=== PATIENT | female | born 1955 | race Caucasian/White ===

== ENCOUNTER → 2016-10-20 | Outpatient (REF) | payer MEDICARE, MEDICAID ==
[~2016-10-20] MED LIST: ALEV220C2 PO; ATOR1TAB19 PO; BISO5TAB5 PO; COUM1TAB17 PO; CYAN1000VL IM; IPRASOL4 IN; IRON325T PO; JANU100T PO; LEVO10VL PO; LIDO1OIN2 TOP; LIDO1PAD TOP; LIPI10TA PO; LISI2.5T3 GT; LISI2.5T3 PO; NICO14DI20 TD; NORT10SO PO; PAXI40TA2 PO; PROA1AER IN; TOPA100T8 PO; TOPI200T4 PO; VITA-5 PO; VOLT1GEL24 TD; ZEBE5TAB PO
[2016-10-20 11:51] LABS: INR 1.84
== END ==
LOC: M SFHCCLAY 08:31
PROVIDERS: ATTEND Nurse Practitioner
DX: Z86.73 Personal history of transient ischemic attack (TIA), and cerebral infarction without residual deficits (principal)

== ENCOUNTER → 2016-11-03 | Outpatient (REF) | payer MEDICARE, MEDICAID ==
[2016-11-03 11:30] LABS: INR 2.32
== END ==
LOC: M SFHCCLAY 08:16
PROVIDERS: ATTEND Nurse Practitioner
DX: Z86.73 Personal history of transient ischemic attack (TIA), and cerebral infarction without residual deficits (principal)

== ENCOUNTER → 2016-11-17 | Outpatient (REF) | payer MEDICARE, MEDICAID ==
[2016-11-17 18:22] LABS: INR 3.08
== END ==
LOC: M SFHCCLAY 10:39
PROVIDERS: ATTEND Nurse Practitioner
DX: Z86.73 Personal history of transient ischemic attack (TIA), and cerebral infarction without residual deficits (principal)

== ENCOUNTER → 2016-11-30 | Outpatient (REF) | payer MEDICARE, MEDICAID ==
[~2016-11-30] MED LIST changes: +IRON65TA PO; +LEVO88TA24 PO; +NICODIS2 TD; +NORT10CA2 PO; +PRED10TA PO; -PROA1AER IN; +PROA1AER INH; +VITA10002 PO; +WARF-21 PO
== END ==
LOC: M SFHCCLAY 16:19
PROVIDERS: ATTEND Family Medicine
DX: R53.81 Other malaise (principal); Z79.01 Long term (current) use of anticoagulants; Z53.8 Procedure and treatment not carried out for other reasons

== ENCOUNTER 2016-12-01 15:13 | Inpatient (IN) | payer MEDICARE, MEDICAID ==
[~2016-12-01] VITALS: Ht 147.3 cm; Wt 70.0 kg
[~2016-12-01 15:13] MED LIST changes: -DOXY10CA PO; -IRON65TA PO; -LEVO88TA24 PO; -NICODIS2 TD; -NORT10CA2 PO; -PRED10TA PO; -VITA10002 PO; -WARF-21 PO
[2016-12-01] MEDS ORDERED: PRED10TA PO (16:07)
[2016-12-01] MEDS ORDERED: WARF-21 PO (16:09)
[2016-12-01] MEDS ORDERED: LEVO88TA24 PO (16:09)
[2016-12-01] MEDS ORDERED: NORT10CA2 PO (16:13)
[2016-12-01] MEDS ORDERED: VITA10002 PO (16:13)
[2016-12-01] MEDS ORDERED: IRON65TA PO (16:13)
[2016-12-01] MEDS ORDERED: NICODIS2 TD (16:18)
[2016-12-01 16:47] LABS: DIFF SLIDE NUMBER 282; MEAN CORPUSCULAR HEMOGLOBIN 33.6 pg (27.0-33.0); MEAN CORPUSCULAR HGB CONC 29.3 g/dl (32.0-36.5); MEAN CORPUSCULAR VOLUME 114.8 fl (80.0-96.0); PLATELET COUNT, AUTOMATED 327 k/mm3 (150-450); RED CELL DISTRIBUTION WIDTH 18.2 % (11.5-14.5); WHITE BLOOD COUNT 9.3 K/mm3 (4.0-10.0)
[2016-12-01 16:49] LABS: ALBUMIN 3.1 GM/DL (3.2-5.2); ALBUMIN/GLOBULIN RATIO 1.03 (1.00-1.93); ALKALINE PHOSPHATASE 67 U/L (45-117); ALT/SGPT 23 U/L (12-78); AMYLASE 48 U/L (25-115); ANION GAP 9 MEQ/L (8-16); AST/SGOT 9 U/L (15-37); BILIRUBIN,DIRECT < 0.1 MG/DL (0.0-0.2); BILIRUBIN,TOTAL 0.2 MG/DL (0.2-1.0); BLOOD UREA NITROGEN 19 MG/DL (7-18); CALCIUM LEVEL 8.2 MG/DL (8.8-10.2); CARBON DIOXIDE LEVEL 26 MEQ/L (21-32); CHLORIDE LEVEL 107 MEQ/L (98-107); CREATININE FOR GFR 1.43 MG/DL (0.55-1.02); GLOMERULAR FILTRATION RATE 39.8 (>45); GLUCOSE, FASTING 222 MG/DL (80-110); POTASSIUM SERUM 4.1 MEQ/L (3.5-5.1); SODIUM LEVEL 142 MEQ/L (136-145); TOTAL PROTEIN 6.1 GM/DL (6.4-8.2)
[2016-12-01 17:22] LABS: ANISOCYTOSIS 2+; HYPOCHROMASIA 3+; TEAR DROP CELLS 1+
[2016-12-01 17:23] LABS: POLYCHROMASIA 1+
[2016-12-01 17:35] LABS: INR 5.05
[2016-12-01] MEDS ORDERED: PHYTONADIONE 5 MG TAB PO ONE (18:45)
[2016-12-01] MEDS ORDERED: ACETAMINOPHEN TAB 650MG DOSE (2X325MG) As Ordered ONE (20:09)
[2016-12-01] MEDS ORDERED: GLUCOSE 4 GM CHEW TABLET PO PRN (22:15)
[2016-12-01] MEDS ORDERED: GLUCAGON FOR INJ 1 MG VIAL (J1610) SC PRN (22:15)
[2016-12-01] MEDS ORDERED: DEXTROSE 50% 50 ML SYRINGE IV PRN (22:15)
--- NOTE | 2016-12-02 02:41 | HPE ---
DATE OF ADMISSION: 12/01/2016 PRIMARY CARE PROVIDER: Dr. Pantera Nevarez REASON FOR ADMISSION: Anemia. HISTORY OF PRESENT ILLNESS: Patient is a 61-year-old female past medical history significant for hypothyroidism, hypertension, COPD, non-insulin dependent diabetes, hyperlipidemia, anemia and depression, an old stroke presented to the emergency room after she was instructed to do so by Dr. Nevarez. The patient stated she had the flu last week, was not feeling well, had an appointment with Dr. Nevarez yesterday who ordered labs for this morning. The patient had an INR drawn as well as CBC which showed the patient severely anemic with an elevated INR level. She was instructed to present to the emergency room. In the ER, the patient was found to have hemoglobin of 5.5 and an INR of 5. Blood was ordered and the hospitalist was called for the admission for [facility]. The patient was only complaining of some fatigue and some weakness and dizziness which she felt initially was due to her flu. Denied any chest pain at this time. Denied any shortness of breath. Denied any syncopal episode or loss of consciousness. Denied any nausea, vomiting or diarrhea. REVIEW OF SYSTEMS: 12-point review of systems was obtained all of which was negative except for those mentioned above. PAST MEDICAL HISTORY: Significant for hypertension, hyperlipidemia, hypothyroidism, non-insulin dependent diabetes, COPD, depression, anemia, and old stroke. ALLERGIES: PENICILLIN, reaction hives, SULFA, reaction hives. HOME MEDICATIONS: Include: - ProAir 2 puffs inhaled every four hours as needed shortness of breath - atorvastatin 10 mg by mouth daily - bisoprolol 5 mg by mouth daily - vitamin B12 1000 mcg by mouth daily - iron 325 mg by mouth at bedtime - levothyroxine 88 mcg by mouth daily - nicotine patch transdermally daily - nortriptyline 20 mg by mouth daily - Paxil 40 mg by mouth daily - prednisone 10 mg by mouth daily - Januvia 100 mg by mouth daily - Topamax 150 mg by mouth twice a day - Coumadin 5 mg by mouth four times a week and 7.5 mg three times a week. The patient stated she has been taking it regularly. SOCIAL HISTORY: The patient states she has been trying to quit. She used to smoke a pack to pack and half per day for 40 years. Denies alcohol use. Lives at home alone. FAMILY HISTORY: Noncontributory. PHYSICAL FINDINGS: Blood pressure 121/50, pulse 87, respiratory rate 18, temperature 98.3, pulse 99% on room air. HEENT: Pupils equal, round and reactive to light and accommodation. NECK: Supple. No jugular venous distention (JVD). LUNGS: Clear to auscultation bilaterally. CARDIAC: Regular rate and rhythm. ABDOMEN: Soft, nontender, nondistended. EXTREMITIES: No clubbing, cyanosis, or edema. LABORATORY FINDINGS: WBC 9.3, hemoglobin 5.5, hematocrit 18.8, platelet count 327. Sodium 143, potassium 4.1, chloride 107, BUN 19, creatinine 1.43, fasting glucose 222, INR 5.05. ASSESSMENT AND PLAN: 1. Anemia may be secondary to acute GI bleed, unknown etiology at this time. The patient has a supratherapeutic INR of 5. We will transfuse the patient three units of packed RBCs, fresh frozen plasma and will give the patient 10 mg by mouth vitamin K. We will recheck INR in the morning. Continue to monitor hemoglobin and hematocrits every six hours. The patient may need a GI workup to rule out any GI bleeding. She states she always has dark stool due to iron. Denies any bright red blood per stool. Denies any vomiting of coffee-ground emesis or any blood in the vomit. 2. Elevated INR. We will administer fresh frozen plasma and vitamin K. We will repeat levels in the morning. We will hold Coumadin at this time. 3. History of hypertension. Continue the patient's home medications. 4. History of non-insulin dependent diabetes. We will start the patient on insulin sliding scale with Accu-Cheks before meals and at bedtime and consistent carbohydrate diet. 5. History of stroke in the past. 6. History of hyperlipidemia. Continue patient's atorvastatin. 7. COPD. Continue the patient's Ventolin. The patient does not require any oxygen at this time; satting 99% on room air. 8. History of depression. Continue the patient's home medication. 9. DVT prophylaxis. SCDs while in bed.
[2016-12-02 05:43] LABS: BASO % 0.1 % (0.0-1.0); EOS % 0.4 % (0.0-3.0); LARGE UNSTAINED CELL # 0.1 K/mm3 (0.0-0.4); LARGE UNSTAINED CELL % 1.9 % (0.0-4.0); LYMPH % 29.9 % (24.0-44.0); MEAN CORPUSCULAR HEMOGLOBIN 33.9 pg (27.0-33.0); MONO # 0.4 K/mm3 (0.0-0.8); MONO % 6.7 % (0.0-5.0); NEUTROPHILS # 3.8 K/mm3 (1.8-7.7); NEUTROPHILS % 60.9 % (36.0-66.0); PLATELET COUNT, AUTOMATED 266 k/mm3 (150-450); RED CELL DISTRIBUTION WIDTH 20.3 % (11.5-14.5); WHITE BLOOD COUNT 6.2 K/mm3 (4.0-10.0)
[2016-12-02 05:45] LABS: INR 2.94
[2016-12-02 05:50] LABS: ALBUMIN 2.7 GM/DL (3.2-5.2); ALBUMIN/GLOBULIN RATIO 0.84 (1.00-1.93); BILIRUBIN,TOTAL 0.4 MG/DL (0.2-1.0); CALCIUM LEVEL 7.6 MG/DL (8.8-10.2); CREATININE FOR GFR 1.19 MG/DL (0.55-1.02); GLOMERULAR FILTRATION RATE 49.3 (>45); MAGNESIUM LEVEL 2.2 MG/DL (1.8-2.4); MEAN CORPUSCULAR VOLUME 102.8 fl (80.0-96.0); POTASSIUM SERUM 3.8 MEQ/L (3.5-5.1); TOTAL PROTEIN 5.9 GM/DL (6.4-8.2)
[2016-12-02] MEDS: LEVOTHYROXINE 0.088 MG TAB (88 MCG) PO SCH (06:00)
[2016-12-02] MEDS: HumaLOG INSULIN (NovoLOG) PER UNIT SC SCH ×4 (07:30→21:00)
[2016-12-02] MEDS: CYANOCOBALAMIN 500 MCG TAB PO SCH (09:00)
[2016-12-02] MEDS: PANTOPRAZOLE 40MG INJ (PROTONIX) (C9113) IV SCH ×2 (09:00→20:31)
[2016-12-02] MEDS: TOPIRAMATE (TopAMAX) 100 MG TAB PO SCH ×2 (09:00→20:31)
[2016-12-02] MEDS: BISOPROLOL FUMARATE 5 MG TAB PO SCH (09:00)
[2016-12-02] MEDS: ATORVASTATIN 10 MG TAB PO SCH (09:00)
[2016-12-02] MEDS: PARoxetine 20 MG TAB PO SCH (09:00)
[2016-12-02] MEDS: predniSONE 10 MG TAB PO SCH (09:00)
--- NOTE | 2016-12-02 09:56 | ECGEPIP ---
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
[2016-12-02] MEDS ORDERED: HumaLOG INSULIN (NovoLOG) PER UNIT As Ordered ONE ×2 (13:08→18:07)
--- NOTE | 2016-12-02 16:32 | IPNPDOC ---
Subjective Date Seen The patient was seen on 12/02/16. Subjective Chief Complaint/HPI The patient is a 61-year-old female admitted with a reason for visit of Anemia. Events since last encounter Pt feels fine. States she was having dizziness with standing, but his has resolved with receiving blood products. Does states she has had sticky, black stools, which are tarry in nature. Notes a few nose bleeds, but indicates that these were not severe and has not had any nausea or vomiting of coffee-ground substance. Has not had a prior colonoscopy. Currently on coumadin for hx of stroke. Also has hx of BED CONTROL SPECIALIST shunt for NPH. General: Denies: Chills, Fatigue, Malaise Eyes: Denies: Vision change ENT: Denies: Head Aches Skin: Denies: Rash Pulmonary: Denies: Cough, Dyspnea Cardiovascular: Denies: Chest Pain, Orthopnea, Palpitations Gastrointestinal: Reports: Melena, Denies: Abdominal Pain, Constipation, Diarrhea, Hematochezia, Nausea, Other Symptoms (denies bleeding hemorrhoids or BRBPR), Vomiting Other systems 10 pt ROS is otherwise negative Objective Physical Examination General Exam: Positive: Alert, Cooperative, No Acute Distress Eye Exam: Positive: PERRLA, Negative: Conjunctiva & lids normal (pale conjunctiva) ENT Exam: Positive: Mucous membr. moist/pink Neck Exam: Positive: Supple, Negative: JVD, thyromegaly Chest Exam: Positive: Clear to auscultation, Rhonchi, Wheezing, Negative: Normal air movement, Rales Heart Exam: Positive: Normal S1, Normal S2, Rate Normal, Regular Rhythm, Negative: Murmurs, Rubs Abdomen Exam: Positive: Normal bowel sounds, Soft, Negative: Hepatospenomegaly, Tenderness Extremity Exam: Negative: Clubbing, Cyanosis Neuro Exam: Positive: Normal Speech Psych Exam: Positive: Mental status NL, Mood NL Assessment /Plan Problems (1) Anemia Status: Acute Response to Treatment: Stable Problem Text: Hgb 8.3 after 2 units PRBC in ER and 1 unit FFP. Hgb 5.5 on admission. No current sx. Hx of chronic anemia, on iron supplement. - GI consulted, Vanessa, planning colonoscopy Fri - cont coumadin reversal (2) GIB (gastrointestinal bleeding) Status: Acute Problem Text: As above. No other sx of severe bleeding to cause such a dramatic drop in Hgb (3) COPD (chronic obstructive pulmonary disease) Status: Chronic Response to Treatment: Stable Problem Text: Cont home meds (4) Hx of completed stroke Status: Acute Problem Text: On coumadin. INR 5.0 on admission, now 2.9. - 5 mg vit K again - will need INR < 1.5 prior to Fri AM (5) Chronic anticoagulation Status: Acute Problem Text: As above (6) HLD (hyperlipidemia) Status: Acute Problem Text: Cont lipitor 10 mg HS (7) Normal pressure hydrocephalus Status: Acute Problem Text: Pt has BED CONTROL SPECIALIST shunt. - cont topomax 150 BID (8) T2DM (type 2 diabetes mellitus) Status: Acute Problem Text: On januvia. Pt was started on SSI while inpt (9) Depression Status: Acute Problem Text: Paxil 40 mg daily. (10) Acquired hypothyroidism Status: Acute Problem Text: levothyroxine 88 mcg Plan/VTE VTE Prophylaxis Ordered?: Yes VTE Exclusion Pharmacological: Hemorrhage Disposition Pending stable H&H and workup of GIB VS, I&O, 24H, Fishbone Laboratory Data 24H LABS Laboratory Tests 2 12/02/16 05:18: Blood Urea Nitrogen 15, Creatinine 1.19H, Sodium Level 146H, Potassium Level 3.8 , Chloride Level 113H, Carbon Dioxide Level 25, Calcium Level 7.6L, Aspartate Amino Transf (AST/SGOT) 11L, Alanine Aminotransferase (ALT/SGPT) 18, Alkaline Phosphatase 57, Total Bilirubin 0.4#, Total Protein 5.9L, Albumin 2.7L, Albumin/ Globulin Ratio 0.84L, Anion Gap 8, White Blood Count 6.2, Red Blood Count 2.44L , Hemoglobin 8.3L, Hematocrit 25.1L, Mean Corpuscular Volume 102.8#H, Mean Corpuscular Hemoglobin 33.9H, Mean Corpuscular Hemoglobin Concent 33.0, Red Cell Distribution Width 20.3H, Platelet Count 266, Neutrophils (%) (Auto) 60.9, Lymphocytes (%) (Auto) 29.9, Monocytes (%) (Auto) 6.7H, Eosinophils (%) (Auto) 0.4, Basophils (%) (Auto) 0.1, Neutrophils # (Auto) 3.8, Lymphocytes # (Auto) 2.0, Monocytes # (Auto) 0.4, Eosinophils # (Auto) 0.0, Basophils # (Auto) 0.0, Glomerular Filtration Rate 49.3, Large Unclassified Cells # 0.1, Large Unclassified Cells % 1.9, Magnesium Level 2.2, Prothromb Time International Ratio 2.94, Prothrombin Time 30.7H 12/02/16 07:51: Bedside Glucose (Misc Panel) 89 12/02/16 12:21: Bedside Glucose (Misc Panel) 143H CBC/BMP Laboratory Tests 12/01/16 23:17 12/02/16 05:18 Calcium Level 7.6 L, Aspartate Amino Transf (AST/SGOT) 11 L, Alanine Aminotransferase (ALT/SGPT) 18, Alkaline Phosphatase 57, Total Bilirubin 0.4 #, Total Protein 5.9 L, Albumin 2.7 L, Red Blood Count 2.44 L, Mean Corpuscular Volume 102.8 #H, Mean Corpuscular Hemoglobin 33.9 H, Mean Corpuscular Hemoglobin Concent 33.0, Red Cell Distribution Width 20.3 H, Neutrophils (%) ( Auto) 60.9, Lymphocytes (%) (Auto) 29.9, Monocytes (%) (Auto) 6.7 H, Eosinophils (%) (Auto) 0.4, Basophils (%) (Auto) 0.1, Neutrophils # (Auto) 3.8, Lymphocytes # (Auto) 2.0, Monocytes # (Auto) 0.4, Eosinophils # (Auto) 0.0, Basophils # (Auto) 0.0 12/02/16 10:24 12/02/16 15:58 PARVEZ CARLOS MD Dec 02, 2016 16:32
[2016-12-02] MEDS ORDERED: ACETAMINOPHEN TAB 650MG DOSE (2X325MG) As Ordered ONE (16:45)
--- NOTE | 2016-12-02 18:19 | EDDOCDS ---
Physician Documentation [facility] Name: Bernarda Murdock Age: 61 yrs Sex: Female : 1955 Arrival Date: 12/01/2016 Time: 15:13 Bed Admit Hold Private MD: Pantera Nevarez Disposition: 12/01/16 16:57 Hospitalization ordered by Astrid Jaimes for Inpatient Admission. Preliminary diagnosis is Gastritis, unspecified, with bleeding. - Bed requested for [address] [place] (Formerly 3 [facility]). - Status is Inpatient Admission. [facility] - Condition is Stable. - Problem is an ongoing problem. - Symptoms are unchanged. Historical: - Allergies: PENICILLINS (Hives); SULFA (SULFONAMIDES) (Hives); - Home Meds: 1. albuterol sulfate 90 mcg/actuation Inhl HFAA 2 puffs every 4 hours as needed (Last dose: 12/01/2016 12:00) 2. atorvastatin 10 mg oral tab 1 tab once daily (Last dose: 12/01/2016 08:00) 3. bisoprolol fumarate 5 mg oral tab 1 tab once daily (Last dose: 12/01/2016 08:00) 4. Vitamin B-12 1,000 mcg Oral tab 1,000 mcg daily (Last dose: 12/01/2016 08:00) 5. Iron CR Oral 325 mg daily (Last dose: 11/30/2016 21:00) 6. Levoxyl 75 mcg Oral tab 1 tab once daily (Last dose: 12/01/2016 08:00) 7. nortriptyline 10 mg Oral cap 2 caps nightly (Last dose: 11/30/2016 21:00) 8. paroxetine HCl 40 mg Oral tab 1 tab once daily (Last dose: 12/01/2016 08:00) 9. prednisone 10 mg Oral tab 1 tab once daily tapering dose, has one remaining dose (Last dose: 12/01/2016 08:00) 10. Januvia 100 mg oral tab 1 tab once daily (Last dose: 12/01/2016 08:00) 11. Topamax 150 mg Oral twice a day (Last dose: 12/01/2016 08:00) 12. Nicoderm CQ 14 mg/24 hr transdermal pt24 1 patch once daily (Last dose: 12/01/2016 16:39) 13. Coumadin 5 mg Oral tab 1 tab 4 times weekly on Sun/Tues/Thurs/Sat (Last dose: 11/29/2016) 14. Coumadin 7.5 mg Oral tab 1 tab 3 times weekly on // (Last dose: 11/30/2016 17:00) - PMHx: Hypercholesterolemia; Hypothyroidism; Diabetes - NIDDM: controlled; COPD; Hypertension; Anemia; Depression; CVA; - PSHx: brain surgery; ; Carpal Tunnel Repair- Right; Bunion Surgery; Thyroidectomy; Remote Contolled Brain Shunt; - Social history: Smoking status: Patient states former smoker of tobacco. No barriers to communication noted, The patient speaks fluent Polish. - Family history: Not pertinent. - : The pt / caregiver states he / she is not on anticoagulants. Home medication list is obtained from family members. - Exposure Risk Screening:: None identified. Vital Signs: 12/01 15:16 BP 121 / 50; Pulse 87; Resp 18 S; Temp 98.3(O); Pulse Ox 99% on R/A; Weight 69.85 kg / gr2 153.99 lbs (R); Height 4 ft. 10 in. (147.32 cm) (R); Pain 5/10; 15:45 BP 109 / 57 (auto/); jc4 15:49 Pulse 76 MON; Pulse Ox 97% ; jc4 16:14 Pulse 76 MON; Pulse Ox 98% ; jc4 16:15 BP 122 / 58 (auto/); jc4 16:45 BP 107 / 53 (auto/); jc4 16:46 Pulse 74 MON; Pulse Ox 97% ; jc4 17:15 BP 115 / 58 (auto/); jc4 17:15 Pulse 74 MON; Pulse Ox 96% ; jc4 17:45 BP 118 / 56 (auto/); jc4 17:48 Pulse 80 MON; Pulse Ox 95% ; jc4 18:12 Temp 99.8(TE); jc4 20:20 BP 113 / 56; Pulse 72; Resp 20; Temp 96.7(TE); Pulse Ox 97% on R/A; Pain 0/10; nn1 21:20 BP 113 / 59; Pulse 67; Resp 20; Temp 98.3(TE); Pulse Ox 98% on R/A; Pain 0/10; nn1 21:42 BP 117 / 55; Pulse 74; Resp 18; Temp 97.4(TE); Pulse Ox 97% on R/A; Pain 0/10; nn1 12/02 01:46 BP 111 / 54 (auto/); kas2 01:46 Pulse 62 MON; Pulse Ox 96% ; kas2 02:01 BP 106 / 52 (auto/); kas2 02:01 Pulse 62 MON; Pulse Ox 96% ; kas2 02:16 BP 102 / 50 (auto/); kas2 02:16 Pulse 62 MON; Pulse Ox 95% ; kas2 02:19 Resp 18; Temp 97.6(O); Pulse Ox 100% on R/A; kas2 02:31 BP 123 / 58 (auto/); kas2 02:31 Pulse 64 MON; Pulse Ox 92% ; kas2 02:46 BP 109 / 55 (auto/); kas2 02:46 Pulse 60 MON; Pulse Ox 94% ; kas2 03:01 BP 114 / 53 (auto/); kas2 03:01 Pulse 60 MON; Pulse Ox 95% ; kas2 03:16 BP 103 / 52 (auto/); kas2 03:16 Pulse 58 MON; Pulse Ox 94% ; kas2 03:31 BP 114 / 54 (auto/); kas2 03:31 Pulse 58 MON; Pulse Ox 95% ; kas2 03:46 BP 100 / 48 (auto/); kas2 03:46 Pulse 56 MON; Pulse Ox 95% ; kas2 03:46 Resp 18; Temp 98.2(O); Pain 0/10; kas2 04:01 BP 106 / 53 (auto/); kas2 04:01 Pulse 58 MON; Pulse Ox 96% ; kas2 04:16 BP 105 / 51 (auto/); kas2 04:16 Pulse 56 MON; Pulse Ox 95% ; kas2 04:31 BP 96 / 47 (auto/); kas2 04:31 Pulse 56 MON; Pulse Ox 95% ; kas2 04:46 BP 101 / 48 (auto/); kas2 04:46 Pulse 56 MON; Pulse Ox 96% ; kas2 05:01 BP 91 / 45 (auto/); kas2 05:01 Pulse 56 MON; Pulse Ox 96% ; kas2 05:16 BP 115 / 55 (auto/); kas2 05:16 Pulse 58 MON; Pulse Ox 94% ; kas2 05:33 Resp 18; Temp 97.9(O); Pain 0/10; kas2 06:40 BP 118 / 73 (auto/); kas2 06:40 Pulse 58 MON; Pulse Ox 95% ; kas2 06:42 Resp 18; Temp 98.6(O); Pulse Ox 96% ; Pain 0/10; kas2 07:09 Pulse 58 MON; Pulse Ox 96% ; hs1 07:10 BP 143 / 65 (auto/); hs1 07:24 Pulse 72 MON; Pulse Ox 95% ; hs1 07:25 BP 107 / 53 (auto/); hs1 07:39 Pulse 56 MON; Pulse Ox 95% ; hs1 07:40 BP 104 / 51 (auto/); hs1 07:54 Pulse 60 MON; Pulse Ox 97% ; hs1 07:55 BP 111 / 56 (auto/); hs1 08:09 Pulse 64 MON; Pulse Ox 98% ; hs1 08:10 BP 126 / 75 (auto/); hs1 08:24 Pulse 64 MON; Pulse Ox 97% ; hs1 08:25 BP 118 / 56 (auto/); hs1 08:39 Pulse 66 MON; Pulse Ox 93% ; hs1 08:40 BP 110 / 56 (auto/); hs1 09:09 Pulse 68 MON; Pulse Ox 98% ; hs1 09:10 BP 122 / 58 (auto/); hs1 09:24 Pulse 64 MON; Pulse Ox 97% ; hs1 09:25 BP 103 / 56 (auto/); hs1 09:39 Pulse 66 MON; Pulse Ox 97% ; hs1 09:40 BP 101 / 55 (auto/); hs1 09:54 Pulse 64 MON; Pulse Ox 96% ; hs1 09:55 BP 107 / 54 (auto/); hs1 10:09 Pulse 66 MON; Pulse Ox 97% ; hs1 10:10 BP 114 / 55 (auto/); hs1 10:25 BP 116 / 59 (auto/); hs1 10:25 Pulse 66 MON; Pulse Ox 98% ; hs1 10:39 Pulse 62 MON; Pulse Ox 97% ; hs1 10:40 BP 119 / 59 (auto/); hs1 10:54 Pulse 64 MON; Pulse Ox 95% ; hs1 10:55 BP 112 / 58 (auto/); hs1 11:09 Pulse 64 MON; Pulse Ox 96% ; hs1 11:10 BP 127 / 60 (auto/); hs1 11:24 Pulse 62 MON; Pulse Ox 96% ; hs1 11:25 BP 115 / 56 (auto/); hs1 11:39 Pulse 66 MON; Pulse Ox 97% ; hs1 11:40 BP 115 / 58 (auto/); hs1 11:54 Pulse 64 MON; Pulse Ox 96% ; hs1 11:55 BP 120 / 82 (auto/); hs1 12:24 Pulse 66 MON; Pulse Ox 98% ; hs1 12:25 BP 124 / 61 (auto/); hs1 12:39 Pulse 64 MON; Pulse Ox 98% ; hs1 12:40 BP 118 / 55 (auto/); hs1 12:54 Pulse 62 MON; Pulse Ox 93% ; hs1 12:55 BP 102 / 50 (auto/); hs1 13:09 Pulse 66 MON; Pulse Ox 93% ; hs1 13:10 BP 110 / 55 (auto/); hs1 13:25 BP 122 / 58 (auto/); hs1 13:25 Pulse 64 MON; Pulse Ox 97% ; hs1 13:39 Pulse 64 MON; Pulse Ox 96% ; hs1 13:40 BP 122 / 61 (auto/); hs1 13:54 Pulse 62 MON; Pulse Ox 94% ; hs1 13:55 BP 119 / 60 (auto/); hs1 14:24 Pulse 62 MON; Pulse Ox 95% ; hs1 14:25 BP 129 / 58 (auto/); hs1 14:39 Pulse 64 MON; Pulse Ox 98% ; hs1 14:40 BP 120 / 67 (auto/); hs1 14:54 Pulse 64 MON; Pulse Ox 97% ; hs1 14:55 BP 118 / 65 (auto/); hs1 16:55 BP 110 / 65; Pulse 85; Resp 20; Temp 98.8(O); Pulse Ox 98% on R/A; 4 12/01 15:16 Body Mass Index 32.19 (69.85 kg, 147.32 cm) gr2 MDM: 12/01 15:47 Undress patient appropriately for examination ordered. sd1 15:47 IV Saline Lock ordered. sd1 15:48 Amylase Ordered. EDMS 15:48 Basic Metabolic Profile Ordered. EDMS 15:48 CBC with Diff Ordered. EDMS 15:48 Lipase Ordered. EDMS 15:48 Liver Profile Ordered. EDMS 15:48 Prothrombin Time Profile\E\INR Ordered. EDMS 15:49 BED REQUEST+ADM ordered. EDMS 15:49 ECG WITH READING ER PHYS+CARDIAG ordered. EDMS 15:59 Type and Cross, Packed Cells Ordered. EDMS 16:22 TYPE & SCREEN Ordered. EDMS 16:52 DIFFERENTIAL NO CHARGE Ordered. EDMS 16:53 Basic Metabolic Profile Reviewed. ke 16:53 CBC with Diff Reviewed. ke 16:53 Liver Profile Reviewed. ke 16:53 Amylase Reviewed. ke 16:53 Lipase Reviewed. ke 16:58 Transfuse PRBC's 2 units, ensure PRBCs ordered in lab ordered. ke 18:40 Admission / Observation Status ordered. EDMS 18:40 CONSISTENT CARBOHYDRATES ordered. EDMS 18:43 PACKED CELLS Ordered. EDMS 18:43 FRESH FROZEN PLASMA PHERESIS Ordered. EDMS 19:46 Acetaminophen Tablet 650 mg PO once ordered. nn1 19:47 FROZEN PLASMA 24 Ordered. EDMS 19:51 Written Provider Order was scanned into [employer] and attached to record. kb5 20:46 Transfuse FFP 1 unit, ensure FFP ordered in lab ordered. nn1 22:13 HEMOGLOBIN & HEMATOCRIT Ordered. EDMS 22:13 PROTHROMBIN TIME PROFILE\E\INR Ordered. EDMS 22:13 CBC WITH DIFFERENTIAL Ordered. EDMS 22:14 COMPLETE COMPHRENSIVE METABOLI Ordered. EDMS 22:14 MAGNESIUM LEVEL Ordered. EDMS 22:14 HEMOGLOBIN & HEMATOCRIT Ordered. EDMS 22:14 HEMOGLOBIN & HEMATOCRIT Ordered. EDMS 22:14 HEMOGLOBIN & HEMATOCRIT Ordered. EDMS 22:14 OCCULT BLOOD STOOL SPECIMEN Ordered. EDMS 23:54 Financial registration complete. hs2 0222 01:03 [facility] [place] Payment Agreement was scanned into [employer] and attached to record. hs2 08:01 Fingerstick Blood Sugar Ordered. EDMS 12:30 Fingerstick Blood Sugar Ordered. EDMS 14:26 Admission / Observation Status ordered. EDMS 16:04 Inpatient Paper MAR was scanned into [employer] and attached to record. lbd 17:04 Acetaminophen Tablet 650 mg PO once ordered. jc4 17:16 PACKED CELLS Ordered. EDMS 18:10 Fingerstick Blood Sugar Ordered. EDMS 18:12 HumaLog - Insulin Lispro (0.1 units/kg) 4 units Sub-Q once; administer within 15 jc4 minutes before a meal or no later than immediately following the meal ordered. Point of Care Testing: Blood Glucose: 18:01 Blood Glucose: 179 mg/dL; jc4 Ranges: Administered Medications: 12/01 20:26 Drug: Acetaminophen 650 mg [acetaminophen 325 mg tablet (2 tabs)] Route: PO; nn1 12/02 17:04 Drug: Acetaminophen 650 mg [acetaminophen 325 mg tablet (2 tabs)] Route: PO; jc4 18:12 Drug: HumaLog - Insulin Lispro (0.1 units/kg) 4 units [insulin lispro 100 unit/mL jc4 subcutaneous solution (0.04 mL)] {Co-Signature: hs1 (Patsy Fernández RN).} Route: Sub-Q; Site: left upper arm; Signatures: Dispatcher [employer] Rina Blake MD MD sd1 Pilar Alves, RN RN Mariah Soliman, Combination Building Inspector Unit lbd Lillie Pearce RN RN kpAman Patricia, ANIMAL TREATMENT INVESTIGATOR ANIMAL TREATMENT INVESTIGATOR [place] Calix, GARCIA SOFT SUGAR SUPERVISOR kb5 Francisca Best RN RN jc4 Sisi Hernández RN RN sls2 Golden Wolfe RN RN nn1 Cassidy Otero, Reg Reg hs2 Patsy Fernández RN hs1 The chart was reviewed and I authenticate all verbal orders and agree with the evaluation and treatment provided.Corrections: (The following items were deleted from the chart) 12/01 16:35 15:49 TYPE & SCREEN+BBK ordered. EDMS EDMS 18:51 18:43 TYPE & SCREEN ordered. EDMS EDMS 22:10 15:49 NOTHING BY MOUTH+DIET ordered. EDMS EDMS 22:45 22:14 HEMOGLOBIN & HEMATOCRIT ordered. EDMS EDMS 12/02 17:16 17:11 PACKED CELLS ordered. EDMS EDMS 17:16 17:11 TYPE & SCREEN ordered. EDMS EDMS Attachments: 12/01 19:51 Written Provider Order kb5 12/02 01:03 [facility] Payment Agreement hs2 MTDD
--- NOTE | 2016-12-02 18:20 | EDDOCDS ---
Nurse's Notes [facility] Name: David Andrews Age: 61 yrs Sex: Female : 1955 Arrival Date: 12/01/2016 Time: 15:13 Bed Admit Hold Private MD: Pantera Nevarez Diagnosis: Gastritis, unspecified, with bleeding Presentation: 12/01 15:22 Presenting complaint: Patient states: she was called by Dr. Nevarez and told to come kcs here for blood transfusions. Adult Sepsis Screening: The patient does not have new or worsening altered mentation. Patient's respiratory rate is less than 22. Systolic blood pressure is greater than 100. Patient has a qSOFA score of 0- Negative Sepsis Screen. Suicide/Homicide risk assessment- the patient denies having any suicidal and/or homicidal ideations and does not present with any other emotional, behavioral or mental health complaints. Status: Patient is not a service coordinator or dependent. Transition of care: patient was not received from another setting of care. 15:22 Acuity: MARCELA Level 3 kcs 15:22 Method Of Arrival: Walkin/Carried/Asstd kcs Triage Assessment: 15:24 General: Appears comfortable, well developed, well nourished, well groomed, Behavior is kcs cooperative, pleasant. Pain: Location: headache Pain currently is 8 out of 10 on a pain scale. Pt Declines HIV testing. Neurological: Level of Consciousness is awake, alert. Respiratory: Airway is patent Respiratory effort is even, unlabored, Respiratory pattern is regular, symmetrical. Derm: Skin Skin is dry, Skin is pale. Historical: - Allergies: PENICILLINS (Hives); SULFA (SULFONAMIDES) (Hives); - Home Meds: 1. albuterol sulfate 90 mcg/actuation Inhl HFAA 2 puffs every 4 hours as needed (Last dose: 12/01/2016 12:00) 2. atorvastatin 10 mg oral tab 1 tab once daily (Last dose: 12/01/2016 08:00) 3. bisoprolol fumarate 5 mg oral tab 1 tab once daily (Last dose: 12/01/2016 08:00) 4. Vitamin B-12 1,000 mcg Oral tab 1,000 mcg daily (Last dose: 12/01/2016 08:00) 5. Iron CR Oral 325 mg daily (Last dose: 11/30/2016 21:00) 6. Levoxyl 75 mcg Oral tab 1 tab once daily (Last dose: 12/01/2016 08:00) 7. nortriptyline 10 mg Oral cap 2 caps nightly (Last dose: 11/30/2016 21:00) 8. paroxetine HCl 40 mg Oral tab 1 tab once daily (Last dose: 12/01/2016 08:00) 9. prednisone 10 mg Oral tab 1 tab once daily tapering dose, has one remaining dose (Last dose: 12/01/2016 08:00) 10. Januvia 100 mg oral tab 1 tab once daily (Last dose: 12/01/2016 08:00) 11. Topamax 150 mg Oral twice a day (Last dose: 12/01/2016 08:00) 12. Nicoderm CQ 14 mg/24 hr transdermal pt24 1 patch once daily (Last dose: 12/01/2016 16:39) 13. Coumadin 5 mg Oral tab 1 tab 4 times weekly on Sun/Tues/Thurs/Sat (Last dose: 11/29/2016) 14. Coumadin 7.5 mg Oral tab 1 tab 3 times weekly on M/W/F (Last dose: 11/30/2016 17:00) - PMHx: Hypercholesterolemia; Hypothyroidism; Diabetes - NIDDM: controlled; COPD; Hypertension; Anemia; Depression; CVA; - PSHx: brain surgery; ; Carpal Tunnel Repair- Right; Bunion Surgery; Thyroidectomy; Remote Contolled Brain Shunt; - Social history: Smoking status: Patient states former smoker of tobacco. No barriers to communication noted, The patient speaks fluent Irish. - Family history: Not pertinent. - : The pt / caregiver states he / she is not on anticoagulants. Home medication list is obtained from family members. - Exposure Risk Screening:: None identified. Screenin:49 Screening information is obtained from the patient. Fall risk: No risks identified. jc4 Assistance ADL's: requires no assistance with activities of daily living. Abuse/DV Screen: The patient / caregiver reports he/she is: not in a situation that causes fear, pain or injury. Nutritional screening: On no prescribed diet. Advance Directives: Currently, there is no health care proxy. There is no active DNR order. There is no living will. There is no Power of Refrigeration Mechanic. home support is adequate. Assessment: 16:54 General: Appears in no apparent distress, Behavior is cooperative, pleasant. Pain: jc4 Denies pain. Neurological: Level of Consciousness is awake, alert, Oriented to person, place, time, Reports dizziness, weakness. Cardiovascular: Heart tones S1 S2 present Rhythm is sinus rhythm No ectopy. Respiratory: Airway is patent Respiratory effort is even, unlabored, Respiratory pattern is regular, symmetrical, Breath sounds are diminished bilaterally. scattered rhonchi noted. GI: Abdomen is distended, Bowel sounds present X 4 quads. Abd is non tender X 4 quads Reports black tarry stools. Derm: Skin is dry, Skin is pale, Skin temperature is warm. 17:38 General: Pt resting on stretcher with eyes closed. Respirations easy and full. No jc4 distress at this time. Family member at bedside. Call miles in reach. 18:12 General: Resting on stretcher. No distress noted at this time. jc4 19:20 General: patient reporting headache at this time. consulting hospitalist for further nn1 orders. first unit of blood infusing. . Pain: Denies pain. Neurological: No deficits noted. 20:27 General: first unit of blood completed at 1942. Patient showed no signs or symptoms of nn1 adverse reaction. Patient medicated for headache. Unit of FFP infusing at this time. patient reports weakness has improved. . Respiratory: Airway is patent Respiratory effort is even, unlabored, Respiratory pattern is regular, symmetrical. Derm: Skin is pale. 20:46 General: Patient tolerating FFP well, will continue to monitor. . nn1 21:28 General: contact #: [phone]. General: Patient finished infusing of FFP, no signs nn1 or symptoms of reaction noted. Patient ambulated to restroom with family, gait is steady. . 21:45 General: patient receiving second unit of RBCs. will continue to monitor. No adverse nn1 reactions at this time. Pain: Denies pain. Neurological: Level of Consciousness is awake, alert, Oriented to person, place, time. Respiratory: Airway is patent Respiratory effort is even, unlabored, Respiratory pattern is regular, symmetrical. Derm: Skin is pink, warm & dry. 23:14 General: Second unit of RBC finished, patient has been asleep throughout infusion. nn1 Patient exhibits no signs/symptoms of adverse reaction. . Respiratory: Airway is patent Respiratory effort is even, unlabored, Respiratory pattern is regular, symmetrical. Derm: Skin is pink, warm & dry. 12/02 00:26 General: Appears in no apparent distress, to be sleeping. Behavior is quiet. nn1 Respiratory: Airway is patent Respiratory effort is even, unlabored, Respiratory pattern is regular, symmetrical. Derm: Skin is pink, warm & dry. 01:02 General: Verbal report given by Shefali Martinez RN. Assumed care of patient at this time.. kas2 01:44 General: Appears in no apparent distress, comfortable, to be sleeping. Behavior is kas2 appropriate for age, cooperative. Pain: Denies pain. Neurological: Level of Consciousness is awake, alert, Oriented to person, place, time. Cardiovascular: Capillary refill < 3 seconds Heart tones S1 S2 present Rhythm is sinus rhythm No ectopy. Respiratory: Airway is patent Respiratory effort is even, unlabored, Respiratory pattern is regular, symmetrical, Breath sounds are diminished bilaterally. Derm: Skin is intact, Skin is dry, Skin is pink, warm & dry. Skin temperature is warm. 02:44 General: Appears in no apparent distress, to be sleeping. Behavior is appropriate for kas2 age, cooperative. Pain: Denies pain. Neurological: Level of Consciousness is awake, alert, Oriented to person, place, time. Cardiovascular: Rhythm is sinus rhythm No ectopy. Respiratory: Airway is patent Respiratory effort is even, unlabored, Respiratory pattern is regular, symmetrical. Derm: Skin is intact, Skin is dry, Skin is pink, warm & dry. Skin temperature is warm. 03:44 General: Patient sleeping at this time. Appears comfortable. No apparent distress kas2 noted. Respiratory effort even and unlabored. Call miles within reach. Will continue to monitor.. 05:07 General: Appears in no apparent distress, comfortable, Behavior is appropriate for age, kas2 cooperative. Pain: Denies pain. Neurological: Level of Consciousness is awake, alert, Oriented to person, place, time. Cardiovascular: Rhythm is sinus rhythm No ectopy. Respiratory: Airway is patent Respiratory effort is even, unlabored, Respiratory pattern is regular, symmetrical. Derm: Skin is intact, Skin is dry, Skin is pink, warm & dry. Skin temperature is warm. 05:32 General: Patient up to bathroom to void with assist of RN. Resettled in bed. Meds given kas2 as per floor MAR.. 06:36 General: Appears in no apparent distress, comfortable, Behavior is appropriate for age, kas2 cooperative. Pain: Denies pain. Neurological: Level of Consciousness is awake, alert, Oriented to person, place, time. Cardiovascular: Rhythm is sinus rhythm No ectopy. Respiratory: Airway is patent Respiratory effort is even, unlabored, Respiratory pattern is regular, symmetrical. Derm: Skin is intact, Skin is dry, Skin is pink, warm & dry. Skin temperature is warm. 07:38 General: Appears in no apparent distress, comfortable, Behavior is appropriate for age, hs1 cooperative, Patient reports being tired. Pt sat up for breakfast and glucose taken prior to eating. Patient denies headache or pain. . Cardiovascular: Rhythm is sinus rhythm No ectopy. Derm: Skin is pink, warm & dry. normal. 08:19 General: medications administered per orders. Patient tolerated breakfast well. Patient hs1 denies pain and is resting comfortably in stretcher. No other needs voiced at this time. . 09:12 General: Appears in no apparent distress, comfortable, Behavior is appropriate for age, hs1 cooperative. Respiratory: Airway is patent Respiratory effort is even, unlabored, Respiratory pattern is regular, symmetrical. Respiratory: No deficits noted. Derm: Skin is pink, warm & dry. normal. 10:35 General: Appears in no apparent distress, comfortable, Behavior is appropriate for age, hs1 cooperative. Pain: Denies pain. Respiratory: No deficits noted. Airway is patent Respiratory effort is even, unlabored, Respiratory pattern is regular, symmetrical. Derm: Skin is pink, warm & dry. normal. 11:48 Reassessment: Patient appears in no apparent distress at this time. Patient states hs1 feeling better. Patient states symptoms have improved. patient resting with family around. . Derm: Skin is pink, warm & dry. normal. 12:48 General: Appears in no apparent distress, comfortable, Behavior is appropriate for age, hs1 cooperative. Pain: Denies pain. Cardiovascular: Rhythm is sinus rhythm No ectopy. Respiratory: No deficits noted. Derm: Skin is pink, warm & dry. normal. 13:13 General: Appears in no apparent distress, comfortable, Behavior is appropriate for age, hs1 cooperative. Pain: Denies pain. Cardiovascular: Rhythm is sinus rhythm No ectopy. Respiratory: No deficits noted. Airway is patent Respiratory effort is even, unlabored, Respiratory pattern is regular, symmetrical. 14:32 General: Appears in no apparent distress, comfortable, Behavior is appropriate for age, hs1 cooperative, New family members at bedside. Aware of second call out to Dr Sarkar for assessment. Patient continuing to wait for further plan of care. . 15:52 General: Pt resting on stretcher with eyes closed. Respirations easy and full. Cardiac jc4 monitor - sinus rhythm without ectopy. Family members at bedside. 16:55 General: Appears in no apparent distress. Neurological: Level of Consciousness is jc4 awake, alert, Oriented to person, place, time, Reports headache. Cardiovascular: Rhythm is sinus rhythm No ectopy. Respiratory: Airway is patent Respiratory effort is even, unlabored, Respiratory pattern is regular, symmetrical. Derm: Skin is pink, warm & dry. 18:13 General: Appears in no apparent distress, comfortable, Behavior is cooperative. jc4 Neurological: Level of Consciousness is awake, alert, Oriented to person, place, time. Respiratory: Airway is patent Respiratory effort is even, unlabored, Respiratory pattern is regular, symmetrical. Derm: Skin is pink, warm & dry. Vital Signs: 12/01 15:16 BP 121 / 50; Pulse 87; Resp 18 S; Temp 98.3(O); Pulse Ox 99% on R/A; Weight 69.85 kg gr2 (R); Height 4 ft. 10 in. (147.32 cm) (R); Pain 5/10; 15:45 BP 109 / 57 (auto/); jc4 15:49 Pulse 76 MON; Pulse Ox 97% ; jc4 16:14 Pulse 76 MON; Pulse Ox 98% ; jc4 16:15 BP 122 / 58 (auto/); jc4 16:45 BP 107 / 53 (auto/); jc4 16:46 Pulse 74 MON; Pulse Ox 97% ; jc4 17:15 BP 115 / 58 (auto/); jc4 17:15 Pulse 74 MON; Pulse Ox 96% ; jc4 17:45 BP 118 / 56 (auto/); jc4 17:48 Pulse 80 MON; Pulse Ox 95% ; jc4 18:12 Temp 99.8(TE); jc4 20:20 BP 113 / 56; Pulse 72; Resp 20; Temp 96.7(TE); Pulse Ox 97% on R/A; Pain 0/10; nn1 21:20 BP 113 / 59; Pulse 67; Resp 20; Temp 98.3(TE); Pulse Ox 98% on R/A; Pain 0/10; nn1 21:42 BP 117 / 55; Pulse 74; Resp 18; Temp 97.4(TE); Pulse Ox 97% on R/A; Pain 0/10; nn1 12/02 01:46 BP 111 / 54 (auto/); kas2 01:46 Pulse 62 MON; Pulse Ox 96% ; kas2 02:01 BP 106 / 52 (auto/); kas2 02:01 Pulse 62 MON; Pulse Ox 96% ; kas2 02:16 BP 102 / 50 (auto/); kas2 02:16 Pulse 62 MON; Pulse Ox 95% ; kas2 02:19 Resp 18; Temp 97.6(O); Pulse Ox 100% on R/A; kas2 02:31 BP 123 / 58 (auto/); kas2 02:31 Pulse 64 MON; Pulse Ox 92% ; kas2 02:46 BP 109 / 55 (auto/); kas2 02:46 Pulse 60 MON; Pulse Ox 94% ; kas2 03:01 BP 114 / 53 (auto/); kas2 03:01 Pulse 60 MON; Pulse Ox 95% ; kas2 03:16 BP 103 / 52 (auto/); kas2 03:16 Pulse 58 MON; Pulse Ox 94% ; kas2 03:31 BP 114 / 54 (auto/); kas2 03:31 Pulse 58 MON; Pulse Ox 95% ; kas2 03:46 BP 100 / 48 (auto/); kas2 03:46 Pulse 56 MON; Pulse Ox 95% ; kas2 03:46 Resp 18; Temp 98.2(O); Pain 0/10; kas2 04:01 BP 106 / 53 (auto/); kas2 04:01 Pulse 58 MON; Pulse Ox 96% ; kas2 04:16 BP 105 / 51 (auto/); kas2 04:16 Pulse 56 MON; Pulse Ox 95% ; kas2 04:31 BP 96 / 47 (auto/); kas2 04:31 Pulse 56 MON; Pulse Ox 95% ; kas2 04:46 BP 101 / 48 (auto/); kas2 04:46 Pulse 56 MON; Pulse Ox 96% ; kas2 05:01 BP 91 / 45 (auto/); kas2 05:01 Pulse 56 MON; Pulse Ox 96% ; kas2 05:16 BP 115 / 55 (auto/); kas2 05:16 Pulse 58 MON; Pulse Ox 94% ; kas2 05:33 Resp 18; Temp 97.9(O); Pain 0/10; kas2 06:40 BP 118 / 73 (auto/); kas2 06:40 Pulse 58 MON; Pulse Ox 95% ; kas2 06:42 Resp 18; Temp 98.6(O); Pulse Ox 96% ; Pain 0/10; kas2 07:09 Pulse 58 MON; Pulse Ox 96% ; hs1 07:10 BP 143 / 65 (auto/); hs1 07:24 Pulse 72 MON; Pulse Ox 95% ; hs1 07:25 BP 107 / 53 (auto/); hs1 07:39 Pulse 56 MON; Pulse Ox 95% ; hs1 07:40 BP 104 / 51 (auto/); hs1 07:54 Pulse 60 MON; Pulse Ox 97% ; hs1 07:55 BP 111 / 56 (auto/); hs1 08:09 Pulse 64 MON; Pulse Ox 98% ; hs1 08:10 BP 126 / 75 (auto/); hs1 08:24 Pulse 64 MON; Pulse Ox 97% ; hs1 08:25 BP 118 / 56 (auto/); hs1 08:39 Pulse 66 MON; Pulse Ox 93% ; hs1 08:40 BP 110 / 56 (auto/); hs1 09:09 Pulse 68 MON; Pulse Ox 98% ; hs1 09:10 BP 122 / 58 (auto/); hs1 09:24 Pulse 64 MON; Pulse Ox 97% ; hs1 09:25 BP 103 / 56 (auto/); hs1 09:39 Pulse 66 MON; Pulse Ox 97% ; hs1 09:40 BP 101 / 55 (auto/); hs1 09:54 Pulse 64 MON; Pulse Ox 96% ; hs1 09:55 BP 107 / 54 (auto/); hs1 10:09 Pulse 66 MON; Pulse Ox 97% ; hs1 10:10 BP 114 / 55 (auto/); hs1 10:25 BP 116 / 59 (auto/); hs1 10:25 Pulse 66 MON; Pulse Ox 98% ; hs1 10:39 Pulse 62 MON; Pulse Ox 97% ; hs1 10:40 BP 119 / 59 (auto/); hs1 10:54 Pulse 64 MON; Pulse Ox 95% ; hs1 10:55 BP 112 / 58 (auto/); hs1 11:09 Pulse 64 MON; Pulse Ox 96% ; hs1 11:10 BP 127 / 60 (auto/); hs1 11:24 Pulse 62 MON; Pulse Ox 96% ; hs1 11:25 BP 115 / 56 (auto/); hs1 11:39 Pulse 66 MON; Pulse Ox 97% ; hs1 11:40 BP 115 / 58 (auto/); hs1 11:54 Pulse 64 MON; Pulse Ox 96% ; hs1 11:55 BP 120 / 82 (auto/); hs1 12:24 Pulse 66 MON; Pulse Ox 98% ; hs1 12:25 BP 124 / 61 (auto/); hs1 12:39 Pulse 64 MON; Pulse Ox 98% ; hs1 12:40 BP 118 / 55 (auto/); hs1 12:54 Pulse 62 MON; Pulse Ox 93% ; hs1 12:55 BP 102 / 50 (auto/); hs1 13:09 Pulse 66 MON; Pulse Ox 93% ; hs1 13:10 BP 110 / 55 (auto/); hs1 13:25 BP 122 / 58 (auto/); hs1 13:25 Pulse 64 MON; Pulse Ox 97% ; hs1 13:39 Pulse 64 MON; Pulse Ox 96% ; hs1 13:40 BP 122 / 61 (auto/); hs1 13:54 Pulse 62 MON; Pulse Ox 94% ; hs1 13:55 BP 119 / 60 (auto/); hs1 14:24 Pulse 62 MON; Pulse Ox 95% ; hs1 14:25 BP 129 / 58 (auto/); hs1 14:39 Pulse 64 MON; Pulse Ox 98% ; hs1 14:40 BP 120 / 67 (auto/); hs1 14:54 Pulse 64 MON; Pulse Ox 97% ; hs1 14:55 BP 118 / 65 (auto/); hs1 16:55 BP 110 / 65; Pulse 85; Resp 20; Temp 98.8(O); Pulse Ox 98% on R/A; 4 12/01 15:16 Body Mass Index 32.19 (69.85 kg, 147.32 cm) gr2 Vitals: 12/01 15:16 Log In Time: December 01, 2016 at 15:16. gr2 ED Course: 15:15 Patient visited by Aron Oliver. gr2 15:15 Pantera Nevarez MD is Private Physician. gr2 15:15 Patient moved to Waiting gr2 15:17 Patient visited by Aron Oliver. gr2 15:17 Patient moved to Pre RCE gr2 15:23 Triage Initiated kcs 15:35 Dee Blum,MARC is Primary Nurse. nb2 15:35 Patient moved to 10 nb2 15:47 Rina Austin MD is Attending Physician. sd1 15:51 Aman Young FNP is PHCP. ke 15:51 Patient visited by Aman Young FNP. ke 15:51 Patient visited by Aman Young FNP. ke 16:08 Francisca Best RN is Primary Nurse. jc4 16:09 Patient visited by Shefali Guillory. nb2 16:09 EKG done. (by ED staff). Reviewed by Aman CALVILLO. nb2 16:17 Type and Cross, Packed Cells Sent. jc4 16:17 Amylase Sent. jc4 16:17 Basic Metabolic Profile Sent. jc4 16:17 CBC with Diff Sent. jc4 16:17 Lipase Sent. jc4 16:17 Liver Profile Sent. jc4 16:17 Prothrombin Time Profile\E\INR Sent. jc4 16:18 Patient visited by Francisca Best RN. jc4 16:18 Inserted saline lock: 20 gauge in left antecubital area The patient tolerated the jc4 procedure well. 16:41 Patient visited by Aman Young FNP. ke 16:50 The patient / caregiver is instructed regarding the plan of care and ED course. jc4 16:54 DIFFERENTIAL NO CHARGE Sent. jc4 16:55 Patient visited by Francisca Best RN. jc4 16:57 Astrid Jaimes is Hospitalizing Provider. ke 18:25 Blood products: PRBCs X 1 unit given. See transfusion record Unit [id number]. jc4 19:05 Primary Nurse role handed off by Francisca Best RN jc4 19:33 Patient moved to Admit Hold sls1 19:51 Written Provider Order was scanned into [employer] and attached to record. kb5 20:26 FROZEN PLASMA 24 Sent. nn1 12/02 00:58 Dior Gaona RN is Primary Nurse. kas2 01:02 Patient visited by Dior Gaona RN. kas2 01:03 [facility] Payment Agreement was scanned into [employer] and attached to record. hs2 01:50 Primary Nurse role handed off by Dee Blum RN rs6 01:57 Patient visited by Dior Gaona RN. kas2 02:20 Patient visited by Dior Gaona RN. kas2 02:45 Patient visited by Dior Gaona RN. kas2 03:45 Patient visited by Dior Gaona RN. kas2 05:12 Patient visited by Dior Gaona RN. kas2 05:33 Patient visited by Dior Gaona RN. kas2 06:41 Patient visited by Dior Gaona RN. kas2 06:43 Patient visited by Dior Gaona RN. kas2 06:58 Patient visited by Dior Gaona RN. kas2 08:05 Primary Nurse role handed off by Dior Gaona RN mlb1 09:24 Patient visited by Patsy Fernández RN. hs1 09:37 Patient visited by Kelsey Jj. cmb 10:05 EKG-ADULT Returned. EDMS 11:06 Patient visited by Kelsey Jj. cmb 11:06 Assisted to bathroom. cmb 16:04 Inpatient Paper MAR was scanned into [employer] and attached to record. lbd 17:48 No procedures done that require assistance. jc4 Administered Medications: 12/01 20:26 Drug: Acetaminophen 650 mg [acetaminophen 325 mg tablet (2 tabs)] Route: PO; nn1 12/02 17:04 Drug: Acetaminophen 650 mg [acetaminophen 325 mg tablet (2 tabs)] Route: PO; jc4 18:12 Drug: HumaLog - Insulin Lispro (0.1 units/kg) 4 units [insulin lispro 100 unit/mL jc4 subcutaneous solution (0.04 mL)] {Co-Signature: hs1 (Patsy Fernández RN).} Route: Sub-Q; Site: left upper arm; Attachments: 16:04 Inpatient Paper MAR lbd Point of Care Testing: Blood Glucose: 18:01 Blood Glucose: 179 mg/dL; jc4 Ranges: Output: 11:06 Urine: 150.00ml (Voided); Total: 150.00ml. cmb Order Results: Lab Order: Amylase; SPEC'M 12/01/16 16:14 Test: AMYLASE; Value: 48; Range: 25-115; Units: U/L; Status: F Lab Order: Basic Metabolic Profile; SPEC'M 12/01/16 16:14 Test: GLUCOSE, FASTING; Value: 222; Range: 80-110; Abnormal: Above high normal; Units: MG/DL; Status: F Test: BLOOD UREA NITROGEN; Value: 19; Range: 7-18; Abnormal: Above high normal; Units: MG/DL; Status: F Test: CREATININE FOR GFR; Value: 1.43; Range: 0.55-1.02; Abnormal: Above high normal; Units: MG/DL; Status: F Test: GLOMERULAR FILTRATION RATE; Value: 39.8; Range: >45; Abnormal: Below low normal; Status: F Test: SODIUM LEVEL; Value: 142; Range: 136-145; Units: MEQ/L; Status: F Test: POTASSIUM SERUM; Value: 4.1; Range: 3.5-5.1; Units: MEQ/L; Status: F Test: CHLORIDE LEVEL; Value: 107; Range: 98-107; Units: MEQ/L; Status: F Test: CARBON DIOXIDE LEVEL; Value: 26; Range: 21-32; Units: MEQ/L; Status: F Test: ANION GAP; Value: 9; Range: 8-16; Units: MEQ/L; Status: F Test: CALCIUM LEVEL; Value: 8.2; Range: 8.8-10.2; Abnormal: Below low normal; Units: MG/DL; Status: F Test Note: ; Units are mL/min/1.73 m2 Chronic Kidney Disease Staging per NKF: Stage I & II GFR >=60 Normal to Mildly Decreased Stage III GFR 30-59 Moderately Decreased Stage IV GFR 15-29 Severely Decreased Stage V GFR <15 Very Little GFR Left ESRD GFR <15 on PIPE BUFFER Lab Order: CBC with Diff; SPEC'M 12/01/16 16:14 Test: WHITE BLOOD COUNT; Value: 9.3; Range: 4.0-10.0; Units: K/mm3; Status: F Test: RED BLOOD COUNT; Value: 1.64; Range: 4.00-5.40; Abnormal: Below low normal; Units: M/mm3; Status: F Test: HEMOGLOBIN; Value: 5.5; Range: 12.0-16.0; Abnormal: Critical Low; Units: g/dl; Status: F Test: HEMATOCRIT; Value: 18.8; Range: 36.0-47.0; Abnormal: Below low normal; Units: %; Status: F Test: MEAN CORPUSCULAR VOLUME; Value: 114.8; Range: 80.0-96.0; Abnormal: Above high normal; Units: fl; Status: F Test: MEAN CORPUSCULAR HEMOGLOBIN; Value: 33.6; Range: 27.0-33.0; Abnormal: Above high normal; Units: pg; Status: F Test: MEAN CORPUSCULAR HGB CONC; Value: 29.3; Range: 32.0-36.5; Abnormal: Below low normal; Units: g/dl; Status: F Test: RED CELL DISTRIBUTION WIDTH; Value: 18.2; Range: 11.5-14.5; Abnormal: Above high normal; Units: %; Status: F Test: PLATELET COUNT, AUTOMATED; Value: 327; Range: 150-450; Units: k/mm3; Status: F Test: NEUTROPHILS; Value: 87; Range: 35-75; Abnormal: Above high normal; Units: %; Status: F Test: LYMPHOCYTES; Value: 10; Range: 16-52; Abnormal: Below low normal; Units: %; Status: F Test: MONOCYTES; Value: 3; Range: 0-8; Units: %; Status: F Test: POLYCHROMASIA; Value: 1+; Status: F Test: HYPOCHROMASIA; Value: 3+; Status: F Test: ANISOCYTOSIS; Value: 2+; Status: F Test: MACROCYTOSIS; Value: 3+; Status: F Test: TEAR DROP CELLS; Value: 1+; Status: F Lab Order: Lipase; SPEC'M 12/01/16 16:14 Test: LIPASE; Value: 134; Range: 73-393; Units: U/L; Status: F Lab Order: Liver Profile; SPEC'M 12/01/16 16:14 Test: AST/SGOT; Value: 9; Range: 15-37; Abnormal: Below low normal; Units: U/L; Status: F Test: ALT/SGPT; Value: 23; Range: 12-78; Units: U/L; Status: F Test: ALKALINE PHOSPHATASE; Value: 67; Range: 45-117; Units: U/L; Status: F Test: BILIRUBIN,TOTAL; Value: 0.2; Range: 0.2-1.0; Units: MG/DL; Status: F Test: BILIRUBIN,DIRECT; Value: < 0.1; Range: 0.0-0.2; Units: MG/DL; Status: F Test: TOTAL PROTEIN; Value: 6.1; Range: 6.4-8.2; Abnormal: Below low normal; Units: GM/DL; Status: F Test: ALBUMIN; Value: 3.1; Range: 3.2-5.2; Abnormal: Below low normal; Units: GM/DL; Status: F Test: ALBUMIN/GLOBULIN RATIO; Value: 1.03; Range: 1.00-1.93; Status: F Lab Order: Prothrombin Time Profile\E\INR; [facility]' 12/01/16 16:14 Test: PROTHROMBIN TIME; Value: 46.7; Range: 12.3-14.5; Abnormal: Above high normal; Units: SECONDS; Status: F Test: INR; Value: 5.05; Abnormal: Above upper panic limits; Status: F Test Note: ; THERAPUTIC HUMAN INR VALUES INDICATIONS NORMAL RANGES PROPHYLAXIS/TREATMENT OF: VENOUS THROMBOSIS 2.0-3.0 PULMONARY EMBOLISM 2.0-3.0 PREVENTION OF SYSTEMIC EMBOLISM FROM: TISSUE HEART VALVES 2.0-3.0 ACUTE MYOCARDIAL INFARCTION 2.0-3.0 VALVULAR HEART DISEASE 2.0-3.0 ATRIAL FIBRILLATION 2.0-3.0 MECHANICAL VALVES(HIGH RISK) 2.5-3.5 RECURRENT MYOCARDIAL INFARCTION 2.5-3.5 Lab Order: TYPE & SCREEN; [facility]' 12/01/16 16:14 Test: BLOOD TYPE; Value: O POS; Status: F Test: AB SCREEN (INDIRECT ANKITA)VIS; Value: NEGATIVE; Status: F Test: IMMEDIATE SPIN CROSSMATCH; Value: [id number] O POSITIVE Compatible? Y; Status: F Test: IMMEDIATE SPIN CROSSMATCH; Value: [id number] O POSITIVE Compatible? Y; Status: F Test: IMMEDIATE SPIN CROSSMATCH; Value: [id number] O POSITIVE Compatible? Y; Status: F Test: IMMEDIATE SPIN CROSSMATCH; Value: [id number] O POSITIVE Compatible? Y; Status: F Lab Order: PLATELET ESTIMATE; [facility] 12/01/16 16:14 Test: PLATELET ESTIMATE; Value: NORMAL; Range: NORMAL; Status: F Lab Order: HEMOGLOBIN & HEMATOCRIT; [facility] 12/01/16 23:17 Test: HEMOGLOBIN; Value: 8.3; Range: 12.0-16.0; Units: g/dl; Status: F Test: HEMATOCRIT; Value: 25.7; Range: 36.0-47.0; Abnormal: Below low normal; Units: %; Status: F Lab Order: PROTHROMBIN TIME PROFILE\E\INR; [facility] 12/02/16 05:18 Test: PROTHROMBIN TIME; Value: 30.7; Range: 12.3-14.5; Abnormal: Above high normal; Units: SECONDS; Status: F Test: INR; Value: 2.94; Status: F Test Note: ; THERAPUTIC HUMAN INR VALUES INDICATIONS NORMAL RANGES PROPHYLAXIS/TREATMENT OF: VENOUS THROMBOSIS 2.0-3.0 PULMONARY EMBOLISM 2.0-3.0 PREVENTION OF SYSTEMIC EMBOLISM FROM: TISSUE HEART VALVES 2.0-3.0 ACUTE MYOCARDIAL INFARCTION 2.0-3.0 VALVULAR HEART DISEASE 2.0-3.0 ATRIAL FIBRILLATION 2.0-3.0 MECHANICAL VALVES(HIGH RISK) 2.5-3.5 RECURRENT MYOCARDIAL INFARCTION 2.5-3.5 Lab Order: CBC WITH DIFFERENTIAL; [facility] 12/02/16 05:18 Test: WHITE BLOOD COUNT; Value: 6.2; Range: 4.0-10.0; Units: K/mm3; Status: F Test: RED BLOOD COUNT; Value: 2.44; Range: 4.00-5.40; Abnormal: Below low normal; Units: M/mm3; Status: F Test: HEMOGLOBIN; Value: 8.3; Range: 12.0-16.0; Abnormal: Below low normal; Units: g/dl; Status: F Test: HEMATOCRIT; Value: 25.1; Range: 36.0-47.0; Abnormal: Below low normal; Units: %; Status: F Test: MEAN CORPUSCULAR VOLUME; Value: 102.8; Range: 80.0-96.0; Abnormal: High; Units: fl; Status: F Test: MEAN CORPUSCULAR HEMOGLOBIN; Value: 33.9; Range: 27.0-33.0; Abnormal: Above high normal; Units: pg; Status: F Test: MEAN CORPUSCULAR HGB CONC; Value: 33.0; Range: 32.0-36.5; Units: g/dl; Status: F Test: RED CELL DISTRIBUTION WIDTH; Value: 20.3; Range: 11.5-14.5; Abnormal: Above high normal; Units: %; Status: F Test: PLATELET COUNT, AUTOMATED; Value: 266; Range: 150-450; Units: k/mm3; Status: F Test: NEUTROPHILS %; Value: 60.9; Range: 36.0-66.0; Units: %; Status: F Test: LYMPH %; Value: 29.9; Range: 24.0-44.0; Units: %; Status: F Test: MONO %; Value: 6.7; Range: 0.0-5.0; Abnormal: Above high normal; Units: %; Status: F Test: EOS %; Value: 0.4; Range: 0.0-3.0; Units: %; Status: F Test: BASO %; Value: 0.1; Range: 0.0-1.0; Units: %; Status: F Test: LARGE UNSTAINED CELL %; Value: 1.9; Range: 0.0-4.0; Units: %; Status: F Test: NEUTROPHILS #; Value: 3.8; Range: 1.8-7.7; Units: K/mm3; Status: F Test: LYMPH #; Value: 2.0; Range: 1.5-4.5; Units: K/mm3; Status: F Test: MONO #; Value: 0.4; Range: 0.0-0.8; Units: K/mm3; Status: F Test: EOS #; Value: 0.0; Range: 0.0-0.50; Units: K/mm3; Status: F Test: BASO #; Value: 0.0; Range: 0.0-0.2; Units: K/mm3; Status: F Test: LARGE UNSTAINED CELL #; Value: 0.1; Range: 0.0-0.4; Units: K/mm3; Status: F Lab Order: COMPLETE COMPHRENSIVE METABOLI; SPEC'M 12/02/16 05:18 Test: GLUCOSE, FASTING; Value: 90; Range: 80-110; Units: MG/DL; Status: F Test: BLOOD UREA NITROGEN; Value: 15; Range: 7-18; Units: MG/DL; Status: F Test: CREATININE FOR GFR; Value: 1.19; Range: 0.55-1.02; Abnormal: Above high normal; Units: MG/DL; Status: F Test: GLOMERULAR FILTRATION RATE; Value: 49.3; Range: >45; Status: F Test: SODIUM LEVEL; Value: 146; Range: 136-145; Abnormal: Above high normal; Units: MEQ/L; Status: F Test: POTASSIUM SERUM; Value: 3.8; Range: 3.5-5.1; Units: MEQ/L; Status: F Test: CHLORIDE LEVEL; Value: 113; Range: 98-107; Abnormal: Above high normal; Units: MEQ/L; Status: F Test: CARBON DIOXIDE LEVEL; Value: 25; Range: 21-32; Units: MEQ/L; Status: F Test: ANION GAP; Value: 8; Range: 8-16; Units: MEQ/L; Status: F Test: CALCIUM LEVEL; Value: 7.6; Range: 8.8-10.2; Abnormal: Below low normal; Units: MG/DL; Status: F Test: AST/SGOT; Value: 11; Range: 15-37; Abnormal: Below low normal; Units: U/L; Status: F Test: ALT/SGPT; Value: 18; Range: 12-78; Units: U/L; Status: F Test: ALKALINE PHOSPHATASE; Value: 57; Range: 45-117; Units: U/L; Status: F Test: BILIRUBIN,TOTAL; Value: 0.4; Range: 0.2-1.0; Abnormal: Delta; Units: MG/DL; Status: F Test: TOTAL PROTEIN; Value: 5.9; Range: 6.4-8.2; Abnormal: Below low normal; Units: GM/DL; Status: F Test: ALBUMIN; Value: 2.7; Range: 3.2-5.2; Abnormal: Below low normal; Units: GM/DL; Status: F Test: ALBUMIN/GLOBULIN RATIO; Value: 0.84; Range: 1.00-1.93; Abnormal: Below low normal; Status: F Test Note: ; Units are mL/min/1.73 m2 Chronic Kidney Disease Staging per NKF: Stage I & II GFR >=60 Normal to Mildly Decreased Stage III GFR 30-59 Moderately Decreased Stage IV GFR 15-29 Severely Decreased Stage V GFR <15 Very Little GFR Left ESRD GFR <15 on PIPE BUFFER Lab Order: MAGNESIUM LEVEL; [facility]12/02/16 05:18 Test: MAGNESIUM LEVEL; Value: 2.2; Range: 1.8-2.4; Units: MG/DL; Status: F Lab Order: HEMOGLOBIN & HEMATOCRIT; [facility]12/02/16 10:24 Test: HEMOGLOBIN; Value: 8.4; Range: 12.0-16.0; Abnormal: Below low normal; Units: g/dl; Status: F Test: HEMATOCRIT; Value: 26.4; Range: 36.0-47.0; Abnormal: Below low normal; Units: %; Status: F Lab Order: HEMOGLOBIN & HEMATOCRIT; [facility]12/02/16 15:58 Test: HEMOGLOBIN; Value: 8.7; Range: 12.0-16.0; Abnormal: Below low normal; Units: g/dl; Status: F Test: HEMATOCRIT; Value: 27.1; Range: 36.0-47.0; Abnormal: Below low normal; Units: %; Status: F Lab Order: Fingerstick Blood Sugar; [facility]12/02/16 07:51 Test: BEDSIDE GLUCOSE; Value: 89; Range: 80-115; Units: MG/DL; Status: F Lab Order: Fingerstick Blood Sugar; [facility] 12/02/16 12:21 Test: BEDSIDE GLUCOSE; Value: 143; Range: 80-115; Abnormal: Above high normal; Units: MG/DL; Status: F Test Note: ; Insulin Coverage Ord Lab Order: Fingerstick Blood Sugar; [facility]12/02/16 18:00 Test: BEDSIDE GLUCOSE; Value: 179; Range: 80-115; Abnormal: Above high normal; Units: MG/DL; Status: F Radiology Order: EKG-ADULT Test: EKG-ADULT REASON FOR EXAMINATION: weaknesss; Stationary ECG Study; [facility] - ED; ; Test Date: 2016-12-01; Pat Name: DAVID ANDREWS Department:; Room: -; Gender: 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 12/02 17:49 Discharge Assessment: Patient awake and alert. patient administered narcotics - no. The 4 following High Risk Discharge criteria are identified: None. Admitted to Med/Surg accompanied by nurse, family with patient, via stretcher, with oxygen, on monitor, with chart. Condition: stable. No special radiology studies were completed. Admission hand-off: Report Faxed Fax receipt verified by MARC Perez. Property :Personal belongings accompany Pt. 18:18 Patient left the ED. [facility] Signatures: Dispatcher [employer] EDWY Rina Austin MD MD sd1 Sleeman, Kacey, RN RN Mariah Soliman, Quality Assurance Qa Lab Analyst Unit lbd Lillie Pearce RN MARC [facility] Aman Young, POWER PLANT INSPECTOR POWER PLANT INSPECTOR Lucien Horn RN RN mlb1 [place]oacano Harper, MANAGER RISK MANAGEMENT MANAGER RISK MANAGEMENT kb5 Patsy Fernández RN RN hs1 Francisca Best RN RN [id number] Lucrecia Oneal, MARC RN sls1 Kelsey Jj cmAron Colvin gr2 Geri Horne, MANAGER RISK MANAGEMENT MANAGER RISK MANAGEMENT rs6 Golden Wolfe RN RN nn1 Cassidy Otero, Reg Reg hs2 Dior Gaona RN RN malathi2 Shefali Guillory2 Patsy Fernández RN hs1 PAVELD
[2016-12-02 18:30] VITALS: BP 138/65
[2016-12-02 20:00] VITALS: BP 125/59
[2016-12-02] MEDS ORDERED: PHYTONADIONE 5 MG TAB PO ONE (20:00)
[2016-12-02 20:15] VITALS: BP 115/52
[2016-12-02] MEDS: NORTRIPTYLINE 10 MG CAP PO SCH (20:30)
[2016-12-02] MEDS: FERROUS SULFATE 325MG TAB PO SCH (20:31)
[2016-12-02 21:30] VITALS: BP 146/63
[2016-12-02 23:30] VITALS: BP 114/56
[2016-12-02 23:45] VITALS: BP 113/56
[2016-12-03 00:30] VITALS: BP 109/68
[2016-12-03 01:20] VITALS: BP 158/72
[2016-12-03] MEDS ORDERED: ACETAMINOPHEN TAB 650MG DOSE (2X325MG) PO PRN (02:30)
[2016-12-03 03:15] VITALS: BP 126/60
[2016-12-03 04:00] VITALS: BP 130/60
[2016-12-03 04:25] LABS: BASO % 0.2 % (0.0-1.0); EOS % 0.4 % (0.0-3.0); LARGE UNSTAINED CELL # 0.1 K/mm3 (0.0-0.4); LARGE UNSTAINED CELL % 1.8 % (0.0-4.0); LYMPH # 1.5 K/mm3 (1.5-4.5); LYMPH % 23.3 % (24.0-44.0); MEAN CORPUSCULAR HEMOGLOBIN 31.4 pg (27.0-33.0); MEAN CORPUSCULAR HGB CONC 31.9 g/dl (32.0-36.5); MEAN CORPUSCULAR VOLUME 98.3 fl (80.0-96.0); MONO # 0.4 K/mm3 (0.0-0.8); MONO % 7.5 % (0.0-5.0); NEUTROPHILS % 66.9 % (36.0-66.0); PLATELET COUNT, AUTOMATED 247 k/mm3 (150-450); RED CELL DISTRIBUTION WIDTH 20.8 % (11.5-14.5); WHITE BLOOD COUNT 5.9 K/mm3 (4.0-10.0)
[2016-12-03 04:29] LABS: ADD MORPHOLOGY? YES
[2016-12-03 04:30] LABS: INR 1.68
[2016-12-03 04:45] LABS: ALBUMIN 2.7 GM/DL (3.2-5.2); ALBUMIN/GLOBULIN RATIO 0.82 (1.00-1.93); BILIRUBIN,TOTAL 0.3 MG/DL (0.2-1.0); CALCIUM LEVEL 7.8 MG/DL (8.8-10.2); CREATININE FOR GFR 1.25 MG/DL (0.55-1.02); GLOMERULAR FILTRATION RATE 46.5 (>45); MAGNESIUM LEVEL 2.3 MG/DL (1.8-2.4); POTASSIUM SERUM 3.6 MEQ/L (3.5-5.1)
[2016-12-03 05:03] LABS: ANISOCYTOSIS 2+
[2016-12-03 05:04] LABS: POLYCHROMASIA 1+
[2016-12-03] MEDS: LEVOTHYROXINE 0.088 MG TAB (88 MCG) PO SCH (05:39)
[2016-12-03] MEDS: HumaLOG INSULIN (NovoLOG) PER UNIT SC SCH ×4 (07:30→20:22)
[2016-12-03 08:00] VITALS: BP 140/59
[2016-12-03] MEDS: PARoxetine 20 MG TAB PO SCH (09:31)
[2016-12-03] MEDS: CYANOCOBALAMIN 500 MCG TAB PO SCH (09:31)
[2016-12-03] MEDS: BISOPROLOL FUMARATE 5 MG TAB PO SCH (09:32)
[2016-12-03] MEDS: predniSONE 10 MG TAB PO SCH (09:32)
[2016-12-03] MEDS: ATORVASTATIN 10 MG TAB PO SCH (09:32)
[2016-12-03] MEDS: TOPIRAMATE (TopAMAX) 100 MG TAB PO SCH ×2 (09:33→20:23)
[2016-12-03] MEDS: PANTOPRAZOLE 40MG INJ (PROTONIX) (C9113) IV SCH ×2 (09:33→20:22)
--- NOTE | 2016-12-03 10:33 | IPNPDOC ---
Subjective Date Seen The patient was seen on 12/03/16. Subjective Chief Complaint/HPI Pt c/o some cough with brown sputum production, she has been on steroid, last week was on ceftin by PCP. She denies SOB, fever. General: Denies: Fatigue Constitutional: Denies: Chills, Fever Pulmonary: Reports: Cough, Denies: Dyspnea Cardiovascular: Denies: Chest Pain, Palpitations Gastrointestinal: Denies: Diarrhea, Nausea, Vomiting Neurological: Denies: Weakness Objective Physical Examination General Exam: Positive: Alert, Cooperative, No Acute Distress Eye Exam: Positive: PERRLA, Negative: Conjunctiva & lids normal (pale conjunctiva) ENT Exam: Positive: Mucous membr. moist/pink Neck Exam: Positive: Supple, Negative: JVD, thyromegaly Chest Exam: Positive: Clear to auscultation, Negative: Normal air movement, Rales, Rhonchi, Wheezing Heart Exam: Positive: Normal S1, Normal S2, Rate Normal, Regular Rhythm, Negative: Murmurs, Rubs Abdomen Exam: Positive: Normal bowel sounds, Soft, Negative: Hepatospenomegaly, Tenderness Extremity Exam: Negative: Clubbing, Cyanosis Neuro Exam: Positive: Normal Speech Psych Exam: Positive: Mental status NL, Mood NL Assessment /Plan Problems (1) Anemia Status: Acute Response to Treatment: Stable Problem Text: 12/03 - Hgb improved, monitor. plan for colonoscopy tomorrow. 12/02 Hgb 8.3 after 2 units PRBC in ER and 1 unit FFP. Hgb 5.5 on admission. No current sx. Hx of chronic anemia, on iron supplement. - GI consulted, Vanessa, planning colonoscopy Wed - cont coumadin reversal (2) GIB (gastrointestinal bleeding) Status: Acute Problem Text: As above. No other sx of severe bleeding to cause such a dramatic drop in Hgb (3) COPD (chronic obstructive pulmonary disease) Status: Chronic Response to Treatment: Stable Problem Text: Cont home meds (4) Hx of completed stroke Status: Acute Problem Text: On coumadin. INR 5.0 on admission, now 2.9. 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 - cont topomax 150 BID (8) T2DM (type 2 diabetes mellitus) Status: Acute Problem Text: On octuvia. Pt was started on SSI while inpt (9) Depression Status: Acute Problem Text: Paxil 40 mg daily. (10) Acquired hypothyroidism Status: Acute Problem Text: levothyroxine 88 mcg Plan/VTE VTE Prophylaxis Ordered?: Yes VTE Exclusion Pharmacological: Hemorrhage VS, I&O, 24H, Fishbone Vital Signs/I&O Vital Signs Date Time Temp Pulse Resp B/P Pulse Ox O2 Delivery O2 Flow Rate FiO2 12/03/16 08:00 Room Air 12/03/16 08:00 96.5 59 18 140/59 97 I&O- Last 24 Hours up to 6 AM 12/03/16 06:00 Intake Total 780 ml Output Total 0 ml Balance 780 ml Laboratory Data 24H LABS Laboratory Tests 2 12/02/16 12:21: Bedside Glucose (Misc Panel) 143H 12/02/16 18:00: Bedside Glucose (Misc Panel) 179H 12/02/16 19:50: Bedside Glucose (Misc Panel) 161H 12/03/16 01:25: Bedside Glucose (Misc Panel) 151H 12/03/16 04:10: Blood Urea Nitrogen 18, Creatinine 1.25H, Sodium Level 145, Potassium Level 3.6 , Chloride Level 113H, Carbon Dioxide Level 24, Calcium Level 7.8L, Aspartate Amino Transf (AST/SGOT) 9L, Alanine Aminotransferase (ALT/SGPT) 17, Alkaline Phosphatase 59, Total Bilirubin 0.3, Total Protein 6.0L, Albumin 2.7L, Albumin/ Globulin Ratio 0.82L, Anion Gap 8, Anisocytosis 2+, White Blood Count 5.9, Red Blood Count 3.53L, Hemoglobin 11.1#L, Hematocrit 34.7L, Mean Corpuscular Volume 98.3H, Mean Corpuscular Hemoglobin 31.4, Mean Corpuscular Hemoglobin Concent 31.9L, Red Cell Distribution Width 20.8H, Platelet Count 247, Neutrophils (%) ( Auto) 66.9H, Lymphocytes (%) (Auto) 23.3L, Monocytes (%) (Auto) 7.5H, Eosinophils (%) (Auto) 0.4, Basophils (%) (Auto) 0.2, Neutrophils # (Auto) 4.0, Lymphocytes # (Auto) 1.5, Monocytes # (Auto) 0.4, Eosinophils # (Auto) 0.0, Basophils # (Auto) 0.0, Glomerular Filtration Rate 46.5, Large Unclassified Cells # 0.1, Large Unclassified Cells % 1.8, Macrocytosis 1+, Magnesium Level 2.3, Platelet Estimate NORMAL, Polychromasia 1+, Prothromb Time International Ratio 1.68, Prothrombin Time 19.9H CBC/BMP Laboratory Tests 12/02/16 15:58 12/03/16 04:10 Calcium Level 7.8 L, Aspartate Amino Transf (AST/SGOT) 9 L, Alanine Aminotransferase (ALT/SGPT) 17, Alkaline Phosphatase 59, Total Bilirubin 0.3, Total Protein 6.0 L, Albumin 2.7 L, Red Blood Count 3.53 L, Mean Corpuscular Volume 98.3 H, Mean Corpuscular Hemoglobin 31.4, Mean Corpuscular Hemoglobin Concent 31.9 L, Red Cell Distribution Width 20.8 H, Neutrophils (%) (Auto) 66.9 H, Lymphocytes (%) (Auto) 23.3 L, Monocytes (%) (Auto) 7.5 H, Eosinophils (%) ( Auto) 0.4, Basophils (%) (Auto) 0.2, Neutrophils # (Auto) 4.0, Lymphocytes # ( Auto) 1.5, Monocytes # (Auto) 0.4, Eosinophils # (Auto) 0.0, Basophils # (Auto) 0.0 SP RUIZ PA-C Dec 03, 2016 10:33
--- NOTE | 2016-12-03 11:07 | REP ---
Clinical: Cough. Technique: PA and lateral. Comparison: 11/16/06 Findings: Two presumed ventriculoperitoneal shunts run along the right hemithorax into the abdomen and unchanged from prior examination. Mediastinum and cardiac silhouette are normal. Lung pro are clear. No acute consolidation, effusion, or pneumothorax. Skeletal structures intact. Impression: No acute cardiopulmonary process appreciated. Signed by Jose Long MD 12/03/2016 10:59 A
[2016-12-03] MEDS ORDERED: GOLYTELY SOLN 4000 ML BTL PO ONE (15:00)
[2016-12-03] MEDS: NICOTINE 14 MG/24 HR TRANSDERMAL TD SCH (17:31)
[2016-12-03] MEDS: NORTRIPTYLINE 10 MG CAP PO SCH (20:22)
[2016-12-03] MEDS: DOXYCYCLINE HYCLATE 100 MG TAB PO SCH (20:22)
[2016-12-03] MEDS: FERROUS SULFATE 325MG TAB PO SCH (20:23)
[2016-12-03] MEDS: ALBUTEROL 90 MCG/ACT 8GM HFA INHALER INH PRN (21:23)
[2016-12-03 22:00] VITALS: BP 133/60
[2016-12-04 02:10] VITALS: BP 148/62
[2016-12-04 06:00] VITALS: BP 131/62
[2016-12-04] MEDS ORDERED: GOLYTELY SOLN 4000 ML BTL PO ONE ×3 (06:00→12:30)
[2016-12-04] MEDS: LEVOTHYROXINE 0.088 MG TAB (88 MCG) PO SCH (06:22)
[2016-12-04 06:52] LABS: MEAN CORPUSCULAR VOLUME 96.8 fl (80.0-96.0); PLATELET COUNT, AUTOMATED 254 k/mm3 (150-450); RED CELL DISTRIBUTION WIDTH 20.1 % (11.5-14.5); WHITE BLOOD COUNT 6.2 K/mm3 (4.0-10.0)
[2016-12-04 06:55] LABS: ALBUMIN 2.8 GM/DL (3.2-5.2); ALBUMIN/GLOBULIN RATIO 0.88 (1.00-1.93); BILIRUBIN,TOTAL 0.4 MG/DL (0.2-1.0); CALCIUM LEVEL 8.1 MG/DL (8.8-10.2); CREATININE FOR GFR 1.15 MG/DL (0.55-1.02); GLOMERULAR FILTRATION RATE 51.2 (>45); MAGNESIUM LEVEL 2.1 MG/DL (1.8-2.4); POTASSIUM SERUM 3.6 MEQ/L (3.5-5.1)
[2016-12-04] MEDS: HumaLOG INSULIN (NovoLOG) PER UNIT SC SCH ×4 (07:10→20:36)
[2016-12-04 07:19] LABS: INR 1.2
[2016-12-04 07:47] LABS: EOSINOPHILS 1 % (0-5)
[2016-12-04 07:48] LABS: ANISOCYTOSIS 1+; POIKILOCYTOSIS 1+; POLYCHROMASIA 1+
[2016-12-04] MEDS: CYANOCOBALAMIN 500 MCG TAB PO SCH (08:01)
[2016-12-04] MEDS: predniSONE 10 MG TAB PO SCH (08:02)
[2016-12-04] MEDS: TOPIRAMATE (TopAMAX) 100 MG TAB PO SCH ×2 (08:02→20:34)
[2016-12-04] MEDS: DOXYCYCLINE HYCLATE 100 MG TAB PO SCH ×2 (08:03→20:34)
[2016-12-04] MEDS: NICOTINE 14 MG/24 HR TRANSDERMAL TD SCH (08:03)
[2016-12-04] MEDS: PANTOPRAZOLE 40MG INJ (PROTONIX) (C9113) IV SCH ×2 (08:03→20:36)
[2016-12-04] MEDS: ATORVASTATIN 10 MG TAB PO SCH (08:03)
[2016-12-04] MEDS: BISOPROLOL FUMARATE 5 MG TAB PO SCH (08:06)
[2016-12-04] MEDS: PARoxetine 20 MG TAB PO SCH (08:08)
--- NOTE | 2016-12-04 08:46 | IPNPDOC ---
Subjective Date Seen The patient was seen on 12/04/16. Subjective Chief Complaint/HPI Pt without new concerns. She is scheduled for colonoscopy today. Family at bedside and very agitated about her mother's outpt treatment of her DM2. General: Denies: Fatigue Constitutional: Denies: Chills, Fever ENT: Denies: Head Aches Skin: Denies: Rash Pulmonary: Denies: Cough, Dyspnea Cardiovascular: Denies: Chest Pain, Palpitations Gastrointestinal: Denies: Diarrhea, Nausea, Vomiting Musculoskeletal: Denies: Neck Pain Neurological: Denies: Weakness Psych: Reports: Mood Normal Objective Physical Examination General Exam: Positive: Alert, Cooperative, No Acute Distress Eye Exam: Negative: Conjunctiva & lids normal (pale conjunctiva) ENT Exam: Positive: Mucous membr. moist/pink Neck Exam: Positive: Supple, Negative: JVD, thyromegaly Chest Exam: Positive: Clear to auscultation, Negative: Normal air movement, Rales, Rhonchi, Wheezing Heart Exam: Positive: Normal S1, Normal S2, Rate Normal, Regular Rhythm, Negative: Murmurs, Rubs Abdomen Exam: Positive: Normal bowel sounds, Soft, Negative: Hepatospenomegaly, Tenderness Extremity Exam: Negative: Clubbing, Cyanosis Neuro Exam: Positive: Normal Speech Psych Exam: Positive: Mental status NL, Mood NL Assessment /Plan Problems (1) Anemia Status: Acute Response to Treatment: Stable Problem Text: 12/04 - Hgb stable, colonoscopy today. 12/03 - Hgb improved, monitor. plan for colonoscopy tomorrow. 12/02 Hgb 8.3 after 2 units PRBC in ER and 1 unit FFP. Hgb 5.5 on admission. No current sx. Hx of chronic anemia, on iron supplement. - GI consulted, Vanessa, planning colonoscopy Fri - cont coumadin reversal (2) GIB (gastrointestinal bleeding) Status: Acute Problem Text: secondary to hemorrhagic d/o d/t extrinsic anticoag with reports of hematochezia and epistaxis. (3) COPD (chronic obstructive pulmonary disease) Status: Chronic Response to Treatment: Stable Problem Text: Cont home meds (4) Hx of completed stroke Status: Chronic Problem Text: 12/04 - INR reversed, can resume anticoagulation tonight. On coumadin. INR 5.0 on admission, now 2.9. 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 - cont topomax 150 BID (8) T2DM (type 2 diabetes mellitus) Status: Chronic Problem Text: On januvia. Pt was started on SSI while inpt (9) Depression Status: Chronic Problem Text: Paxil 40 mg daily. (10) Acquired hypothyroidism Status: Chronic Problem Text: levothyroxine 88 mcg Plan/VTE VTE Prophylaxis Ordered?: Yes VTE Exclusion Pharmacological: Hemorrhage Plan Attending note: I saw and evaluated the patient, and agree with the plan of care as discussed and documented by Sp Ruiz. Parvez Sarkar MD VS, I&O, [facility]/I&O Vital Signs Date Time Temp Pulse Resp B/P Pulse Ox O2 Delivery O2 Flow Rate FiO2 12/04/16 08:06 61 137/63 12/04/16 06:00 97.0 18 95 Room Air I&O- Last 24 Hours up to 6 AM 12/04/16 06:00 Intake Total 1140 ml Output Total 600 ml Balance 540 ml Laboratory Data 24H LABS Laboratory Tests 2 12/03/16 12:11: Bedside Glucose (Misc Panel) 132H 12/03/16 17:27: Bedside Glucose (Misc Panel) 210H 12/03/16 20:13: Bedside Glucose (Misc Panel) 125H 12/04/16 06:18: Blood Urea Nitrogen 13, Creatinine 1.15H, Sodium Level 146H, Potassium Level 3.6 , Chloride Level 113H, Carbon Dioxide Level 24, Calcium Level 8.1L, Aspartate Amino Transf (AST/SGOT) 12L, Alanine Aminotransferase (ALT/SGPT) 19, Alkaline Phosphatase 59, Total Bilirubin 0.4, Total Protein 6.0L, Albumin 2.8L, Albumin/ Globulin Ratio 0.88L, Anion Gap 9, Anisocytosis 1+, Atypical Lymphocytes 1, White Blood Count 6.2, Red Blood Count 3.52L, Hemoglobin 10.9L, Hematocrit 34.1L , Mean Corpuscular Volume 96.8H, Mean Corpuscular Hemoglobin 31.0, Mean Corpuscular Hemoglobin Concent 32.0, Red Cell Distribution Width 20.1H, Platelet Count 254, Neutrophils (%) (Auto) , Lymphocytes (%) (Auto) , Monocytes (%) (Auto) , Eosinophils (%) (Auto) , Basophils (%) (Auto) , Neutrophils # (Auto ) , Lymphocytes # (Auto) , Monocytes # (Auto) , Eosinophils # (Auto) , Basophils # (Auto) , Eosinophils (Manual) 1, Glomerular Filtration Rate 51.2, Large Unclassified Cells # , Large Unclassified Cells % , Lymphocytes (Manual) 23, Macrocytosis 1+, Magnesium Level 2.1, Metamyelocytes 2H, Neutrophils 73, Platelet Estimate NORMAL, Poikilocytosis 1+, Polychromasia 1+, Prothromb Time International Ratio 1.20, Prothrombin Time 15.3H CBC/BMP Laboratory Tests 12/04/16 06:18 Calcium Level 8.1 L, Aspartate Amino Transf (AST/SGOT) 12 L, Alanine Aminotransferase (ALT/SGPT) 19, Alkaline Phosphatase 59, Total Bilirubin 0.4, Total Protein 6.0 L, Albumin 2.8 L, Red Blood Count 3.52 L, Mean Corpuscular Volume 96.8 H, Mean Corpuscular Hemoglobin 31.0, Mean Corpuscular Hemoglobin Concent 32.0, Red Cell Distribution Width 20.1 H, Neutrophils (%) (Auto) , Lymphocytes (%) (Auto) , Monocytes (%) (Auto) , Eosinophils (%) (Auto) , Basophils (%) (Auto) , Neutrophils # (Auto) , Lymphocytes # (Auto) , Monocytes # (Auto) , Eosinophils # (Auto) , Basophils # (Auto) Microbiology Microbiology 12/03/16 Stool Occult Blood (TAL) - Final, Complete SP RUIZ PA-C Dec 04, 2016 08:46 PARVEZ SARKAR MD Dec 04, 2016 16:33
[2016-12-04] MEDS ORDERED: LIDOCAINE 2% INJ 100 MG/5 ML SDV (FOR ANES.) As Ordered ONE (12:41)
[2016-12-04] MEDS ORDERED: PROPOFOL 200 MG/20 ML VIAL As Ordered ONE (12:41)
--- NOTE | 2016-12-04 16:07 | ROOR ---
Patient Name: Bernarda Murdock Procedure Date: 12/04/2016 3:52 PM Date of : 1955 Age: 61 Room: [facility] Gender: Female Note Status: Finalized Procedure: Upper GI endoscopy + Biopsies Indications: Iron deficiency anemia secondary to chronic blood loss Providers: William Mendez MD Referring MD: Pantera Nevarez MD Requesting Provider: Medicines: Monitored Anesthesia Care Complications: No immediate complications. Procedure: Pre-Anesthesia Assessment: - The heart rate, respiratory rate, oxygen saturations, blood pressure, adequacy of pulmonary ventilation, and response to care were monitored throughout the procedure. The Endoscope was introduced through the mouth, and advanced to the second part of duodenum. The upper GI endoscopy was accomplished without difficulty. The patient tolerated the procedure well. Findings: The Z-line was irregular and was found 35 cm from the incisors. Multiple biopsies were obtained with cold forceps for evaluation to rule out Deluna's Esophagus randomly at the gastroesophageal junction. A small hiatal hernia was present. No other significant abnormalities were identified in a careful examination of the stomach. The exam of the duodenum was otherwise normal. Impression: - Z-line irregular, 35 cm from the incisors. - Small hiatal hernia. - Multiple biopsies were obtained at the gastroesophageal junction. - The examination was otherwise normal. Recommendation: - Patient has a contact number available for emergencies. The signs and symptoms of potential delayed complications were discussed with the patient. Return to normal activities tomorrow. Written discharge instructions were provided to the patient. - High fiber diet. - Discharge patient to home. - Follow an antireflux regimen. - Continue present medications. - Await pathology results. - Telephone GI clinic for pathology results in 1 week. - The findings and recommendations were discussed with the patient's family. William Mendez MD William Mendez MD 12/04/2016 4:06:55 PM This report has been signed electronically. Number of Addenda: 0 Note Initiated On: 12/04/2016 3:52 PM Estimated Blood Loss: Estimated blood loss: none.
--- NOTE | 2016-12-04 16:27 | ROOR ---
Patient Name: Bernarda Epperson Procedure Date: 12/04/2016 3:53 PM Date of : 1955 Age: 61 Room: [facility] Gender: Female Note Status: Finalized Procedure: Colonoscopy to Cecum Indications: Iron deficiency anemia secondary to chronic blood loss Providers: William Mendez MD Referring MD: Pantera Nevarez MD Requesting Provider: Medicines: Monitored Anesthesia Care Complications: No immediate complications. Procedure: Pre-Anesthesia Assessment: - The heart rate, respiratory rate, oxygen saturations, blood pressure, adequacy of pulmonary ventilation, and response to care were monitored throughout the procedure. The Colonoscope was introduced through the anus and advanced to the cecum, identified by appendiceal orifice and ileocecal valve. The colonoscopy was performed without difficulty. The patient tolerated the procedure well. The quality of the bowel preparation was excellent. Findings: The perianal and digital rectal examinations were normal. Non-bleeding external internal hemorrhoids were found during retroflexion. The hemorrhoids were medium-sized and Grade I (internal hemorrhoids that do not prolapse). Multiple small and large-mouthed diverticula were found in the recto-sigmoid colon, sigmoid colon and descending colon. The exam was otherwise without abnormality on direct and retroflexion views. Impression: - Non-bleeding external internal hemorrhoids. - Diverticulosis in the recto-sigmoid colon, in the sigmoid colon and in the descending colon. - The examination was otherwise normal on direct and retroflexion views. - No specimens collected. - The exam was otherwise normal to the cecum. Recommendation: - Patient has a contact number available for emergencies. The signs and symptoms of potential delayed complications were discussed with the patient. Return to normal activities tomorrow. Written discharge instructions were provided to the patient. - High fiber diet. - Return patient to hospital [facility] for ongoing care. - Continue present medications. - Return to referring physician. - The findings and recommendations were discussed with the patient's family. William Mendez MD William Mendez MD 12/04/2016 4:26:30 PM This report has been signed electronically. Number of Addenda: 0 Note Initiated On: 12/04/2016 3:53 PM Estimated Blood Loss: Estimated blood loss: none.
[2016-12-04 17:00] VITALS: BP 117/88
[2016-12-04 17:30] VITALS: BP 133/64
[2016-12-04 18:30] VITALS: BP 123/59
--- NOTE | 2016-12-04 19:19 | EDDOCDS ---
Physician Documentation [facility] Name: Bernarda Murdock Age: 61 yrs Sex: Female : 1955 Arrival Date: 12/01/2016 Time: 15:13 Bed Admit Hold Private MD: Pantera Nevarez Disposition: 12/01/16 16:57 Hospitalization ordered by Astrid Jaimes for Inpatient Admission. Preliminary diagnosis is Gastritis, unspecified, with bleeding. - Bed requested for 4 [place] (Formerly 3 [facility]). - Status is Inpatient Admission. [facility] - Condition is Stable. - Problem is an ongoing problem. - Symptoms are unchanged. Historical: - Allergies: PENICILLINS (Hives); SULFA (SULFONAMIDES) (Hives); - Home Meds: 1. albuterol sulfate 90 mcg/actuation Inhl HFAA 2 puffs every 4 hours as needed (Last dose: 12/01/2016 12:00) 2. atorvastatin 10 mg oral tab 1 tab once daily (Last dose: 12/01/2016 08:00) 3. bisoprolol fumarate 5 mg oral tab 1 tab once daily (Last dose: 12/01/2016 08:00) 4. Vitamin B-12 1,000 mcg Oral tab 1,000 mcg daily (Last dose: 12/01/2016 08:00) 5. Iron CR Oral 325 mg daily (Last dose: 11/30/2016 21:00) 6. Levoxyl 75 mcg Oral tab 1 tab once daily (Last dose: 12/01/2016 08:00) 7. nortriptyline 10 mg Oral cap 2 caps nightly (Last dose: 11/30/2016 21:00) 8. paroxetine HCl 40 mg Oral tab 1 tab once daily (Last dose: 12/01/2016 08:00) 9. prednisone 10 mg Oral tab 1 tab once daily tapering dose, has one remaining dose (Last dose: 12/01/2016 08:00) 10. Januvia 100 mg oral tab 1 tab once daily (Last dose: 12/01/2016 08:00) 11. Topamax 150 mg Oral twice a day (Last dose: 12/01/2016 08:00) 12. Nicoderm CQ 14 mg/24 hr transdermal pt24 1 patch once daily (Last dose: 12/01/2016 16:39) 13. Coumadin 5 mg Oral tab 1 tab 4 times weekly on Sun/Tues/Thurs/Sat (Last dose: 11/29/2016) 14. Coumadin 7.5 mg Oral tab 1 tab 3 times weekly on // (Last dose: 11/30/2016 17:00) - PMHx: Hypercholesterolemia; Hypothyroidism; Diabetes - NIDDM: controlled; COPD; Hypertension; Anemia; Depression; CVA; - PSHx: brain surgery; ; Carpal Tunnel Repair- Right; Bunion Surgery; Thyroidectomy; Remote Contolled Brain Shunt; - Social history: Smoking status: Patient states former smoker of tobacco. No barriers to communication noted, The patient speaks fluent [place]. - Family history: Not pertinent. - : The pt / caregiver states he / she is not on anticoagulants. Home medication list is obtained from family members. - Exposure Risk Screening:: None identified. Vital Signs: 12/01 15:16 BP 121 / 50; Pulse 87; Resp 18 S; Temp 98.3(O); Pulse Ox 99% on R/A; Weight 69.85 kg / gr2 153.99 lbs (R); Height 4 ft. 10 in. (147.32 cm) (R); Pain 5/10; 15:45 BP 109 / 57 (auto/); jc4 15:49 Pulse 76 MON; Pulse Ox 97% ; jc4 16:14 Pulse 76 MON; Pulse Ox 98% ; jc4 16:15 BP 122 / 58 (auto/); jc4 16:45 BP 107 / 53 (auto/); jc4 16:46 Pulse 74 MON; Pulse Ox 97% ; jc4 17:15 BP 115 / 58 (auto/); jc4 17:15 Pulse 74 MON; Pulse Ox 96% ; jc4 17:45 BP 118 / 56 (auto/); jc4 17:48 Pulse 80 MON; Pulse Ox 95% ; jc4 18:12 Temp 99.8(TE); jc4 20:20 BP 113 / 56; Pulse 72; Resp 20; Temp 96.7(TE); Pulse Ox 97% on R/A; Pain 0/10; nn1 21:20 BP 113 / 59; Pulse 67; Resp 20; Temp 98.3(TE); Pulse Ox 98% on R/A; Pain 0/10; nn1 21:42 BP 117 / 55; Pulse 74; Resp 18; Temp 97.4(TE); Pulse Ox 97% on R/A; Pain 0/10; nn1 12/02 01:46 BP 111 / 54 (auto/); kas2 01:46 Pulse 62 MON; Pulse Ox 96% ; kas2 02:01 BP 106 / 52 (auto/); kas2 02:01 Pulse 62 MON; Pulse Ox 96% ; kas2 02:16 BP 102 / 50 (auto/); kas2 02:16 Pulse 62 MON; Pulse Ox 95% ; kas2 02:19 Resp 18; Temp 97.6(O); Pulse Ox 100% on R/A; kas2 02:31 BP 123 / 58 (auto/); kas2 02:31 Pulse 64 MON; Pulse Ox 92% ; kas2 02:46 BP 109 / 55 (auto/); kas2 02:46 Pulse 60 MON; Pulse Ox 94% ; kas2 03:01 BP 114 / 53 (auto/); kas2 03:01 Pulse 60 MON; Pulse Ox 95% ; kas2 03:16 BP 103 / 52 (auto/); kas2 03:16 Pulse 58 MON; Pulse Ox 94% ; kas2 03:31 BP 114 / 54 (auto/); kas2 03:31 Pulse 58 MON; Pulse Ox 95% ; kas2 03:46 BP 100 / 48 (auto/); kas2 03:46 Pulse 56 MON; Pulse Ox 95% ; kas2 03:46 Resp 18; Temp 98.2(O); Pain 0/10; kas2 04:01 BP 106 / 53 (auto/); kas2 04:01 Pulse 58 MON; Pulse Ox 96% ; kas2 04:16 BP 105 / 51 (auto/); kas2 04:16 Pulse 56 MON; Pulse Ox 95% ; kas2 04:31 BP 96 / 47 (auto/); kas2 04:31 Pulse 56 MON; Pulse Ox 95% ; kas2 04:46 BP 101 / 48 (auto/); kas2 04:46 Pulse 56 MON; Pulse Ox 96% ; kas2 05:01 BP 91 / 45 (auto/); kas2 05:01 Pulse 56 MON; Pulse Ox 96% ; kas2 05:16 BP 115 / 55 (auto/); kas2 05:16 Pulse 58 MON; Pulse Ox 94% ; kas2 05:33 Resp 18; Temp 97.9(O); Pain 0/10; kas2 06:40 BP 118 / 73 (auto/); kas2 06:40 Pulse 58 MON; Pulse Ox 95% ; kas2 06:42 Resp 18; Temp 98.6(O); Pulse Ox 96% ; Pain 0/10; kas2 07:09 Pulse 58 MON; Pulse Ox 96% ; hs1 07:10 BP 143 / 65 (auto/); hs1 07:24 Pulse 72 MON; Pulse Ox 95% ; hs1 07:25 BP 107 / 53 (auto/); hs1 07:39 Pulse 56 MON; Pulse Ox 95% ; hs1 07:40 BP 104 / 51 (auto/); hs1 07:54 Pulse 60 MON; Pulse Ox 97% ; hs1 07:55 BP 111 / 56 (auto/); hs1 08:09 Pulse 64 MON; Pulse Ox 98% ; hs1 08:10 BP 126 / 75 (auto/); hs1 08:24 Pulse 64 MON; Pulse Ox 97% ; hs1 08:25 BP 118 / 56 (auto/); hs1 08:39 Pulse 66 MON; Pulse Ox 93% ; hs1 08:40 BP 110 / 56 (auto/); hs1 09:09 Pulse 68 MON; Pulse Ox 98% ; hs1 09:10 BP 122 / 58 (auto/); hs1 09:24 Pulse 64 MON; Pulse Ox 97% ; hs1 09:25 BP 103 / 56 (auto/); hs1 09:39 Pulse 66 MON; Pulse Ox 97% ; hs1 09:40 BP 101 / 55 (auto/); hs1 09:54 Pulse 64 MON; Pulse Ox 96% ; hs1 09:55 BP 107 / 54 (auto/); hs1 10:09 Pulse 66 MON; Pulse Ox 97% ; hs1 10:10 BP 114 / 55 (auto/); hs1 10:25 BP 116 / 59 (auto/); hs1 10:25 Pulse 66 MON; Pulse Ox 98% ; hs1 10:39 Pulse 62 MON; Pulse Ox 97% ; hs1 10:40 BP 119 / 59 (auto/); hs1 10:54 Pulse 64 MON; Pulse Ox 95% ; hs1 10:55 BP 112 / 58 (auto/); hs1 11:09 Pulse 64 MON; Pulse Ox 96% ; hs1 11:10 BP 127 / 60 (auto/); hs1 11:24 Pulse 62 MON; Pulse Ox 96% ; hs1 11:25 BP 115 / 56 (auto/); hs1 11:39 Pulse 66 MON; Pulse Ox 97% ; hs1 11:40 BP 115 / 58 (auto/); hs1 11:54 Pulse 64 MON; Pulse Ox 96% ; hs1 11:55 BP 120 / 82 (auto/); hs1 12:24 Pulse 66 MON; Pulse Ox 98% ; hs1 12:25 BP 124 / 61 (auto/); hs1 12:39 Pulse 64 MON; Pulse Ox 98% ; hs1 12:40 BP 118 / 55 (auto/); hs1 12:54 Pulse 62 MON; Pulse Ox 93% ; hs1 12:55 BP 102 / 50 (auto/); hs1 13:09 Pulse 66 MON; Pulse Ox 93% ; hs1 13:10 BP 110 / 55 (auto/); hs1 13:25 BP 122 / 58 (auto/); hs1 13:25 Pulse 64 MON; Pulse Ox 97% ; hs1 13:39 Pulse 64 MON; Pulse Ox 96% ; hs1 13:40 BP 122 / 61 (auto/); hs1 13:54 Pulse 62 MON; Pulse Ox 94% ; hs1 13:55 BP 119 / 60 (auto/); hs1 14:24 Pulse 62 MON; Pulse Ox 95% ; hs1 14:25 BP 129 / 58 (auto/); hs1 14:39 Pulse 64 MON; Pulse Ox 98% ; hs1 14:40 BP 120 / 67 (auto/); hs1 14:54 Pulse 64 MON; Pulse Ox 97% ; hs1 14:55 BP 118 / 65 (auto/); hs1 16:55 BP 110 / 65; Pulse 85; Resp 20; Temp 98.8(O); Pulse Ox 98% on R/A; 4 12/01 15:16 Body Mass Index 32.19 (69.85 kg, 147.32 cm) gr2 MDM: 12/01 15:47 Undress patient appropriately for examination ordered. sd1 15:47 IV Saline Lock ordered. sd1 15:48 Amylase Ordered. EDMS 15:48 Basic Metabolic Profile Ordered. EDMS 15:48 CBC with Diff Ordered. EDMS 15:48 Lipase Ordered. EDMS 15:48 Liver Profile Ordered. EDMS 15:48 Prothrombin Time Profile\E\INR Ordered. EDMS 15:49 BED REQUEST+ADM ordered. EDMS 15:49 ECG WITH READING ER PHYS+CARDIAG ordered. EDMS 15:59 Type and Cross, Packed Cells Ordered. EDMS 16:22 TYPE & SCREEN Ordered. EDMS 16:52 DIFFERENTIAL NO CHARGE Ordered. EDMS 16:53 Basic Metabolic Profile Reviewed. ke 16:53 CBC with Diff Reviewed. ke 16:53 Liver Profile Reviewed. ke 16:53 Amylase Reviewed. ke 16:53 Lipase Reviewed. ke 16:58 Transfuse PRBC's 2 units, ensure PRBCs ordered in lab ordered. ke 18:40 Admission / Observation Status ordered. EDMS 18:40 CONSISTENT CARBOHYDRATES ordered. EDMS 18:43 PACKED CELLS Ordered. EDMS 18:43 FRESH FROZEN PLASMA PHERESIS Ordered. EDMS 19:46 Acetaminophen Tablet 650 mg PO once ordered. nn1 19:47 FROZEN PLASMA 24 Ordered. EDMS 19:51 Written Provider Order was scanned into [employer] and attached to record. kb5 20:46 Transfuse FFP 1 unit, ensure FFP ordered in lab ordered. nn1 22:13 HEMOGLOBIN & HEMATOCRIT Ordered. EDMS 22:13 PROTHROMBIN TIME PROFILE\E\INR Ordered. EDMS 22:13 CBC WITH DIFFERENTIAL Ordered. EDMS 22:14 COMPLETE COMPHRENSIVE METABOLI Ordered. EDMS 22:14 MAGNESIUM LEVEL Ordered. EDMS 22:14 HEMOGLOBIN & HEMATOCRIT Ordered. EDMS 22:14 HEMOGLOBIN & HEMATOCRIT Ordered. EDMS 22:14 HEMOGLOBIN & HEMATOCRIT Ordered. EDMS 22:14 OCCULT BLOOD STOOL SPECIMEN Ordered. EDMS 23:54 Financial registration complete. hs2 0222 01:03 [facility] [place] was scanned into [employer] and attached to record. hs2 08:01 Fingerstick Blood Sugar Ordered. EDMS 12:30 Fingerstick Blood Sugar Ordered. EDMS 14:26 Admission / Observation Status ordered. EDMS 16:04 Inpatient Paper MAR was scanned into [employer] and attached to record. lbd 17:04 Acetaminophen Tablet 650 mg PO once ordered. jc4 17:16 PACKED CELLS Ordered. EDMS 18:10 Fingerstick Blood Sugar Ordered. EDMS 18:12 HumaLog - Insulin Lispro (0.1 units/kg) 4 units Sub-Q once; administer within 15 jc4 minutes before a meal or no later than immediately following the meal ordered. 12/03 20:20 T-Sheet-- Draft Copy was scanned into [employer] and attached to record. rylie Point of Care Testing: Blood Glucose: 12/02 18:01 Blood Glucose: 179 mg/dL; jc4 Ranges: Administered Medications: 12/01 20:26 Drug: Acetaminophen 650 mg [acetaminophen 325 mg tablet (2 tabs)] Route: PO; nn1 12/02 17:04 Drug: Acetaminophen 650 mg [acetaminophen 325 mg tablet (2 tabs)] Route: PO; jc4 18:12 Drug: HumaLog - Insulin Lispro (0.1 units/kg) 4 units [insulin lispro 100 unit/mL jc4 subcutaneous solution (0.04 mL)] {Co-Signature: hs1 (Patsy Fernández RN).} Route: Sub-Q; Site: left upper arm; Signatures: Dispatcher [employer] EDRina John MD MD sd1 Pilar Alves, RN RN kcs Mariah Hough, Prosthodontist Unit lbd Lillie Pearce RN RN kpj Aman Young, BOLTING MACHINE OPERATOR BOLTING MACHINE OPERATOR ke [place] Harper, TRANSPORT OPERATIONS INSPECTOR TRANSPORT OPERATIONS INSPECTOR kb5 Francisca Best RN RN jc4 Sisi Hernández RN RN sls2 Golden Wolfe RN RN nn1 Cassidy Otero, Reg Reg hs2 Kaur Doll klr Patsy Fernández RN hs1 The chart was reviewed and I authenticate all verbal orders and agree with the evaluation and treatment provided.Corrections: (The following items were deleted from the chart) 12/01 16:35 15:49 TYPE & SCREEN+BBK ordered. EDMS EDMS 18:51 18:43 TYPE & SCREEN ordered. EDMS EDMS 22:10 15:49 NOTHING BY MOUTH+DIET ordered. EDMS EDMS 22:45 22:14 HEMOGLOBIN & HEMATOCRIT ordered. EDMS EDMS 12/02 17:16 17:11 PACKED CELLS ordered. EDMS EDMS 17:16 17:11 TYPE & SCREEN ordered. EDSD EDMS Attachments: 12/01 19:51 Written Provider Order kb5 02/22 01:03 [facility] Payment Agreement hs2 12/03 20:20 T-Sheet-- Draft Copy klr Chart Complete MTDD
--- NOTE | 2016-12-04 19:20 | EDDOCDS ---
Physician Documentation [facility] Name: Bernarda Murdock Age: 61 yrs Sex: Female : 1955 Arrival Date: 12/01/2016 Time: 15:13 Bed Admit Hold Private MD: Pantera Nevarez Disposition: 12/01/16 16:57 Hospitalization ordered by Astrid Jaimes for Inpatient Admission. Preliminary diagnosis is Gastritis, unspecified, with bleeding. - Bed requested for 4 [place] (Formerly 3 [facility]). - Status is Inpatient Admission. [facility] - Condition is Stable. - Problem is an ongoing problem. - Symptoms are unchanged. Historical: - Allergies: PENICILLINS (Hives); SULFA (SULFONAMIDES) (Hives); - Home Meds: 1. albuterol sulfate 90 mcg/actuation Inhl HFAA 2 puffs every 4 hours as needed (Last dose: 12/01/2016 12:00) 2. atorvastatin 10 mg oral tab 1 tab once daily (Last dose: 12/01/2016 08:00) 3. bisoprolol fumarate 5 mg oral tab 1 tab once daily (Last dose: 12/01/2016 08:00) 4. Vitamin B-12 1,000 mcg Oral tab 1,000 mcg daily (Last dose: 12/01/2016 08:00) 5. Iron CR Oral 325 mg daily (Last dose: 11/30/2016 21:00) 6. Levoxyl 75 mcg Oral tab 1 tab once daily (Last dose: 12/01/2016 08:00) 7. nortriptyline 10 mg Oral cap 2 caps nightly (Last dose: 11/30/2016 21:00) 8. paroxetine HCl 40 mg Oral tab 1 tab once daily (Last dose: 12/01/2016 08:00) 9. prednisone 10 mg Oral tab 1 tab once daily tapering dose, has one remaining dose (Last dose: 12/01/2016 08:00) 10. Januvia 100 mg oral tab 1 tab once daily (Last dose: 12/01/2016 08:00) 11. Topamax 150 mg Oral twice a day (Last dose: 12/01/2016 08:00) 12. Nicoderm CQ 14 mg/24 hr transdermal pt24 1 patch once daily (Last dose: 12/01/2016 16:39) 13. Coumadin 5 mg Oral tab 1 tab 4 times weekly on Sun/Tues/Thurs/Sat (Last dose: 11/29/2016) 14. Coumadin 7.5 mg Oral tab 1 tab 3 times weekly on // (Last dose: 11/30/2016 17:00) - PMHx: Hypercholesterolemia; Hypothyroidism; Diabetes - NIDDM: controlled; COPD; Hypertension; Anemia; Depression; CVA; - PSHx: brain surgery; ; Carpal Tunnel Repair- Right; Bunion Surgery; Thyroidectomy; Remote Contolled Brain Shunt; - Social history: Smoking status: Patient states former smoker of tobacco. No barriers to communication noted, The patient speaks fluent Slovenian. - Family history: Not pertinent. - : The pt / caregiver states he / she is not on anticoagulants. Home medication list is obtained from family members. - Exposure Risk Screening:: None identified. Vital Signs: 12/01 15:16 BP 121 / 50; Pulse 87; Resp 18 S; Temp 98.3(O); Pulse Ox 99% on R/A; Weight 69.85 kg / gr2 153.99 lbs (R); Height 4 ft. 10 in. (147.32 cm) (R); Pain 5/10; 15:45 BP 109 / 57 (auto/); jc4 15:49 Pulse 76 MON; Pulse Ox 97% ; jc4 16:14 Pulse 76 MON; Pulse Ox 98% ; jc4 16:15 BP 122 / 58 (auto/); jc4 16:45 BP 107 / 53 (auto/); jc4 16:46 Pulse 74 MON; Pulse Ox 97% ; jc4 17:15 BP 115 / 58 (auto/); jc4 17:15 Pulse 74 MON; Pulse Ox 96% ; jc4 17:45 BP 118 / 56 (auto/); jc4 17:48 Pulse 80 MON; Pulse Ox 95% ; jc4 18:12 Temp 99.8(TE); jc4 20:20 BP 113 / 56; Pulse 72; Resp 20; Temp 96.7(TE); Pulse Ox 97% on R/A; Pain 0/10; nn1 21:20 BP 113 / 59; Pulse 67; Resp 20; Temp 98.3(TE); Pulse Ox 98% on R/A; Pain 0/10; nn1 21:42 BP 117 / 55; Pulse 74; Resp 18; Temp 97.4(TE); Pulse Ox 97% on R/A; Pain 0/10; nn1 12/02 01:46 BP 111 / 54 (auto/); kas2 01:46 Pulse 62 MON; Pulse Ox 96% ; kas2 02:01 BP 106 / 52 (auto/); kas2 02:01 Pulse 62 MON; Pulse Ox 96% ; kas2 02:16 BP 102 / 50 (auto/); kas2 02:16 Pulse 62 MON; Pulse Ox 95% ; kas2 02:19 Resp 18; Temp 97.6(O); Pulse Ox 100% on R/A; kas2 02:31 BP 123 / 58 (auto/); kas2 02:31 Pulse 64 MON; Pulse Ox 92% ; kas2 02:46 BP 109 / 55 (auto/); kas2 02:46 Pulse 60 MON; Pulse Ox 94% ; kas2 03:01 BP 114 / 53 (auto/); kas2 03:01 Pulse 60 MON; Pulse Ox 95% ; kas2 03:16 BP 103 / 52 (auto/); kas2 03:16 Pulse 58 MON; Pulse Ox 94% ; kas2 03:31 BP 114 / 54 (auto/); kas2 03:31 Pulse 58 MON; Pulse Ox 95% ; kas2 03:46 BP 100 / 48 (auto/); kas2 03:46 Pulse 56 MON; Pulse Ox 95% ; kas2 03:46 Resp 18; Temp 98.2(O); Pain 0/10; kas2 04:01 BP 106 / 53 (auto/); kas2 04:01 Pulse 58 MON; Pulse Ox 96% ; kas2 04:16 BP 105 / 51 (auto/); kas2 04:16 Pulse 56 MON; Pulse Ox 95% ; kas2 04:31 BP 96 / 47 (auto/); kas2 04:31 Pulse 56 MON; Pulse Ox 95% ; kas2 04:46 BP 101 / 48 (auto/); kas2 04:46 Pulse 56 MON; Pulse Ox 96% ; kas2 05:01 BP 91 / 45 (auto/); kas2 05:01 Pulse 56 MON; Pulse Ox 96% ; kas2 05:16 BP 115 / 55 (auto/); kas2 05:16 Pulse 58 MON; Pulse Ox 94% ; kas2 05:33 Resp 18; Temp 97.9(O); Pain 0/10; kas2 06:40 BP 118 / 73 (auto/); kas2 06:40 Pulse 58 MON; Pulse Ox 95% ; kas2 06:42 Resp 18; Temp 98.6(O); Pulse Ox 96% ; Pain 0/10; kas2 07:09 Pulse 58 MON; Pulse Ox 96% ; hs1 07:10 BP 143 / 65 (auto/); hs1 07:24 Pulse 72 MON; Pulse Ox 95% ; hs1 07:25 BP 107 / 53 (auto/); hs1 07:39 Pulse 56 MON; Pulse Ox 95% ; hs1 07:40 BP 104 / 51 (auto/); hs1 07:54 Pulse 60 MON; Pulse Ox 97% ; hs1 07:55 BP 111 / 56 (auto/); hs1 08:09 Pulse 64 MON; Pulse Ox 98% ; hs1 08:10 BP 126 / 75 (auto/); hs1 08:24 Pulse 64 MON; Pulse Ox 97% ; hs1 08:25 BP 118 / 56 (auto/); hs1 08:39 Pulse 66 MON; Pulse Ox 93% ; hs1 08:40 BP 110 / 56 (auto/); hs1 09:09 Pulse 68 MON; Pulse Ox 98% ; hs1 09:10 BP 122 / 58 (auto/); hs1 09:24 Pulse 64 MON; Pulse Ox 97% ; hs1 09:25 BP 103 / 56 (auto/); hs1 09:39 Pulse 66 MON; Pulse Ox 97% ; hs1 09:40 BP 101 / 55 (auto/); hs1 09:54 Pulse 64 MON; Pulse Ox 96% ; hs1 09:55 BP 107 / 54 (auto/); hs1 10:09 Pulse 66 MON; Pulse Ox 97% ; hs1 10:10 BP 114 / 55 (auto/); hs1 10:25 BP 116 / 59 (auto/); hs1 10:25 Pulse 66 MON; Pulse Ox 98% ; hs1 10:39 Pulse 62 MON; Pulse Ox 97% ; hs1 10:40 BP 119 / 59 (auto/); hs1 10:54 Pulse 64 MON; Pulse Ox 95% ; hs1 10:55 BP 112 / 58 (auto/); hs1 11:09 Pulse 64 MON; Pulse Ox 96% ; hs1 11:10 BP 127 / 60 (auto/); hs1 11:24 Pulse 62 MON; Pulse Ox 96% ; hs1 11:25 BP 115 / 56 (auto/); hs1 11:39 Pulse 66 MON; Pulse Ox 97% ; hs1 11:40 BP 115 / 58 (auto/); hs1 11:54 Pulse 64 MON; Pulse Ox 96% ; hs1 11:55 BP 120 / 82 (auto/); hs1 12:24 Pulse 66 MON; Pulse Ox 98% ; hs1 12:25 BP 124 / 61 (auto/); hs1 12:39 Pulse 64 MON; Pulse Ox 98% ; hs1 12:40 BP 118 / 55 (auto/); hs1 12:54 Pulse 62 MON; Pulse Ox 93% ; hs1 12:55 BP 102 / 50 (auto/); hs1 13:09 Pulse 66 MON; Pulse Ox 93% ; hs1 13:10 BP 110 / 55 (auto/); hs1 13:25 BP 122 / 58 (auto/); hs1 13:25 Pulse 64 MON; Pulse Ox 97% ; hs1 13:39 Pulse 64 MON; Pulse Ox 96% ; hs1 13:40 BP 122 / 61 (auto/); hs1 13:54 Pulse 62 MON; Pulse Ox 94% ; hs1 13:55 BP 119 / 60 (auto/); hs1 14:24 Pulse 62 MON; Pulse Ox 95% ; hs1 14:25 BP 129 / 58 (auto/); hs1 14:39 Pulse 64 MON; Pulse Ox 98% ; hs1 14:40 BP 120 / 67 (auto/); hs1 14:54 Pulse 64 MON; Pulse Ox 97% ; hs1 14:55 BP 118 / 65 (auto/); hs1 16:55 BP 110 / 65; Pulse 85; Resp 20; Temp 98.8(O); Pulse Ox 98% on R/A; 4 12/01 15:16 Body Mass Index 32.19 (69.85 kg, 147.32 cm) gr2 MDM: 12/01 15:47 Undress patient appropriately for examination ordered. sd1 15:47 IV Saline Lock ordered. sd1 15:48 Amylase Ordered. EDMS 15:48 Basic Metabolic Profile Ordered. EDMS 15:48 CBC with Diff Ordered. EDMS 15:48 Lipase Ordered. EDMS 15:48 Liver Profile Ordered. EDMS 15:48 Prothrombin Time Profile\E\INR Ordered. EDMS 15:49 BED REQUEST+ADM ordered. EDMS 15:49 ECG WITH READING ER PHYS+CARDIAG ordered. EDMS 15:59 Type and Cross, Packed Cells Ordered. EDMS 16:22 TYPE & SCREEN Ordered. EDMS 16:52 DIFFERENTIAL NO CHARGE Ordered. EDMS 16:53 Basic Metabolic Profile Reviewed. ke 16:53 CBC with Diff Reviewed. ke 16:53 Liver Profile Reviewed. ke 16:53 Amylase Reviewed. ke 16:53 Lipase Reviewed. ke 16:58 Transfuse PRBC's 2 units, ensure PRBCs ordered in lab ordered. ke 18:40 Admission / Observation Status ordered. EDMS 18:40 CONSISTENT CARBOHYDRATES ordered. EDMS 18:43 PACKED CELLS Ordered. EDMS 18:43 FRESH FROZEN PLASMA PHERESIS Ordered. EDMS 19:46 Acetaminophen Tablet 650 mg PO once ordered. nn1 19:47 FROZEN PLASMA 24 Ordered. EDMS 19:51 Written Provider Order was scanned into [employer] and attached to record. kb5 20:46 Transfuse FFP 1 unit, ensure FFP ordered in lab ordered. nn1 22:13 HEMOGLOBIN & HEMATOCRIT Ordered. EDMS 22:13 PROTHROMBIN TIME PROFILE\E\INR Ordered. EDMS 22:13 CBC WITH DIFFERENTIAL Ordered. EDMS 22:14 COMPLETE COMPHRENSIVE METABOLI Ordered. EDMS 22:14 MAGNESIUM LEVEL Ordered. EDMS 22:14 HEMOGLOBIN & HEMATOCRIT Ordered. EDMS 22:14 HEMOGLOBIN & HEMATOCRIT Ordered. EDMS 22:14 HEMOGLOBIN & HEMATOCRIT Ordered. EDMS 22:14 OCCULT BLOOD STOOL SPECIMEN Ordered. EDMS 23:54 Financial registration complete. hs2 0222 01:03 [facility] [place] was scanned into [employer] and attached to record. hs2 08:01 Fingerstick Blood Sugar Ordered. EDMS 12:30 Fingerstick Blood Sugar Ordered. EDMS 14:26 Admission / Observation Status ordered. EDMS 16:04 Inpatient Paper MAR was scanned into [employer] and attached to record. lbd 17:04 Acetaminophen Tablet 650 mg PO once ordered. jc4 17:16 PACKED CELLS Ordered. EDMS 18:10 Fingerstick Blood Sugar Ordered. EDMS 18:12 HumaLog - Insulin Lispro (0.1 units/kg) 4 units Sub-Q once; administer within 15 jc4 minutes before a meal or no later than immediately following the meal ordered. 12/03 20:20 T-Sheet-- Draft Copy was scanned into [employer] and attached to record. rylie Point of Care Testing: Blood Glucose: 12/02 18:01 Blood Glucose: 179 mg/dL; jc4 Ranges: Administered Medications: 12/01 20:26 Drug: Acetaminophen 650 mg [acetaminophen 325 mg tablet (2 tabs)] Route: PO; nn1 12/02 17:04 Drug: Acetaminophen 650 mg [acetaminophen 325 mg tablet (2 tabs)] Route: PO; jc4 18:12 Drug: HumaLog - Insulin Lispro (0.1 units/kg) 4 units [insulin lispro 100 unit/mL jc4 subcutaneous solution (0.04 mL)] {Co-Signature: hs1 (Patsy Fernández RN).} Route: Sub-Q; Site: left upper arm; Signatures: Dispatcher [employer] EDRina John MD MD sd1 Pilar Alves, RN RN kcs Mariah Hough, Craft Manager Unit lbd Lillie Pearce RN RN kpj Aman Young, FORM TAMPER FORM TAMPER ke [place] Harper, FELL CUTTER FELL CUTTER kb5 Francisca Best RN RN jc4 Sisi Hernández RN RN sls2 Golden Wolfe RN RN nn1 Cassidy Otero, Reg Reg hs2 Kaur Doll klr Patsy Fernández RN hs1 The chart was reviewed and I authenticate all verbal orders and agree with the evaluation and treatment provided.Corrections: (The following items were deleted from the chart) 12/01 16:35 15:49 TYPE & SCREEN+BBK ordered. EDMS EDMS 18:51 18:43 TYPE & SCREEN ordered. EDMS EDMS 22:10 15:49 NOTHING BY MOUTH+DIET ordered. EDMS EDMS 22:45 22:14 HEMOGLOBIN & HEMATOCRIT ordered. EDMS EDMS 12/02 17:16 17:11 PACKED CELLS ordered. EDMS EDMS 17:16 17:11 TYPE & SCREEN ordered. EDKY EDMS Attachments: 12/01 19:51 Written Provider Order kb5 02/22 01:03 [facility] Payment Agreement hs2 12/03 20:20 T-Sheet-- Draft Copy klr Chart Complete MTDD
--- NOTE | 2016-12-04 19:20 | EDDOCDS ---
Nurse's Notes [facility] Name: David Andrews Age: 61 yrs Sex: Female : 1955 Arrival Date: 12/01/2016 Time: 15:13 Bed Admit Hold Private MD: Pantera Nevarez Diagnosis: Gastritis, unspecified, with bleeding Presentation: 12/01 15:22 Presenting complaint: Patient states: she was called by Dr. Nevarez and told to come kcs here for blood transfusions. Adult Sepsis Screening: The patient does not have new or worsening altered mentation. Patient's respiratory rate is less than 22. Systolic blood pressure is greater than 100. Patient has a qSOFA score of 0- Negative Sepsis Screen. Suicide/Homicide risk assessment- the patient denies having any suicidal and/or homicidal ideations and does not present with any other emotional, behavioral or mental health complaints. Status: Patient is not a electrical service technician or dependent. Transition of care: patient was not received from another setting of care. 15:22 Acuity: MARCELA Level 3 kcs 15:22 Method Of Arrival: Walkin/Carried/Asstd kcs Triage Assessment: 15:24 General: Appears comfortable, well developed, well nourished, well groomed, Behavior is kcs cooperative, pleasant. Pain: Location: headache Pain currently is 8 out of 10 on a pain scale. Pt Declines HIV testing. Neurological: Level of Consciousness is awake, alert. Respiratory: Airway is patent Respiratory effort is even, unlabored, Respiratory pattern is regular, symmetrical. Derm: Skin Skin is dry, Skin is pale. Historical: - Allergies: PENICILLINS (Hives); SULFA (SULFONAMIDES) (Hives); - Home Meds: 1. albuterol sulfate 90 mcg/actuation Inhl HFAA 2 puffs every 4 hours as needed (Last dose: 12/01/2016 12:00) 2. atorvastatin 10 mg oral tab 1 tab once daily (Last dose: 12/01/2016 08:00) 3. bisoprolol fumarate 5 mg oral tab 1 tab once daily (Last dose: 12/01/2016 08:00) 4. Vitamin B-12 1,000 mcg Oral tab 1,000 mcg daily (Last dose: 12/01/2016 08:00) 5. Iron CR Oral 325 mg daily (Last dose: 11/30/2016 21:00) 6. Levoxyl 75 mcg Oral tab 1 tab once daily (Last dose: 12/01/2016 08:00) 7. nortriptyline 10 mg Oral cap 2 caps nightly (Last dose: 11/30/2016 21:00) 8. paroxetine HCl 40 mg Oral tab 1 tab once daily (Last dose: 12/01/2016 08:00) 9. prednisone 10 mg Oral tab 1 tab once daily tapering dose, has one remaining dose (Last dose: 12/01/2016 08:00) 10. Januvia 100 mg oral tab 1 tab once daily (Last dose: 12/01/2016 08:00) 11. Topamax 150 mg Oral twice a day (Last dose: 12/01/2016 08:00) 12. Nicoderm CQ 14 mg/24 hr transdermal pt24 1 patch once daily (Last dose: 12/01/2016 16:39) 13. Coumadin 5 mg Oral tab 1 tab 4 times weekly on Sun/Tues/Thurs/Sat (Last dose: 11/29/2016) 14. Coumadin 7.5 mg Oral tab 1 tab 3 times weekly on M/W/F (Last dose: 11/30/2016 17:00) - PMHx: Hypercholesterolemia; Hypothyroidism; Diabetes - NIDDM: controlled; COPD; Hypertension; Anemia; Depression; CVA; - PSHx: brain surgery; ; Carpal Tunnel Repair- Right; Bunion Surgery; Thyroidectomy; Remote Contolled Brain Shunt; - Social history: Smoking status: Patient states former smoker of tobacco. No barriers to communication noted, The patient speaks fluent Yoruba. - Family history: Not pertinent. - : The pt / caregiver states he / she is not on anticoagulants. Home medication list is obtained from family members. - Exposure Risk Screening:: None identified. Screenin:49 Screening information is obtained from the patient. Fall risk: No risks identified. jc4 Assistance ADL's: requires no assistance with activities of daily living. Abuse/DV Screen: The patient / caregiver reports he/she is: not in a situation that causes fear, pain or injury. Nutritional screening: On no prescribed diet. Advance Directives: Currently, there is no health care proxy. There is no active DNR order. There is no living will. There is no Power of Bacteriology Professor. home support is adequate. Assessment: 16:54 General: Appears in no apparent distress, Behavior is cooperative, pleasant. Pain: jc4 Denies pain. Neurological: Level of Consciousness is awake, alert, Oriented to person, place, time, Reports dizziness, weakness. Cardiovascular: Heart tones S1 S2 present Rhythm is sinus rhythm No ectopy. Respiratory: Airway is patent Respiratory effort is even, unlabored, Respiratory pattern is regular, symmetrical, Breath sounds are diminished bilaterally. scattered rhonchi noted. GI: Abdomen is distended, Bowel sounds present X 4 quads. Abd is non tender X 4 quads Reports black tarry stools. Derm: Skin is dry, Skin is pale, Skin temperature is warm. 17:38 General: Pt resting on stretcher with eyes closed. Respirations easy and full. No jc4 distress at this time. Family member at bedside. Call miles in reach. 18:12 General: Resting on stretcher. No distress noted at this time. jc4 19:20 General: patient reporting headache at this time. consulting hospitalist for further nn1 orders. first unit of blood infusing. . Pain: Denies pain. Neurological: No deficits noted. 20:27 General: first unit of blood completed at 1942. Patient showed no signs or symptoms of nn1 adverse reaction. Patient medicated for headache. Unit of FFP infusing at this time. patient reports weakness has improved. . Respiratory: Airway is patent Respiratory effort is even, unlabored, Respiratory pattern is regular, symmetrical. Derm: Skin is pale. 20:46 General: Patient tolerating FFP well, will continue to monitor. . nn1 21:28 General: contact #: [phone]. General: Patient finished infusing of FFP, no signs nn1 or symptoms of reaction noted. Patient ambulated to restroom with family, gait is steady. . 21:45 General: patient receiving second unit of RBCs. will continue to monitor. No adverse nn1 reactions at this time. Pain: Denies pain. Neurological: Level of Consciousness is awake, alert, Oriented to person, place, time. Respiratory: Airway is patent Respiratory effort is even, unlabored, Respiratory pattern is regular, symmetrical. Derm: Skin is pink, warm & dry. 23:14 General: Second unit of RBC finished, patient has been asleep throughout infusion. nn1 Patient exhibits no signs/symptoms of adverse reaction. . Respiratory: Airway is patent Respiratory effort is even, unlabored, Respiratory pattern is regular, symmetrical. Derm: Skin is pink, warm & dry. 12/02 00:26 General: Appears in no apparent distress, to be sleeping. Behavior is quiet. nn1 Respiratory: Airway is patent Respiratory effort is even, unlabored, Respiratory pattern is regular, symmetrical. Derm: Skin is pink, warm & dry. 01:02 General: Verbal report given by Shefali Martinez RN. Assumed care of patient at this time.. kas2 01:44 General: Appears in no apparent distress, comfortable, to be sleeping. Behavior is kas2 appropriate for age, cooperative. Pain: Denies pain. Neurological: Level of Consciousness is awake, alert, Oriented to person, place, time. Cardiovascular: Capillary refill < 3 seconds Heart tones S1 S2 present Rhythm is sinus rhythm No ectopy. Respiratory: Airway is patent Respiratory effort is even, unlabored, Respiratory pattern is regular, symmetrical, Breath sounds are diminished bilaterally. Derm: Skin is intact, Skin is dry, Skin is pink, warm & dry. Skin temperature is warm. 02:44 General: Appears in no apparent distress, to be sleeping. Behavior is appropriate for kas2 age, cooperative. Pain: Denies pain. Neurological: Level of Consciousness is awake, alert, Oriented to person, place, time. Cardiovascular: Rhythm is sinus rhythm No ectopy. Respiratory: Airway is patent Respiratory effort is even, unlabored, Respiratory pattern is regular, symmetrical. Derm: Skin is intact, Skin is dry, Skin is pink, warm & dry. Skin temperature is warm. 03:44 General: Patient sleeping at this time. Appears comfortable. No apparent distress kas2 noted. Respiratory effort even and unlabored. Call miles within reach. Will continue to monitor.. 05:07 General: Appears in no apparent distress, comfortable, Behavior is appropriate for age, kas2 cooperative. Pain: Denies pain. Neurological: Level of Consciousness is awake, alert, Oriented to person, place, time. Cardiovascular: Rhythm is sinus rhythm No ectopy. Respiratory: Airway is patent Respiratory effort is even, unlabored, Respiratory pattern is regular, symmetrical. Derm: Skin is intact, Skin is dry, Skin is pink, warm & dry. Skin temperature is warm. 05:32 General: Patient up to bathroom to void with assist of RN. Resettled in bed. Meds given kas2 as per floor MAR.. 06:36 General: Appears in no apparent distress, comfortable, Behavior is appropriate for age, kas2 cooperative. Pain: Denies pain. Neurological: Level of Consciousness is awake, alert, Oriented to person, place, time. Cardiovascular: Rhythm is sinus rhythm No ectopy. Respiratory: Airway is patent Respiratory effort is even, unlabored, Respiratory pattern is regular, symmetrical. Derm: Skin is intact, Skin is dry, Skin is pink, warm & dry. Skin temperature is warm. 07:38 General: Appears in no apparent distress, comfortable, Behavior is appropriate for age, hs1 cooperative, Patient reports being tired. Pt sat up for breakfast and glucose taken prior to eating. Patient denies headache or pain. . Cardiovascular: Rhythm is sinus rhythm No ectopy. Derm: Skin is pink, warm & dry. normal. 08:19 General: medications administered per orders. Patient tolerated breakfast well. Patient hs1 denies pain and is resting comfortably in stretcher. No other needs voiced at this time. . 09:12 General: Appears in no apparent distress, comfortable, Behavior is appropriate for age, hs1 cooperative. Respiratory: Airway is patent Respiratory effort is even, unlabored, Respiratory pattern is regular, symmetrical. Respiratory: No deficits noted. Derm: Skin is pink, warm & dry. normal. 10:35 General: Appears in no apparent distress, comfortable, Behavior is appropriate for age, hs1 cooperative. Pain: Denies pain. Respiratory: No deficits noted. Airway is patent Respiratory effort is even, unlabored, Respiratory pattern is regular, symmetrical. Derm: Skin is pink, warm & dry. normal. 11:48 Reassessment: Patient appears in no apparent distress at this time. Patient states hs1 feeling better. Patient states symptoms have improved. patient resting with family around. . Derm: Skin is pink, warm & dry. normal. 12:48 General: Appears in no apparent distress, comfortable, Behavior is appropriate for age, hs1 cooperative. Pain: Denies pain. Cardiovascular: Rhythm is sinus rhythm No ectopy. Respiratory: No deficits noted. Derm: Skin is pink, warm & dry. normal. 13:13 General: Appears in no apparent distress, comfortable, Behavior is appropriate for age, hs1 cooperative. Pain: Denies pain. Cardiovascular: Rhythm is sinus rhythm No ectopy. Respiratory: No deficits noted. Airway is patent Respiratory effort is even, unlabored, Respiratory pattern is regular, symmetrical. 14:32 General: Appears in no apparent distress, comfortable, Behavior is appropriate for age, hs1 cooperative, New family members at bedside. Aware of second call out to Dr Sarkar for assessment. Patient continuing to wait for further plan of care. . 15:52 General: Pt resting on stretcher with eyes closed. Respirations easy and full. Cardiac jc4 monitor - sinus rhythm without ectopy. Family members at bedside. 16:55 General: Appears in no apparent distress. Neurological: Level of Consciousness is jc4 awake, alert, Oriented to person, place, time, Reports headache. Cardiovascular: Rhythm is sinus rhythm No ectopy. Respiratory: Airway is patent Respiratory effort is even, unlabored, Respiratory pattern is regular, symmetrical. Derm: Skin is pink, warm & dry. 18:00 General: Dinner tray delivered. Pt consumed 100% of meal. jc4 18:13 General: Appears in no apparent distress, comfortable, Behavior is cooperative. jc4 Neurological: Level of Consciousness is awake, alert, Oriented to person, place, time. Respiratory: Airway is patent Respiratory effort is even, unlabored, Respiratory pattern is regular, symmetrical. Derm: Skin is pink, warm & dry. Vital Signs: 12/01 15:16 BP 121 / 50; Pulse 87; Resp 18 S; Temp 98.3(O); Pulse Ox 99% on R/A; Weight 69.85 kg gr2 (R); Height 4 ft. 10 in. (147.32 cm) (R); Pain 5/10; 15:45 BP 109 / 57 (auto/); jc4 15:49 Pulse 76 MON; Pulse Ox 97% ; jc4 16:14 Pulse 76 MON; Pulse Ox 98% ; jc4 16:15 BP 122 / 58 (auto/); jc4 16:45 BP 107 / 53 (auto/); jc4 16:46 Pulse 74 MON; Pulse Ox 97% ; jc4 17:15 BP 115 / 58 (auto/); jc4 17:15 Pulse 74 MON; Pulse Ox 96% ; jc4 17:45 BP 118 / 56 (auto/); jc4 17:48 Pulse 80 MON; Pulse Ox 95% ; jc4 18:12 Temp 99.8(TE); jc4 20:20 BP 113 / 56; Pulse 72; Resp 20; Temp 96.7(TE); Pulse Ox 97% on R/A; Pain 0/10; nn1 21:20 BP 113 / 59; Pulse 67; Resp 20; Temp 98.3(TE); Pulse Ox 98% on R/A; Pain 0/10; nn1 21:42 BP 117 / 55; Pulse 74; Resp 18; Temp 97.4(TE); Pulse Ox 97% on R/A; Pain 0/10; nn1 12/02 01:46 BP 111 / 54 (auto/); kas2 01:46 Pulse 62 MON; Pulse Ox 96% ; kas2 02:01 BP 106 / 52 (auto/); kas2 02:01 Pulse 62 MON; Pulse Ox 96% ; kas2 02:16 BP 102 / 50 (auto/); kas2 02:16 Pulse 62 MON; Pulse Ox 95% ; kas2 02:19 Resp 18; Temp 97.6(O); Pulse Ox 100% on R/A; kas2 02:31 BP 123 / 58 (auto/); kas2 02:31 Pulse 64 MON; Pulse Ox 92% ; kas2 02:46 BP 109 / 55 (auto/); kas2 02:46 Pulse 60 MON; Pulse Ox 94% ; kas2 03:01 BP 114 / 53 (auto/); kas2 03:01 Pulse 60 MON; Pulse Ox 95% ; kas2 03:16 BP 103 / 52 (auto/); kas2 03:16 Pulse 58 MON; Pulse Ox 94% ; kas2 03:31 BP 114 / 54 (auto/); kas2 03:31 Pulse 58 MON; Pulse Ox 95% ; kas2 03:46 BP 100 / 48 (auto/); kas2 03:46 Pulse 56 MON; Pulse Ox 95% ; kas2 03:46 Resp 18; Temp 98.2(O); Pain 0/10; kas2 04:01 BP 106 / 53 (auto/); kas2 04:01 Pulse 58 MON; Pulse Ox 96% ; kas2 04:16 BP 105 / 51 (auto/); kas2 04:16 Pulse 56 MON; Pulse Ox 95% ; kas2 04:31 BP 96 / 47 (auto/); kas2 04:31 Pulse 56 MON; Pulse Ox 95% ; kas2 04:46 BP 101 / 48 (auto/); kas2 04:46 Pulse 56 MON; Pulse Ox 96% ; kas2 05:01 BP 91 / 45 (auto/); kas2 05:01 Pulse 56 MON; Pulse Ox 96% ; kas2 05:16 BP 115 / 55 (auto/); kas2 05:16 Pulse 58 MON; Pulse Ox 94% ; kas2 05:33 Resp 18; Temp 97.9(O); Pain 0/10; kas2 06:40 BP 118 / 73 (auto/); kas2 06:40 Pulse 58 MON; Pulse Ox 95% ; kas2 06:42 Resp 18; Temp 98.6(O); Pulse Ox 96% ; Pain 0/10; kas2 07:09 Pulse 58 MON; Pulse Ox 96% ; hs1 07:10 BP 143 / 65 (auto/); hs1 07:24 Pulse 72 MON; Pulse Ox 95% ; hs1 07:25 BP 107 / 53 (auto/); hs1 07:39 Pulse 56 MON; Pulse Ox 95% ; hs1 07:40 BP 104 / 51 (auto/); hs1 07:54 Pulse 60 MON; Pulse Ox 97% ; hs1 07:55 BP 111 / 56 (auto/); hs1 08:09 Pulse 64 MON; Pulse Ox 98% ; hs1 08:10 BP 126 / 75 (auto/); hs1 08:24 Pulse 64 MON; Pulse Ox 97% ; hs1 08:25 BP 118 / 56 (auto/); hs1 08:39 Pulse 66 MON; Pulse Ox 93% ; hs1 08:40 BP 110 / 56 (auto/); hs1 09:09 Pulse 68 MON; Pulse Ox 98% ; hs1 09:10 BP 122 / 58 (auto/); hs1 09:24 Pulse 64 MON; Pulse Ox 97% ; hs1 09:25 BP 103 / 56 (auto/); hs1 09:39 Pulse 66 MON; Pulse Ox 97% ; hs1 09:40 BP 101 / 55 (auto/); hs1 09:54 Pulse 64 MON; Pulse Ox 96% ; hs1 09:55 BP 107 / 54 (auto/); hs1 10:09 Pulse 66 MON; Pulse Ox 97% ; hs1 10:10 BP 114 / 55 (auto/); hs1 10:25 BP 116 / 59 (auto/); hs1 10:25 Pulse 66 MON; Pulse Ox 98% ; hs1 10:39 Pulse 62 MON; Pulse Ox 97% ; hs1 10:40 BP 119 / 59 (auto/); hs1 10:54 Pulse 64 MON; Pulse Ox 95% ; hs1 10:55 BP 112 / 58 (auto/); hs1 11:09 Pulse 64 MON; Pulse Ox 96% ; hs1 11:10 BP 127 / 60 (auto/); hs1 11:24 Pulse 62 MON; Pulse Ox 96% ; hs1 11:25 BP 115 / 56 (auto/); hs1 11:39 Pulse 66 MON; Pulse Ox 97% ; hs1 11:40 BP 115 / 58 (auto/); hs1 11:54 Pulse 64 MON; Pulse Ox 96% ; hs1 11:55 BP 120 / 82 (auto/); hs1 12:24 Pulse 66 MON; Pulse Ox 98% ; hs1 12:25 BP 124 / 61 (auto/); hs1 12:39 Pulse 64 MON; Pulse Ox 98% ; hs1 12:40 BP 118 / 55 (auto/); hs1 12:54 Pulse 62 MON; Pulse Ox 93% ; hs1 12:55 BP 102 / 50 (auto/); hs1 13:09 Pulse 66 MON; Pulse Ox 93% ; hs1 13:10 BP 110 / 55 (auto/); hs1 13:25 BP 122 / 58 (auto/); hs1 13:25 Pulse 64 MON; Pulse Ox 97% ; hs1 13:39 Pulse 64 MON; Pulse Ox 96% ; hs1 13:40 BP 122 / 61 (auto/); hs1 13:54 Pulse 62 MON; Pulse Ox 94% ; hs1 13:55 BP 119 / 60 (auto/); hs1 14:24 Pulse 62 MON; Pulse Ox 95% ; hs1 14:25 BP 129 / 58 (auto/); hs1 14:39 Pulse 64 MON; Pulse Ox 98% ; hs1 14:40 BP 120 / 67 (auto/); hs1 14:54 Pulse 64 MON; Pulse Ox 97% ; hs1 14:55 BP 118 / 65 (auto/); hs1 16:55 BP 110 / 65; Pulse 85; Resp 20; Temp 98.8(O); Pulse Ox 98% on R/A; [facility] 12/01 15:16 Body Mass Index 32.19 (69.85 kg, 147.32 cm) gr2 Vitals: 12/01 15:16 Log In Time: December 01, 2016 at 15:16. gr2 ED Course: 15:15 Patient visited by Aron Oliver. gr2 15:15 Pantera Nevarez MD is Private Physician. gr2 15:15 Patient moved to Waiting gr2 15:17 Patient visited by Aron Oliver. gr2 15:17 Patient moved to Pre RCE gr2 15:23 Triage Initiated kcs 15:35 Dee Blum,MARC is Primary Nurse. nb2 15:35 Patient moved to 10 nb2 15:47 Rina Austin MD is Attending Physician. sd1 15:51 Aman Young FNP is PHCP. ke 15:51 Patient visited by Aman Young FNP. ke 15:51 Patient visited by Aman Young FNP. ke 16:08 Francisca Best RN is Primary Nurse. jc4 16:09 Patient visited by Shefali Guillory. nb2 16:09 EKG done. (by ED staff). Reviewed by Aman CALVILLO. nb2 16:17 Type and Cross, Packed Cells Sent. jc4 16:17 Amylase Sent. jc4 16:17 Basic Metabolic Profile Sent. jc4 16:17 CBC with Diff Sent. jc4 16:17 Lipase Sent. jc4 16:17 Liver Profile Sent. jc4 16:17 Prothrombin Time Profile\E\INR Sent. jc4 16:18 Patient visited by Francisca Best RN. jc4 16:18 Inserted saline lock: 20 gauge in left antecubital area The patient tolerated the jc4 procedure well. 16:41 Patient visited by Aman Young FNP. ke 16:50 The patient / caregiver is instructed regarding the plan of care and ED course. jc4 16:54 DIFFERENTIAL NO CHARGE Sent. jc4 16:55 Patient visited by Francisca Best RN. jc4 16:57 Astrid Jaimes is Hospitalizing Provider. ke 18:25 Blood products: PRBCs X 1 unit given. See transfusion record Unit [id number]. jc4 19:05 Primary Nurse role handed off by Francisca Best RN jc4 19:33 Patient moved to Admit Hold sls1 19:51 Written Provider Order was scanned into Rollbar and attached to record. kb5 20:26 FROZEN PLASMA 24 Sent. nn1 12/02 00:58 Dior Gaona RN is Primary Nurse. kas2 01:02 Patient visited by Dior Gaona RN. kas2 01:03 [facility] Payment Agreement was scanned into Rollbar and attached to record. hs2 01:50 Primary Nurse role handed off by Dee Blum RN rs6 01:57 Patient visited by Dior Gaona RN. kas2 02:20 Patient visited by Dior Gaona RN. kas2 02:45 Patient visited by Dior Gaona RN. kas2 03:45 Patient visited by Dior Gaona RN. kas2 05:12 Patient visited by Dior Gaona RN. kas2 05:33 Patient visited by Dior Gaona RN. kas2 06:41 Patient visited by Dior Gaona RN. kas2 06:43 Patient visited by Dior Gaona RN. kas2 06:58 Patient visited by Dior Gaona RN. kas2 08:05 Primary Nurse role handed off by Dior Gaona RN mlb1 09:24 Patient visited by Patsy Fernández RN. hs1 09:37 Patient visited by Kelsey Jj. cmb 10:05 EKG-ADULT Returned. EDMS 11:06 Patient visited by Kelsey Jj. cmb 11:06 Assisted to bathroom. cmb 16:04 Inpatient Paper MAR was scanned into Rollbar and attached to record. lbd 17:48 No procedures done that require assistance. jc4 12/03 20:20 T-Sheet-- Draft Copy was scanned into Rollbar and attached to record. klr Administered Medications: 12/01 20:26 Drug: Acetaminophen 650 mg [acetaminophen 325 mg tablet (2 tabs)] Route: PO; nn1 12/02 17:04 Drug: Acetaminophen 650 mg [acetaminophen 325 mg tablet (2 tabs)] Route: PO; jc4 18:12 Drug: HumaLog - Insulin Lispro (0.1 units/kg) 4 units [insulin lispro 100 unit/mL jc4 subcutaneous solution (0.04 mL)] {Co-Signature: hs1 (Patsy Fernández RN).} Route: Sub-Q; Site: left upper arm; Attachments: 16:04 Inpatient Paper MAR [facility] Point of Care Testing: Blood Glucose: 12/02 18:01 Blood Glucose: 179 mg/dL; jc4 Ranges: Output: 11:06 Urine: 150.00ml (Voided); Total: 150.00ml. cmb Order Results: Lab Order: Amylase; SPEC'M 12/01/16 16:14 Test: AMYLASE; Value: 48; Range: 25-115; Units: U/L; Status: F Lab Order: Basic Metabolic Profile; SPEC'M 12/01/16 16:14 Test: GLUCOSE, FASTING; Value: 222; Range: 80-110; Abnormal: Above high normal; Units: MG/DL; Status: F Test: BLOOD UREA NITROGEN; Value: 19; Range: 7-18; Abnormal: Above high normal; Units: MG/DL; Status: F Test: CREATININE FOR GFR; Value: 1.43; Range: 0.55-1.02; Abnormal: Above high normal; Units: MG/DL; Status: F Test: GLOMERULAR FILTRATION RATE; Value: 39.8; Range: >45; Abnormal: Below low normal; Status: F Test: SODIUM LEVEL; Value: 142; Range: 136-145; Units: MEQ/L; Status: F Test: POTASSIUM SERUM; Value: 4.1; Range: 3.5-5.1; Units: MEQ/L; Status: F Test: CHLORIDE LEVEL; Value: 107; Range: 98-107; Units: MEQ/L; Status: F Test: CARBON DIOXIDE LEVEL; Value: 26; Range: 21-32; Units: MEQ/L; Status: F Test: ANION GAP; Value: 9; Range: 8-16; Units: MEQ/L; Status: F Test: CALCIUM LEVEL; Value: 8.2; Range: 8.8-10.2; Abnormal: Below low normal; Units: MG/DL; Status: F Test Note: ; Units are mL/min/1.73 m2 Chronic Kidney Disease Staging per NKF: Stage I & II GFR >=60 Normal to Mildly Decreased Stage III GFR 30-59 Moderately Decreased Stage IV GFR 15-29 Severely Decreased Stage V GFR <15 Very Little GFR Left ESRD GFR <15 on TILE LAYER HELPER Lab Order: CBC with Diff; SPEC'M 12/01/16 16:14 Test: WHITE BLOOD COUNT; Value: 9.3; Range: 4.0-10.0; Units: K/mm3; Status: F Test: RED BLOOD COUNT; Value: 1.64; Range: 4.00-5.40; Abnormal: Below low normal; Units: M/mm3; Status: F Test: HEMOGLOBIN; Value: 5.5; Range: 12.0-16.0; Abnormal: Critical Low; Units: g/dl; Status: F Test: HEMATOCRIT; Value: 18.8; Range: 36.0-47.0; Abnormal: Below low normal; Units: %; Status: F Test: MEAN CORPUSCULAR VOLUME; Value: 114.8; Range: 80.0-96.0; Abnormal: Above high normal; Units: fl; Status: F Test: MEAN CORPUSCULAR HEMOGLOBIN; Value: 33.6; Range: 27.0-33.0; Abnormal: Above high normal; Units: pg; Status: F Test: MEAN CORPUSCULAR HGB CONC; Value: 29.3; Range: 32.0-36.5; Abnormal: Below low normal; Units: g/dl; Status: F Test: RED CELL DISTRIBUTION WIDTH; Value: 18.2; Range: 11.5-14.5; Abnormal: Above high normal; Units: %; Status: F Test: PLATELET COUNT, AUTOMATED; Value: 327; Range: 150-450; Units: k/mm3; Status: F Test: NEUTROPHILS; Value: 87; Range: 35-75; Abnormal: Above high normal; Units: %; Status: F Test: LYMPHOCYTES; Value: 10; Range: 16-52; Abnormal: Below low normal; Units: %; Status: F Test: MONOCYTES; Value: 3; Range: 0-8; Units: %; Status: F Test: POLYCHROMASIA; Value: 1+; Status: F Test: HYPOCHROMASIA; Value: 3+; Status: F Test: ANISOCYTOSIS; Value: 2+; Status: F Test: MACROCYTOSIS; Value: 3+; Status: F Test: TEAR DROP CELLS; Value: 1+; Status: F Lab Order: Lipase; SPEC'M 12/01/16 16:14 Test: LIPASE; Value: 134; Range: 73-393; Units: U/L; Status: F Lab Order: Liver Profile; [facility] 12/01/16 16:14 Test: AST/SGOT; Value: 9; Range: 15-37; Abnormal: Below low normal; Units: U/L; Status: F Test: ALT/SGPT; Value: 23; Range: 12-78; Units: U/L; Status: F Test: ALKALINE PHOSPHATASE; Value: 67; Range: 45-117; Units: U/L; Status: F Test: BILIRUBIN,TOTAL; Value: 0.2; Range: 0.2-1.0; Units: MG/DL; Status: F Test: BILIRUBIN,DIRECT; Value: < 0.1; Range: 0.0-0.2; Units: MG/DL; Status: F Test: TOTAL PROTEIN; Value: 6.1; Range: 6.4-8.2; Abnormal: Below low normal; Units: GM/DL; Status: F Test: ALBUMIN; Value: 3.1; Range: 3.2-5.2; Abnormal: Below low normal; Units: GM/DL; Status: F Test: ALBUMIN/GLOBULIN RATIO; Value: 1.03; Range: 1.00-1.93; Status: F Lab Order: Prothrombin Time Profile\E\INR; [facility] 12/01/16 16:14 Test: PROTHROMBIN TIME; Value: 46.7; Range: 12.3-14.5; Abnormal: Above high normal; Units: SECONDS; Status: F Test: INR; Value: 5.05; Abnormal: Above upper panic limits; Status: F Test Note: ; THERAPUTIC HUMAN INR VALUES INDICATIONS NORMAL RANGES PROPHYLAXIS/TREATMENT OF: VENOUS THROMBOSIS 2.0-3.0 PULMONARY EMBOLISM 2.0-3.0 PREVENTION OF SYSTEMIC EMBOLISM FROM: TISSUE HEART VALVES 2.0-3.0 ACUTE MYOCARDIAL INFARCTION 2.0-3.0 VALVULAR HEART DISEASE 2.0-3.0 ATRIAL FIBRILLATION 2.0-3.0 MECHANICAL VALVES(HIGH RISK) 2.5-3.5 RECURRENT MYOCARDIAL INFARCTION 2.5-3.5 Lab Order: TYPE & SCREEN; [facility] 12/01/16 16:14 Test: BLOOD TYPE; Value: O POS; Status: F Test: AB SCREEN (INDIRECT ANKITA)VIS; Value: NEGATIVE; Status: F Test: IMMEDIATE SPIN CROSSMATCH; Value: [id number] O POSITIVE Compatible? Y; Status: F Test: IMMEDIATE SPIN CROSSMATCH; Value: [id number] O POSITIVE Compatible? Y; Status: F Test: IMMEDIATE SPIN CROSSMATCH; Value: [phone] O POSITIVE Compatible? Y; Status: F Test: IMMEDIATE SPIN CROSSMATCH; Value: [phone] O POSITIVE Compatible? Y; Status: F Lab Order: PLATELET ESTIMATE; [facility] 12/01/16 16:14 Test: PLATELET ESTIMATE; Value: NORMAL; Range: NORMAL; Status: F Lab Order: HEMOGLOBIN & HEMATOCRIT; [facility] 12/01/16 23:17 Test: HEMOGLOBIN; Value: 8.3; Range: 12.0-16.0; Units: g/dl; Status: F Test: HEMATOCRIT; Value: 25.7; Range: 36.0-47.0; Abnormal: Below low normal; Units: %; Status: F Lab Order: PROTHROMBIN TIME PROFILE\E\INR; [facility] 12/02/16 05:18 Test: PROTHROMBIN TIME; Value: 30.7; Range: 12.3-14.5; Abnormal: Above high normal; Units: SECONDS; Status: F Test: INR; Value: 2.94; Status: F Test Note: ; THERAPUTIC HUMAN INR VALUES INDICATIONS NORMAL RANGES PROPHYLAXIS/TREATMENT OF: VENOUS THROMBOSIS 2.0-3.0 PULMONARY EMBOLISM 2.0-3.0 PREVENTION OF SYSTEMIC EMBOLISM FROM: TISSUE HEART VALVES 2.0-3.0 ACUTE MYOCARDIAL INFARCTION 2.0-3.0 VALVULAR HEART DISEASE 2.0-3.0 ATRIAL FIBRILLATION 2.0-3.0 MECHANICAL VALVES(HIGH RISK) 2.5-3.5 RECURRENT MYOCARDIAL INFARCTION 2.5-3.5 Lab Order: CBC WITH DIFFERENTIAL; [facility]12/02/16 05:18 Test: WHITE BLOOD COUNT; Value: 6.2; Range: 4.0-10.0; Units: K/mm3; Status: F Test: RED BLOOD COUNT; Value: 2.44; Range: 4.00-5.40; Abnormal: Below low normal; Units: M/mm3; Status: F Test: HEMOGLOBIN; Value: 8.3; Range: 12.0-16.0; Abnormal: Below low normal; Units: g/dl; Status: F Test: HEMATOCRIT; Value: 25.1; Range: 36.0-47.0; Abnormal: Below low normal; Units: %; Status: F Test: MEAN CORPUSCULAR VOLUME; Value: 102.8; Range: 80.0-96.0; Abnormal: High; Units: fl; Status: F Test: MEAN CORPUSCULAR HEMOGLOBIN; Value: 33.9; Range: 27.0-33.0; Abnormal: Above high normal; Units: pg; Status: F Test: MEAN CORPUSCULAR HGB CONC; Value: 33.0; Range: 32.0-36.5; Units: g/dl; Status: F Test: RED CELL DISTRIBUTION WIDTH; Value: 20.3; Range: 11.5-14.5; Abnormal: Above high normal; Units: %; Status: F Test: PLATELET COUNT, AUTOMATED; Value: 266; Range: 150-450; Units: k/mm3; Status: F Test: NEUTROPHILS %; Value: 60.9; Range: 36.0-66.0; Units: %; Status: F Test: LYMPH %; Value: 29.9; Range: 24.0-44.0; Units: %; Status: F Test: MONO %; Value: 6.7; Range: 0.0-5.0; Abnormal: Above high normal; Units: %; Status: F Test: EOS %; Value: 0.4; Range: 0.0-3.0; Units: %; Status: F Test: BASO %; Value: 0.1; Range: 0.0-1.0; Units: %; Status: F Test: LARGE UNSTAINED CELL %; Value: 1.9; Range: 0.0-4.0; Units: %; Status: F Test: NEUTROPHILS #; Value: 3.8; Range: 1.8-7.7; Units: K/mm3; Status: F Test: LYMPH #; Value: 2.0; Range: 1.5-4.5; Units: K/mm3; Status: F Test: MONO #; Value: 0.4; Range: 0.0-0.8; Units: K/mm3; Status: F Test: EOS #; Value: 0.0; Range: 0.0-0.50; Units: K/mm3; Status: F Test: BASO #; Value: 0.0; Range: 0.0-0.2; Units: K/mm3; Status: F Test: LARGE UNSTAINED CELL #; Value: 0.1; Range: 0.0-0.4; Units: K/mm3; Status: F Lab Order: COMPLETE COMPHRENSIVE METABOLI; SPEC'M 12/02/16 05:18 Test: GLUCOSE, FASTING; Value: 90; Range: 80-110; Units: MG/DL; Status: F Test: BLOOD UREA NITROGEN; Value: 15; Range: 7-18; Units: MG/DL; Status: F Test: CREATININE FOR GFR; Value: 1.19; Range: 0.55-1.02; Abnormal: Above high normal; Units: MG/DL; Status: F Test: GLOMERULAR FILTRATION RATE; Value: 49.3; Range: >45; Status: F Test: SODIUM LEVEL; Value: 146; Range: 136-145; Abnormal: Above high normal; Units: MEQ/L; Status: F Test: POTASSIUM SERUM; Value: 3.8; Range: 3.5-5.1; Units: MEQ/L; Status: F Test: CHLORIDE LEVEL; Value: 113; Range: 98-107; Abnormal: Above high normal; Units: MEQ/L; Status: F Test: CARBON DIOXIDE LEVEL; Value: 25; Range: 21-32; Units: MEQ/L; Status: F Test: ANION GAP; Value: 8; Range: 8-16; Units: MEQ/L; Status: F Test: CALCIUM LEVEL; Value: 7.6; Range: 8.8-10.2; Abnormal: Below low normal; Units: MG/DL; Status: F Test: AST/SGOT; Value: 11; Range: 15-37; Abnormal: Below low normal; Units: U/L; Status: F Test: ALT/SGPT; Value: 18; Range: 12-78; Units: U/L; Status: F Test: ALKALINE PHOSPHATASE; Value: 57; Range: 45-117; Units: U/L; Status: F Test: BILIRUBIN,TOTAL; Value: 0.4; Range: 0.2-1.0; Abnormal: Delta; Units: MG/DL; Status: F Test: TOTAL PROTEIN; Value: 5.9; Range: 6.4-8.2; Abnormal: Below low normal; Units: GM/DL; Status: F Test: ALBUMIN; Value: 2.7; Range: 3.2-5.2; Abnormal: Below low normal; Units: GM/DL; Status: F Test: ALBUMIN/GLOBULIN RATIO; Value: 0.84; Range: 1.00-1.93; Abnormal: Below low normal; Status: F Test Note: ; Units are mL/min/1.73 m2 Chronic Kidney Disease Staging per NKF: Stage I & II GFR >=60 Normal to Mildly Decreased Stage III GFR 30-59 Moderately Decreased Stage IV GFR 15-29 Severely Decreased Stage V GFR <15 Very Little GFR Left ESRD GFR <15 on TILE LAYER HELPER Lab Order: MAGNESIUM LEVEL; [facility]12/02/16 05:18 Test: MAGNESIUM LEVEL; Value: 2.2; Range: 1.8-2.4; Units: MG/DL; Status: F Lab Order: HEMOGLOBIN & HEMATOCRIT; [facility] 12/02/16 10:24 Test: HEMOGLOBIN; Value: 8.4; Range: 12.0-16.0; Abnormal: Below low normal; Units: g/dl; Status: F Test: HEMATOCRIT; Value: 26.4; Range: 36.0-47.0; Abnormal: Below low normal; Units: %; Status: F Lab Order: HEMOGLOBIN & HEMATOCRIT; [facility] 12/02/16 15:58 Test: HEMOGLOBIN; Value: 8.7; Range: 12.0-16.0; Abnormal: Below low normal; Units: g/dl; Status: F Test: HEMATOCRIT; Value: 27.1; Range: 36.0-47.0; Abnormal: Below low normal; Units: %; Status: F Lab Order: Fingerstick Blood Sugar; [facility]12/02/16 07:51 Test: BEDSIDE GLUCOSE; Value: 89; Range: 80-115; Units: MG/DL; Status: F Lab Order: Fingerstick Blood Sugar; [facility] 12/02/16 12:21 Test: BEDSIDE GLUCOSE; Value: 143; Range: 80-115; Abnormal: Above high normal; Units: MG/DL; Status: F Test Note: ; Insulin Coverage Ord Lab Order: Fingerstick Blood Sugar; [facility] 12/02/16 18:00 Test: BEDSIDE GLUCOSE; Value: 179; Range: 80-115; Abnormal: Above high normal; Units: MG/DL; Status: F Radiology Order: EKG-ADULT Test: EKG-ADULT REASON FOR EXAMINATION: weaknesss; Stationary ECG Study; [facility] - ED; ; Test Date: 2016-12-01; Pat Name: DAVID ANDREWS Department:; Room: -; Gender: F Hat Blocker: robert; : 1955 Requested By: Rina Austin; Order Number: [id number] Reading MD: Rina Austin; Measurements; Intervals [place]; Rate: 74 P: 47; SC: 173 QRS: 51; QRSD: 106 T: 15; QT: 381; QTc: 425; Interpretive Statements; SINUS RHYTHM; MODERATE T-WAVE ABNORMALITY, CONSIDER ISCHEMIA, CLINICAL CORRELATION; NO PRIOR FOR COMPARISON; ; Electronically Signed On 12-02-2016 9:56:01 EST by Rina Austin; Outcome: 12/01 16:57 Decision to Hospitalize by Provider. 12/02 17:49 Discharge Assessment: Patient awake and alert. patient administered narcotics - no. The [facility] following High Risk Discharge criteria are identified: None. Admitted to Med/Surg accompanied by nurse, family with patient, via stretcher, with oxygen, on monitor, with chart. Condition: stable. No special radiology studies were completed. Admission hand-off: Report Faxed Fax receipt verified by MARC Perez. Property :Personal belongings accompany Pt. 18:18 Patient left the ED. [facility] Signatures: Dispatcher [employer] EDRI Rina Austin MD MD sd1 Sleeman, Kacey, RN RN Mariah Soliman, Legislative Advocate Unit lbd Lillie Pearce RN RN [facility] Aman Young FNP FNP ke Barney, Michael B RN RN mlb1 [place] Harper, GARCIA MAINTENANCE EQUIPMENT OPERATOR kb5 Patsy Fernández RN RN hs1 Francisca Best RN RN jc4 Lucrecia Oneal RN RN [facility] Kelsey Jj Gainslee gr2 Geri Horne, MAINTENANCE EQUIPMENT OPERATOR MAINTENANCE EQUIPMENT OPERATOR rs6 Golden Wolfe,RN RN nn1 Cassidy Otero, Familia Barbosa hs2 Dior GaonaRN RN kas2 Kaur Doll Nicole nb2 Patsy Fernández RN hs1 Chart Complete MTDD
[2016-12-04] MEDS: FERROUS SULFATE 325MG TAB PO SCH (20:34)
[2016-12-04] MEDS: NORTRIPTYLINE 10 MG CAP PO SCH (20:36)
[2016-12-04] MEDS: ALBUTEROL 90 MCG/ACT 8GM HFA INHALER INH PRN (20:43)
[2016-12-04 20:55] VITALS: BP 119/57
[2016-12-05 02:00] VITALS: BP 121/59
[2016-12-05] MEDS: LEVOTHYROXINE 0.088 MG TAB (88 MCG) PO SCH (05:35)
[2016-12-05 05:50] VITALS: BP 118/57
[2016-12-05 06:15] LABS: BASO % 0.2 % (0.0-1.0); EOS % 0.4 % (0.0-3.0); LARGE UNSTAINED CELL # 0.2 K/mm3 (0.0-0.4); LARGE UNSTAINED CELL % 2.7 % (0.0-4.0); LYMPH # 1.4 K/mm3 (1.5-4.5); LYMPH % 20.6 % (24.0-44.0); MEAN CORPUSCULAR HEMOGLOBIN 31.7 pg (27.0-33.0); MEAN CORPUSCULAR HGB CONC 31.8 g/dl (32.0-36.5); MEAN CORPUSCULAR VOLUME 99.8 fl (80.0-96.0); MONO # 0.5 K/mm3 (0.0-0.8); MONO % 6.5 % (0.0-5.0); NEUTROPHILS # 4.8 K/mm3 (1.8-7.7); NEUTROPHILS % 69.6 % (36.0-66.0); PLATELET COUNT, AUTOMATED 217 k/mm3 (150-450); RED CELL DISTRIBUTION WIDTH 19.5 % (11.5-14.5)
[2016-12-05 06:20] LABS: INR 0.97
[2016-12-05 06:28] LABS: ALBUMIN 2.6 GM/DL (3.2-5.2); ALBUMIN/GLOBULIN RATIO 0.76 (1.00-1.93); BILIRUBIN,TOTAL 0.2 MG/DL (0.2-1.0); CALCIUM LEVEL 7.6 MG/DL (8.8-10.2); CREATININE FOR GFR 1.15 MG/DL (0.55-1.02); GLOMERULAR FILTRATION RATE 51.2 (>45); MAGNESIUM LEVEL 2.1 MG/DL (1.8-2.4); POTASSIUM SERUM 3.3 MEQ/L (3.5-5.1)
[2016-12-05] MEDS: HumaLOG INSULIN (NovoLOG) PER UNIT SC SCH (07:30)
[2016-12-05] MEDS: DOXYCYCLINE HYCLATE 100 MG TAB PO SCH (08:09)
[2016-12-05] MEDS: ATORVASTATIN 10 MG TAB PO SCH (08:09)
[2016-12-05] MEDS: predniSONE 10 MG TAB PO SCH (08:09)
[2016-12-05] MEDS: CYANOCOBALAMIN 500 MCG TAB PO SCH (08:09)
[2016-12-05] MEDS: PARoxetine 20 MG TAB PO SCH (08:09)
[2016-12-05] MEDS: TOPIRAMATE (TopAMAX) 100 MG TAB PO SCH (08:10)
[2016-12-05 08:12] VITALS: BP 118/60
[2016-12-05] MEDS: BISOPROLOL FUMARATE 5 MG TAB PO SCH (08:12)
[2016-12-05] MEDS: NICOTINE 14 MG/24 HR TRANSDERMAL TD SCH (08:12)
[2016-12-05] MEDS: PANTOPRAZOLE 40MG INJ (PROTONIX) (C9113) IV SCH (08:12)
[2016-12-05 10:00] VITALS: BP 134/63
[2016-12-05] MEDS ORDERED: DOXY10CA PO (10:00)
[2016-12-05] MEDS: ALBUTEROL 90 MCG/ACT 8GM HFA INHALER INH PRN (10:24)
--- NOTE | 2016-12-05 21:47 | EDDOCDS ---
Physician Documentation [facility] Name: Bernarda Murdock Age: 61 yrs Sex: Female : 1955 Arrival Date: 12/01/2016 Time: 15:13 Bed Admit Hold Private MD: Pantera Nevarez Disposition: 12/01/16 16:57 Hospitalization ordered by Astrid Jaimes for Inpatient Admission. Preliminary diagnosis is Gastritis, unspecified, with bleeding. - Bed requested for 4 [facility] (Formerly 3 [facility]). - Status is Inpatient Admission. [facility] - Condition is Stable. - Problem is an ongoing problem. - Symptoms are unchanged. Historical: - Allergies: PENICILLINS (Hives); SULFA (SULFONAMIDES) (Hives); - Home Meds: 1. albuterol sulfate 90 mcg/actuation Inhl HFAA 2 puffs every 4 hours as needed (Last dose: 12/01/2016 12:00) 2. atorvastatin 10 mg oral tab 1 tab once daily (Last dose: 12/01/2016 08:00) 3. bisoprolol fumarate 5 mg oral tab 1 tab once daily (Last dose: 12/01/2016 08:00) 4. Vitamin B-12 1,000 mcg Oral tab 1,000 mcg daily (Last dose: 12/01/2016 08:00) 5. Iron CR Oral 325 mg daily (Last dose: 11/30/2016 21:00) 6. Levoxyl 75 mcg Oral tab 1 tab once daily (Last dose: 12/01/2016 08:00) 7. nortriptyline 10 mg Oral cap 2 caps nightly (Last dose: 11/30/2016 21:00) 8. paroxetine HCl 40 mg Oral tab 1 tab once daily (Last dose: 12/01/2016 08:00) 9. prednisone 10 mg Oral tab 1 tab once daily tapering dose, has one remaining dose (Last dose: 12/01/2016 08:00) 10. Januvia 100 mg oral tab 1 tab once daily (Last dose: 12/01/2016 08:00) 11. Topamax 150 mg Oral twice a day (Last dose: 12/01/2016 08:00) 12. Nicoderm CQ 14 mg/24 hr transdermal pt24 1 patch once daily (Last dose: 12/01/2016 16:39) 13. Coumadin 5 mg Oral tab 1 tab 4 times weekly on Sun/Tues/Thurs/Sat (Last dose: 11/29/2016) 14. Coumadin 7.5 mg Oral tab 1 tab 3 times weekly on // (Last dose: 11/30/2016 17:00) - PMHx: Hypercholesterolemia; Hypothyroidism; Diabetes - NIDDM: controlled; COPD; Hypertension; Anemia; Depression; CVA; - PSHx: brain surgery; ; Carpal Tunnel Repair- Right; Bunion Surgery; Thyroidectomy; Remote Contolled Brain Shunt; - Social history: Smoking status: Patient states former smoker of tobacco. No barriers to communication noted, The patient speaks fluent Swedish. - Family history: Not pertinent. - : The pt / caregiver states he / she is not on anticoagulants. Home medication list is obtained from family members. - Exposure Risk Screening:: None identified. Vital Signs: 12/01 15:16 BP 121 / 50; Pulse 87; Resp 18 S; Temp 98.3(O); Pulse Ox 99% on R/A; Weight 69.85 kg / gr2 153.99 lbs (R); Height 4 ft. 10 in. (147.32 cm) (R); Pain 5/10; 15:45 BP 109 / 57 (auto/); jc4 15:49 Pulse 76 MON; Pulse Ox 97% ; jc4 16:14 Pulse 76 MON; Pulse Ox 98% ; jc4 16:15 BP 122 / 58 (auto/); jc4 16:45 BP 107 / 53 (auto/); jc4 16:46 Pulse 74 MON; Pulse Ox 97% ; jc4 17:15 BP 115 / 58 (auto/); jc4 17:15 Pulse 74 MON; Pulse Ox 96% ; jc4 17:45 BP 118 / 56 (auto/); jc4 17:48 Pulse 80 MON; Pulse Ox 95% ; jc4 18:12 Temp 99.8(TE); jc4 20:20 BP 113 / 56; Pulse 72; Resp 20; Temp 96.7(TE); Pulse Ox 97% on R/A; Pain 0/10; nn1 21:20 BP 113 / 59; Pulse 67; Resp 20; Temp 98.3(TE); Pulse Ox 98% on R/A; Pain 0/10; nn1 21:42 BP 117 / 55; Pulse 74; Resp 18; Temp 97.4(TE); Pulse Ox 97% on R/A; Pain 0/10; nn1 12/02 01:46 BP 111 / 54 (auto/); kas2 01:46 Pulse 62 MON; Pulse Ox 96% ; kas2 02:01 BP 106 / 52 (auto/); kas2 02:01 Pulse 62 MON; Pulse Ox 96% ; kas2 02:16 BP 102 / 50 (auto/); kas2 02:16 Pulse 62 MON; Pulse Ox 95% ; kas2 02:19 Resp 18; Temp 97.6(O); Pulse Ox 100% on R/A; kas2 02:31 BP 123 / 58 (auto/); kas2 02:31 Pulse 64 MON; Pulse Ox 92% ; kas2 02:46 BP 109 / 55 (auto/); kas2 02:46 Pulse 60 MON; Pulse Ox 94% ; kas2 03:01 BP 114 / 53 (auto/); kas2 03:01 Pulse 60 MON; Pulse Ox 95% ; kas2 03:16 BP 103 / 52 (auto/); kas2 03:16 Pulse 58 MON; Pulse Ox 94% ; kas2 03:31 BP 114 / 54 (auto/); kas2 03:31 Pulse 58 MON; Pulse Ox 95% ; kas2 03:46 BP 100 / 48 (auto/); kas2 03:46 Pulse 56 MON; Pulse Ox 95% ; kas2 03:46 Resp 18; Temp 98.2(O); Pain 0/10; kas2 04:01 BP 106 / 53 (auto/); kas2 04:01 Pulse 58 MON; Pulse Ox 96% ; kas2 04:16 BP 105 / 51 (auto/); kas2 04:16 Pulse 56 MON; Pulse Ox 95% ; kas2 04:31 BP 96 / 47 (auto/); kas2 04:31 Pulse 56 MON; Pulse Ox 95% ; kas2 04:46 BP 101 / 48 (auto/); kas2 04:46 Pulse 56 MON; Pulse Ox 96% ; kas2 05:01 BP 91 / 45 (auto/); kas2 05:01 Pulse 56 MON; Pulse Ox 96% ; kas2 05:16 BP 115 / 55 (auto/); kas2 05:16 Pulse 58 MON; Pulse Ox 94% ; kas2 05:33 Resp 18; Temp 97.9(O); Pain 0/10; kas2 06:40 BP 118 / 73 (auto/); kas2 06:40 Pulse 58 MON; Pulse Ox 95% ; kas2 06:42 Resp 18; Temp 98.6(O); Pulse Ox 96% ; Pain 0/10; kas2 07:09 Pulse 58 MON; Pulse Ox 96% ; hs1 07:10 BP 143 / 65 (auto/); hs1 07:24 Pulse 72 MON; Pulse Ox 95% ; hs1 07:25 BP 107 / 53 (auto/); hs1 07:39 Pulse 56 MON; Pulse Ox 95% ; hs1 07:40 BP 104 / 51 (auto/); hs1 07:54 Pulse 60 MON; Pulse Ox 97% ; hs1 07:55 BP 111 / 56 (auto/); hs1 08:09 Pulse 64 MON; Pulse Ox 98% ; hs1 08:10 BP 126 / 75 (auto/); hs1 08:24 Pulse 64 MON; Pulse Ox 97% ; hs1 08:25 BP 118 / 56 (auto/); hs1 08:39 Pulse 66 MON; Pulse Ox 93% ; hs1 08:40 BP 110 / 56 (auto/); hs1 09:09 Pulse 68 MON; Pulse Ox 98% ; hs1 09:10 BP 122 / 58 (auto/); hs1 09:24 Pulse 64 MON; Pulse Ox 97% ; hs1 09:25 BP 103 / 56 (auto/); hs1 09:39 Pulse 66 MON; Pulse Ox 97% ; hs1 09:40 BP 101 / 55 (auto/); hs1 09:54 Pulse 64 MON; Pulse Ox 96% ; hs1 09:55 BP 107 / 54 (auto/); hs1 10:09 Pulse 66 MON; Pulse Ox 97% ; hs1 10:10 BP 114 / 55 (auto/); hs1 10:25 BP 116 / 59 (auto/); hs1 10:25 Pulse 66 MON; Pulse Ox 98% ; hs1 10:39 Pulse 62 MON; Pulse Ox 97% ; hs1 10:40 BP 119 / 59 (auto/); hs1 10:54 Pulse 64 MON; Pulse Ox 95% ; hs1 10:55 BP 112 / 58 (auto/); hs1 11:09 Pulse 64 MON; Pulse Ox 96% ; hs1 11:10 BP 127 / 60 (auto/); hs1 11:24 Pulse 62 MON; Pulse Ox 96% ; hs1 11:25 BP 115 / 56 (auto/); hs1 11:39 Pulse 66 MON; Pulse Ox 97% ; hs1 11:40 BP 115 / 58 (auto/); hs1 11:54 Pulse 64 MON; Pulse Ox 96% ; hs1 11:55 BP 120 / 82 (auto/); hs1 12:24 Pulse 66 MON; Pulse Ox 98% ; hs1 12:25 BP 124 / 61 (auto/); hs1 12:39 Pulse 64 MON; Pulse Ox 98% ; hs1 12:40 BP 118 / 55 (auto/); hs1 12:54 Pulse 62 MON; Pulse Ox 93% ; hs1 12:55 BP 102 / 50 (auto/); hs1 13:09 Pulse 66 MON; Pulse Ox 93% ; hs1 13:10 BP 110 / 55 (auto/); hs1 13:25 BP 122 / 58 (auto/); hs1 13:25 Pulse 64 MON; Pulse Ox 97% ; hs1 13:39 Pulse 64 MON; Pulse Ox 96% ; hs1 13:40 BP 122 / 61 (auto/); hs1 13:54 Pulse 62 MON; Pulse Ox 94% ; hs1 13:55 BP 119 / 60 (auto/); hs1 14:24 Pulse 62 MON; Pulse Ox 95% ; hs1 14:25 BP 129 / 58 (auto/); hs1 14:39 Pulse 64 MON; Pulse Ox 98% ; hs1 14:40 BP 120 / 67 (auto/); hs1 14:54 Pulse 64 MON; Pulse Ox 97% ; hs1 14:55 BP 118 / 65 (auto/); hs1 16:55 BP 110 / 65; Pulse 85; Resp 20; Temp 98.8(O); Pulse Ox 98% on R/A; 4 12/01 15:16 Body Mass Index 32.19 (69.85 kg, 147.32 cm) gr2 MDM: 12/01 15:47 Undress patient appropriately for examination ordered. sd1 15:47 IV Saline Lock ordered. sd1 15:48 Amylase Ordered. EDMS 15:48 Basic Metabolic Profile Ordered. EDMS 15:48 CBC with Diff Ordered. EDMS 15:48 Lipase Ordered. EDMS 15:48 Liver Profile Ordered. EDMS 15:48 Prothrombin Time Profile\E\INR Ordered. EDMS 15:49 BED REQUEST+ADM ordered. EDMS 15:49 ECG WITH READING ER PHYS+CARDIAG ordered. EDMS 15:59 Type and Cross, Packed Cells Ordered. EDMS 16:22 TYPE & SCREEN Ordered. EDMS 16:52 DIFFERENTIAL NO CHARGE Ordered. EDMS 16:53 Basic Metabolic Profile Reviewed. ke 16:53 CBC with Diff Reviewed. ke 16:53 Liver Profile Reviewed. ke 16:53 Amylase Reviewed. ke 16:53 Lipase Reviewed. ke 16:58 Transfuse PRBC's 2 units, ensure PRBCs ordered in lab ordered. ke 18:40 Admission / Observation Status ordered. EDMS 18:40 CONSISTENT CARBOHYDRATES ordered. EDMS 18:43 PACKED CELLS Ordered. EDMS 18:43 FRESH FROZEN PLASMA PHERESIS Ordered. EDMS 19:46 Acetaminophen Tablet 650 mg PO once ordered. nn1 19:47 FROZEN PLASMA 24 Ordered. EDMS 19:51 Written Provider Order was scanned into PEPperPRINT and attached to record. kb5 20:46 Transfuse FFP 1 unit, ensure FFP ordered in lab ordered. nn1 22:13 HEMOGLOBIN & HEMATOCRIT Ordered. EDMS 22:13 PROTHROMBIN TIME PROFILE\E\INR Ordered. EDMS 22:13 CBC WITH DIFFERENTIAL Ordered. EDMS 22:14 COMPLETE COMPHRENSIVE METABOLI Ordered. EDMS 22:14 MAGNESIUM LEVEL Ordered. EDMS 22:14 HEMOGLOBIN & HEMATOCRIT Ordered. EDMS 22:14 HEMOGLOBIN & HEMATOCRIT Ordered. EDMS 22:14 HEMOGLOBIN & HEMATOCRIT Ordered. EDMS 22:14 OCCULT BLOOD STOOL SPECIMEN Ordered. EDMS 23:54 Financial registration complete. hs2 0222 01:03 [facility] [place] was scanned into PEPperPRINT and attached to record. hs2 08:01 Fingerstick Blood Sugar Ordered. EDMS 12:30 Fingerstick Blood Sugar Ordered. EDMS 14:26 Admission / Observation Status ordered. EDMS 16:04 Inpatient Paper MAR was scanned into PEPperPRINT and attached to record. lbd 17:04 Acetaminophen Tablet 650 mg PO once ordered. jc4 17:16 PACKED CELLS Ordered. EDMS 18:10 Fingerstick Blood Sugar Ordered. EDMS 18:12 HumaLog - Insulin Lispro (0.1 units/kg) 4 units Sub-Q once; administer within 15 jc4 minutes before a meal or no later than immediately following the meal ordered. 12/03 20:20 T-Sheet-- Draft Copy was scanned into PEPperPRINT and attached to record. rylie Point of Care Testing: Blood Glucose: 12/02 18:01 Blood Glucose: 179 mg/dL; jc4 Ranges: Administered Medications: 12/01 20:26 Drug: Acetaminophen 650 mg [acetaminophen 325 mg tablet (2 tabs)] Route: PO; nn1 12/02 17:04 Drug: Acetaminophen 650 mg [acetaminophen 325 mg tablet (2 tabs)] Route: PO; jc4 18:12 Drug: HumaLog - Insulin Lispro (0.1 units/kg) 4 units [insulin lispro 100 unit/mL jc4 subcutaneous solution (0.04 mL)] {Co-Signature: hs1 (Patsy Fernández RN).} Route: Sub-Q; Site: left upper arm; Signatures: Dispatcher MedHost EDRina John MD MD sd1 Pilar Alves, RN RN kcs Mariah Hough, Agriculture Technician Unit lbd Lillie Pearce RN RN kpj Aman Young, CITY PLANNING TEACHER CITY PLANNING TEACHER ke [place] Harper, BRANCH SERVICES MANAGER BRANCH SERVICES MANAGER kb5 Francisca Best RN RN jc4 Sisi Hernández RN RN sls2 Golden Wolfe RN RN nn1 Cassidy Otero, Reg Reg hs2 Kaur Doll klr Patsy Fernández RN hs1 The chart was reviewed and I authenticate all verbal orders and agree with the evaluation and treatment provided.Corrections: (The following items were deleted from the chart) 12/01 16:35 15:49 TYPE & SCREEN+BBK ordered. EDMS EDMS 18:51 18:43 TYPE & SCREEN ordered. EDMS EDMS 22:10 15:49 NOTHING BY MOUTH+DIET ordered. EDMS EDMS 22:45 22:14 HEMOGLOBIN & HEMATOCRIT ordered. EDMS EDMS 12/02 17:16 17:11 PACKED CELLS ordered. EDMS EDMS 17:16 17:11 TYPE & SCREEN ordered. EDNM EDMS Attachments: 12/01 19:51 Written Provider Order kb5 02/22 01:03 [facility] Payment Agreement hs2 12/03 20:20 T-Sheet-- Draft Copy klr Chart Complete MTDD
--- NOTE | 2016-12-05 21:47 | EDDOCDS ---
Physician Documentation [facility] Name: Bernarda Murdock Age: 61 yrs Sex: Female : 1955 Arrival Date: 12/01/2016 Time: 15:13 Bed Admit Hold Private MD: Pantera Nevarez Disposition: 12/01/16 16:57 Hospitalization ordered by Astrid Jaimes for Inpatient Admission. Preliminary diagnosis is Gastritis, unspecified, with bleeding. - Bed requested for 4 [facility] (Formerly 3 [facility]). - Status is Inpatient Admission. [facility] - Condition is Stable. - Problem is an ongoing problem. - Symptoms are unchanged. Historical: - Allergies: PENICILLINS (Hives); SULFA (SULFONAMIDES) (Hives); - Home Meds: 1. albuterol sulfate 90 mcg/actuation Inhl HFAA 2 puffs every 4 hours as needed (Last dose: 12/01/2016 12:00) 2. atorvastatin 10 mg oral tab 1 tab once daily (Last dose: 12/01/2016 08:00) 3. bisoprolol fumarate 5 mg oral tab 1 tab once daily (Last dose: 12/01/2016 08:00) 4. Vitamin B-12 1,000 mcg Oral tab 1,000 mcg daily (Last dose: 12/01/2016 08:00) 5. Iron CR Oral 325 mg daily (Last dose: 11/30/2016 21:00) 6. Levoxyl 75 mcg Oral tab 1 tab once daily (Last dose: 12/01/2016 08:00) 7. nortriptyline 10 mg Oral cap 2 caps nightly (Last dose: 11/30/2016 21:00) 8. paroxetine HCl 40 mg Oral tab 1 tab once daily (Last dose: 12/01/2016 08:00) 9. prednisone 10 mg Oral tab 1 tab once daily tapering dose, has one remaining dose (Last dose: 12/01/2016 08:00) 10. Januvia 100 mg oral tab 1 tab once daily (Last dose: 12/01/2016 08:00) 11. Topamax 150 mg Oral twice a day (Last dose: 12/01/2016 08:00) 12. Nicoderm CQ 14 mg/24 hr transdermal pt24 1 patch once daily (Last dose: 12/01/2016 16:39) 13. Coumadin 5 mg Oral tab 1 tab 4 times weekly on Sun/Tues/Thurs/Sat (Last dose: 11/29/2016) 14. Coumadin 7.5 mg Oral tab 1 tab 3 times weekly on // (Last dose: 11/30/2016 17:00) - PMHx: Hypercholesterolemia; Hypothyroidism; Diabetes - NIDDM: controlled; COPD; Hypertension; Anemia; Depression; CVA; - PSHx: brain surgery; ; Carpal Tunnel Repair- Right; Bunion Surgery; Thyroidectomy; Remote Contolled Brain Shunt; - Social history: Smoking status: Patient states former smoker of tobacco. No barriers to communication noted, The patient speaks fluent Kiswahili. - Family history: Not pertinent. - : The pt / caregiver states he / she is not on anticoagulants. Home medication list is obtained from family members. - Exposure Risk Screening:: None identified. Vital Signs: 12/01 15:16 BP 121 / 50; Pulse 87; Resp 18 S; Temp 98.3(O); Pulse Ox 99% on R/A; Weight 69.85 kg / gr2 153.99 lbs (R); Height 4 ft. 10 in. (147.32 cm) (R); Pain 5/10; 15:45 BP 109 / 57 (auto/); jc4 15:49 Pulse 76 MON; Pulse Ox 97% ; jc4 16:14 Pulse 76 MON; Pulse Ox 98% ; jc4 16:15 BP 122 / 58 (auto/); jc4 16:45 BP 107 / 53 (auto/); jc4 16:46 Pulse 74 MON; Pulse Ox 97% ; jc4 17:15 BP 115 / 58 (auto/); jc4 17:15 Pulse 74 MON; Pulse Ox 96% ; jc4 17:45 BP 118 / 56 (auto/); jc4 17:48 Pulse 80 MON; Pulse Ox 95% ; jc4 18:12 Temp 99.8(TE); jc4 20:20 BP 113 / 56; Pulse 72; Resp 20; Temp 96.7(TE); Pulse Ox 97% on R/A; Pain 0/10; nn1 21:20 BP 113 / 59; Pulse 67; Resp 20; Temp 98.3(TE); Pulse Ox 98% on R/A; Pain 0/10; nn1 21:42 BP 117 / 55; Pulse 74; Resp 18; Temp 97.4(TE); Pulse Ox 97% on R/A; Pain 0/10; nn1 12/02 01:46 BP 111 / 54 (auto/); kas2 01:46 Pulse 62 MON; Pulse Ox 96% ; kas2 02:01 BP 106 / 52 (auto/); kas2 02:01 Pulse 62 MON; Pulse Ox 96% ; kas2 02:16 BP 102 / 50 (auto/); kas2 02:16 Pulse 62 MON; Pulse Ox 95% ; kas2 02:19 Resp 18; Temp 97.6(O); Pulse Ox 100% on R/A; kas2 02:31 BP 123 / 58 (auto/); kas2 02:31 Pulse 64 MON; Pulse Ox 92% ; kas2 02:46 BP 109 / 55 (auto/); kas2 02:46 Pulse 60 MON; Pulse Ox 94% ; kas2 03:01 BP 114 / 53 (auto/); kas2 03:01 Pulse 60 MON; Pulse Ox 95% ; kas2 03:16 BP 103 / 52 (auto/); kas2 03:16 Pulse 58 MON; Pulse Ox 94% ; kas2 03:31 BP 114 / 54 (auto/); kas2 03:31 Pulse 58 MON; Pulse Ox 95% ; kas2 03:46 BP 100 / 48 (auto/); kas2 03:46 Pulse 56 MON; Pulse Ox 95% ; kas2 03:46 Resp 18; Temp 98.2(O); Pain 0/10; kas2 04:01 BP 106 / 53 (auto/); kas2 04:01 Pulse 58 MON; Pulse Ox 96% ; kas2 04:16 BP 105 / 51 (auto/); kas2 04:16 Pulse 56 MON; Pulse Ox 95% ; kas2 04:31 BP 96 / 47 (auto/); kas2 04:31 Pulse 56 MON; Pulse Ox 95% ; kas2 04:46 BP 101 / 48 (auto/); kas2 04:46 Pulse 56 MON; Pulse Ox 96% ; kas2 05:01 BP 91 / 45 (auto/); kas2 05:01 Pulse 56 MON; Pulse Ox 96% ; kas2 05:16 BP 115 / 55 (auto/); kas2 05:16 Pulse 58 MON; Pulse Ox 94% ; kas2 05:33 Resp 18; Temp 97.9(O); Pain 0/10; kas2 06:40 BP 118 / 73 (auto/); kas2 06:40 Pulse 58 MON; Pulse Ox 95% ; kas2 06:42 Resp 18; Temp 98.6(O); Pulse Ox 96% ; Pain 0/10; kas2 07:09 Pulse 58 MON; Pulse Ox 96% ; hs1 07:10 BP 143 / 65 (auto/); hs1 07:24 Pulse 72 MON; Pulse Ox 95% ; hs1 07:25 BP 107 / 53 (auto/); hs1 07:39 Pulse 56 MON; Pulse Ox 95% ; hs1 07:40 BP 104 / 51 (auto/); hs1 07:54 Pulse 60 MON; Pulse Ox 97% ; hs1 07:55 BP 111 / 56 (auto/); hs1 08:09 Pulse 64 MON; Pulse Ox 98% ; hs1 08:10 BP 126 / 75 (auto/); hs1 08:24 Pulse 64 MON; Pulse Ox 97% ; hs1 08:25 BP 118 / 56 (auto/); hs1 08:39 Pulse 66 MON; Pulse Ox 93% ; hs1 08:40 BP 110 / 56 (auto/); hs1 09:09 Pulse 68 MON; Pulse Ox 98% ; hs1 09:10 BP 122 / 58 (auto/); hs1 09:24 Pulse 64 MON; Pulse Ox 97% ; hs1 09:25 BP 103 / 56 (auto/); hs1 09:39 Pulse 66 MON; Pulse Ox 97% ; hs1 09:40 BP 101 / 55 (auto/); hs1 09:54 Pulse 64 MON; Pulse Ox 96% ; hs1 09:55 BP 107 / 54 (auto/); hs1 10:09 Pulse 66 MON; Pulse Ox 97% ; hs1 10:10 BP 114 / 55 (auto/); hs1 10:25 BP 116 / 59 (auto/); hs1 10:25 Pulse 66 MON; Pulse Ox 98% ; hs1 10:39 Pulse 62 MON; Pulse Ox 97% ; hs1 10:40 BP 119 / 59 (auto/); hs1 10:54 Pulse 64 MON; Pulse Ox 95% ; hs1 10:55 BP 112 / 58 (auto/); hs1 11:09 Pulse 64 MON; Pulse Ox 96% ; hs1 11:10 BP 127 / 60 (auto/); hs1 11:24 Pulse 62 MON; Pulse Ox 96% ; hs1 11:25 BP 115 / 56 (auto/); hs1 11:39 Pulse 66 MON; Pulse Ox 97% ; hs1 11:40 BP 115 / 58 (auto/); hs1 11:54 Pulse 64 MON; Pulse Ox 96% ; hs1 11:55 BP 120 / 82 (auto/); hs1 12:24 Pulse 66 MON; Pulse Ox 98% ; hs1 12:25 BP 124 / 61 (auto/); hs1 12:39 Pulse 64 MON; Pulse Ox 98% ; hs1 12:40 BP 118 / 55 (auto/); hs1 12:54 Pulse 62 MON; Pulse Ox 93% ; hs1 12:55 BP 102 / 50 (auto/); hs1 13:09 Pulse 66 MON; Pulse Ox 93% ; hs1 13:10 BP 110 / 55 (auto/); hs1 13:25 BP 122 / 58 (auto/); hs1 13:25 Pulse 64 MON; Pulse Ox 97% ; hs1 13:39 Pulse 64 MON; Pulse Ox 96% ; hs1 13:40 BP 122 / 61 (auto/); hs1 13:54 Pulse 62 MON; Pulse Ox 94% ; hs1 13:55 BP 119 / 60 (auto/); hs1 14:24 Pulse 62 MON; Pulse Ox 95% ; hs1 14:25 BP 129 / 58 (auto/); hs1 14:39 Pulse 64 MON; Pulse Ox 98% ; hs1 14:40 BP 120 / 67 (auto/); hs1 14:54 Pulse 64 MON; Pulse Ox 97% ; hs1 14:55 BP 118 / 65 (auto/); hs1 16:55 BP 110 / 65; Pulse 85; Resp 20; Temp 98.8(O); Pulse Ox 98% on R/A; 4 12/01 15:16 Body Mass Index 32.19 (69.85 kg, 147.32 cm) gr2 MDM: 12/01 15:47 Undress patient appropriately for examination ordered. sd1 15:47 IV Saline Lock ordered. sd1 15:48 Amylase Ordered. EDMS 15:48 Basic Metabolic Profile Ordered. EDMS 15:48 CBC with Diff Ordered. EDMS 15:48 Lipase Ordered. EDMS 15:48 Liver Profile Ordered. EDMS 15:48 Prothrombin Time Profile\E\INR Ordered. EDMS 15:49 BED REQUEST+ADM ordered. EDMS 15:49 ECG WITH READING ER PHYS+CARDIAG ordered. EDMS 15:59 Type and Cross, Packed Cells Ordered. EDMS 16:22 TYPE & SCREEN Ordered. EDMS 16:52 DIFFERENTIAL NO CHARGE Ordered. EDMS 16:53 Basic Metabolic Profile Reviewed. ke 16:53 CBC with Diff Reviewed. ke 16:53 Liver Profile Reviewed. ke 16:53 Amylase Reviewed. ke 16:53 Lipase Reviewed. ke 16:58 Transfuse PRBC's 2 units, ensure PRBCs ordered in lab ordered. ke 18:40 Admission / Observation Status ordered. EDMS 18:40 CONSISTENT CARBOHYDRATES ordered. EDMS 18:43 PACKED CELLS Ordered. EDMS 18:43 FRESH FROZEN PLASMA PHERESIS Ordered. EDMS 19:46 Acetaminophen Tablet 650 mg PO once ordered. nn1 19:47 FROZEN PLASMA 24 Ordered. EDMS 19:51 Written Provider Order was scanned into [email or web address] and attached to record. kb5 20:46 Transfuse FFP 1 unit, ensure FFP ordered in lab ordered. nn1 22:13 HEMOGLOBIN & HEMATOCRIT Ordered. EDMS 22:13 PROTHROMBIN TIME PROFILE\E\INR Ordered. EDMS 22:13 CBC WITH DIFFERENTIAL Ordered. EDMS 22:14 COMPLETE COMPHRENSIVE METABOLI Ordered. EDMS 22:14 MAGNESIUM LEVEL Ordered. EDMS 22:14 HEMOGLOBIN & HEMATOCRIT Ordered. EDMS 22:14 HEMOGLOBIN & HEMATOCRIT Ordered. EDMS 22:14 HEMOGLOBIN & HEMATOCRIT Ordered. EDMS 22:14 OCCULT BLOOD STOOL SPECIMEN Ordered. EDMS 23:54 Financial registration complete. hs2 0222 01:03 [facility] [place] Payment Agreement was scanned into [email or web address] and attached to record. hs2 08:01 Fingerstick Blood Sugar Ordered. EDMS 12:30 Fingerstick Blood Sugar Ordered. EDMS 14:26 Admission / Observation Status ordered. EDMS 16:04 Inpatient Paper MAR was scanned into [email or web address] and attached to record. lbd 17:04 Acetaminophen Tablet 650 mg PO once ordered. jc4 17:16 PACKED CELLS Ordered. EDMS 18:10 Fingerstick Blood Sugar Ordered. EDMS 18:12 HumaLog - Insulin Lispro (0.1 units/kg) 4 units Sub-Q once; administer within 15 jc4 minutes before a meal or no later than immediately following the meal ordered. 12/03 20:20 T-Sheet-- Draft Copy was scanned into [email or web address] and attached to record. rylie Point of Care Testing: Blood Glucose: 12/02 18:01 Blood Glucose: 179 mg/dL; jc4 Ranges: Administered Medications: 12/01 20:26 Drug: Acetaminophen 650 mg [acetaminophen 325 mg tablet (2 tabs)] Route: PO; nn1 12/02 17:04 Drug: Acetaminophen 650 mg [acetaminophen 325 mg tablet (2 tabs)] Route: PO; jc4 18:12 Drug: HumaLog - Insulin Lispro (0.1 units/kg) 4 units [insulin lispro 100 unit/mL jc4 subcutaneous solution (0.04 mL)] {Co-Signature: hs1 (Patsy Fernández RN).} Route: Sub-Q; Site: left upper arm; Signatures: Dispatcher [employer] EDRina John MD MD sd1 Pilar Alves, RN RN kcs Mariah Hough, Compensation Analyst Unit lbd Lillie Pearce RN RN kpj Aman Young, ASSISTANT RESEARCH SCIENTIST ASSISTANT RESEARCH SCIENTIST ke [place] Harper, INTERACTIVE MULTIMEDIA DESIGNER INTERACTIVE MULTIMEDIA DESIGNER kb5 Francisca Best RN RN jc4 Sisi Hernández RN RN sls2 Golden Wolfe RN RN nn1 Cassidy Otero, Reg Reg hs2 Kaur Doll klr Patsy Fernández RN hs1 The chart was reviewed and I authenticate all verbal orders and agree with the evaluation and treatment provided.Corrections: (The following items were deleted from the chart) 12/01 16:35 15:49 TYPE & SCREEN+BBK ordered. EDMS EDMS 18:51 18:43 TYPE & SCREEN ordered. EDMS EDMS 22:10 15:49 NOTHING BY MOUTH+DIET ordered. EDMS EDMS 22:45 22:14 HEMOGLOBIN & HEMATOCRIT ordered. EDMS EDMS 12/02 17:16 17:11 PACKED CELLS ordered. EDMS EDMS 17:16 17:11 TYPE & SCREEN ordered. EDME EDMS Attachments: 12/01 19:51 Written Provider Order kb5 02/22 01:03 [facility] Payment Agreement hs2 12/03 20:20 T-Sheet-- Draft Copy klr Chart Complete MTDD
--- NOTE | 2016-12-05 21:48 | EDDOCDS ---
Nurse's Notes [facility] Name: David Andrews Age: 61 yrs Sex: Female : 1955 Arrival Date: 12/01/2016 Time: 15:13 Bed Admit Hold Private MD: Pantera Nevarez Diagnosis: Gastritis, unspecified, with bleeding Presentation: 12/01 15:22 Presenting complaint: Patient states: she was called by Dr. Nevarez and told to come kcs here for blood transfusions. Adult Sepsis Screening: The patient does not have new or worsening altered mentation. Patient's respiratory rate is less than 22. Systolic blood pressure is greater than 100. Patient has a qSOFA score of 0- Negative Sepsis Screen. Suicide/Homicide risk assessment- the patient denies having any suicidal and/or homicidal ideations and does not present with any other emotional, behavioral or mental health complaints. 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 Transition of care: patient was not received from another setting of care. 15:22 Acuity: MARCELA Level 3 kcs 15:22 Method Of Arrival: Walkin/Carried/Asstd kcs Triage Assessment: 15:24 General: Appears comfortable, well developed, well nourished, well groomed, Behavior is kcs cooperative, pleasant. Pain: Location: headache Pain currently is 8 out of 10 on a pain scale. Pt Declines HIV testing. Neurological: Level of Consciousness is awake, alert. Respiratory: Airway is patent Respiratory effort is even, unlabored, Respiratory pattern is regular, symmetrical. Derm: Skin Skin is dry, Skin is pale. Historical: - Allergies: PENICILLINS (Hives); SULFA (SULFONAMIDES) (Hives); - Home Meds: 1. albuterol sulfate 90 mcg/actuation Inhl HFAA 2 puffs every 4 hours as needed (Last dose: 12/01/2016 12:00) 2. atorvastatin 10 mg oral tab 1 tab once daily (Last dose: 12/01/2016 08:00) 3. bisoprolol fumarate 5 mg oral tab 1 tab once daily (Last dose: 12/01/2016 08:00) 4. Vitamin B-12 1,000 mcg Oral tab 1,000 mcg daily (Last dose: 12/01/2016 08:00) 5. Iron CR Oral 325 mg daily (Last dose: 11/30/2016 21:00) 6. Levoxyl 75 mcg Oral tab 1 tab once daily (Last dose: 12/01/2016 08:00) 7. nortriptyline 10 mg Oral cap 2 caps nightly (Last dose: 11/30/2016 21:00) 8. paroxetine HCl 40 mg Oral tab 1 tab once daily (Last dose: 12/01/2016 08:00) 9. prednisone 10 mg Oral tab 1 tab once daily tapering dose, has one remaining dose (Last dose: 12/01/2016 08:00) 10. Januvia 100 mg oral tab 1 tab once daily (Last dose: 12/01/2016 08:00) 11. Topamax 150 mg Oral twice a day (Last dose: 12/01/2016 08:00) 12. Nicoderm CQ 14 mg/24 hr transdermal pt24 1 patch once daily (Last dose: 12/01/2016 16:39) 13. Coumadin 5 mg Oral tab 1 tab 4 times weekly on Sun/Tues/Thurs/Sat (Last dose: 11/29/2016) 14. Coumadin 7.5 mg Oral tab 1 tab 3 times weekly on M/W/F (Last dose: 11/30/2016 17:00) - PMHx: Hypercholesterolemia; Hypothyroidism; Diabetes - NIDDM: controlled; COPD; Hypertension; Anemia; Depression; CVA; - PSHx: brain surgery; ; Carpal Tunnel Repair- Right; Bunion Surgery; Thyroidectomy; Remote Contolled Brain Shunt; - Social history: Smoking status: Patient states former smoker of tobacco. No barriers to communication noted, The patient speaks fluent Faroese. - Family history: Not pertinent. - : The pt / caregiver states he / she is not on anticoagulants. Home medication list is obtained from family members. - Exposure Risk Screening:: None identified. Screenin:49 Screening information is obtained from the patient. Fall risk: No risks identified. jc4 Assistance ADL's: requires no assistance with activities of daily living. Abuse/DV Screen: The patient / caregiver reports he/she is: not in a situation that causes fear, pain or injury. Nutritional screening: On no prescribed diet. Advance Directives: Currently, there is no health care proxy. There is no active DNR order. There is no living will. There is no Power of Printing And Stamping Supervisor. home support is adequate. Assessment: 16:54 General: Appears in no apparent distress, Behavior is cooperative, pleasant. Pain: jc4 Denies pain. Neurological: Level of Consciousness is awake, alert, Oriented to person, place, time, Reports dizziness, weakness. Cardiovascular: Heart tones S1 S2 present Rhythm is sinus rhythm No ectopy. Respiratory: Airway is patent Respiratory effort is even, unlabored, Respiratory pattern is regular, symmetrical, Breath sounds are diminished bilaterally. scattered rhonchi noted. GI: Abdomen is distended, Bowel sounds present X 4 quads. Abd is non tender X 4 quads Reports black tarry stools. Derm: Skin is dry, Skin is pale, Skin temperature is warm. 17:38 General: Pt resting on stretcher with eyes closed. Respirations easy and full. No jc4 distress at this time. Family member at bedside. Call miles in reach. 18:12 General: Resting on stretcher. No distress noted at this time. jc4 19:20 General: patient reporting headache at this time. consulting hospitalist for further nn1 orders. first unit of blood infusing. . Pain: Denies pain. Neurological: No deficits noted. 20:27 General: first unit of blood completed at 1942. Patient showed no signs or symptoms of nn1 adverse reaction. Patient medicated for headache. Unit of FFP infusing at this time. patient reports weakness has improved. . Respiratory: Airway is patent Respiratory effort is even, unlabored, Respiratory pattern is regular, symmetrical. Derm: Skin is pale. 20:46 General: Patient tolerating FFP well, will continue to monitor. . nn1 21:28 General: contact #: [phone]. General: Patient finished infusing of FFP, no signs nn1 or symptoms of reaction noted. Patient ambulated to restroom with family, gait is steady. . 21:45 General: patient receiving second unit of RBCs. will continue to monitor. No adverse nn1 reactions at this time. Pain: Denies pain. Neurological: Level of Consciousness is awake, alert, Oriented to person, place, time. Respiratory: Airway is patent Respiratory effort is even, unlabored, Respiratory pattern is regular, symmetrical. Derm: Skin is pink, warm & dry. 23:14 General: Second unit of RBC finished, patient has been asleep throughout infusion. nn1 Patient exhibits no signs/symptoms of adverse reaction. . Respiratory: Airway is patent Respiratory effort is even, unlabored, Respiratory pattern is regular, symmetrical. Derm: Skin is pink, warm & dry. 12/02 00:26 General: Appears in no apparent distress, to be sleeping. Behavior is quiet. nn1 Respiratory: Airway is patent Respiratory effort is even, unlabored, Respiratory pattern is regular, symmetrical. Derm: Skin is pink, warm & dry. 01:02 General: Verbal report given by Shefali Martinez RN. Assumed care of patient at this time.. kas2 01:44 General: Appears in no apparent distress, comfortable, to be sleeping. Behavior is kas2 appropriate for age, cooperative. Pain: Denies pain. Neurological: Level of Consciousness is awake, alert, Oriented to person, place, time. Cardiovascular: Capillary refill < 3 seconds Heart tones S1 S2 present Rhythm is sinus rhythm No ectopy. Respiratory: Airway is patent Respiratory effort is even, unlabored, Respiratory pattern is regular, symmetrical, Breath sounds are diminished bilaterally. Derm: Skin is intact, Skin is dry, Skin is pink, warm & dry. Skin temperature is warm. 02:44 General: Appears in no apparent distress, to be sleeping. Behavior is appropriate for kas2 age, cooperative. Pain: Denies pain. Neurological: Level of Consciousness is awake, alert, Oriented to person, place, time. Cardiovascular: Rhythm is sinus rhythm No ectopy. Respiratory: Airway is patent Respiratory effort is even, unlabored, Respiratory pattern is regular, symmetrical. Derm: Skin is intact, Skin is dry, Skin is pink, warm & dry. Skin temperature is warm. 03:44 General: Patient sleeping at this time. Appears comfortable. No apparent distress kas2 noted. Respiratory effort even and unlabored. Call miles within reach. Will continue to monitor.. 05:07 General: Appears in no apparent distress, comfortable, Behavior is appropriate for age, kas2 cooperative. Pain: Denies pain. Neurological: Level of Consciousness is awake, alert, Oriented to person, place, time. Cardiovascular: Rhythm is sinus rhythm No ectopy. Respiratory: Airway is patent Respiratory effort is even, unlabored, Respiratory pattern is regular, symmetrical. Derm: Skin is intact, Skin is dry, Skin is pink, warm & dry. Skin temperature is warm. 05:32 General: Patient up to bathroom to void with assist of RN. Resettled in bed. Meds given kas2 as per floor MAR.. 06:36 General: Appears in no apparent distress, comfortable, Behavior is appropriate for age, kas2 cooperative. Pain: Denies pain. Neurological: Level of Consciousness is awake, alert, Oriented to person, place, time. Cardiovascular: Rhythm is sinus rhythm No ectopy. Respiratory: Airway is patent Respiratory effort is even, unlabored, Respiratory pattern is regular, symmetrical. Derm: Skin is intact, Skin is dry, Skin is pink, warm & dry. Skin temperature is warm. 07:38 General: Appears in no apparent distress, comfortable, Behavior is appropriate for age, hs1 cooperative, Patient reports being tired. Pt sat up for breakfast and glucose taken prior to eating. Patient denies headache or pain. . Cardiovascular: Rhythm is sinus rhythm No ectopy. Derm: Skin is pink, warm & dry. normal. 08:19 General: medications administered per orders. Patient tolerated breakfast well. Patient hs1 denies pain and is resting comfortably in stretcher. No other needs voiced at this time. . 09:12 General: Appears in no apparent distress, comfortable, Behavior is appropriate for age, hs1 cooperative. Respiratory: Airway is patent Respiratory effort is even, unlabored, Respiratory pattern is regular, symmetrical. Respiratory: No deficits noted. Derm: Skin is pink, warm & dry. normal. 10:35 General: Appears in no apparent distress, comfortable, Behavior is appropriate for age, hs1 cooperative. Pain: Denies pain. Respiratory: No deficits noted. Airway is patent Respiratory effort is even, unlabored, Respiratory pattern is regular, symmetrical. Derm: Skin is pink, warm & dry. normal. 11:48 Reassessment: Patient appears in no apparent distress at this time. Patient states hs1 feeling better. Patient states symptoms have improved. patient resting with family around. . Derm: Skin is pink, warm & dry. normal. 12:48 General: Appears in no apparent distress, comfortable, Behavior is appropriate for age, hs1 cooperative. Pain: Denies pain. Cardiovascular: Rhythm is sinus rhythm No ectopy. Respiratory: No deficits noted. Derm: Skin is pink, warm & dry. normal. 13:13 General: Appears in no apparent distress, comfortable, Behavior is appropriate for age, hs1 cooperative. Pain: Denies pain. Cardiovascular: Rhythm is sinus rhythm No ectopy. Respiratory: No deficits noted. Airway is patent Respiratory effort is even, unlabored, Respiratory pattern is regular, symmetrical. 14:32 General: Appears in no apparent distress, comfortable, Behavior is appropriate for age, hs1 cooperative, New family members at bedside. Aware of second call out to Dr Sarkar for assessment. Patient continuing to wait for further plan of care. . 15:52 General: Pt resting on stretcher with eyes closed. Respirations easy and full. Cardiac jc4 monitor - sinus rhythm without ectopy. Family members at bedside. 16:55 General: Appears in no apparent distress. Neurological: Level of Consciousness is jc4 awake, alert, Oriented to person, place, time, Reports headache. Cardiovascular: Rhythm is sinus rhythm No ectopy. Respiratory: Airway is patent Respiratory effort is even, unlabored, Respiratory pattern is regular, symmetrical. Derm: Skin is pink, warm & dry. 18:00 General: Dinner tray delivered. Pt consumed 100% of meal. jc4 18:13 General: Appears in no apparent distress, comfortable, Behavior is cooperative. jc4 Neurological: Level of Consciousness is awake, alert, Oriented to person, place, time. Respiratory: Airway is patent Respiratory effort is even, unlabored, Respiratory pattern is regular, symmetrical. Derm: Skin is pink, warm & dry. Vital Signs: 12/01 15:16 BP 121 / 50; Pulse 87; Resp 18 S; Temp 98.3(O); Pulse Ox 99% on R/A; Weight 69.85 kg gr2 (R); Height 4 ft. 10 in. (147.32 cm) (R); Pain 5/10; 15:45 BP 109 / 57 (auto/); jc4 15:49 Pulse 76 MON; Pulse Ox 97% ; jc4 16:14 Pulse 76 MON; Pulse Ox 98% ; jc4 16:15 BP 122 / 58 (auto/); jc4 16:45 BP 107 / 53 (auto/); jc4 16:46 Pulse 74 MON; Pulse Ox 97% ; jc4 17:15 BP 115 / 58 (auto/); jc4 17:15 Pulse 74 MON; Pulse Ox 96% ; jc4 17:45 BP 118 / 56 (auto/); jc4 17:48 Pulse 80 MON; Pulse Ox 95% ; jc4 18:12 Temp 99.8(TE); jc4 20:20 BP 113 / 56; Pulse 72; Resp 20; Temp 96.7(TE); Pulse Ox 97% on R/A; Pain 0/10; nn1 21:20 BP 113 / 59; Pulse 67; Resp 20; Temp 98.3(TE); Pulse Ox 98% on R/A; Pain 0/10; nn1 21:42 BP 117 / 55; Pulse 74; Resp 18; Temp 97.4(TE); Pulse Ox 97% on R/A; Pain 0/10; nn1 12/02 01:46 BP 111 / 54 (auto/); kas2 01:46 Pulse 62 MON; Pulse Ox 96% ; kas2 02:01 BP 106 / 52 (auto/); kas2 02:01 Pulse 62 MON; Pulse Ox 96% ; kas2 02:16 BP 102 / 50 (auto/); kas2 02:16 Pulse 62 MON; Pulse Ox 95% ; kas2 02:19 Resp 18; Temp 97.6(O); Pulse Ox 100% on R/A; kas2 02:31 BP 123 / 58 (auto/); kas2 02:31 Pulse 64 MON; Pulse Ox 92% ; kas2 02:46 BP 109 / 55 (auto/); kas2 02:46 Pulse 60 MON; Pulse Ox 94% ; kas2 03:01 BP 114 / 53 (auto/); kas2 03:01 Pulse 60 MON; Pulse Ox 95% ; kas2 03:16 BP 103 / 52 (auto/); kas2 03:16 Pulse 58 MON; Pulse Ox 94% ; kas2 03:31 BP 114 / 54 (auto/); kas2 03:31 Pulse 58 MON; Pulse Ox 95% ; kas2 03:46 BP 100 / 48 (auto/); kas2 03:46 Pulse 56 MON; Pulse Ox 95% ; kas2 03:46 Resp 18; Temp 98.2(O); Pain 0/10; kas2 04:01 BP 106 / 53 (auto/); kas2 04:01 Pulse 58 MON; Pulse Ox 96% ; kas2 04:16 BP 105 / 51 (auto/); kas2 04:16 Pulse 56 MON; Pulse Ox 95% ; kas2 04:31 BP 96 / 47 (auto/); kas2 04:31 Pulse 56 MON; Pulse Ox 95% ; kas2 04:46 BP 101 / 48 (auto/); kas2 04:46 Pulse 56 MON; Pulse Ox 96% ; kas2 05:01 BP 91 / 45 (auto/); kas2 05:01 Pulse 56 MON; Pulse Ox 96% ; kas2 05:16 BP 115 / 55 (auto/); kas2 05:16 Pulse 58 MON; Pulse Ox 94% ; kas2 05:33 Resp 18; Temp 97.9(O); Pain 0/10; kas2 06:40 BP 118 / 73 (auto/); kas2 06:40 Pulse 58 MON; Pulse Ox 95% ; kas2 06:42 Resp 18; Temp 98.6(O); Pulse Ox 96% ; Pain 0/10; kas2 07:09 Pulse 58 MON; Pulse Ox 96% ; hs1 07:10 BP 143 / 65 (auto/); hs1 07:24 Pulse 72 MON; Pulse Ox 95% ; hs1 07:25 BP 107 / 53 (auto/); hs1 07:39 Pulse 56 MON; Pulse Ox 95% ; hs1 07:40 BP 104 / 51 (auto/); hs1 07:54 Pulse 60 MON; Pulse Ox 97% ; hs1 07:55 BP 111 / 56 (auto/); hs1 08:09 Pulse 64 MON; Pulse Ox 98% ; hs1 08:10 BP 126 / 75 (auto/); hs1 08:24 Pulse 64 MON; Pulse Ox 97% ; hs1 08:25 BP 118 / 56 (auto/); hs1 08:39 Pulse 66 MON; Pulse Ox 93% ; hs1 08:40 BP 110 / 56 (auto/); hs1 09:09 Pulse 68 MON; Pulse Ox 98% ; hs1 09:10 BP 122 / 58 (auto/); hs1 09:24 Pulse 64 MON; Pulse Ox 97% ; hs1 09:25 BP 103 / 56 (auto/); hs1 09:39 Pulse 66 MON; Pulse Ox 97% ; hs1 09:40 BP 101 / 55 (auto/); hs1 09:54 Pulse 64 MON; Pulse Ox 96% ; hs1 09:55 BP 107 / 54 (auto/); hs1 10:09 Pulse 66 MON; Pulse Ox 97% ; hs1 10:10 BP 114 / 55 (auto/); hs1 10:25 BP 116 / 59 (auto/); hs1 10:25 Pulse 66 MON; Pulse Ox 98% ; hs1 10:39 Pulse 62 MON; Pulse Ox 97% ; hs1 10:40 BP 119 / 59 (auto/); hs1 10:54 Pulse 64 MON; Pulse Ox 95% ; hs1 10:55 BP 112 / 58 (auto/); hs1 11:09 Pulse 64 MON; Pulse Ox 96% ; hs1 11:10 BP 127 / 60 (auto/); hs1 11:24 Pulse 62 MON; Pulse Ox 96% ; hs1 11:25 BP 115 / 56 (auto/); hs1 11:39 Pulse 66 MON; Pulse Ox 97% ; hs1 11:40 BP 115 / 58 (auto/); hs1 11:54 Pulse 64 MON; Pulse Ox 96% ; hs1 11:55 BP 120 / 82 (auto/); hs1 12:24 Pulse 66 MON; Pulse Ox 98% ; hs1 12:25 BP 124 / 61 (auto/); hs1 12:39 Pulse 64 MON; Pulse Ox 98% ; hs1 12:40 BP 118 / 55 (auto/); hs1 12:54 Pulse 62 MON; Pulse Ox 93% ; hs1 12:55 BP 102 / 50 (auto/); hs1 13:09 Pulse 66 MON; Pulse Ox 93% ; hs1 13:10 BP 110 / 55 (auto/); hs1 13:25 BP 122 / 58 (auto/); hs1 13:25 Pulse 64 MON; Pulse Ox 97% ; hs1 13:39 Pulse 64 MON; Pulse Ox 96% ; hs1 13:40 BP 122 / 61 (auto/); hs1 13:54 Pulse 62 MON; Pulse Ox 94% ; hs1 13:55 BP 119 / 60 (auto/); hs1 14:24 Pulse 62 MON; Pulse Ox 95% ; hs1 14:25 BP 129 / 58 (auto/); hs1 14:39 Pulse 64 MON; Pulse Ox 98% ; hs1 14:40 BP 120 / 67 (auto/); hs1 14:54 Pulse 64 MON; Pulse Ox 97% ; hs1 14:55 BP 118 / 65 (auto/); hs1 16:55 BP 110 / 65; Pulse 85; Resp 20; Temp 98.8(O); Pulse Ox 98% on R/A; [facility] 12/01 15:16 Body Mass Index 32.19 (69.85 kg, 147.32 cm) gr2 Vitals: 12/01 15:16 Log In Time: December 01, 2016 at 15:16. gr2 ED Course: 15:15 Patient visited by Aron Oliver. gr2 15:15 Pantera Nevarez MD is Private Physician. gr2 15:15 Patient moved to Waiting gr2 15:17 Patient visited by Aron Oliver. gr2 15:17 Patient moved to Pre RCE gr2 15:23 Triage Initiated kcs 15:35 Dee Blum,MARC is Primary Nurse. nb2 15:35 Patient moved to 10 nb2 15:47 Rina Austin MD is Attending Physician. sd1 15:51 Aman Young FNP is PHCP. ke 15:51 Patient visited by Aman Young FNP. ke 15:51 Patient visited by Aman Young FNP. ke 16:08 Francisca Best RN is Primary Nurse. jc4 16:09 Patient visited by Shefali Guillory. nb2 16:09 EKG done. (by ED staff). Reviewed by Aman CALVILLO. nb2 16:17 Type and Cross, Packed Cells Sent. jc4 16:17 Amylase Sent. jc4 16:17 Basic Metabolic Profile Sent. jc4 16:17 CBC with Diff Sent. jc4 16:17 Lipase Sent. jc4 16:17 Liver Profile Sent. jc4 16:17 Prothrombin Time Profile\E\INR Sent. jc4 16:18 Patient visited by Francisca Best RN. jc4 16:18 Inserted saline lock: 20 gauge in left antecubital area The patient tolerated the jc4 procedure well. 16:41 Patient visited by Aman Young FNP. ke 16:50 The patient / caregiver is instructed regarding the plan of care and ED course. jc4 16:54 DIFFERENTIAL NO CHARGE Sent. jc4 16:55 Patient visited by Francisca Best RN. jc4 16:57 Astrid Jaimes is Hospitalizing Provider. ke 18:25 Blood products: PRBCs X 1 unit given. See transfusion record Unit [id number]. jc4 19:05 Primary Nurse role handed off by Francisca Best RN jc4 19:33 Patient moved to Admit Hold sls1 19:51 Written Provider Order was scanned into [employer] and attached to record. kb5 20:26 FROZEN PLASMA 24 Sent. nn1 12/02 00:58 Dior Gaona RN is Primary Nurse. kas2 01:02 Patient visited by Dior Gaona RN. kas2 01:03 PENDING SALE TO [facility] Payment Agreement was scanned into [employer] and attached to record. hs2 01:50 Primary Nurse role handed off by Dee Blum RN rs6 01:57 Patient visited by Dior Gaona RN. kas2 02:20 Patient visited by Dior Gaona RN. kas2 02:45 Patient visited by Dior Gaona RN. kas2 03:45 Patient visited by Dior Gaona RN. kas2 05:12 Patient visited by Dior Gaona RN. kas2 05:33 Patient visited by Dior Gaona RN. kas2 06:41 Patient visited by Dior Gaona RN. kas2 06:43 Patient visited by Dior Gaona RN. kas2 06:58 Patient visited by Dior Gaona RN. kas2 08:05 Primary Nurse role handed off by Dior Gaona RN mlb1 09:24 Patient visited by Patsy Fernández RN. hs1 09:37 Patient visited by Kelsey Jj. cmb 10:05 EKG-ADULT Returned. EDMS 11:06 Patient visited by Kelsey Jj. cmb 11:06 Assisted to bathroom. cmb 16:04 Inpatient Paper MAR was scanned into [employer] and attached to record. lbd 17:48 No procedures done that require assistance. jc4 12/03 20:20 T-Sheet-- Draft Copy was scanned into [employer] and attached to record. klr Administered Medications: 12/01 20:26 Drug: Acetaminophen 650 mg [acetaminophen 325 mg tablet (2 tabs)] Route: PO; nn1 12/02 17:04 Drug: Acetaminophen 650 mg [acetaminophen 325 mg tablet (2 tabs)] Route: PO; jc4 18:12 Drug: HumaLog - Insulin Lispro (0.1 units/kg) 4 units [insulin lispro 100 unit/mL jc4 subcutaneous solution (0.04 mL)] {Co-Signature: hs1 (Patsy Fernández RN).} Route: Sub-Q; Site: left upper arm; Attachments: 16:04 Inpatient Paper MAR [facility] Point of Care Testing: Blood Glucose: 12/02 18:01 Blood Glucose: 179 mg/dL; jc4 Ranges: Output: 11:06 Urine: 150.00ml (Voided); Total: 150.00ml. cmb Order Results: Lab Order: Amylase; SPEC'M 12/01/16 16:14 Test: AMYLASE; Value: 48; Range: 25-115; Units: U/L; Status: F Lab Order: Basic Metabolic Profile; SPEC'M 12/01/16 16:14 Test: GLUCOSE, FASTING; Value: 222; Range: 80-110; Abnormal: Above high normal; Units: MG/DL; Status: F Test: BLOOD UREA NITROGEN; Value: 19; Range: 7-18; Abnormal: Above high normal; Units: MG/DL; Status: F Test: CREATININE FOR GFR; Value: 1.43; Range: 0.55-1.02; Abnormal: Above high normal; Units: MG/DL; Status: F Test: GLOMERULAR FILTRATION RATE; Value: 39.8; Range: >45; Abnormal: Below low normal; Status: F Test: SODIUM LEVEL; Value: 142; Range: 136-145; Units: MEQ/L; Status: F Test: POTASSIUM SERUM; Value: 4.1; Range: 3.5-5.1; Units: MEQ/L; Status: F Test: CHLORIDE LEVEL; Value: 107; Range: 98-107; Units: MEQ/L; Status: F Test: CARBON DIOXIDE LEVEL; Value: 26; Range: 21-32; Units: MEQ/L; Status: F Test: ANION GAP; Value: 9; Range: 8-16; Units: MEQ/L; Status: F Test: CALCIUM LEVEL; Value: 8.2; Range: 8.8-10.2; Abnormal: Below low normal; Units: MG/DL; Status: F Test Note: ; Units are mL/min/1.73 m2 Chronic Kidney Disease Staging per NKF: Stage I & II GFR >=60 Normal to Mildly Decreased Stage III GFR 30-59 Moderately Decreased Stage IV GFR 15-29 Severely Decreased Stage V GFR <15 Very Little GFR Left ESRD GFR <15 on WOOD FINISHER Lab Order: CBC with Diff; SPEC'M 12/01/16 16:14 Test: WHITE BLOOD COUNT; Value: 9.3; Range: 4.0-10.0; Units: K/mm3; Status: F Test: RED BLOOD COUNT; Value: 1.64; Range: 4.00-5.40; Abnormal: Below low normal; Units: M/mm3; Status: F Test: HEMOGLOBIN; Value: 5.5; Range: 12.0-16.0; Abnormal: Critical Low; Units: g/dl; Status: F Test: HEMATOCRIT; Value: 18.8; Range: 36.0-47.0; Abnormal: Below low normal; Units: %; Status: F Test: MEAN CORPUSCULAR VOLUME; Value: 114.8; Range: 80.0-96.0; Abnormal: Above high normal; Units: fl; Status: F Test: MEAN CORPUSCULAR HEMOGLOBIN; Value: 33.6; Range: 27.0-33.0; Abnormal: Above high normal; Units: pg; Status: F Test: MEAN CORPUSCULAR HGB CONC; Value: 29.3; Range: 32.0-36.5; Abnormal: Below low normal; Units: g/dl; Status: F Test: RED CELL DISTRIBUTION WIDTH; Value: 18.2; Range: 11.5-14.5; Abnormal: Above high normal; Units: %; Status: F Test: PLATELET COUNT, AUTOMATED; Value: 327; Range: 150-450; Units: k/mm3; Status: F Test: NEUTROPHILS; Value: 87; Range: 35-75; Abnormal: Above high normal; Units: %; Status: F Test: LYMPHOCYTES; Value: 10; Range: 16-52; Abnormal: Below low normal; Units: %; Status: F Test: MONOCYTES; Value: 3; Range: 0-8; Units: %; Status: F Test: POLYCHROMASIA; Value: 1+; Status: F Test: HYPOCHROMASIA; Value: 3+; Status: F Test: ANISOCYTOSIS; Value: 2+; Status: F Test: MACROCYTOSIS; Value: 3+; Status: F Test: TEAR DROP CELLS; Value: 1+; Status: F Lab Order: Lipase; SPEC'M 12/01/16 16:14 Test: LIPASE; Value: 134; Range: 73-393; Units: U/L; Status: F Lab Order: Liver Profile; [facility] 12/01/16 16:14 Test: AST/SGOT; Value: 9; Range: 15-37; Abnormal: Below low normal; Units: U/L; Status: F Test: ALT/SGPT; Value: 23; Range: 12-78; Units: U/L; Status: F Test: ALKALINE PHOSPHATASE; Value: 67; Range: 45-117; Units: U/L; Status: F Test: BILIRUBIN,TOTAL; Value: 0.2; Range: 0.2-1.0; Units: MG/DL; Status: F Test: BILIRUBIN,DIRECT; Value: < 0.1; Range: 0.0-0.2; Units: MG/DL; Status: F Test: TOTAL PROTEIN; Value: 6.1; Range: 6.4-8.2; Abnormal: Below low normal; Units: GM/DL; Status: F Test: ALBUMIN; Value: 3.1; Range: 3.2-5.2; Abnormal: Below low normal; Units: GM/DL; Status: F Test: ALBUMIN/GLOBULIN RATIO; Value: 1.03; Range: 1.00-1.93; Status: F Lab Order: Prothrombin Time Profile\E\INR; [facility] 12/01/16 16:14 Test: PROTHROMBIN TIME; Value: 46.7; Range: 12.3-14.5; Abnormal: Above high normal; Units: SECONDS; Status: F Test: INR; Value: 5.05; Abnormal: Above upper panic limits; Status: F Test Note: ; THERAPUTIC HUMAN INR VALUES INDICATIONS NORMAL RANGES PROPHYLAXIS/TREATMENT OF: VENOUS THROMBOSIS 2.0-3.0 PULMONARY EMBOLISM 2.0-3.0 PREVENTION OF SYSTEMIC EMBOLISM FROM: TISSUE HEART VALVES 2.0-3.0 ACUTE MYOCARDIAL INFARCTION 2.0-3.0 VALVULAR HEART DISEASE 2.0-3.0 ATRIAL FIBRILLATION 2.0-3.0 MECHANICAL VALVES(HIGH RISK) 2.5-3.5 RECURRENT MYOCARDIAL INFARCTION 2.5-3.5 Lab Order: TYPE & SCREEN; [facility] 12/01/16 16:14 Test: BLOOD TYPE; Value: O POS; Status: F Test: AB SCREEN (INDIRECT ANKITA)VIS; Value: NEGATIVE; Status: F Test: IMMEDIATE SPIN CROSSMATCH; Value: [id number] O POSITIVE Compatible? Y; Status: F Test: IMMEDIATE SPIN CROSSMATCH; Value: [id number] O POSITIVE Compatible? Y; Status: F Test: IMMEDIATE SPIN CROSSMATCH; Value: [id number] O POSITIVE Compatible? Y; Status: F Test: IMMEDIATE SPIN CROSSMATCH; Value: [id number] O POSITIVE Compatible? Y; Status: F Lab Order: PLATELET ESTIMATE; [facility] 12/01/16 16:14 Test: PLATELET ESTIMATE; Value: NORMAL; Range: NORMAL; Status: F Lab Order: HEMOGLOBIN & HEMATOCRIT; [facility] 12/01/16 23:17 Test: HEMOGLOBIN; Value: 8.3; Range: 12.0-16.0; Units: g/dl; Status: F Test: HEMATOCRIT; Value: 25.7; Range: 36.0-47.0; Abnormal: Below low normal; Units: %; Status: F Lab Order: PROTHROMBIN TIME PROFILE\E\INR; [facility] 12/02/16 05:18 Test: PROTHROMBIN TIME; Value: 30.7; Range: 12.3-14.5; Abnormal: Above high normal; Units: SECONDS; Status: F Test: INR; Value: 2.94; Status: F Test Note: ; THERAPUTIC HUMAN INR VALUES INDICATIONS NORMAL RANGES PROPHYLAXIS/TREATMENT OF: VENOUS THROMBOSIS 2.0-3.0 PULMONARY EMBOLISM 2.0-3.0 PREVENTION OF SYSTEMIC EMBOLISM FROM: TISSUE HEART VALVES 2.0-3.0 ACUTE MYOCARDIAL INFARCTION 2.0-3.0 VALVULAR HEART DISEASE 2.0-3.0 ATRIAL FIBRILLATION 2.0-3.0 MECHANICAL VALVES(HIGH RISK) 2.5-3.5 RECURRENT MYOCARDIAL INFARCTION 2.5-3.5 Lab Order: CBC WITH DIFFERENTIAL; [facility]12/02/16 05:18 Test: WHITE BLOOD COUNT; Value: 6.2; Range: 4.0-10.0; Units: K/mm3; Status: F Test: RED BLOOD COUNT; Value: 2.44; Range: 4.00-5.40; Abnormal: Below low normal; Units: M/mm3; Status: F Test: HEMOGLOBIN; Value: 8.3; Range: 12.0-16.0; Abnormal: Below low normal; Units: g/dl; Status: F Test: HEMATOCRIT; Value: 25.1; Range: 36.0-47.0; Abnormal: Below low normal; Units: %; Status: F Test: MEAN CORPUSCULAR VOLUME; Value: 102.8; Range: 80.0-96.0; Abnormal: High; Units: fl; Status: F Test: MEAN CORPUSCULAR HEMOGLOBIN; Value: 33.9; Range: 27.0-33.0; Abnormal: Above high normal; Units: pg; Status: F Test: MEAN CORPUSCULAR HGB CONC; Value: 33.0; Range: 32.0-36.5; Units: g/dl; Status: F Test: RED CELL DISTRIBUTION WIDTH; Value: 20.3; Range: 11.5-14.5; Abnormal: Above high normal; Units: %; Status: F Test: PLATELET COUNT, AUTOMATED; Value: 266; Range: 150-450; Units: k/mm3; Status: F Test: NEUTROPHILS %; Value: 60.9; Range: 36.0-66.0; Units: %; Status: F Test: LYMPH %; Value: 29.9; Range: 24.0-44.0; Units: %; Status: F Test: MONO %; Value: 6.7; Range: 0.0-5.0; Abnormal: Above high normal; Units: %; Status: F Test: EOS %; Value: 0.4; Range: 0.0-3.0; Units: %; Status: F Test: BASO %; Value: 0.1; Range: 0.0-1.0; Units: %; Status: F Test: LARGE UNSTAINED CELL %; Value: 1.9; Range: 0.0-4.0; Units: %; Status: F Test: NEUTROPHILS #; Value: 3.8; Range: 1.8-7.7; Units: K/mm3; Status: F Test: LYMPH #; Value: 2.0; Range: 1.5-4.5; Units: K/mm3; Status: F Test: MONO #; Value: 0.4; Range: 0.0-0.8; Units: K/mm3; Status: F Test: EOS #; Value: 0.0; Range: 0.0-0.50; Units: K/mm3; Status: F Test: BASO #; Value: 0.0; Range: 0.0-0.2; Units: K/mm3; Status: F Test: LARGE UNSTAINED CELL #; Value: 0.1; Range: 0.0-0.4; Units: K/mm3; Status: F Lab Order: COMPLETE COMPHRENSIVE METABOLI; SPEC'M 12/02/16 05:18 Test: GLUCOSE, FASTING; Value: 90; Range: 80-110; Units: MG/DL; Status: F Test: BLOOD UREA NITROGEN; Value: 15; Range: 7-18; Units: MG/DL; Status: F Test: CREATININE FOR GFR; Value: 1.19; Range: 0.55-1.02; Abnormal: Above high normal; Units: MG/DL; Status: F Test: GLOMERULAR FILTRATION RATE; Value: 49.3; Range: >45; Status: F Test: SODIUM LEVEL; Value: 146; Range: 136-145; Abnormal: Above high normal; Units: MEQ/L; Status: F Test: POTASSIUM SERUM; Value: 3.8; Range: 3.5-5.1; Units: MEQ/L; Status: F Test: CHLORIDE LEVEL; Value: 113; Range: 98-107; Abnormal: Above high normal; Units: MEQ/L; Status: F Test: CARBON DIOXIDE LEVEL; Value: 25; Range: 21-32; Units: MEQ/L; Status: F Test: ANION GAP; Value: 8; Range: 8-16; Units: MEQ/L; Status: F Test: CALCIUM LEVEL; Value: 7.6; Range: 8.8-10.2; Abnormal: Below low normal; Units: MG/DL; Status: F Test: AST/SGOT; Value: 11; Range: 15-37; Abnormal: Below low normal; Units: U/L; Status: F Test: ALT/SGPT; Value: 18; Range: 12-78; Units: U/L; Status: F Test: ALKALINE PHOSPHATASE; Value: 57; Range: 45-117; Units: U/L; Status: F Test: BILIRUBIN,TOTAL; Value: 0.4; Range: 0.2-1.0; Abnormal: Delta; Units: MG/DL; Status: F Test: TOTAL PROTEIN; Value: 5.9; Range: 6.4-8.2; Abnormal: Below low normal; Units: GM/DL; Status: F Test: ALBUMIN; Value: 2.7; Range: 3.2-5.2; Abnormal: Below low normal; Units: GM/DL; Status: F Test: ALBUMIN/GLOBULIN RATIO; Value: 0.84; Range: 1.00-1.93; Abnormal: Below low normal; Status: F Test Note: ; Units are mL/min/1.73 m2 Chronic Kidney Disease Staging per NKF: Stage I & II GFR >=60 Normal to Mildly Decreased Stage III GFR 30-59 Moderately Decreased Stage IV GFR 15-29 Severely Decreased Stage V GFR <15 Very Little GFR Left ESRD GFR <15 on WOOD FINISHER Lab Order: MAGNESIUM LEVEL; [facility]12/02/16 05:18 Test: MAGNESIUM LEVEL; Value: 2.2; Range: 1.8-2.4; Units: MG/DL; Status: F Lab Order: HEMOGLOBIN & HEMATOCRIT; [facility] 12/02/16 10:24 Test: HEMOGLOBIN; Value: 8.4; Range: 12.0-16.0; Abnormal: Below low normal; Units: g/dl; Status: F Test: HEMATOCRIT; Value: 26.4; Range: 36.0-47.0; Abnormal: Below low normal; Units: %; Status: F Lab Order: HEMOGLOBIN & HEMATOCRIT; [facility] 12/02/16 15:58 Test: HEMOGLOBIN; Value: 8.7; Range: 12.0-16.0; Abnormal: Below low normal; Units: g/dl; Status: F Test: HEMATOCRIT; Value: 27.1; Range: 36.0-47.0; Abnormal: Below low normal; Units: %; Status: F Lab Order: Fingerstick Blood Sugar; [facility]12/02/16 07:51 Test: BEDSIDE GLUCOSE; Value: 89; Range: 80-115; Units: MG/DL; Status: F Lab Order: Fingerstick Blood Sugar; [facility] 12/02/16 12:21 Test: BEDSIDE GLUCOSE; Value: 143; Range: 80-115; Abnormal: Above high normal; Units: MG/DL; Status: F Test Note: ; Insulin Coverage Ord Lab Order: Fingerstick Blood Sugar; [facility] 12/02/16 18:00 Test: BEDSIDE GLUCOSE; Value: 179; Range: 80-115; Abnormal: Above high normal; Units: MG/DL; Status: F Radiology Order: EKG-ADULT Test: EKG-ADULT REASON FOR EXAMINATION: weaknesss; Stationary ECG Study; [facility] - ED; ; Test Date: 2016-12-01; Pat Name: DAVID ANDREWS Department:; Room: -; Gender: F Director Clinical Data: robert; : 1955 Requested By: Rina Austin; Order Number: [id number] Reading MD: Rina Austin; Measurements; Intervals [place]; Rate: 74 P: 47; IA: 173 QRS: 51; QRSD: 106 T: 15; QT: 381; QTc: 425; Interpretive Statements; SINUS RHYTHM; MODERATE T-WAVE ABNORMALITY, CONSIDER ISCHEMIA, CLINICAL CORRELATION; NO PRIOR FOR COMPARISON; ; Electronically Signed On 12-02-2016 9:56:01 EST by Rina Austin; Outcome: 12/01 16:57 Decision to Hospitalize by Provider. 12/02 17:49 Discharge Assessment: Patient awake and alert. patient administered narcotics - no. The [facility] following High Risk Discharge criteria are identified: None. Admitted to Med/Surg accompanied by nurse, family with patient, via stretcher, with oxygen, on monitor, with chart. Condition: stable. No special radiology studies were completed. Admission hand-off: Report Faxed Fax receipt verified by MARC Perez. Property :Personal belongings accompany Pt. 18:18 Patient left the ED. [facility] Signatures: Dispatcher [employer] EDFL Rina Austin MD MD sd1 Sleeman, Kacey, RN RN Mariah Soliman, Machine Stuffer Unit lbd Lillie Pearce RN RN [facility] Aman Young FNP FNP ke Barney, Michael B RN RN mlb1 [place] Harper, GARCIA SUPERVISOR HARD CANDY kb5 Patsy Fernández RN RN hs1 Francisca Best RN RN jc4 Lucrecia Oneal RN RN [facility]1 Kelsey Jj Gainslee gr2 Geri Horne, SUPERVISOR HARD CANDY SUPERVISOR HARD CANDY rs6 Golden Wolfe,RN RN nn1 Cassidy Otero, Familia Barbosa hs2 Dior GaonaRN RN kas2 Kaur Doll Nicole nb2 Patsy Fernández RN hs1 Chart Complete MTDD
--- NOTE | 2016-12-05 21:48 | EDDOCDS ---
Physician Documentation [facility] Name: Bernarda Murdock Age: 61 yrs Sex: Female : 1955 Arrival Date: 12/01/2016 Time: 15:13 Bed Admit Hold Private MD: Pantera Nevarez Disposition: 12/01/16 16:57 Hospitalization ordered by Astrid Jaimes for Inpatient Admission. Preliminary diagnosis is Gastritis, unspecified, with bleeding. - Bed requested for 4 [facility] ([facility] 3 [facility]). - Status is Inpatient Admission. [facility] - Condition is Stable. - Problem is an ongoing problem. - Symptoms are unchanged. Historical: - Allergies: PENICILLINS (Hives); SULFA (SULFONAMIDES) (Hives); - Home Meds: 1. albuterol sulfate 90 mcg/actuation Inhl HFAA 2 puffs every 4 hours as needed (Last dose: 12/01/2016 12:00) 2. atorvastatin 10 mg oral tab 1 tab once daily (Last dose: 12/01/2016 08:00) 3. bisoprolol fumarate 5 mg oral tab 1 tab once daily (Last dose: 12/01/2016 08:00) 4. Vitamin B-12 1,000 mcg Oral tab 1,000 mcg daily (Last dose: 12/01/2016 08:00) 5. Iron CR Oral 325 mg daily (Last dose: 11/30/2016 21:00) 6. Levoxyl 75 mcg Oral tab 1 tab once daily (Last dose: 12/01/2016 08:00) 7. nortriptyline 10 mg Oral cap 2 caps nightly (Last dose: 11/30/2016 21:00) 8. paroxetine HCl 40 mg Oral tab 1 tab once daily (Last dose: 12/01/2016 08:00) 9. prednisone 10 mg Oral tab 1 tab once daily tapering dose, has one remaining dose (Last dose: 12/01/2016 08:00) 10. Januvia 100 mg oral tab 1 tab once daily (Last dose: 12/01/2016 08:00) 11. Topamax 150 mg Oral twice a day (Last dose: 12/01/2016 08:00) 12. Nicoderm CQ 14 mg/24 hr transdermal pt24 1 patch once daily (Last dose: 12/01/2016 16:39) 13. Coumadin 5 mg Oral tab 1 tab 4 times weekly on Sun/Tues/Thurs/Sat (Last dose: 11/29/2016) 14. Coumadin 7.5 mg Oral tab 1 tab 3 times weekly on // (Last dose: 11/30/2016 17:00) - PMHx: Hypercholesterolemia; Hypothyroidism; Diabetes - NIDDM: controlled; COPD; Hypertension; Anemia; Depression; CVA; - PSHx: brain surgery; ; Carpal Tunnel Repair- Right; Bunion Surgery; Thyroidectomy; Remote Contolled Brain Shunt; - Social history: Smoking status: Patient states former smoker of tobacco. No barriers to communication noted, The patient speaks fluent Sami. - Family history: Not pertinent. - : The pt / caregiver states he / she is not on anticoagulants. Home medication list is obtained from family members. - Exposure Risk Screening:: None identified. Vital Signs: 12/01 15:16 BP 121 / 50; Pulse 87; Resp 18 S; Temp 98.3(O); Pulse Ox 99% on R/A; Weight 69.85 kg / gr2 153.99 lbs (R); Height 4 ft. 10 in. (147.32 cm) (R); Pain 5/10; 15:45 BP 109 / 57 (auto/); jc4 15:49 Pulse 76 MON; Pulse Ox 97% ; jc4 16:14 Pulse 76 MON; Pulse Ox 98% ; jc4 16:15 BP 122 / 58 (auto/); jc4 16:45 BP 107 / 53 (auto/); jc4 16:46 Pulse 74 MON; Pulse Ox 97% ; jc4 17:15 BP 115 / 58 (auto/); jc4 17:15 Pulse 74 MON; Pulse Ox 96% ; jc4 17:45 BP 118 / 56 (auto/); jc4 17:48 Pulse 80 MON; Pulse Ox 95% ; jc4 18:12 Temp 99.8(TE); jc4 20:20 BP 113 / 56; Pulse 72; Resp 20; Temp 96.7(TE); Pulse Ox 97% on R/A; Pain 0/10; nn1 21:20 BP 113 / 59; Pulse 67; Resp 20; Temp 98.3(TE); Pulse Ox 98% on R/A; Pain 0/10; nn1 21:42 BP 117 / 55; Pulse 74; Resp 18; Temp 97.4(TE); Pulse Ox 97% on R/A; Pain 0/10; nn1 12/02 01:46 BP 111 / 54 (auto/); kas2 01:46 Pulse 62 MON; Pulse Ox 96% ; kas2 02:01 BP 106 / 52 (auto/); kas2 02:01 Pulse 62 MON; Pulse Ox 96% ; kas2 02:16 BP 102 / 50 (auto/); kas2 02:16 Pulse 62 MON; Pulse Ox 95% ; kas2 02:19 Resp 18; Temp 97.6(O); Pulse Ox 100% on R/A; kas2 02:31 BP 123 / 58 (auto/); kas2 02:31 Pulse 64 MON; Pulse Ox 92% ; kas2 02:46 BP 109 / 55 (auto/); kas2 02:46 Pulse 60 MON; Pulse Ox 94% ; kas2 03:01 BP 114 / 53 (auto/); kas2 03:01 Pulse 60 MON; Pulse Ox 95% ; kas2 03:16 BP 103 / 52 (auto/); kas2 03:16 Pulse 58 MON; Pulse Ox 94% ; kas2 03:31 BP 114 / 54 (auto/); kas2 03:31 Pulse 58 MON; Pulse Ox 95% ; kas2 03:46 BP 100 / 48 (auto/); kas2 03:46 Pulse 56 MON; Pulse Ox 95% ; kas2 03:46 Resp 18; Temp 98.2(O); Pain 0/10; kas2 04:01 BP 106 / 53 (auto/); kas2 04:01 Pulse 58 MON; Pulse Ox 96% ; kas2 04:16 BP 105 / 51 (auto/); kas2 04:16 Pulse 56 MON; Pulse Ox 95% ; kas2 04:31 BP 96 / 47 (auto/); kas2 04:31 Pulse 56 MON; Pulse Ox 95% ; kas2 04:46 BP 101 / 48 (auto/); kas2 04:46 Pulse 56 MON; Pulse Ox 96% ; kas2 05:01 BP 91 / 45 (auto/); kas2 05:01 Pulse 56 MON; Pulse Ox 96% ; kas2 05:16 BP 115 / 55 (auto/); kas2 05:16 Pulse 58 MON; Pulse Ox 94% ; kas2 05:33 Resp 18; Temp 97.9(O); Pain 0/10; kas2 06:40 BP 118 / 73 (auto/); kas2 06:40 Pulse 58 MON; Pulse Ox 95% ; kas2 06:42 Resp 18; Temp 98.6(O); Pulse Ox 96% ; Pain 0/10; kas2 07:09 Pulse 58 MON; Pulse Ox 96% ; hs1 07:10 BP 143 / 65 (auto/); hs1 07:24 Pulse 72 MON; Pulse Ox 95% ; hs1 07:25 BP 107 / 53 (auto/); hs1 07:39 Pulse 56 MON; Pulse Ox 95% ; hs1 07:40 BP 104 / 51 (auto/); hs1 07:54 Pulse 60 MON; Pulse Ox 97% ; hs1 07:55 BP 111 / 56 (auto/); hs1 08:09 Pulse 64 MON; Pulse Ox 98% ; hs1 08:10 BP 126 / 75 (auto/); hs1 08:24 Pulse 64 MON; Pulse Ox 97% ; hs1 08:25 BP 118 / 56 (auto/); hs1 08:39 Pulse 66 MON; Pulse Ox 93% ; hs1 08:40 BP 110 / 56 (auto/); hs1 09:09 Pulse 68 MON; Pulse Ox 98% ; hs1 09:10 BP 122 / 58 (auto/); hs1 09:24 Pulse 64 MON; Pulse Ox 97% ; hs1 09:25 BP 103 / 56 (auto/); hs1 09:39 Pulse 66 MON; Pulse Ox 97% ; hs1 09:40 BP 101 / 55 (auto/); hs1 09:54 Pulse 64 MON; Pulse Ox 96% ; hs1 09:55 BP 107 / 54 (auto/); hs1 10:09 Pulse 66 MON; Pulse Ox 97% ; hs1 10:10 BP 114 / 55 (auto/); hs1 10:25 BP 116 / 59 (auto/); hs1 10:25 Pulse 66 MON; Pulse Ox 98% ; hs1 10:39 Pulse 62 MON; Pulse Ox 97% ; hs1 10:40 BP 119 / 59 (auto/); hs1 10:54 Pulse 64 MON; Pulse Ox 95% ; hs1 10:55 BP 112 / 58 (auto/); hs1 11:09 Pulse 64 MON; Pulse Ox 96% ; hs1 11:10 BP 127 / 60 (auto/); hs1 11:24 Pulse 62 MON; Pulse Ox 96% ; hs1 11:25 BP 115 / 56 (auto/); hs1 11:39 Pulse 66 MON; Pulse Ox 97% ; hs1 11:40 BP 115 / 58 (auto/); hs1 11:54 Pulse 64 MON; Pulse Ox 96% ; hs1 11:55 BP 120 / 82 (auto/); hs1 12:24 Pulse 66 MON; Pulse Ox 98% ; hs1 12:25 BP 124 / 61 (auto/); hs1 12:39 Pulse 64 MON; Pulse Ox 98% ; hs1 12:40 BP 118 / 55 (auto/); hs1 12:54 Pulse 62 MON; Pulse Ox 93% ; hs1 12:55 BP 102 / 50 (auto/); hs1 13:09 Pulse 66 MON; Pulse Ox 93% ; hs1 13:10 BP 110 / 55 (auto/); hs1 13:25 BP 122 / 58 (auto/); hs1 13:25 Pulse 64 MON; Pulse Ox 97% ; hs1 13:39 Pulse 64 MON; Pulse Ox 96% ; hs1 13:40 BP 122 / 61 (auto/); hs1 13:54 Pulse 62 MON; Pulse Ox 94% ; hs1 13:55 BP 119 / 60 (auto/); hs1 14:24 Pulse 62 MON; Pulse Ox 95% ; hs1 14:25 BP 129 / 58 (auto/); hs1 14:39 Pulse 64 MON; Pulse Ox 98% ; hs1 14:40 BP 120 / 67 (auto/); hs1 14:54 Pulse 64 MON; Pulse Ox 97% ; hs1 14:55 BP 118 / 65 (auto/); hs1 16:55 BP 110 / 65; Pulse 85; Resp 20; Temp 98.8(O); Pulse Ox 98% on R/A; 4 12/01 15:16 Body Mass Index 32.19 (69.85 kg, 147.32 cm) gr2 MDM: 12/01 15:47 Undress patient appropriately for examination ordered. sd1 15:47 IV Saline Lock ordered. sd1 15:48 Amylase Ordered. EDMS 15:48 Basic Metabolic Profile Ordered. EDMS 15:48 CBC with Diff Ordered. EDMS 15:48 Lipase Ordered. EDMS 15:48 Liver Profile Ordered. EDMS 15:48 Prothrombin Time Profile\E\INR Ordered. EDMS 15:49 BED REQUEST+ADM ordered. EDMS 15:49 ECG WITH READING ER PHYS+CARDIAG ordered. EDMS 15:59 Type and Cross, Packed Cells Ordered. EDMS 16:22 TYPE & SCREEN Ordered. EDMS 16:52 DIFFERENTIAL NO CHARGE Ordered. EDMS 16:53 Basic Metabolic Profile Reviewed. ke 16:53 CBC with Diff Reviewed. ke 16:53 Liver Profile Reviewed. ke 16:53 Amylase Reviewed. ke 16:53 Lipase Reviewed. ke 16:58 Transfuse PRBC's 2 units, ensure PRBCs ordered in lab ordered. ke 18:40 Admission / Observation Status ordered. EDMS 18:40 CONSISTENT CARBOHYDRATES ordered. EDMS 18:43 PACKED CELLS Ordered. EDMS 18:43 FRESH FROZEN PLASMA PHERESIS Ordered. EDMS 19:46 Acetaminophen Tablet 650 mg PO once ordered. nn1 19:47 FROZEN PLASMA 24 Ordered. EDMS 19:51 Written Provider Order was scanned into [employer] and attached to record. kb5 20:46 Transfuse FFP 1 unit, ensure FFP ordered in lab ordered. nn1 22:13 HEMOGLOBIN & HEMATOCRIT Ordered. EDMS 22:13 PROTHROMBIN TIME PROFILE\E\INR Ordered. EDMS 22:13 CBC WITH DIFFERENTIAL Ordered. EDMS 22:14 COMPLETE COMPHRENSIVE METABOLI Ordered. EDMS 22:14 MAGNESIUM LEVEL Ordered. EDMS 22:14 HEMOGLOBIN & HEMATOCRIT Ordered. EDMS 22:14 HEMOGLOBIN & HEMATOCRIT Ordered. EDMS 22:14 HEMOGLOBIN & HEMATOCRIT Ordered. EDMS 22:14 OCCULT BLOOD STOOL SPECIMEN Ordered. EDMS 23:54 Financial registration complete. hs2 0222 01:03 [facility] [place] Payment Agreement was scanned into [employer] and attached to record. hs2 08:01 Fingerstick Blood Sugar Ordered. EDMS 12:30 Fingerstick Blood Sugar Ordered. EDMS 14:26 Admission / Observation Status ordered. EDMS 16:04 Inpatient Paper MAR was scanned into [employer] and attached to record. lbd 17:04 Acetaminophen Tablet 650 mg PO once ordered. jc4 17:16 PACKED CELLS Ordered. EDMS 18:10 Fingerstick Blood Sugar Ordered. EDMS 18:12 HumaLog - Insulin Lispro (0.1 units/kg) 4 units Sub-Q once; administer within 15 jc4 minutes before a meal or no later than immediately following the meal ordered. 12/03 20:20 T-Sheet-- Draft Copy was scanned into [employer] and attached to record. rylie Point of Care Testing: Blood Glucose: 12/02 18:01 Blood Glucose: 179 mg/dL; jc4 Ranges: Administered Medications: 12/01 20:26 Drug: Acetaminophen 650 mg [acetaminophen 325 mg tablet (2 tabs)] Route: PO; nn1 12/02 17:04 Drug: Acetaminophen 650 mg [acetaminophen 325 mg tablet (2 tabs)] Route: PO; jc4 18:12 Drug: HumaLog - Insulin Lispro (0.1 units/kg) 4 units [insulin lispro 100 unit/mL jc4 subcutaneous solution (0.04 mL)] {Co-Signature: hs1 (Patsy Fernández RN).} Route: Sub-Q; Site: left upper arm; Signatures: Dispatcher [employer] EDRina John MD MD sd1 Pilar Alves, RN RN kcs Mariah Hough, Hammer Mill Operator Unit lbd Lillie Pearce RN RN kpj Aman Young, ACQUISITION ANALYST ACQUISITION ANALYST ke [place] Harper, TOP SPOTTER TOP SPOTTER kb5 Francisca Best RN RN jc4 Sisi Hernández RN RN sls2 Golden Wolfe RN RN nn1 Cassidy Otero, Reg Reg hs2 Kaur Doll klr Patsy Fernández RN hs1 The chart was reviewed and I authenticate all verbal orders and agree with the evaluation and treatment provided.Corrections: (The following items were deleted from the chart) 12/01 16:35 15:49 TYPE & SCREEN+BBK ordered. EDMS EDMS 18:51 18:43 TYPE & SCREEN ordered. EDMS EDMS 22:10 15:49 NOTHING BY MOUTH+DIET ordered. EDMS EDMS 22:45 22:14 HEMOGLOBIN & HEMATOCRIT ordered. EDMS EDMS 12/02 17:16 17:11 PACKED CELLS ordered. EDMS EDMS 17:16 17:11 TYPE & SCREEN ordered. EDVA EDMS Attachments: 12/01 19:51 Written Provider Order kb5 02/22 01:03 [facility] Payment Agreement hs2 12/03 20:20 T-Sheet-- Draft Copy klr Chart Complete MTDD
--- NOTE | 2016-12-05 21:48 | EDDOCDS ---
Physician Documentation [facility] Name: Bernarda Murdock Age: 61 yrs Sex: Female : 1955 Arrival Date: 12/01/2016 Time: 15:13 Bed Admit Hold Private MD: Pantera Nevarez Disposition: 12/01/16 16:57 Hospitalization ordered by Astrid Jaimes for Inpatient Admission. Preliminary diagnosis is Gastritis, unspecified, with bleeding. - Bed requested for [facility] (Formerly [facility]). - Status is Inpatient Admission. [facility] - Condition is Stable. - Problem is an ongoing problem. - Symptoms are unchanged. Historical: - Allergies: PENICILLINS (Hives); SULFA (SULFONAMIDES) (Hives); - Home Meds: 1. albuterol sulfate 90 mcg/actuation Inhl HFAA 2 puffs every 4 hours as needed (Last dose: 12/01/2016 12:00) 2. atorvastatin 10 mg oral tab 1 tab once daily (Last dose: 12/01/2016 08:00) 3. bisoprolol fumarate 5 mg oral tab 1 tab once daily (Last dose: 12/01/2016 08:00) 4. Vitamin B-12 1,000 mcg Oral tab 1,000 mcg daily (Last dose: 12/01/2016 08:00) 5. Iron CR Oral 325 mg daily (Last dose: 11/30/2016 21:00) 6. Levoxyl 75 mcg Oral tab 1 tab once daily (Last dose: 12/01/2016 08:00) 7. nortriptyline 10 mg Oral cap 2 caps nightly (Last dose: 11/30/2016 21:00) 8. paroxetine HCl 40 mg Oral tab 1 tab once daily (Last dose: 12/01/2016 08:00) 9. prednisone 10 mg Oral tab 1 tab once daily tapering dose, has one remaining dose (Last dose: 12/01/2016 08:00) 10. Januvia 100 mg oral tab 1 tab once daily (Last dose: 12/01/2016 08:00) 11. Topamax 150 mg Oral twice a day (Last dose: 12/01/2016 08:00) 12. Nicoderm CQ 14 mg/24 hr transdermal pt24 1 patch once daily (Last dose: 12/01/2016 16:39) 13. Coumadin 5 mg Oral tab 1 tab 4 times weekly on Sun/Tues/Thurs/Sat (Last dose: 11/29/2016) 14. Coumadin 7.5 mg Oral tab 1 tab 3 times weekly on // (Last dose: 11/30/2016 17:00) - PMHx: Hypercholesterolemia; Hypothyroidism; Diabetes - NIDDM: controlled; COPD; Hypertension; Anemia; Depression; CVA; - PSHx: brain surgery; ; Carpal Tunnel Repair- Right; Bunion Surgery; Thyroidectomy; Remote Contolled Brain Shunt; - Social history: Smoking status: Patient states former smoker of tobacco. No barriers to communication noted, The patient speaks fluent Sami. - Family history: Not pertinent. - : The pt / caregiver states he / she is not on anticoagulants. Home medication list is obtained from family members. - Exposure Risk Screening:: None identified. Vital Signs: 12/01 15:16 BP 121 / 50; Pulse 87; Resp 18 S; Temp 98.3(O); Pulse Ox 99% on R/A; Weight 69.85 kg / gr2 153.99 lbs (R); Height 4 ft. 10 in. (147.32 cm) (R); Pain 5/10; 15:45 BP 109 / 57 (auto/); jc4 15:49 Pulse 76 MON; Pulse Ox 97% ; jc4 16:14 Pulse 76 MON; Pulse Ox 98% ; jc4 16:15 BP 122 / 58 (auto/); jc4 16:45 BP 107 / 53 (auto/); jc4 16:46 Pulse 74 MON; Pulse Ox 97% ; jc4 17:15 BP 115 / 58 (auto/); jc4 17:15 Pulse 74 MON; Pulse Ox 96% ; jc4 17:45 BP 118 / 56 (auto/); jc4 17:48 Pulse 80 MON; Pulse Ox 95% ; jc4 18:12 Temp 99.8(TE); jc4 20:20 BP 113 / 56; Pulse 72; Resp 20; Temp 96.7(TE); Pulse Ox 97% on R/A; Pain 0/10; nn1 21:20 BP 113 / 59; Pulse 67; Resp 20; Temp 98.3(TE); Pulse Ox 98% on R/A; Pain 0/10; nn1 21:42 BP 117 / 55; Pulse 74; Resp 18; Temp 97.4(TE); Pulse Ox 97% on R/A; Pain 0/10; nn1 12/02 01:46 BP 111 / 54 (auto/); kas2 01:46 Pulse 62 MON; Pulse Ox 96% ; kas2 02:01 BP 106 / 52 (auto/); kas2 02:01 Pulse 62 MON; Pulse Ox 96% ; kas2 02:16 BP 102 / 50 (auto/); kas2 02:16 Pulse 62 MON; Pulse Ox 95% ; kas2 02:19 Resp 18; Temp 97.6(O); Pulse Ox 100% on R/A; kas2 02:31 BP 123 / 58 (auto/); kas2 02:31 Pulse 64 MON; Pulse Ox 92% ; kas2 02:46 BP 109 / 55 (auto/); kas2 02:46 Pulse 60 MON; Pulse Ox 94% ; kas2 03:01 BP 114 / 53 (auto/); kas2 03:01 Pulse 60 MON; Pulse Ox 95% ; kas2 03:16 BP 103 / 52 (auto/); kas2 03:16 Pulse 58 MON; Pulse Ox 94% ; kas2 03:31 BP 114 / 54 (auto/); kas2 03:31 Pulse 58 MON; Pulse Ox 95% ; kas2 03:46 BP 100 / 48 (auto/); kas2 03:46 Pulse 56 MON; Pulse Ox 95% ; kas2 03:46 Resp 18; Temp 98.2(O); Pain 0/10; kas2 04:01 BP 106 / 53 (auto/); kas2 04:01 Pulse 58 MON; Pulse Ox 96% ; kas2 04:16 BP 105 / 51 (auto/); kas2 04:16 Pulse 56 MON; Pulse Ox 95% ; kas2 04:31 BP 96 / 47 (auto/); kas2 04:31 Pulse 56 MON; Pulse Ox 95% ; kas2 04:46 BP 101 / 48 (auto/); kas2 04:46 Pulse 56 MON; Pulse Ox 96% ; kas2 05:01 BP 91 / 45 (auto/); kas2 05:01 Pulse 56 MON; Pulse Ox 96% ; kas2 05:16 BP 115 / 55 (auto/); kas2 05:16 Pulse 58 MON; Pulse Ox 94% ; kas2 05:33 Resp 18; Temp 97.9(O); Pain 0/10; kas2 06:40 BP 118 / 73 (auto/); kas2 06:40 Pulse 58 MON; Pulse Ox 95% ; kas2 06:42 Resp 18; Temp 98.6(O); Pulse Ox 96% ; Pain 0/10; kas2 07:09 Pulse 58 MON; Pulse Ox 96% ; hs1 07:10 BP 143 / 65 (auto/); hs1 07:24 Pulse 72 MON; Pulse Ox 95% ; hs1 07:25 BP 107 / 53 (auto/); hs1 07:39 Pulse 56 MON; Pulse Ox 95% ; hs1 07:40 BP 104 / 51 (auto/); hs1 07:54 Pulse 60 MON; Pulse Ox 97% ; hs1 07:55 BP 111 / 56 (auto/); hs1 08:09 Pulse 64 MON; Pulse Ox 98% ; hs1 08:10 BP 126 / 75 (auto/); hs1 08:24 Pulse 64 MON; Pulse Ox 97% ; hs1 08:25 BP 118 / 56 (auto/); hs1 08:39 Pulse 66 MON; Pulse Ox 93% ; hs1 08:40 BP 110 / 56 (auto/); hs1 09:09 Pulse 68 MON; Pulse Ox 98% ; hs1 09:10 BP 122 / 58 (auto/); hs1 09:24 Pulse 64 MON; Pulse Ox 97% ; hs1 09:25 BP 103 / 56 (auto/); hs1 09:39 Pulse 66 MON; Pulse Ox 97% ; hs1 09:40 BP 101 / 55 (auto/); hs1 09:54 Pulse 64 MON; Pulse Ox 96% ; hs1 09:55 BP 107 / 54 (auto/); hs1 10:09 Pulse 66 MON; Pulse Ox 97% ; hs1 10:10 BP 114 / 55 (auto/); hs1 10:25 BP 116 / 59 (auto/); hs1 10:25 Pulse 66 MON; Pulse Ox 98% ; hs1 10:39 Pulse 62 MON; Pulse Ox 97% ; hs1 10:40 BP 119 / 59 (auto/); hs1 10:54 Pulse 64 MON; Pulse Ox 95% ; hs1 10:55 BP 112 / 58 (auto/); hs1 11:09 Pulse 64 MON; Pulse Ox 96% ; hs1 11:10 BP 127 / 60 (auto/); hs1 11:24 Pulse 62 MON; Pulse Ox 96% ; hs1 11:25 BP 115 / 56 (auto/); hs1 11:39 Pulse 66 MON; Pulse Ox 97% ; hs1 11:40 BP 115 / 58 (auto/); hs1 11:54 Pulse 64 MON; Pulse Ox 96% ; hs1 11:55 BP 120 / 82 (auto/); hs1 12:24 Pulse 66 MON; Pulse Ox 98% ; hs1 12:25 BP 124 / 61 (auto/); hs1 12:39 Pulse 64 MON; Pulse Ox 98% ; hs1 12:40 BP 118 / 55 (auto/); hs1 12:54 Pulse 62 MON; Pulse Ox 93% ; hs1 12:55 BP 102 / 50 (auto/); hs1 13:09 Pulse 66 MON; Pulse Ox 93% ; hs1 13:10 BP 110 / 55 (auto/); hs1 13:25 BP 122 / 58 (auto/); hs1 13:25 Pulse 64 MON; Pulse Ox 97% ; hs1 13:39 Pulse 64 MON; Pulse Ox 96% ; hs1 13:40 BP 122 / 61 (auto/); hs1 13:54 Pulse 62 MON; Pulse Ox 94% ; hs1 13:55 BP 119 / 60 (auto/); hs1 14:24 Pulse 62 MON; Pulse Ox 95% ; hs1 14:25 BP 129 / 58 (auto/); hs1 14:39 Pulse 64 MON; Pulse Ox 98% ; hs1 14:40 BP 120 / 67 (auto/); hs1 14:54 Pulse 64 MON; Pulse Ox 97% ; hs1 14:55 BP 118 / 65 (auto/); hs1 16:55 BP 110 / 65; Pulse 85; Resp 20; Temp 98.8(O); Pulse Ox 98% on R/A; 4 12/01 15:16 Body Mass Index 32.19 (69.85 kg, 147.32 cm) gr2 MDM: 12/01 15:47 Undress patient appropriately for examination ordered. sd1 15:47 IV Saline Lock ordered. sd1 15:48 Amylase Ordered. EDMS 15:48 Basic Metabolic Profile Ordered. EDMS 15:48 CBC with Diff Ordered. EDMS 15:48 Lipase Ordered. EDMS 15:48 Liver Profile Ordered. EDMS 15:48 Prothrombin Time Profile\E\INR Ordered. EDMS 15:49 BED REQUEST+ADM ordered. EDMS 15:49 ECG WITH READING ER PHYS+CARDIAG ordered. EDMS 15:59 Type and Cross, Packed Cells Ordered. EDMS 16:22 TYPE & SCREEN Ordered. EDMS 16:52 DIFFERENTIAL NO CHARGE Ordered. EDMS 16:53 Basic Metabolic Profile Reviewed. ke 16:53 CBC with Diff Reviewed. ke 16:53 Liver Profile Reviewed. ke 16:53 Amylase Reviewed. ke 16:53 Lipase Reviewed. ke 16:58 Transfuse PRBC's 2 units, ensure PRBCs ordered in lab ordered. ke 18:40 Admission / Observation Status ordered. EDMS 18:40 CONSISTENT CARBOHYDRATES ordered. EDMS 18:43 PACKED CELLS Ordered. EDMS 18:43 FRESH FROZEN PLASMA PHERESIS Ordered. EDMS 19:46 Acetaminophen Tablet 650 mg PO once ordered. nn1 19:47 FROZEN PLASMA 24 Ordered. EDMS 19:51 Written Provider Order was scanned into [employer] and attached to record. kb5 20:46 Transfuse FFP 1 unit, ensure FFP ordered in lab ordered. nn1 22:13 HEMOGLOBIN & HEMATOCRIT Ordered. EDMS 22:13 PROTHROMBIN TIME PROFILE\E\INR Ordered. EDMS 22:13 CBC WITH DIFFERENTIAL Ordered. EDMS 22:14 COMPLETE COMPHRENSIVE METABOLI Ordered. EDMS 22:14 MAGNESIUM LEVEL Ordered. EDMS 22:14 HEMOGLOBIN & HEMATOCRIT Ordered. EDMS 22:14 HEMOGLOBIN & HEMATOCRIT Ordered. EDMS 22:14 HEMOGLOBIN & HEMATOCRIT Ordered. EDMS 22:14 OCCULT BLOOD STOOL SPECIMEN Ordered. EDMS 23:54 Financial registration complete. hs2 0222 01:03 [facility] [place] Payment Agreement was scanned into [employer] and attached to record. hs2 08:01 Fingerstick Blood Sugar Ordered. EDMS 12:30 Fingerstick Blood Sugar Ordered. EDMS 14:26 Admission / Observation Status ordered. EDMS 16:04 Inpatient Paper MAR was scanned into [employer] and attached to record. lbd 17:04 Acetaminophen Tablet 650 mg PO once ordered. jc4 17:16 PACKED CELLS Ordered. EDMS 18:10 Fingerstick Blood Sugar Ordered. EDMS 18:12 HumaLog - Insulin Lispro (0.1 units/kg) 4 units Sub-Q once; administer within 15 jc4 minutes before a meal or no later than immediately following the meal ordered. 12/03 20:20 T-Sheet-- Draft Copy was scanned into [employer] and attached to record. rylie Point of Care Testing: Blood Glucose: 12/02 18:01 Blood Glucose: 179 mg/dL; jc4 Ranges: Administered Medications: 12/01 20:26 Drug: Acetaminophen 650 mg [acetaminophen 325 mg tablet (2 tabs)] Route: PO; nn1 12/02 17:04 Drug: Acetaminophen 650 mg [acetaminophen 325 mg tablet (2 tabs)] Route: PO; jc4 18:12 Drug: HumaLog - Insulin Lispro (0.1 units/kg) 4 units [insulin lispro 100 unit/mL jc4 subcutaneous solution (0.04 mL)] {Co-Signature: hs1 (Patsy Fernández RN).} Route: Sub-Q; Site: left upper arm; Signatures: Dispatcher [employer] EDRina John MD MD sd1 Pilar Alves, RN RN kcs Mariah Hough, Manager Estate Unit lbd Lillie Pearce RN RN kpj Aman Young, EXTRACTION SUPERVISOR EXTRACTION SUPERVISOR ke [place] Harper, CASH GRAIN GROWER CASH GRAIN GROWER kb5 Francisca Best RN RN jc4 Sisi Hernández RN RN sls2 Golden Wolfe RN RN nn1 Cassidy Otero, Reg Reg hs2 Kaur Doll klr Patsy Fernández RN hs1 The chart was reviewed and I authenticate all verbal orders and agree with the evaluation and treatment provided.Corrections: (The following items were deleted from the chart) 12/01 16:35 15:49 TYPE & SCREEN+BBK ordered. EDMS EDMS 18:51 18:43 TYPE & SCREEN ordered. EDMS EDMS 22:10 15:49 NOTHING BY MOUTH+DIET ordered. EDMS EDMS 22:45 22:14 HEMOGLOBIN & HEMATOCRIT ordered. EDMS EDMS 12/02 17:16 17:11 PACKED CELLS ordered. EDMS EDMS 17:16 17:11 TYPE & SCREEN ordered. EDOH EDMS Attachments: 12/01 19:51 Written Provider Order kb5 02/22 01:03 [facility] Payment Agreement hs2 12/03 20:20 T-Sheet-- Draft Copy klr Chart Complete MTDD
--- NOTE | 2016-12-05 21:48 | EDDOCDS ---
Nurse's Notes [facility] Name: David Andrews Age: 61 yrs Sex: Female : 1955 Arrival Date: 12/01/2016 Time: 15:13 Bed Admit Hold Private MD: Pantera Nevarez Diagnosis: Gastritis, unspecified, with bleeding Presentation: 12/01 15:22 Presenting complaint: Patient states: she was called by Dr. Nevarez and told to come kcs here for blood transfusions. Adult Sepsis Screening: The patient does not have new or worsening altered mentation. Patient's respiratory rate is less than 22. Systolic blood pressure is greater than 100. Patient has a qSOFA score of 0- Negative Sepsis Screen. Suicide/Homicide risk assessment- the patient denies having any suicidal and/or homicidal ideations and does not present with any other emotional, behavioral or mental health complaints. 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 Transition of care: patient was not received from another setting of care. 15:22 Acuity: MARCELA Level 3 kcs 15:22 Method Of Arrival: Walkin/Carried/Asstd kcs Triage Assessment: 15:24 General: Appears comfortable, well developed, well nourished, well groomed, Behavior is kcs cooperative, pleasant. Pain: Location: headache Pain currently is 8 out of 10 on a pain scale. Pt Declines HIV testing. Neurological: Level of Consciousness is awake, alert. Respiratory: Airway is patent Respiratory effort is even, unlabored, Respiratory pattern is regular, symmetrical. Derm: Skin Skin is dry, Skin is pale. Historical: - Allergies: PENICILLINS (Hives); SULFA (SULFONAMIDES) (Hives); - Home Meds: 1. albuterol sulfate 90 mcg/actuation Inhl HFAA 2 puffs every 4 hours as needed (Last dose: 12/01/2016 12:00) 2. atorvastatin 10 mg oral tab 1 tab once daily (Last dose: 12/01/2016 08:00) 3. bisoprolol fumarate 5 mg oral tab 1 tab once daily (Last dose: 12/01/2016 08:00) 4. Vitamin B-12 1,000 mcg Oral tab 1,000 mcg daily (Last dose: 12/01/2016 08:00) 5. Iron CR Oral 325 mg daily (Last dose: 11/30/2016 21:00) 6. Levoxyl 75 mcg Oral tab 1 tab once daily (Last dose: 12/01/2016 08:00) 7. nortriptyline 10 mg Oral cap 2 caps nightly (Last dose: 11/30/2016 21:00) 8. paroxetine HCl 40 mg Oral tab 1 tab once daily (Last dose: 12/01/2016 08:00) 9. prednisone 10 mg Oral tab 1 tab once daily tapering dose, has one remaining dose (Last dose: 12/01/2016 08:00) 10. Januvia 100 mg oral tab 1 tab once daily (Last dose: 12/01/2016 08:00) 11. Topamax 150 mg Oral twice a day (Last dose: 12/01/2016 08:00) 12. Nicoderm CQ 14 mg/24 hr transdermal pt24 1 patch once daily (Last dose: 12/01/2016 16:39) 13. Coumadin 5 mg Oral tab 1 tab 4 times weekly on Sun/Tues/Thurs/Sat (Last dose: 11/29/2016) 14. Coumadin 7.5 mg Oral tab 1 tab 3 times weekly on M/W/F (Last dose: 11/30/2016 17:00) - PMHx: Hypercholesterolemia; Hypothyroidism; Diabetes - NIDDM: controlled; COPD; Hypertension; Anemia; Depression; CVA; - PSHx: brain surgery; ; Carpal Tunnel Repair- Right; Bunion Surgery; Thyroidectomy; Remote Contolled Brain Shunt; - Social history: Smoking status: Patient states former smoker of tobacco. No barriers to communication noted, The patient speaks fluent Italian. - Family history: Not pertinent. - : The pt / caregiver states he / she is not on anticoagulants. Home medication list is obtained from family members. - Exposure Risk Screening:: None identified. Screenin:49 Screening information is obtained from the patient. Fall risk: No risks identified. jc4 Assistance ADL's: requires no assistance with activities of daily living. Abuse/DV Screen: The patient / caregiver reports he/she is: not in a situation that causes fear, pain or injury. Nutritional screening: On no prescribed diet. Advance Directives: Currently, there is no health care proxy. There is no active DNR order. There is no living will. There is no Power of Expediter Clerk. home support is adequate. Assessment: 16:54 General: Appears in no apparent distress, Behavior is cooperative, pleasant. Pain: jc4 Denies pain. Neurological: Level of Consciousness is awake, alert, Oriented to person, place, time, Reports dizziness, weakness. Cardiovascular: Heart tones S1 S2 present Rhythm is sinus rhythm No ectopy. Respiratory: Airway is patent Respiratory effort is even, unlabored, Respiratory pattern is regular, symmetrical, Breath sounds are diminished bilaterally. scattered rhonchi noted. GI: Abdomen is distended, Bowel sounds present X 4 quads. Abd is non tender X 4 quads Reports black tarry stools. Derm: Skin is dry, Skin is pale, Skin temperature is warm. 17:38 General: Pt resting on stretcher with eyes closed. Respirations easy and full. No jc4 distress at this time. Family member at bedside. Call miles in reach. 18:12 General: Resting on stretcher. No distress noted at this time. jc4 19:20 General: patient reporting headache at this time. consulting hospitalist for further nn1 orders. first unit of blood infusing. . Pain: Denies pain. Neurological: No deficits noted. 20:27 General: first unit of blood completed at 1942. Patient showed no signs or symptoms of nn1 adverse reaction. Patient medicated for headache. Unit of FFP infusing at this time. patient reports weakness has improved. . Respiratory: Airway is patent Respiratory effort is even, unlabored, Respiratory pattern is regular, symmetrical. Derm: Skin is pale. 20:46 General: Patient tolerating FFP well, will continue to monitor. . nn1 21:28 General: contact #: [phone]. General: Patient finished infusing of FFP, no signs nn1 or symptoms of reaction noted. Patient ambulated to restroom with family, gait is steady. . 21:45 General: patient receiving second unit of RBCs. will continue to monitor. No adverse nn1 reactions at this time. Pain: Denies pain. Neurological: Level of Consciousness is awake, alert, Oriented to person, place, time. Respiratory: Airway is patent Respiratory effort is even, unlabored, Respiratory pattern is regular, symmetrical. Derm: Skin is pink, warm & dry. 23:14 General: Second unit of RBC finished, patient has been asleep throughout infusion. nn1 Patient exhibits no signs/symptoms of adverse reaction. . Respiratory: Airway is patent Respiratory effort is even, unlabored, Respiratory pattern is regular, symmetrical. Derm: Skin is pink, warm & dry. 12/02 00:26 General: Appears in no apparent distress, to be sleeping. Behavior is quiet. nn1 Respiratory: Airway is patent Respiratory effort is even, unlabored, Respiratory pattern is regular, symmetrical. Derm: Skin is pink, warm & dry. 01:02 General: Verbal report given by Shefali Martinez RN. Assumed care of patient at this time.. kas2 01:44 General: Appears in no apparent distress, comfortable, to be sleeping. Behavior is kas2 appropriate for age, cooperative. Pain: Denies pain. Neurological: Level of Consciousness is awake, alert, Oriented to person, place, time. Cardiovascular: Capillary refill < 3 seconds Heart tones S1 S2 present Rhythm is sinus rhythm No ectopy. Respiratory: Airway is patent Respiratory effort is even, unlabored, Respiratory pattern is regular, symmetrical, Breath sounds are diminished bilaterally. Derm: Skin is intact, Skin is dry, Skin is pink, warm & dry. Skin temperature is warm. 02:44 General: Appears in no apparent distress, to be sleeping. Behavior is appropriate for kas2 age, cooperative. Pain: Denies pain. Neurological: Level of Consciousness is awake, alert, Oriented to person, place, time. Cardiovascular: Rhythm is sinus rhythm No ectopy. Respiratory: Airway is patent Respiratory effort is even, unlabored, Respiratory pattern is regular, symmetrical. Derm: Skin is intact, Skin is dry, Skin is pink, warm & dry. Skin temperature is warm. 03:44 General: Patient sleeping at this time. Appears comfortable. No apparent distress kas2 noted. Respiratory effort even and unlabored. Call miles within reach. Will continue to monitor.. 05:07 General: Appears in no apparent distress, comfortable, Behavior is appropriate for age, kas2 cooperative. Pain: Denies pain. Neurological: Level of Consciousness is awake, alert, Oriented to person, place, time. Cardiovascular: Rhythm is sinus rhythm No ectopy. Respiratory: Airway is patent Respiratory effort is even, unlabored, Respiratory pattern is regular, symmetrical. Derm: Skin is intact, Skin is dry, Skin is pink, warm & dry. Skin temperature is warm. 05:32 General: Patient up to bathroom to void with assist of RN. Resettled in bed. Meds given kas2 as per floor MAR.. 06:36 General: Appears in no apparent distress, comfortable, Behavior is appropriate for age, kas2 cooperative. Pain: Denies pain. Neurological: Level of Consciousness is awake, alert, Oriented to person, place, time. Cardiovascular: Rhythm is sinus rhythm No ectopy. Respiratory: Airway is patent Respiratory effort is even, unlabored, Respiratory pattern is regular, symmetrical. Derm: Skin is intact, Skin is dry, Skin is pink, warm & dry. Skin temperature is warm. 07:38 General: Appears in no apparent distress, comfortable, Behavior is appropriate for age, hs1 cooperative, Patient reports being tired. Pt sat up for breakfast and glucose taken prior to eating. Patient denies headache or pain. . Cardiovascular: Rhythm is sinus rhythm No ectopy. Derm: Skin is pink, warm & dry. normal. 08:19 General: medications administered per orders. Patient tolerated breakfast well. Patient hs1 denies pain and is resting comfortably in stretcher. No other needs voiced at this time. . 09:12 General: Appears in no apparent distress, comfortable, Behavior is appropriate for age, hs1 cooperative. Respiratory: Airway is patent Respiratory effort is even, unlabored, Respiratory pattern is regular, symmetrical. Respiratory: No deficits noted. Derm: Skin is pink, warm & dry. normal. 10:35 General: Appears in no apparent distress, comfortable, Behavior is appropriate for age, hs1 cooperative. Pain: Denies pain. Respiratory: No deficits noted. Airway is patent Respiratory effort is even, unlabored, Respiratory pattern is regular, symmetrical. Derm: Skin is pink, warm & dry. normal. 11:48 Reassessment: Patient appears in no apparent distress at this time. Patient states hs1 feeling better. Patient states symptoms have improved. patient resting with family around. . Derm: Skin is pink, warm & dry. normal. 12:48 General: Appears in no apparent distress, comfortable, Behavior is appropriate for age, hs1 cooperative. Pain: Denies pain. Cardiovascular: Rhythm is sinus rhythm No ectopy. Respiratory: No deficits noted. Derm: Skin is pink, warm & dry. normal. 13:13 General: Appears in no apparent distress, comfortable, Behavior is appropriate for age, hs1 cooperative. Pain: Denies pain. Cardiovascular: Rhythm is sinus rhythm No ectopy. Respiratory: No deficits noted. Airway is patent Respiratory effort is even, unlabored, Respiratory pattern is regular, symmetrical. 14:32 General: Appears in no apparent distress, comfortable, Behavior is appropriate for age, hs1 cooperative, New family members at bedside. Aware of second call out to Dr Sarkar for assessment. Patient continuing to wait for further plan of care. . 15:52 General: Pt resting on stretcher with eyes closed. Respirations easy and full. Cardiac jc4 monitor - sinus rhythm without ectopy. Family members at bedside. 16:55 General: Appears in no apparent distress. Neurological: Level of Consciousness is jc4 awake, alert, Oriented to person, place, time, Reports headache. Cardiovascular: Rhythm is sinus rhythm No ectopy. Respiratory: Airway is patent Respiratory effort is even, unlabored, Respiratory pattern is regular, symmetrical. Derm: Skin is pink, warm & dry. 18:00 General: Dinner tray delivered. Pt consumed 100% of meal. jc4 18:13 General: Appears in no apparent distress, comfortable, Behavior is cooperative. jc4 Neurological: Level of Consciousness is awake, alert, Oriented to person, place, time. Respiratory: Airway is patent Respiratory effort is even, unlabored, Respiratory pattern is regular, symmetrical. Derm: Skin is pink, warm & dry. Vital Signs: 12/01 15:16 BP 121 / 50; Pulse 87; Resp 18 S; Temp 98.3(O); Pulse Ox 99% on R/A; Weight 69.85 kg gr2 (R); Height 4 ft. 10 in. (147.32 cm) (R); Pain 5/10; 15:45 BP 109 / 57 (auto/); jc4 15:49 Pulse 76 MON; Pulse Ox 97% ; jc4 16:14 Pulse 76 MON; Pulse Ox 98% ; jc4 16:15 BP 122 / 58 (auto/); jc4 16:45 BP 107 / 53 (auto/); jc4 16:46 Pulse 74 MON; Pulse Ox 97% ; jc4 17:15 BP 115 / 58 (auto/); jc4 17:15 Pulse 74 MON; Pulse Ox 96% ; jc4 17:45 BP 118 / 56 (auto/); jc4 17:48 Pulse 80 MON; Pulse Ox 95% ; jc4 18:12 Temp 99.8(TE); jc4 20:20 BP 113 / 56; Pulse 72; Resp 20; Temp 96.7(TE); Pulse Ox 97% on R/A; Pain 0/10; nn1 21:20 BP 113 / 59; Pulse 67; Resp 20; Temp 98.3(TE); Pulse Ox 98% on R/A; Pain 0/10; nn1 21:42 BP 117 / 55; Pulse 74; Resp 18; Temp 97.4(TE); Pulse Ox 97% on R/A; Pain 0/10; nn1 12/02 01:46 BP 111 / 54 (auto/); kas2 01:46 Pulse 62 MON; Pulse Ox 96% ; kas2 02:01 BP 106 / 52 (auto/); kas2 02:01 Pulse 62 MON; Pulse Ox 96% ; kas2 02:16 BP 102 / 50 (auto/); kas2 02:16 Pulse 62 MON; Pulse Ox 95% ; kas2 02:19 Resp 18; Temp 97.6(O); Pulse Ox 100% on R/A; kas2 02:31 BP 123 / 58 (auto/); kas2 02:31 Pulse 64 MON; Pulse Ox 92% ; kas2 02:46 BP 109 / 55 (auto/); kas2 02:46 Pulse 60 MON; Pulse Ox 94% ; kas2 03:01 BP 114 / 53 (auto/); kas2 03:01 Pulse 60 MON; Pulse Ox 95% ; kas2 03:16 BP 103 / 52 (auto/); kas2 03:16 Pulse 58 MON; Pulse Ox 94% ; kas2 03:31 BP 114 / 54 (auto/); kas2 03:31 Pulse 58 MON; Pulse Ox 95% ; kas2 03:46 BP 100 / 48 (auto/); kas2 03:46 Pulse 56 MON; Pulse Ox 95% ; kas2 03:46 Resp 18; Temp 98.2(O); Pain 0/10; kas2 04:01 BP 106 / 53 (auto/); kas2 04:01 Pulse 58 MON; Pulse Ox 96% ; kas2 04:16 BP 105 / 51 (auto/); kas2 04:16 Pulse 56 MON; Pulse Ox 95% ; kas2 04:31 BP 96 / 47 (auto/); kas2 04:31 Pulse 56 MON; Pulse Ox 95% ; kas2 04:46 BP 101 / 48 (auto/); kas2 04:46 Pulse 56 MON; Pulse Ox 96% ; kas2 05:01 BP 91 / 45 (auto/); kas2 05:01 Pulse 56 MON; Pulse Ox 96% ; kas2 05:16 BP 115 / 55 (auto/); kas2 05:16 Pulse 58 MON; Pulse Ox 94% ; kas2 05:33 Resp 18; Temp 97.9(O); Pain 0/10; kas2 06:40 BP 118 / 73 (auto/); kas2 06:40 Pulse 58 MON; Pulse Ox 95% ; kas2 06:42 Resp 18; Temp 98.6(O); Pulse Ox 96% ; Pain 0/10; kas2 07:09 Pulse 58 MON; Pulse Ox 96% ; hs1 07:10 BP 143 / 65 (auto/); hs1 07:24 Pulse 72 MON; Pulse Ox 95% ; hs1 07:25 BP 107 / 53 (auto/); hs1 07:39 Pulse 56 MON; Pulse Ox 95% ; hs1 07:40 BP 104 / 51 (auto/); hs1 07:54 Pulse 60 MON; Pulse Ox 97% ; hs1 07:55 BP 111 / 56 (auto/); hs1 08:09 Pulse 64 MON; Pulse Ox 98% ; hs1 08:10 BP 126 / 75 (auto/); hs1 08:24 Pulse 64 MON; Pulse Ox 97% ; hs1 08:25 BP 118 / 56 (auto/); hs1 08:39 Pulse 66 MON; Pulse Ox 93% ; hs1 08:40 BP 110 / 56 (auto/); hs1 09:09 Pulse 68 MON; Pulse Ox 98% ; hs1 09:10 BP 122 / 58 (auto/); hs1 09:24 Pulse 64 MON; Pulse Ox 97% ; hs1 09:25 BP 103 / 56 (auto/); hs1 09:39 Pulse 66 MON; Pulse Ox 97% ; hs1 09:40 BP 101 / 55 (auto/); hs1 09:54 Pulse 64 MON; Pulse Ox 96% ; hs1 09:55 BP 107 / 54 (auto/); hs1 10:09 Pulse 66 MON; Pulse Ox 97% ; hs1 10:10 BP 114 / 55 (auto/); hs1 10:25 BP 116 / 59 (auto/); hs1 10:25 Pulse 66 MON; Pulse Ox 98% ; hs1 10:39 Pulse 62 MON; Pulse Ox 97% ; hs1 10:40 BP 119 / 59 (auto/); hs1 10:54 Pulse 64 MON; Pulse Ox 95% ; hs1 10:55 BP 112 / 58 (auto/); hs1 11:09 Pulse 64 MON; Pulse Ox 96% ; hs1 11:10 BP 127 / 60 (auto/); hs1 11:24 Pulse 62 MON; Pulse Ox 96% ; hs1 11:25 BP 115 / 56 (auto/); hs1 11:39 Pulse 66 MON; Pulse Ox 97% ; hs1 11:40 BP 115 / 58 (auto/); hs1 11:54 Pulse 64 MON; Pulse Ox 96% ; hs1 11:55 BP 120 / 82 (auto/); hs1 12:24 Pulse 66 MON; Pulse Ox 98% ; hs1 12:25 BP 124 / 61 (auto/); hs1 12:39 Pulse 64 MON; Pulse Ox 98% ; hs1 12:40 BP 118 / 55 (auto/); hs1 12:54 Pulse 62 MON; Pulse Ox 93% ; hs1 12:55 BP 102 / 50 (auto/); hs1 13:09 Pulse 66 MON; Pulse Ox 93% ; hs1 13:10 BP 110 / 55 (auto/); hs1 13:25 BP 122 / 58 (auto/); hs1 13:25 Pulse 64 MON; Pulse Ox 97% ; hs1 13:39 Pulse 64 MON; Pulse Ox 96% ; hs1 13:40 BP 122 / 61 (auto/); hs1 13:54 Pulse 62 MON; Pulse Ox 94% ; hs1 13:55 BP 119 / 60 (auto/); hs1 14:24 Pulse 62 MON; Pulse Ox 95% ; hs1 14:25 BP 129 / 58 (auto/); hs1 14:39 Pulse 64 MON; Pulse Ox 98% ; hs1 14:40 BP 120 / 67 (auto/); hs1 14:54 Pulse 64 MON; Pulse Ox 97% ; hs1 14:55 BP 118 / 65 (auto/); hs1 16:55 BP 110 / 65; Pulse 85; Resp 20; Temp 98.8(O); Pulse Ox 98% on R/A; [facility] 12/01 15:16 Body Mass Index 32.19 (69.85 kg, 147.32 cm) gr2 Vitals: 12/01 15:16 Log In Time: December 01, 2016 at 15:16. gr2 ED Course: 15:15 Patient visited by Aron Oliver. gr2 15:15 Pantera Nevarez MD is Private Physician. gr2 15:15 Patient moved to Waiting gr2 15:17 Patient visited by Aron Oliver. gr2 15:17 Patient moved to Pre RCE gr2 15:23 Triage Initiated kcs 15:35 Dee Blum,MARC is Primary Nurse. nb2 15:35 Patient moved to 10 nb2 15:47 Rina Austin MD is Attending Physician. sd1 15:51 Aman Young FNP is PHCP. ke 15:51 Patient visited by Aman Young FNP. ke 15:51 Patient visited by Aman Young FNP. ke 16:08 Francisca Best RN is Primary Nurse. jc4 16:09 Patient visited by Shefali Guillory. nb2 16:09 EKG done. (by ED staff). Reviewed by Aman CALVILLO. nb2 16:17 Type and Cross, Packed Cells Sent. jc4 16:17 Amylase Sent. jc4 16:17 Basic Metabolic Profile Sent. jc4 16:17 CBC with Diff Sent. jc4 16:17 Lipase Sent. jc4 16:17 Liver Profile Sent. jc4 16:17 Prothrombin Time Profile\E\INR Sent. jc4 16:18 Patient visited by Francisca Best RN. jc4 16:18 Inserted saline lock: 20 gauge in left antecubital area The patient tolerated the jc4 procedure well. 16:41 Patient visited by Aman Young FNP. ke 16:50 The patient / caregiver is instructed regarding the plan of care and ED course. jc4 16:54 DIFFERENTIAL NO CHARGE Sent. jc4 16:55 Patient visited by Francisca Best RN. jc4 16:57 Astrid Jaimes is Hospitalizing Provider. ke 18:25 Blood products: PRBCs X 1 unit given. See transfusion record Unit [id number]. jc4 19:05 Primary Nurse role handed off by Francisca Best RN jc4 19:33 Patient moved to Admit Hold sls1 19:51 Written Provider Order was scanned into [employer] and attached to record. kb5 20:26 FROZEN PLASMA 24 Sent. nn1 12/02 00:58 Dior Gaona RN is Primary Nurse. kas2 01:02 Patient visited by Dior Gaona RN. kas2 01:03 [facility] Payment Agreement was scanned into [employer] and attached to record. hs2 01:50 Primary Nurse role handed off by Dee Blum RN rs6 01:57 Patient visited by Dior Gaona RN. kas2 02:20 Patient visited by Dior Gaona RN. kas2 02:45 Patient visited by Dior Gaona RN. kas2 03:45 Patient visited by Dior Gaona RN. kas2 05:12 Patient visited by Dior Gaona RN. kas2 05:33 Patient visited by Dior Gaona RN. kas2 06:41 Patient visited by Dior Gaona RN. kas2 06:43 Patient visited by Dior Gaona RN. kas2 06:58 Patient visited by Dior Gaona RN. kas2 08:05 Primary Nurse role handed off by Dior Gaona RN mlb1 09:24 Patient visited by Patsy Fernández RN. hs1 09:37 Patient visited by Kelsey Jj. cmb 10:05 EKG-ADULT Returned. EDMS 11:06 Patient visited by Kelsey Jj. cmb 11:06 Assisted to bathroom. cmb 16:04 Inpatient Paper MAR was scanned into [employer] and attached to record. lbd 17:48 No procedures done that require assistance. jc4 12/03 20:20 T-Sheet-- Draft Copy was scanned into [employer] and attached to record. klr Administered Medications: 12/01 20:26 Drug: Acetaminophen 650 mg [acetaminophen 325 mg tablet (2 tabs)] Route: PO; nn1 12/02 17:04 Drug: Acetaminophen 650 mg [acetaminophen 325 mg tablet (2 tabs)] Route: PO; jc4 18:12 Drug: HumaLog - Insulin Lispro (0.1 units/kg) 4 units [insulin lispro 100 unit/mL jc4 subcutaneous solution (0.04 mL)] {Co-Signature: hs1 (Patsy Fernández RN).} Route: Sub-Q; Site: left upper arm; Attachments: 16:04 Inpatient Paper MAR [facility] Point of Care Testing: Blood Glucose: 12/02 18:01 Blood Glucose: 179 mg/dL; jc4 Ranges: Output: 11:06 Urine: 150.00ml (Voided); Total: 150.00ml. cmb Order Results: Lab Order: Amylase; SPEC'M 12/01/16 16:14 Test: AMYLASE; Value: 48; Range: 25-115; Units: U/L; Status: F Lab Order: Basic Metabolic Profile; SPEC'M 12/01/16 16:14 Test: GLUCOSE, FASTING; Value: 222; Range: 80-110; Abnormal: Above high normal; Units: MG/DL; Status: F Test: BLOOD UREA NITROGEN; Value: 19; Range: 7-18; Abnormal: Above high normal; Units: MG/DL; Status: F Test: CREATININE FOR GFR; Value: 1.43; Range: 0.55-1.02; Abnormal: Above high normal; Units: MG/DL; Status: F Test: GLOMERULAR FILTRATION RATE; Value: 39.8; Range: >45; Abnormal: Below low normal; Status: F Test: SODIUM LEVEL; Value: 142; Range: 136-145; Units: MEQ/L; Status: F Test: POTASSIUM SERUM; Value: 4.1; Range: 3.5-5.1; Units: MEQ/L; Status: F Test: CHLORIDE LEVEL; Value: 107; Range: 98-107; Units: MEQ/L; Status: F Test: CARBON DIOXIDE LEVEL; Value: 26; Range: 21-32; Units: MEQ/L; Status: F Test: ANION GAP; Value: 9; Range: 8-16; Units: MEQ/L; Status: F Test: CALCIUM LEVEL; Value: 8.2; Range: 8.8-10.2; Abnormal: Below low normal; Units: MG/DL; Status: F Test Note: ; Units are mL/min/1.73 m2 Chronic Kidney Disease Staging per NKF: Stage I & II GFR >=60 Normal to Mildly Decreased Stage III GFR 30-59 Moderately Decreased Stage IV GFR 15-29 Severely Decreased Stage V GFR <15 Very Little GFR Left ESRD GFR <15 on COLLISION CENTER MANAGER Lab Order: CBC with Diff; SPEC'M 12/01/16 16:14 Test: WHITE BLOOD COUNT; Value: 9.3; Range: 4.0-10.0; Units: K/mm3; Status: F Test: RED BLOOD COUNT; Value: 1.64; Range: 4.00-5.40; Abnormal: Below low normal; Units: M/mm3; Status: F Test: HEMOGLOBIN; Value: 5.5; Range: 12.0-16.0; Abnormal: Critical Low; Units: g/dl; Status: F Test: HEMATOCRIT; Value: 18.8; Range: 36.0-47.0; Abnormal: Below low normal; Units: %; Status: F Test: MEAN CORPUSCULAR VOLUME; Value: 114.8; Range: 80.0-96.0; Abnormal: Above high normal; Units: fl; Status: F Test: MEAN CORPUSCULAR HEMOGLOBIN; Value: 33.6; Range: 27.0-33.0; Abnormal: Above high normal; Units: pg; Status: F Test: MEAN CORPUSCULAR HGB CONC; Value: 29.3; Range: 32.0-36.5; Abnormal: Below low normal; Units: g/dl; Status: F Test: RED CELL DISTRIBUTION WIDTH; Value: 18.2; Range: 11.5-14.5; Abnormal: Above high normal; Units: %; Status: F Test: PLATELET COUNT, AUTOMATED; Value: 327; Range: 150-450; Units: k/mm3; Status: F Test: NEUTROPHILS; Value: 87; Range: 35-75; Abnormal: Above high normal; Units: %; Status: F Test: LYMPHOCYTES; Value: 10; Range: 16-52; Abnormal: Below low normal; Units: %; Status: F Test: MONOCYTES; Value: 3; Range: 0-8; Units: %; Status: F Test: POLYCHROMASIA; Value: 1+; Status: F Test: HYPOCHROMASIA; Value: 3+; Status: F Test: ANISOCYTOSIS; Value: 2+; Status: F Test: MACROCYTOSIS; Value: 3+; Status: F Test: TEAR DROP CELLS; Value: 1+; Status: F Lab Order: Lipase; SPEC'M 12/01/16 16:14 Test: LIPASE; Value: 134; Range: 73-393; Units: U/L; Status: F Lab Order: Liver Profile; [facility] 12/01/16 16:14 Test: AST/SGOT; Value: 9; Range: 15-37; Abnormal: Below low normal; Units: U/L; Status: F Test: ALT/SGPT; Value: 23; Range: 12-78; Units: U/L; Status: F Test: ALKALINE PHOSPHATASE; Value: 67; Range: 45-117; Units: U/L; Status: F Test: BILIRUBIN,TOTAL; Value: 0.2; Range: 0.2-1.0; Units: MG/DL; Status: F Test: BILIRUBIN,DIRECT; Value: < 0.1; Range: 0.0-0.2; Units: MG/DL; Status: F Test: TOTAL PROTEIN; Value: 6.1; Range: 6.4-8.2; Abnormal: Below low normal; Units: GM/DL; Status: F Test: ALBUMIN; Value: 3.1; Range: 3.2-5.2; Abnormal: Below low normal; Units: GM/DL; Status: F Test: ALBUMIN/GLOBULIN RATIO; Value: 1.03; Range: 1.00-1.93; Status: F Lab Order: Prothrombin Time Profile\E\INR; [facility] 12/01/16 16:14 Test: PROTHROMBIN TIME; Value: 46.7; Range: 12.3-14.5; Abnormal: Above high normal; Units: SECONDS; Status: F Test: INR; Value: 5.05; Abnormal: Above upper panic limits; Status: F Test Note: ; THERAPUTIC HUMAN INR VALUES INDICATIONS NORMAL RANGES PROPHYLAXIS/TREATMENT OF: VENOUS THROMBOSIS 2.0-3.0 PULMONARY EMBOLISM 2.0-3.0 PREVENTION OF SYSTEMIC EMBOLISM FROM: TISSUE HEART VALVES 2.0-3.0 ACUTE MYOCARDIAL INFARCTION 2.0-3.0 VALVULAR HEART DISEASE 2.0-3.0 ATRIAL FIBRILLATION 2.0-3.0 MECHANICAL VALVES(HIGH RISK) 2.5-3.5 RECURRENT MYOCARDIAL INFARCTION 2.5-3.5 Lab Order: TYPE & SCREEN; [facility] 12/01/16 16:14 Test: BLOOD TYPE; Value: O POS; Status: F Test: AB SCREEN (INDIRECT ANKITA)VIS; Value: NEGATIVE; Status: F Test: IMMEDIATE SPIN CROSSMATCH; Value: [id number] O POSITIVE Compatible? Y; Status: F Test: IMMEDIATE SPIN CROSSMATCH; Value: [id number] O POSITIVE Compatible? Y; Status: F Test: IMMEDIATE SPIN CROSSMATCH; Value: [id number] O POSITIVE Compatible? Y; Status: F Test: IMMEDIATE SPIN CROSSMATCH; Value: [id number] O POSITIVE Compatible? Y; Status: F Lab Order: PLATELET ESTIMATE; [facility] 12/01/16 16:14 Test: PLATELET ESTIMATE; Value: NORMAL; Range: NORMAL; Status: F Lab Order: HEMOGLOBIN & HEMATOCRIT; [facility] 12/01/16 23:17 Test: HEMOGLOBIN; Value: 8.3; Range: 12.0-16.0; Units: g/dl; Status: F Test: HEMATOCRIT; Value: 25.7; Range: 36.0-47.0; Abnormal: Below low normal; Units: %; Status: F Lab Order: PROTHROMBIN TIME PROFILE\E\INR; [facility] 12/02/16 05:18 Test: PROTHROMBIN TIME; Value: 30.7; Range: 12.3-14.5; Abnormal: Above high normal; Units: SECONDS; Status: F Test: INR; Value: 2.94; Status: F Test Note: ; THERAPUTIC HUMAN INR VALUES INDICATIONS NORMAL RANGES PROPHYLAXIS/TREATMENT OF: VENOUS THROMBOSIS 2.0-3.0 PULMONARY EMBOLISM 2.0-3.0 PREVENTION OF SYSTEMIC EMBOLISM FROM: TISSUE HEART VALVES 2.0-3.0 ACUTE MYOCARDIAL INFARCTION 2.0-3.0 VALVULAR HEART DISEASE 2.0-3.0 ATRIAL FIBRILLATION 2.0-3.0 MECHANICAL VALVES(HIGH RISK) 2.5-3.5 RECURRENT MYOCARDIAL INFARCTION 2.5-3.5 Lab Order: CBC WITH DIFFERENTIAL; [facility]12/[facility]16 05:18 Test: WHITE BLOOD COUNT; Value: 6.2; Range: 4.0-10.0; Units: K/mm3; Status: F Test: RED BLOOD COUNT; Value: 2.44; Range: 4.00-5.40; Abnormal: Below low normal; Units: M/mm3; Status: F Test: HEMOGLOBIN; Value: 8.3; Range: 12.0-16.0; Abnormal: Below low normal; Units: g/dl; Status: F Test: HEMATOCRIT; Value: 25.1; Range: 36.0-47.0; Abnormal: Below low normal; Units: %; Status: F Test: MEAN CORPUSCULAR VOLUME; Value: 102.8; Range: 80.0-96.0; Abnormal: High; Units: fl; Status: F Test: MEAN CORPUSCULAR HEMOGLOBIN; Value: 33.9; Range: 27.0-33.0; Abnormal: Above high normal; Units: pg; Status: F Test: MEAN CORPUSCULAR HGB CONC; Value: 33.0; Range: 32.0-36.5; Units: g/dl; Status: F Test: RED CELL DISTRIBUTION WIDTH; Value: 20.3; Range: 11.5-14.5; Abnormal: Above high normal; Units: %; Status: F Test: PLATELET COUNT, AUTOMATED; Value: 266; Range: 150-450; Units: k/mm3; Status: F Test: NEUTROPHILS %; Value: 60.9; Range: 36.0-66.0; Units: %; Status: F Test: LYMPH %; Value: 29.9; Range: 24.0-44.0; Units: %; Status: F Test: MONO %; Value: 6.7; Range: 0.0-5.0; Abnormal: Above high normal; Units: %; Status: F Test: EOS %; Value: 0.4; Range: 0.0-3.0; Units: %; Status: F Test: BASO %; Value: 0.1; Range: 0.0-1.0; Units: %; Status: F Test: LARGE UNSTAINED CELL %; Value: 1.9; Range: 0.0-4.0; Units: %; Status: F Test: NEUTROPHILS #; Value: 3.8; Range: 1.8-7.7; Units: K/mm3; Status: F Test: LYMPH #; Value: 2.0; Range: 1.5-4.5; Units: K/mm3; Status: F Test: MONO #; Value: 0.4; Range: 0.0-0.8; Units: K/mm3; Status: F Test: EOS #; Value: 0.0; Range: 0.0-0.50; Units: K/mm3; Status: F Test: BASO #; Value: 0.0; Range: 0.0-0.2; Units: K/mm3; Status: F Test: LARGE UNSTAINED CELL #; Value: 0.1; Range: 0.0-0.4; Units: K/mm3; Status: F Lab Order: COMPLETE COMPHRENSIVE METABOLI; SPEC'M 12/02/16 05:18 Test: GLUCOSE, FASTING; Value: 90; Range: 80-110; Units: MG/DL; Status: F Test: BLOOD UREA NITROGEN; Value: 15; Range: 7-18; Units: MG/DL; Status: F Test: CREATININE FOR GFR; Value: 1.19; Range: 0.55-1.02; Abnormal: Above high normal; Units: MG/DL; Status: F Test: GLOMERULAR FILTRATION RATE; Value: 49.3; Range: >45; Status: F Test: SODIUM LEVEL; Value: 146; Range: 136-145; Abnormal: Above high normal; Units: MEQ/L; Status: F Test: POTASSIUM SERUM; Value: 3.8; Range: 3.5-5.1; Units: MEQ/L; Status: F Test: CHLORIDE LEVEL; Value: 113; Range: 98-107; Abnormal: Above high normal; Units: MEQ/L; Status: F Test: CARBON DIOXIDE LEVEL; Value: 25; Range: 21-32; Units: MEQ/L; Status: F Test: ANION GAP; Value: 8; Range: 8-16; Units: MEQ/L; Status: F Test: CALCIUM LEVEL; Value: 7.6; Range: 8.8-10.2; Abnormal: Below low normal; Units: MG/DL; Status: F Test: AST/SGOT; Value: 11; Range: 15-37; Abnormal: Below low normal; Units: U/L; Status: F Test: ALT/SGPT; Value: 18; Range: 12-78; Units: U/L; Status: F Test: ALKALINE PHOSPHATASE; Value: 57; Range: 45-117; Units: U/L; Status: F Test: BILIRUBIN,TOTAL; Value: 0.4; Range: 0.2-1.0; Abnormal: Delta; Units: MG/DL; Status: F Test: TOTAL PROTEIN; Value: 5.9; Range: 6.4-8.2; Abnormal: Below low normal; Units: GM/DL; Status: F Test: ALBUMIN; Value: 2.7; Range: 3.2-5.2; Abnormal: Below low normal; Units: GM/DL; Status: F Test: ALBUMIN/GLOBULIN RATIO; Value: 0.84; Range: 1.00-1.93; Abnormal: Below low normal; Status: F Test Note: ; Units are mL/min/1.73 m2 Chronic Kidney Disease Staging per NKF: Stage I & II GFR >=60 Normal to Mildly Decreased Stage III GFR 30-59 Moderately Decreased Stage IV GFR 15-29 Severely Decreased Stage V GFR <15 Very Little GFR Left ESRD GFR <15 on COLLISION CENTER MANAGER Lab Order: MAGNESIUM LEVEL; [facility]12/02/16 05:18 Test: MAGNESIUM LEVEL; Value: 2.2; Range: 1.8-2.4; Units: MG/DL; Status: F Lab Order: HEMOGLOBIN & HEMATOCRIT; [facility] 12/02/16 10:24 Test: HEMOGLOBIN; Value: 8.4; Range: 12.0-16.0; Abnormal: Below low normal; Units: g/dl; Status: F Test: HEMATOCRIT; Value: 26.4; Range: 36.0-47.0; Abnormal: Below low normal; Units: %; Status: F Lab Order: HEMOGLOBIN & HEMATOCRIT; [facility] 12/02/16 15:58 Test: HEMOGLOBIN; Value: 8.7; Range: 12.0-16.0; Abnormal: Below low normal; Units: g/dl; Status: F Test: HEMATOCRIT; Value: 27.1; Range: 36.0-47.0; Abnormal: Below low normal; Units: %; Status: F Lab Order: Fingerstick Blood Sugar; [facility]12/[facility]/16 07:51 Test: BEDSIDE GLUCOSE; Value: 89; Range: 80-115; Units: MG/DL; Status: F Lab Order: Fingerstick Blood Sugar; [facility] 12/02/16 12:21 Test: BEDSIDE GLUCOSE; Value: 143; Range: 80-115; Abnormal: Above high normal; Units: MG/DL; Status: F Test Note: ; Insulin Coverage Ord Lab Order: Fingerstick Blood Sugar; [facility] 12/02/16 18:00 Test: BEDSIDE GLUCOSE; Value: 179; Range: 80-115; Abnormal: Above high normal; Units: MG/DL; Status: F Radiology Order: EKG-ADULT Test: EKG-ADULT REASON FOR EXAMINATION: weaknesss; Stationary ECG Study; [facility] - ED; ; Test Date: 2016-12-01; Pat Name: DAVID ANDREWS Department:; Room: -; 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 12/02 17:49 Discharge Assessment: Patient awake and alert. patient administered narcotics - no. [facility] following High Risk Discharge criteria are identified: None. Admitted to Med/Surg accompanied by nurse, family with patient, via stretcher, with oxygen, on monitor, with chart. Condition: stable. No special radiology studies were completed. Admission hand-off: Report Faxed Fax receipt verified by MARC Perez. Property :Personal belongings accompany Pt. 18:18 Patient left the ED. [facility] Signatures: Dispatcher [employer] EDKY Rina Austin MD MD sd1 Sleeman, Kacey, RN RN Mariah Soliman, Water Treatment Plant Operator Unit lbd Lillie Pearce RN RN [facility] Aman Young FNP FNP ke Barney, Michael B RN RN mlb1 [place] Harper, GARCIA WINE SPECIALIST kb5 Patsy Fernández RN RN hs1 Francisca Best RN RN jc4 Lucrecia Oneal RN RN [facility]1 Kelsey Jj Gainslee gr2 Geri Horne, WINE SPECIALIST WINE SPECIALIST rs6 Golden Wolfe,RN RN nn1 Cassidy Otero, Familia Barbosa hs2 Dior GaonaRN RN kas2 Kaur Doll Nicole nb2 Patsy Fernández RN hs1 Chart Complete MTDD
--- NOTE | 2016-12-06 06:13 | DSES ---
DATE OF ADMISSION: 12/01/2016 DATE OF DISCHARGE: 12/05/2016 PRIMARY CARE PROVIDER: ALVARADO Beth. ATTENDING TODAY: Geraldo Avery MD. HISTORY: This is a 61-year-old female patient who presented to [facility] Emergency Room who was found to be severely anemic with an elevated INR and therefore was instructed to go to the emergency room for further evaluation. In the emergency room (ER), her hemoglobin was found to be 5.5 with an INR of 5. Patient had complained of some fatigue, weakness, dizziness, although she felt that initially this was related to the flu, which she had been diagnosed with in the week prior. She was admitted to the hospital for anemia, presumably secondary to acute gastrointestinal (GI) bleeding. Her INR was reversed with fresh frozen plasma and vitamin K. She was initially transfused three units of packed red blood cells, ultimately receiving a total of four units. Her hemoglobin level increased to 11.1 and she has remained stable at 11.1 for the last 3 days. Her INR was reversed. She underwent upper and lower endoscopy with Dr. Mendez on 12/04 without any acute findings or signs of bleeding. Her colonoscopy reveals non-bleeding internal hemorrhoids, multiple small enlarged diverticula, otherwise normal colonoscopy. Upper endoscopy revealed an irregular Z line at 35 cm. Biopsies were obtained to rule out Deluna's. A small hiatal hernia was noted. This morning, the patient is feeling well. She is eager to return home. She has no questions or concerns. During her hospitalization, she was started on doxycycline for upper respiratory type symptoms and dark green to brown colored sputum. Although a sputum culture was ordered, none was able to be obtained during her hospitalization. She also has some concerns about a diagnosis of diabetes, which apparently has been made in the outpatient setting. She is on Januvia as an outpatient for this. Will continue this. I document this only so that her primary care provider can be aware that she does not seem to clearly understand her diagnosis or her plan of treatment. She will resume her Coumadin at her normal dose. She should have her INR checked on Wednesday or Wednesday. This can be done via fingerstick in the office with further management per her primary care provider (PCP). DISCHARGE DIAGNOSES: Include: 1. Acute anemia with a hemoglobin of 5.5 on admission. 2. Gastrointestinal (GI) bleeding. 3. Chronic obstructive pulmonary disease (COPD). 4. History of a stroke. 5. Hyperlipidemia. 6. Normal pressure hydrocephalus. 7. Type 2 diabetes. 8. Depression. 9. Hypothyroidism. DISCHARGE MEDICATIONS: Include: - Januvia 100 mg by mouth daily - Topamax 150 mg by mouth twice a day - Coumadin 5 mg four times weekly, 7.5 mg three times weekly, which is administered on Mondays, Wednesdays and Fridays - levothyroxine 88 mcg by mouth daily - nortriptyline 20 mg by mouth daily - Paxil 40 mg by mouth daily - Levoxyl 88 mcg daily - iron 325 mg by mouth daily - vitamin B12 1000 mcg by mouth daily - bisoprolol 5 mg by mouth daily - atorvastatin 10 mg by mouth daily - ProAir HFA two puffs inhaled every 4 hours as needed for shortness of breath - doxycycline 100 mg by mouth twice a day DISCHARGE PLAN: Will be to have a PT/INR on Wednesday or Wednesday, 12/07 or 12/08. Followup with her primary care provider (PCP) in 1 week. Activity should be as tolerated. Diet should be no added salt.
== END 2016-12-05 11:34 | disposition home or self-care (01) | DRG 813 ==
LOC: M ED 15:13 → M ED INP 18:36 → M ALC 12-02 18:25 → M MSPAV 12-04 14:23
PROVIDERS: ADMIT Internal Medicine; ATTEND Family Medicine
PROC: 30233K1 Transfusion of Nonautologous Frozen Plasma into Peripheral Vein, Percutaneous Approach (ICD-10-PCS; principal; 2016-12-01)
PROC: 30233N1 Transfusion of Nonautologous Red Blood Cells into Peripheral Vein, Percutaneous Approach (ICD-10-PCS; 2016-12-01)
PROC: 0DB48ZX Excision of Esophagogastric Junction, Via Natural or Artificial Opening Endoscopic, Diagnostic (ICD-10-PCS; 2016-12-04)
PROC: 0DJD8ZZ Inspection of Lower Intestinal Tract, Via Natural or Artificial Opening Endoscopic (ICD-10-PCS; 2016-12-04)
DX: D68.32 Hemorrhagic disorder due to extrinsic circulating anticoagulants (principal); K92.2 Gastrointestinal hemorrhage, unspecified; G91.2 (Idiopathic) normal pressure hydrocephalus; D50.9 Iron deficiency anemia, unspecified; J44.9 Chronic obstructive pulmonary disease, unspecified; E78.5 Hyperlipidemia, unspecified; I10 Essential (primary) hypertension; K44.9 Diaphragmatic hernia without obstruction or gangrene; F17.210 Nicotine dependence, cigarettes, uncomplicated; E11.9 Type 2 diabetes mellitus without complications; K64.0 First degree hemorrhoids; K64.4 Residual hemorrhoidal skin tags; K57.50 Diverticulosis of both small and large intestine without perforation or abscess without bleeding; F32.9 Major depressive disorder, single episode, unspecified; E03.9 Hypothyroidism, unspecified; Z79.84 Long term (current) use of oral hypoglycemic drugs; Z79.01 Long term (current) use of anticoagulants; Z79.899 Other long term (current) drug therapy; Z86.73 Personal history of transient ischemic attack (TIA), and cerebral infarction without residual deficits; Z88.0 Allergy status to penicillin; Z88.2 Allergy status to sulfonamides; Z79.52 Long term (current) use of systemic steroids; Z98.2 Presence of cerebrospinal fluid drainage device

== ENCOUNTER → 2016-12-01 | Outpatient (REF) | payer MEDICARE, MEDICAID ==
[~2016-12-01] MED LIST changes: +DOXY10CA PO
[2016-12-01 12:07] LABS: INR 4.39
[2016-12-01 12:23] LABS: BASO % 0.1 % (0.0-1.0); EOS % 0.3 % (0.0-3.0); LARGE UNSTAINED CELL # 0.3 K/mm3 (0.0-0.4); LARGE UNSTAINED CELL % 3.3 % (0.0-4.0); LYMPH # 1.6 K/mm3 (1.5-4.5); MEAN CORPUSCULAR HEMOGLOBIN 32.9 pg (27.0-33.0); MEAN CORPUSCULAR HGB CONC 28.5 g/dl (32.0-36.5); MEAN CORPUSCULAR VOLUME 115.4 fl (80.0-96.0); MONO # 0.6 K/mm3 (0.0-0.8); MONO % 6.6 % (0.0-5.0); NEUTROPHILS # 6.9 K/mm3 (1.8-7.7); NEUTROPHILS % 72.7 % (36.0-66.0); PLATELET COUNT, AUTOMATED 346 k/mm3 (150-450); RED CELL DISTRIBUTION WIDTH 17.9 % (11.5-14.5); WHITE BLOOD COUNT 9.5 K/mm3 (4.0-10.0)
[2016-12-01 12:31] LABS: ALBUMIN/GLOBULIN RATIO 0.97 (1.00-1.93); BILIRUBIN,TOTAL 0.2 MG/DL (0.2-1.0); CREATININE FOR GFR 1.42 MG/DL (0.55-1.02); GLOMERULAR FILTRATION RATE 40.2 (>45); TOTAL PROTEIN 6.1 GM/DL (6.4-8.2)
[2016-12-01 14:16] LABS: ADD MORPHOLOGY? YES; ANISOCYTOSIS 1+; HYPOCHROMASIA 3+
== END ==
LOC: M SFHCCLAY 09:13
PROVIDERS: ATTEND Family Medicine
DX: R53.81 Other malaise (principal); Z51.81 Encounter for therapeutic drug level monitoring; Z79.01 Long term (current) use of anticoagulants

== ENCOUNTER → 2016-12-09 | Outpatient (REF) | payer MEDICARE, MEDICAID ==
[~2016-12-09] MED LIST changes: +DOXY10CA PO; +IRON65TA PO; +LEVO88TA24 PO; +NICODIS2 TD; +NORT10CA2 PO; +PRED10TA PO; +VITA10002 PO; +WARF-21 PO
[2016-12-09 11:51] LABS: MEAN CORPUSCULAR HEMOGLOBIN 31.7 pg (27.0-33.0); MEAN CORPUSCULAR HGB CONC 30.9 g/dl (32.0-36.5); MEAN CORPUSCULAR VOLUME 102.6 fl (80.0-96.0); RED CELL DISTRIBUTION WIDTH 17.7 % (11.5-14.5); WHITE BLOOD COUNT 7.2 K/mm3 (4.0-10.0)
[2016-12-09 12:07] LABS: CALCIUM LEVEL 8.5 MG/DL (8.8-10.2); CREATININE FOR GFR 1.25 MG/DL (0.55-1.02); GLOMERULAR FILTRATION RATE 46.5 (>45); POTASSIUM SERUM 4.7 MEQ/L (3.5-5.1)
== END ==
LOC: M SFHCCLAY 08:59
PROVIDERS: ATTEND Family Medicine
DX: K92.2 Gastrointestinal hemorrhage, unspecified (principal); E11.9 Type 2 diabetes mellitus without complications; I10 Essential (primary) hypertension

== ENCOUNTER → 2017-03-11 | Outpatient (REF) | payer MEDICARE, MEDICAID ==
[2017-03-13 00:19] LABS: TOPIRAMATE LEVEL 17.7 ug/mL (2.0-25.0)
== END ==
LOC: M LABDRAWC 11:28
PROVIDERS: ATTEND Physician Assistant Medical
DX: Z51.81 Encounter for therapeutic drug level monitoring (principal); Z79.899 Other long term (current) drug therapy; R56.9 Unspecified convulsions

== ENCOUNTER → 2017-03-11 | Outpatient (REF) | payer MEDICARE, MEDICAID ==
[2017-03-11 11:48] LABS: BASO % 0.3 % (0.0-1.0); EOS # 0.1 K/mm3 (0.0-0.50); EOS % 2.2 % (0.0-3.0); LARGE UNSTAINED CELL # 0.1 K/mm3 (0.0-0.4); LARGE UNSTAINED CELL % 1.6 % (0.0-4.0); LYMPH # 1.7 K/mm3 (1.5-4.5); LYMPH % 25.6 % (24.0-44.0); MEAN CORPUSCULAR HEMOGLOBIN 35.1 pg (27.0-33.0); MEAN CORPUSCULAR HGB CONC 32.3 g/dl (32.0-36.5); MEAN CORPUSCULAR VOLUME 108.5 fl (80.0-96.0); MONO # 0.4 K/mm3 (0.0-0.8); NEUTROPHILS % 63.3 % (36.0-66.0); PLATELET COUNT, AUTOMATED 139 k/mm3 (150-450); RED CELL DISTRIBUTION WIDTH 13.2 % (11.5-14.5); WHITE BLOOD COUNT 6.3 K/mm3 (4.0-10.0)
[2017-03-11 12:46] LABS: ALBUMIN 3.5 GM/DL (3.2-5.2); ALBUMIN/GLOBULIN RATIO 0.95 (1.00-1.93); BILIRUBIN,TOTAL 0.2 MG/DL (0.2-1.0); CALCIUM LEVEL 8.4 MG/DL (8.8-10.2); CREATININE FOR GFR 1.27 MG/DL (0.55-1.02); GLOMERULAR FILTRATION RATE 45.7 (>45); POTASSIUM SERUM 4.1 MEQ/L (3.5-5.1); TOTAL PROTEIN 7.2 GM/DL (6.4-8.2)
== END ==
LOC: M SFHCCLAY 07:51
PROVIDERS: ATTEND Family Medicine
DX: K92.2 Gastrointestinal hemorrhage, unspecified (principal); E11.9 Type 2 diabetes mellitus without complications; E03.9 Hypothyroidism, unspecified; Z51.81 Encounter for therapeutic drug level monitoring; Z79.899 Other long term (current) drug therapy; R56.9 Unspecified convulsions

== ENCOUNTER → 2017-04-08 | Outpatient (REF) | payer MEDICARE, MEDICAID ==
[~2017-04-08] MED LIST changes: +DOXY100T2 PO; -DOXY10CA PO; +PAXI40TA10 PO; -PAXI40TA2 PO; -PRED10TA PO; +PRED10TA2 PO; -PROA1AER INH; +PROAAER10 INH; +TOPA100T12 PO; -TOPA100T8 PO; -TOPI200T4 PO; +TOPI200T7 PO; +VOLT1GEL15 TD; -VOLT1GEL24 TD
== END ==
LOC: M LAB REF 11:40
PROVIDERS: ATTEND Family Medicine
DX: K52.9 Noninfective gastroenteritis and colitis, unspecified (principal)

== ENCOUNTER → 2017-08-18 | Outpatient (REF) | payer MEDICARE, MEDICAID ==
[2017-08-19 12:26] LABS: ALBUMIN 3.4 GM/DL (3.2-5.2); ALBUMIN/GLOBULIN RATIO 0.87 (1.00-1.93); BILIRUBIN,TOTAL 0.3 MG/DL (0.2-1.0); CALCIUM LEVEL 8.9 MG/DL (8.8-10.2); CREATININE FOR GFR 1.45 MG/DL (0.55-1.02); FREE T4 1.32 NG/DL (0.76-1.46); GLOMERULAR FILTRATION RATE 39.1 (>45); POTASSIUM SERUM 4.1 MEQ/L (3.5-5.1); TOTAL PROTEIN 7.3 GM/DL (6.4-8.2)
== END ==
LOC: M SFHCCLAY 14:17
PROVIDERS: ATTEND Family Medicine
DX: E11.9 Type 2 diabetes mellitus without complications (principal); E03.9 Hypothyroidism, unspecified
CPT/HCPCS: 80053; 80061; 82043; 83036; 84439; 84443; G0463

== ENCOUNTER → 2017-09-09 | Outpatient (CLI) | payer MEDICARE, MEDICAID ==
[2017-09-09 09:29] LABS: MEAN CORPUSCULAR HEMOGLOBIN 31.5 pg (27.0-33.0); MEAN CORPUSCULAR HGB CONC 30.7 g/dl (32.0-36.5); MEAN CORPUSCULAR VOLUME 102.8 fl (80.0-96.0); PLATELET COUNT, AUTOMATED 184 10^3/uL (150-450); RED CELL DISTRIBUTION WIDTH 14.6 % (11.5-14.5); WHITE BLOOD COUNT 6.2 10^3/uL (4.0-10.0)
--- NOTE | 2017-09-09 09:59 | REP ---
Chest two views HISTORY: Weakness Comparison: None The lungs are clear. The heart is normal in size. The pulmonary vasculature is normal in appearance. The bony structure is intact. Ventricular peritoneal and intrathecal shunts are present. IMPRESSION: No acute disease. Signed by Dionisio Shah MD 09/09/2017 09:51 A
[2017-09-09 10:08] LABS: ALBUMIN 2.9 GM/DL (3.2-5.2); ALBUMIN/GLOBULIN RATIO 0.71 (1.00-1.93); BILIRUBIN,TOTAL 0.2 MG/DL (0.2-1.0); CREATININE FOR GFR 1.12 MG/DL (0.55-1.02); GLOMERULAR FILTRATION RATE 52.7 (>45)
--- NOTE | 2017-09-09 11:46 | ECGEPIP ---
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
== END ==
LOC: M LAB 08:33
PROVIDERS: ATTEND Family Medicine
DX: R53.83 Other fatigue (principal); E11.9 Type 2 diabetes mellitus without complications; I10 Essential (primary) hypertension

== ENCOUNTER → 2018-06-22 | Outpatient (CLI) | payer MEDICARE | LOC: M WHC 09:15 | DX: Z12.31 Encounter for screening mammogram for malignant neoplasm of breast (principal) | CPT/HCPCS: 77067 ==

== ENCOUNTER → 2018-07-05 | Outpatient (CLI) | payer MEDICARE | LOC: M RAD 13:57 | DX: N63.22 Unspecified lump in the left breast, upper inner quadrant (principal) | CPT/HCPCS: 77065 ==

== ENCOUNTER → 2018-08-18 | Outpatient (CLI) | payer MEDICARE, MEDICAID ==
[2018-08-18 08:21] LABS: HEMATOCRIT 37.9 % (36.0-47.0); MEAN CORPUSCULAR HEMOGLOBIN 35.8 pg (27.0-33.0); MEAN CORPUSCULAR HGB CONC 31.7 g/dl (32.0-36.5); MEAN CORPUSCULAR VOLUME 113.1 fl (80.0-96.0); PLATELET COUNT, AUTOMATED 172 10^3/uL (150-450); RED BLOOD COUNT 3.35 10^6/uL (4.00-5.40); RED CELL DISTRIBUTION WIDTH 14.5 % (11.5-14.5); WHITE BLOOD COUNT 7.8 10^3/uL (4.0-10.0)
[2018-08-18 08:49] LABS: ALBUMIN 3.4 GM/DL (3.2-5.2); ALKALINE PHOSPHATASE 83 U/L (45-117); ALT/SGPT 16 U/L (12-78); ANION GAP 5 MEQ/L (8-16); AST/SGOT 8 U/L (7-37); BILIRUBIN,TOTAL 0.2 MG/DL (0.2-1.0); BLOOD UREA NITROGEN 13 MG/DL (7-18); CALCIUM LEVEL 8.9 MG/DL (8.8-10.2); CARBON DIOXIDE LEVEL 27 MEQ/L (21-32); CHLORIDE LEVEL 112 MEQ/L (98-107); CHOLESTEROL LEVEL 156 MG/DL (<200); CHOLESTEROL RISK RATIO 4.216 (<5); CREATININE FOR GFR 1.27 MG/DL (0.55-1.30); GLOMERULAR FILTRATION RATE 45.4 (>45); GLUCOSE, FASTING 104 MG/DL (70-100); HDL CHOLESTEROL 37 MG/DL (>40); LDL CHOLESTEROL 63 MG/DL (<100); NON-HDL-C 119 MG/DL; SODIUM LEVEL 144 MEQ/L (136-145); TOTAL PROTEIN 6.8 GM/DL (6.4-8.2); TRIGLYCERIDES LEVEL 281 MG/DL (<150)
[2018-08-18 09:36] LABS: ESTIMATED AVERAGE GLUCOSE 120 MG/DL (60-110); HEMOGLOBIN A1c 5.8 %
[2018-08-18 10:01] LABS: TOTAL 25(OH) VITAMIN D 95.1 NG/ML (30.0-100.0)
== END ==
LOC: M LAB 07:26
DX: E03.9 Hypothyroidism, unspecified (principal); E11.9 Type 2 diabetes mellitus without complications; I10 Essential (primary) hypertension; R53.83 Other fatigue; Z79.899 Other long term (current) drug therapy
CPT/HCPCS: 84443

== ENCOUNTER → 2018-10-24 | Outpatient (CLI) | payer MEDICARE, MEDICAID ==
[~2018-10-24] MED LIST changes: +IPRA0.00 IN; -IPRASOL4 IN; -LISI2.5T3 GT; -LISI2.5T3 PO; +LISI2.5T5 GT; +LISI2.5T5 PO
[2018-10-26 00:10] LABS: TOPIRAMATE LEVEL 21.2 ug/mL (2.0-25.0)
== END ==
LOC: M LAB 12:30
PROVIDERS: ATTEND Physician Assistant Medical
DX: R56.9 Unspecified convulsions (principal); Z51.81 Encounter for therapeutic drug level monitoring; Z79.899 Other long term (current) drug therapy

== ENCOUNTER → 2018-12-15 | Outpatient (CLI) | payer MEDICARE, MEDICAID ==
[2018-12-15 10:20] LABS: HEMATOCRIT 37.9 % (36.0-47.0); HEMOGLOBIN 12.2 g/dl (12.0-15.5); MEAN CORPUSCULAR HEMOGLOBIN 34.7 pg (27.0-33.0); MEAN CORPUSCULAR HGB CONC 32.2 g/dl (32.0-36.5); MEAN CORPUSCULAR VOLUME 107.7 fl (80.0-96.0); PLATELET COUNT, AUTOMATED 173 10^3/uL (150-450); RED BLOOD COUNT 3.52 10^6/uL (4.00-5.40)
[2018-12-15 10:57] LABS: ALBUMIN 3.6 GM/DL (3.2-5.2); BILIRUBIN,TOTAL 0.3 MG/DL (0.2-1.0); CALCIUM LEVEL 7.9 MG/DL (8.8-10.2); CHOLESTEROL RISK RATIO 4.076 (<5); CREATININE FOR GFR 1.27 MG/DL (0.55-1.30); GLOMERULAR FILTRATION RATE 45.4 (>45); POTASSIUM SERUM 4.1 MEQ/L (3.5-5.1); THYROID STIMULATING HORMONE 1.82 uIU/ML (0.358-3.740); TOTAL PROTEIN 7.3 GM/DL (6.4-8.2)
--- NOTE | 2018-12-15 21:09 | REP ---
Clinical: Hypertension and fat . Comparison: 09/09/2017 . Technique: PA and lateral. Findings: The mediastinum and cardiac silhouette are normal. Loop recorder identified. The lung pro are clear and without acute consolidation, effusion, or pneumothorax. The skeletal structures are intact and normal. Ventriculoperitoneal shunts noted. Impression: 1. No acute cardiopulmonary process. Electronically Signed by Jose Long MD 12/15/2018 09:01 P
--- NOTE | 2018-12-16 07:14 | ECGEPIP ---
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
== END ==
LOC: M LAB 09:22
PROVIDERS: ATTEND Family Medicine
DX: I10 Essential (primary) hypertension (principal); E03.9 Hypothyroidism, unspecified; R53.83 Other fatigue

== ENCOUNTER → 2019-06-06 | Outpatient (CLI) | payer MEDICARE, MEDICAID ==
[~2019-06-06] MED LIST changes: +CYAN100049 PO; +LEVO100I PO; -LEVO10VL PO; +LISI-1046 GT; +LISI-1046 PO; -LISI2.5T5 GT; -LISI2.5T5 PO; -VITA10002 PO
[2019-06-09 00:06] LABS: TOPIRAMATE LEVEL 15.8 ug/mL (2.0-25.0)
== END ==
LOC: M WUC 11:05
PROVIDERS: ATTEND Physician Assistant Medical
DX: G40.89 Other seizures (principal)

== ENCOUNTER → 2019-07-17 | Outpatient (REF) | payer MEDICARE, MEDICAID ==
[~2019-07-17] MED LIST changes: -BISO5TAB5 PO; +BISO5TAB9 PO
[2019-07-20 10:07] LABS: HPV HYBRID CAPTURE II Negative (Negative)
== END ==
LOC: M SFHCWAGY 14:59
PROVIDERS: ATTEND Nurse Practitioner Family
DX: Z12.4 Encounter for screening for malignant neoplasm of cervix (principal)
CPT/HCPCS: 87624; G0101; G0123; G0463

== ENCOUNTER → 2019-08-10 | Outpatient (CLI) | payer MEDICARE, MEDICAID ==
--- NOTE | 2019-08-17 16:12 | REPMRS ---
Patient History The patient states she had a clinical breast exam in 07/2019. No known family history of cancer. Benign excisional biopsy of the left breast. No Hormone Replacement Therapy Digital Woman Screen Mammo: August 10, 2019 - Exam #: [id number] Bilateral CC and MLO view(s) were taken. Technologist: Mariah Aguilar, Technologist Prior study comparison: September 01, 2018, left breast diagnostic unilateral mammo, performed at [facility]. July 05, 2018, left breast digital mammo diagnostic unilateral, performed at [facility]. June 22, 2018, bilateral digital woman screen mammo performed at [facility]. 2015, bilateral digital mammo screening bilat, performed at [facility]. FINDINGS: There are scattered fibroglandular densities. A nodular density is seen in the medial aspect of the left breast unchanged from multiple prior studies. This was evaluated previously and felt to be a simple cyst. It is unchanged. A loop recorder is seen projecting over the left breast medially as well. There has been no change in the appearance of the mammogram from the prior studies. There is a mild amount of scattered fibroglandular density which is fairly symmetric. There is no interval development of dominant mass, architectural distortion, or grouped microcalcification suggestive of malignancy. 3-D tomosynthesis shows no additional findings. Assessment: BI-RADS/ACR category 2 mammogram. Benign Findings. Recommendation Routine screening mammogram of both breasts in 1 year (for women over age 40). This patient's Lifetime Breast Cancer Risk is estimated at 7.7 %. This mammogram was interpreted with the aid of an FDA-approved computer-aided dectection system. Electronically Signed By: Michele Marquez MD 08/17/19 [id number]
== END ==
LOC: M WHC 13:53
PROVIDERS: ATTEND Nurse Practitioner Family
DX: Z12.31 Encounter for screening mammogram for malignant neoplasm of breast (principal); Z86.018 Personal history of other benign neoplasm

== ENCOUNTER → 2019-09-13 | Outpatient (CLI) | payer MEDICARE, MEDICAID ==
[2019-09-13 12:19] LABS: HEMATOCRIT 42.1 % (36.0-47.0); HEMOGLOBIN 13.1 g/dl (12.0-15.5); MEAN CORPUSCULAR HEMOGLOBIN 35.6 pg (27.0-33.0); MEAN CORPUSCULAR HGB CONC 31.1 g/dl (32.0-36.5); PLATELET COUNT, AUTOMATED 145 10^3/uL (150-450); RED BLOOD COUNT 3.68 10^6/uL (4.00-5.40); WHITE BLOOD COUNT 6.7 10^3/uL (4.0-10.0)
[2019-09-13 12:22] LABS: MEAN CORPUSCULAR VOLUME 114.4 fl (80.0-96.0)
[2019-09-13 12:41] LABS: HEMOGLOBIN A1c 6.3 %
[2019-09-13 12:55] LABS: ALBUMIN 3.5 GM/DL (3.2-5.2); BILIRUBIN,TOTAL 0.2 MG/DL (0.2-1.0); CALCIUM LEVEL 8.7 MG/DL (8.8-10.2); CHOLESTEROL RISK RATIO 3.82 (<5); CREATININE FOR GFR 1.32 MG/DL (0.55-1.30); GLOMERULAR FILTRATION RATE 43.3 (>45); POTASSIUM SERUM 3.9 MEQ/L (3.5-5.1); THYROID STIMULATING HORMONE 7.86 uIU/ML (0.358-3.740); TOTAL PROTEIN 6.8 GM/DL (6.4-8.2)
[2019-09-13 13:30] LABS: TOTAL 25(OH) VITAMIN D 30.3 NG/ML (30.0-100.0)
== END ==
LOC: M WUC 08:43
PROVIDERS: ATTEND Family Medicine
DX: R53.83 Other fatigue (principal); D64.9 Anemia, unspecified; E03.9 Hypothyroidism, unspecified

== ENCOUNTER → 2019-11-22 | Outpatient (CLI) | payer MEDICARE, MEDICAID ==
[~2019-11-22] MED LIST changes: +BISO5TAB14 PO; -BISO5TAB9 PO
[2019-11-22 16:32] LABS: BASO % 0.6 % (0.0-1.0); EOS # 0.1 10^3/uL (0.0-0.5); EOS % 1.5 % (0.0-3.0); HEMATOCRIT 40.4 % (36.0-47.0); HEMOGLOBIN 13.1 g/dl (12.0-15.5); LYMPH # 1.8 10^3/uL (1.5-5.0); LYMPH % 27.6 % (24.0-44.0); MEAN CORPUSCULAR HEMOGLOBIN 36.6 pg (27.0-33.0); MEAN CORPUSCULAR HGB CONC 32.4 g/dl (32.0-36.5); MEAN CORPUSCULAR VOLUME 112.8 fl (80.0-96.0); MONO # 0.5 10^3/uL (0.0-0.8); MONO % 7.5 % (0.0-5.0); NEUTROPHILS # 4.1 10^3/uL (1.5-8.5); PLATELET COUNT, AUTOMATED 129 10^3/uL (150-450); RED BLOOD COUNT 3.58 10^6/uL (4.00-5.40); WHITE BLOOD COUNT 6.7 10^3/uL (4.0-10.0)
[2019-11-22 17:01] LABS: ERYTHROCYTE SEDIMENTATION RATE 12 mm/hr (0-30)
== END ==
LOC: M WUC 12:35
PROVIDERS: ATTEND Physician Assistant Medical
DX: R51 Headache (principal); G40.89 Other seizures

== ENCOUNTER → 2019-11-23 | Outpatient (CLI) | payer MEDICARE ==
--- NOTE | 2019-11-23 09:26 | REPVR ---
PROCEDURE INFORMATION: Exam: CT Head Without Contrast Exam date and time: 11/23/2019 8:59 AM Age: 64 years old Clinical indication: Pain; Headache not specified; Prior surgery; Surgery date: 6+ months; Surgery type: Supervisor Insulation shunt; Additional info: [facility]'s access vp scientific affairs shunt pressure TECHNIQUE: Imaging protocol: Computed tomography of the head without contrast. Radiation optimization: All CT scans at this facility use at least one of these dose optimization techniques: automated exposure control; mA and/or kV adjustment per patient size (includes targeted exams where dose is matched to clinical indication); or iterative reconstruction. COMPARISON: CT Head without contrast 04/24/2009 10:35 AM FINDINGS: Brain: There is no acute hemorrhage or mass effect. There is focal encephalomalacia along the right frontal lobe corresponding to previous ventriculostomy catheter tract. Ventricles: The ventricular system is decompressed. There is a cavum septum pellucidum, a normal anatomic variant. Bones/joints: There is a right frontal rivas hole. There are right frontal craniotomy changes. Metallic fixation hardware is noted along the frontal bone. Sinuses: Visualized sinuses are unremarkable. No fluid levels. Mastoid air cells: Visualized mastoid air cells are well aerated. Soft tissues: Unremarkable. IMPRESSION: No acute intracranial abnormality. Decompressed ventricular system. Electronically signed by: Daiana Silva On 11/23/2019 09:26:49 AM
== END ==
LOC: M RAD 08:51
PROVIDERS: ATTEND Physician Assistant Medical
DX: R51 Headache (principal); I63.89 Other cerebral infarction; G91.8 Other hydrocephalus

== ENCOUNTER → 2019-12-11 | Outpatient (CLI) | payer MEDICARE ==
[2019-12-11 13:45] LABS: HEMATOCRIT 40.4 % (36.0-47.0); HEMOGLOBIN 12.9 g/dl (12.0-15.5); MEAN CORPUSCULAR HEMOGLOBIN 35.6 pg (27.0-33.0); MEAN CORPUSCULAR HGB CONC 31.9 g/dl (32.0-36.5); MEAN CORPUSCULAR VOLUME 111.6 fl (80.0-96.0); PLATELET COUNT, AUTOMATED 143 10^3/uL (150-450); RED BLOOD COUNT 3.62 10^6/uL (4.00-5.40); WHITE BLOOD COUNT 5.7 10^3/uL (4.0-10.0)
[2019-12-11 14:33] LABS: ALBUMIN 3.7 GM/DL (3.2-5.2); BILIRUBIN,TOTAL 0.2 MG/DL (0.2-1.0); CALCIUM LEVEL 8.3 MG/DL (8.8-10.2); CHOLESTEROL RISK RATIO 4.03 (<5); CREATININE FOR GFR 1.34 MG/DL (0.55-1.30); GLOMERULAR FILTRATION RATE 42.5 (>45); POTASSIUM SERUM 3.9 MEQ/L (3.5-5.1); THYROID STIMULATING HORMONE 3.08 uIU/ML (0.358-3.740); TOTAL 25(OH) VITAMIN D 36.4 NG/ML (30.0-100.0); TOTAL PROTEIN 7.2 GM/DL (6.4-8.2)
[2019-12-11 15:11] LABS: HEMOGLOBIN A1c 6.2 %
== END ==
LOC: M WUC 09:45
PROVIDERS: ATTEND Family Medicine
DX: R53.83 Other fatigue (principal); D64.9 Anemia, unspecified; I10 Essential (primary) hypertension; Z79.01 Long term (current) use of anticoagulants; Z79.899 Other long term (current) drug therapy

== ENCOUNTER → 2020-07-29 | Outpatient (CLI) | payer MEDICARE ==
[~2020-07-29] MED LIST changes: -LISI-1046 GT; -LISI-1046 PO; +LISI2.5T2 GT; +LISI2.5T2 PO
--- NOTE | 2020-07-29 12:51 | REP ---
INDICATION: UNSP ATHSCL LA JOLLA ART OF EXT CRISTIAN LEGS, BILATERAL LEG PAIN. COMPARISON: None. TECHNIQUE: REAL-TIME ULTRASOUND EVALUATION AND DUPLEX DOPPLER INTERROGATION OF BILATERAL LOWER EXTREMITY ARTERIAL SYSTEMS WAS PERFORMED. FINDINGS: MILD SCATTERED PLAQUING IS SEEN BILATERALLY. DIFFUSE BIPHASIC WAVEFORMS ARE SEEN BILATERALLY. THERE IS OCCLUSION OF THE DISTAL ANTERIOR TIBIAL ARTERIES BILATERALLY AT THE LEVEL OF THE ANKLES. DORSALIS PEDIS IS OCCLUDED BILATERALLY. OTHERWISE THERE IS NO EVIDENCE OF HEMODYNAMICALLY SIGNIFICANT STENOSIS MORE SUPERIORLY OF THE BILATERAL LOWER EXTREMITY ARTERIAL SYSTEMS. RIGHT SARAH: 0.9 RIGHT PEAK SYSTOLIC VELOCITY: COMMON FEMORAL ARTERY: 97.8 CENTIMETERS/SECOND PROFUNDA: 191.3 PROXIMAL SFA: 126.7 MID SFA: 176.2 DISTAL SFA: 169.3 POPLITEAL: 54.3 PROXIMAL ARCHANA: 55.5 TIBIOPERONEAL TRUNK: 61.4 PROXIMAL INPATIENT SERVICES DIRECTOR: 78.7 DISTAL INPATIENT SERVICES DIRECTOR: 82.2 DISTAL ARCHANA: 47.4 LEFT SARAH: 0.9 LEFT PEAK SYSTOLIC VELOCITY: COMMON FEMORAL ARTERY: 94.2 CENTIMETERS/SECOND PROFUNDA: 65.1 PROXIMAL SFA: 72.7 MID SFA: 77.4 DISTAL SFA: 75.7 POPLITEAL: 67.4 PROXIMAL ARCHANA: 65.2 TIBIOPERONEAL TRUNK: 57 PROXIMAL INPATIENT SERVICES DIRECTOR: 62.7 DISTAL INPATIENT SERVICES DIRECTOR: 87.5 DISTAL ARCHANA: 46.7 IMPRESSION: MILD SCATTERED PLAQUING. OCCLUSION OF DISTAL ANTERIOR TIBIAL ARTERIES AT THE LEVEL OF THE ANKLES. OTHERWISE NO COMPELLING DUPLEX DOPPLER SONOGRAPHIC EVIDENCE OF HEMODYNAMICALLY SIGNIFICANT STENOSIS BILATERALLY. <Electronically signed by Baldemar Boyd > 07/29/20 [id number]
== END ==
LOC: M RAD 10:56
PROVIDERS: ATTEND Physician Assistant
DX: I70.203 Unspecified atherosclerosis of native arteries of extremities, bilateral legs (principal); F17.210 Nicotine dependence, cigarettes, uncomplicated; M79.606 Pain in leg, unspecified

== ENCOUNTER → 2020-08-15 | Outpatient (CLI) | payer MEDICARE ==
[2020-08-15 16:12] LABS: BASO % 0.4 % (0.0-1.0); EOS # 0.2 10^3/uL (0.0-0.5); HEMATOCRIT 38.1 % (36.0-47.0); HEMOGLOBIN 12.1 g/dl (12.0-15.5); LYMPH # 1.8 10^3/uL (1.5-5.0); LYMPH % 23.8 % (24.0-44.0); MEAN CORPUSCULAR HEMOGLOBIN 35.3 pg (27.0-33.0); MEAN CORPUSCULAR HGB CONC 31.8 g/dl (32.0-36.5); MEAN CORPUSCULAR VOLUME 111.1 fl (80.0-96.0); MONO # 0.5 10^3/uL (0.0-0.8); MONO % 6.4 % (0.0-5.0); NEUTROPHILS # 4.9 10^3/uL (1.5-8.5); NEUTROPHILS % 66.4 % (36.0-66.0); PLATELET COUNT, AUTOMATED 158 10^3/uL (150-450); RED BLOOD COUNT 3.43 10^6/uL (4.00-5.40); WHITE BLOOD COUNT 7.4 10^3/uL (4.0-10.0)
[2020-08-15 16:28] LABS: HEMOGLOBIN A1c 5.9 %
[2020-08-15 16:49] LABS: ALBUMIN 3.5 GM/DL (3.2-5.2); BILIRUBIN,TOTAL 0.3 MG/DL (0.2-1.0); CALCIUM LEVEL 8.7 MG/DL (8.8-10.2); CHOLESTEROL RISK RATIO 3.875 (<5); CREATININE FOR GFR 1.31 MG/DL (0.55-1.30); FREE T4 1.04 NG/DL (0.76-1.46); GLOMERULAR FILTRATION RATE 43.5 (>45); POTASSIUM SERUM 3.9 MEQ/L (3.5-5.1); THYROID STIMULATING HORMONE 4.39 uIU/ML (0.358-3.740); TOTAL PROTEIN 6.9 GM/DL (6.4-8.2)
[2020-08-17 15:07] LABS: H PYLORI SERUM QUANT IGA <9.0 units (0.0-8.9); H PYLORI SERUM QUANT IGM <9.0 units (0.0-8.9)
== END ==
LOC: M WUC 12:42
PROVIDERS: ATTEND Nurse Practitioner Family
DX: R19.7 Diarrhea, unspecified (principal); E11.9 Type 2 diabetes mellitus without complications; E03.9 Hypothyroidism, unspecified; E78.2 Mixed hyperlipidemia; R10.13 Epigastric pain; R56.9 Unspecified convulsions

== ENCOUNTER → 2020-08-15 | Outpatient (CLI) | payer MEDICARE ==
[2020-08-19 14:08] LABS: TOPIRAMATE LEVEL 15.2 ug/mL (2.0-25.0)
== END ==
LOC: M WUC 12:39
PROVIDERS: ATTEND Physician Assistant Medical
DX: R56.9 Unspecified convulsions (principal)

== ENCOUNTER → 2020-08-16 | Outpatient (REF) | payer MEDICARE, MEDICAID | LOC: M LAB REF 15:54 | PROVIDERS: ATTEND Nurse Practitioner Family | DX: R19.7 Diarrhea, unspecified (principal); E11.9 Type 2 diabetes mellitus without complications; E03.9 Hypothyroidism, unspecified; R10.13 Epigastric pain ==

== ENCOUNTER 2020-11-06 11:30 | Outpatient (RCR) | payer MEDICARE, MEDICAID | END 2020-11-10 | LOC: M PT 11:30 | PROVIDERS: ATTEND Nurse Practitioner Family | DX: M25.512 Pain in left shoulder (principal) ==

== ENCOUNTER 2020-11-20 11:28 | Outpatient (RCR) | payer MEDICARE, MEDICAID | END 2020-12-08 | LOC: M PT 11:28 | PROVIDERS: ATTEND Nurse Practitioner Family | DX: M25.512 Pain in left shoulder (principal) ==

== ENCOUNTER → 2020-11-22 | Outpatient (REF) | payer MEDICARE, MEDICAID | LOC: M LAB REF 18:10 | PROVIDERS: ATTEND Nurse Practitioner Family | DX: R19.7 Diarrhea, unspecified (principal); K59.00 Constipation, unspecified; K21.9 Gastro-esophageal reflux disease without esophagitis; R10.84 Generalized abdominal pain; K92.1 Melena; Z12.11 Encounter for screening for malignant neoplasm of colon; F17.290 Nicotine dependence, other tobacco product, uncomplicated ==

== ENCOUNTER → 2020-11-30 | Outpatient (CLI) | payer MEDICARE, MEDICAID | LOC: M LABSMTC 09:18 | PROVIDERS: ATTEND Specialist | DX: Z20.822 Contact with and (suspected) exposure to COVID-19 (principal); R19.7 Diarrhea, unspecified; K59.00 Constipation, unspecified; K21.9 Gastro-esophageal reflux disease without esophagitis; R10.84 Generalized abdominal pain; K92.1 Melena; Z12.11 Encounter for screening for malignant neoplasm of colon ==

== ENCOUNTER → 2020-12-14 | Outpatient (CLI) | payer MEDICARE, MEDICAID | LOC: M LABSMTC 09:46 | PROVIDERS: ATTEND Nurse Practitioner Family | DX: Z20.822 Contact with and (suspected) exposure to COVID-19 (principal); K59.00 Constipation, unspecified; K21.9 Gastro-esophageal reflux disease without esophagitis; R10.84 Generalized abdominal pain; K92.1 Melena; Z12.11 Encounter for screening for malignant neoplasm of colon ==

== ENCOUNTER → 2020-12-18 | Outpatient (CLI) | payer MEDICARE, MEDICAID ==
--- NOTE | 2020-12-18 08:27 | REP ---
INDICATION: R10.84 ABD PAIN COMPARISON: None TECHNIQUE: Real time B-mode hui scale ultrasound examination using curved array transducer. FINDINGS: Liver, spleen, and pancreas are normal in contour, size, echogenicity, and overall appearance. No focal hepatic, splenic or pancreatic lesions are identified. Gallbladder is normal without gallstones, wall thickening, or pericholecystic fluid. No biliary ductal dilatation is appreciated and the common bile duct measures 2.0 mm in diameter. The bilateral kidneys are normal in reniform shape without hydronephrosis or obvious significant abnormality. Right kidney measures 9.2 x 4.2 x 4.5 cm. Left kidney measures 9.7 x 4.6 x 5.0 cm. Abdominal aorta measures 2.3 cm maximal diameter. No obvious ascites. IMPRESSION: Essentially normal age-appropriate complete abdominal ultrasound. <Electronically signed by Jose Long > 12/18/20 0850
== END ==
LOC: M RAD 07:16
PROVIDERS: ATTEND Specialist
DX: R10.84 Generalized abdominal pain (principal); R19.7 Diarrhea, unspecified; K59.00 Constipation, unspecified; K21.9 Gastro-esophageal reflux disease without esophagitis; Z12.11 Encounter for screening for malignant neoplasm of colon; F17.290 Nicotine dependence, other tobacco product, uncomplicated

== ENCOUNTER → 2021-01-15 | Outpatient (CLI) | payer MEDICARE, MEDICAID ==
--- NOTE | 2021-01-16 09:04 | REP ---
INDICATION: CLAUDICATION COMPARISON: 07/29/2020 TECHNIQUE: Real time hui scale and color Doppler evaluation of the bilateral lower extremity arterial vasculature using linear high frequency transducer. FINDINGS: Moderate partially calcified atheromatous plaquing noted bilaterally. Right SARAH equals 0.9. Left SARAH was not obtained. Right lower extremity demonstrates primarily biphasic arterial waveforms and triphasic wave pattern at the proximal posterior tibial artery. No focal discernible stenosis is appreciated. Left lower extremity demonstrates biphasic arterial wave patterns along with focal reversal of flow in the distal anterior tibial artery. No focal discernible stenosis is appreciated. Peak systolic velocities (cm/sec) Common femoral artery: Right 146; Left 139 Profunda femoris: Right 312; Left 117 SFA (proximal): Right 163; Left 117 SFA (mid): Right 161; Left 137 SFA (distal): Right 148; Left 125 Popliteal artery: Right 78; Left 67 ARCHANA (prox.): Right 82; Left 56 Tibioperoneal trunk: Right 90; Left 85 HUMAN RESOURCES OFFICE MANAGER (prox.): Right 129; Left 129 HUMAN RESOURCES OFFICE MANAGER (distal): Right 104; Left 117 ARCHANA (distal): Right 87; Left reversed at 44 IMPRESSION: Moderate atherosclerotic changes noted bilaterally without evidence for focal stenosis. <Electronically signed by Jose Long > 01/16/21 0901
== END ==
LOC: M RAD 14:41
PROVIDERS: ATTEND Surgery Vascular Surgery
DX: I70.203 Unspecified atherosclerosis of native arteries of extremities, bilateral legs (principal); R09.89 Other specified symptoms and signs involving the circulatory and respiratory systems

== ENCOUNTER → 2021-01-24 | Outpatient (CLI) | payer MEDICARE, MEDICAID ==
--- NOTE | 2021-01-24 12:51 | REP ---
INDICATION: HYDROCEPHALUS. COMPARISON: None. TECHNIQUE: Axial CT images with multiplanar reformations. FINDINGS: There are number of ill-defined hypodensities within the brain, left frontal, right frontal, right centrum semiovale toward the convexity, right temporal, and left cerebellar. Some of these lesions demonstrate a rounded central lesion. The findings are consistent with metastatic disease. No hemorrhage. There is local mass effect but no midline shift. No extra-axial collections. There is evidence of prior surgery of the calvarium, paranasal sinuses and mastoid air cells are clear. 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 There is mild local mass effect but no midline shift. No hemorrhage. MRI with contrast recommended. The findings were discussed with Dr. Bruno at the time of interpretation. <Electronically signed by Allen Williamson > 01/24/21 [id number]
== END ==
LOC: M RAD 12:06
PROVIDERS: ATTEND Neurological Surgery
DX: G91.9 Hydrocephalus, unspecified (principal)

== ENCOUNTER → 2021-02-14 | Outpatient (CLI) | payer MEDICARE, MEDICAID ==
[~2021-02-14] MED LIST changes: +DECA4TAB PO; +DEXA2TA PO; +FAMO40TA3 PO; +MEMA10TA19 PO; +MEMA1TAB3 PO
--- NOTE | 2021-02-14 13:25 | RADONC.CN ---
Radiation Oncology Hx/Consult Radiation Oncology Consult Date of Service: February 14, 2021 Pt Identifier Bernarda Murdock is a 65 year old female former smoker with a history of prior stroke as well as CLOTH COVERED HELMET PULLER shunt placement who has newly diagnosed brain metastases, from an as yet unconfirmed, but suspected primary lung cancer. She is seen today at the request of Dr. Powell for management of her brain metastases. Diagnosis/Treatment History Oncologic History Followed by neurology for CLOTH COVERED HELMET PULLER shunt as well as migraines, prior CVA and seizure disorder. CT head on 01/24/21 was done per neurosurgeon (Dr. Bruno) to assess her shunt and revealed a 2.6 x 2 cm right frontal lesion, 1.2 x 1 cm left basal ganglia, 1.4 x 1.1 cm left frontal, 1.2 x 1.1 right temporal, and 2.3 x 1.4 cm left cerebellar. No body imaging has been done. Interval History Here with her daughter. At baseline Bernarda has short term memory deficits and some upper and lower extremity weakness. She uses a walker for ambulation. She is a current smoker. She reports that she has been having increased LLE weakness, such that she can't lift it against gravity. Her other extremities are at baseline strength she reports. She is unable to have MRI due to her CLOTH COVERED HELMET PULLER shunt. Past Medical History: DVT COPD Depression DMII CAD HTN Kidney stones CVA Migraine Seizure disorder Hypothyroid Past Surgical History: CLOTH COVERED HELMET PULLER shunt Colonoscopy Family History: Mother-lung cancer Social History: Current 1/2 ppd smoker 50 pack year history Does not drink Allergies / Meds Allergies: Coded Allergies: MS - Penicillins (Verified Allergy, Mild, RASH, 12/27/14) MS - Sulfa Antibiotics (Verified Allergy, Mild, RASH, 12/27/14) Home Meds Active Scripts Doxycycline Hyclate (Doxycycline Hyclate) 100 Mg Tab, 100 MG PO BID, #14 TAB Prov:SP RUIZ PA-C 12/05/16 Reported Medications Famotidine (Famotidine) 40 Mg Tablet, 40 MG PO DAILY 02/14/21 Cyanocobalamin (Vitamin B-12) (Vitamin B-12) 1,000 Mcg Tab, 1000 MCG PO DAILY, TAB 12/01/16 Nortriptyline HCl (Nortriptyline HCl) 10 Mg Cap, 20 MG PO QHS, CAP 12/01/16 Levothyroxine Sodium (Levoxyl) 88 Mcg Tab, 88 MCG PO DAILY, TAB 12/01/16 Topiramate (Topamax) 100 Mg Tab, 150 MG PO BID, TAB 05/19/16 Atorvastatin Calcium (Lipitor) 10 Mg Tab, 10 MG PO DAILY, TAB 05/19/16 Sitagliptin Phosphate (Januvia) 100 Mg Tab, 100 MG PO DAILY, TAB 05/19/16 Albuterol Sulfate (Proair Hfa) 108 Mcg/Act Aer, 2 PUFFS INH Q4HP PRN for SHORTNESS OF BREATH, AER 12/27/14 Paroxetine HCl (Paxil) 40 Mg Tab, 40 MG PO DAILY, TAB 12/27/14 Bisoprolol Fumarate (Bisoprolol Fumarate) 5 Mg Tab, 5 MG PO DAILY, TAB 12/27/14 Discontinued Reported Medications Nicotine (Nicotine Step 2) 14 Mg/24 Hr Dis, 14 MG TD DAILY, PATCH APPLIED TO RIGHT ARM 12/01/16 Iron (Iron) 325 Mg Tab, 325 MG PO QHS, TAB 12/01/16 Warfarin Sodium (Warfarin Sodium) 7.5 Mg Tab, 7.5 MG PO 3XW, TAB QPM: MON, WED, FRI 12/01/16 Warfarin Sodium (Coumadin) 5 Mg Tab, 5 MG PO 4XWK, TAB QPM: SUN, , TH, SAT 05/19/16 Review of Systems Constitutional: Reports: Fatigue, Weight Loss Eyes: Denies: Pain HEENT: Denies: Head Aches Skin: Denies: Rash Pulmonary: Reports: Dyspnea, Cough Cardiovascular: Denies: Chest Pain Gastrointestinal: Denies: Nausea, Vomiting Genitourinary: Denies: Retention Hematologic: Denies: Bruising Musculoskeletal: Denies: Neck pain, Back pain Neurological: Reports: Weakness, Incoordination; Denies: Change in Speech Psych: Reports: Mood Normal, Memory Issues Vital Signs Wt 139 lbs T 97.1 P 85 RR 18 BP 134/67 O2 99% Pain 0 Fatigue 0 General Exam: Positive: Alert, Cooperative, No Acute Distress Eye Exam: Positive: PERRLA, Conjunctiva & lids normal, EOMI ENT EXAM: Positive: Atraumatic, Mucous membr. moist/pink, Pharynx Normal, Tongue Midline Neck Exam: Positive: Supple; Negative: Lymphadenopathy Chest Exam: Positive: Clear to auscultation, Normal air movement Heart Exam: Positive: Rate Normal, Regular Rhythm Abdomen Exam: Positive: Normal bowel sounds, Soft Extremity Exam: Negative: Edema Skin Exam: Positive: Nl turgor and temperature Neuro Exam: Positive: Normal Speech, Cranial Nerves 3-12 NL, Other (Increased tone LLE. Strength BL UE 4/5 throughout. RLE 4/5. LLE 3/5 hip flexion, 3/5 knee extension. No clonus at ankles BL. Reflexes not assessed. Rapid alternating movements intact. No dysmetria finger to nose with RUE, moderate dysmetria with finger to nose LUE. No pronator drift) Diagnostic and Laboratory Diagnostic Review Radiologic images, relevant labs and pathology reports were personally reviewed and discussed with Ms. Murdock. Assessment and Plan Impression Ms. Murdock is a 65 year old female former smoker with a history of prior stroke as well as CLOTH COVERED HELMET PULLER shunt placement who has newly diagnosed brain metastases, from an as yet unconfirmed, but suspected primary lung cancer. She is seen today at the request of Dr. Powell for management of her brain metastases. Stage Stage IV suspect lung cancer based on history Performance Status ECOG 2 Plan We had an extensive discussion with Ms. Murdock regarding the diagnosis at hand and available therapeutic options. She has several moderate-sized lesion on her CT brain, I count 5 in number at this time. She is unable to undergo MRI due to her CLOTH COVERED HELMET PULLER shunt. She has underlying memory deficits and poor functional status at this time. With new-onset left leg weakness and LUE dysmetria and/or weakness which correlate well with the right frontal metastasis I see on her scan. I suggest a trial of steroid to resolve some of the edema and to repeat a CT head with contrast in the coming days. This will be demonstrative. If there are a limited number of metastatic lesions (<10) then I would likely offer SRS upfront and reserve WBRT for florid progression. If additional lesions are revealed in excess of what I am comfortable treating with SRS, then WBRT would be the up-front option. We discussed the logistics of receiving radiation therapy in detail including the need for a 1-time planning session. The can occur once we have the CT with contrast. Dr. Powell is ordering scans of the body and will work out a plan for histologic diagnosis. Finally because of her current weakness and debility, I suggested referral to PT/OT, she agreed. I also suggested referral to palliative care for symptom management, she agreed. After discussing the risks, benefits and alternatives to radiation therapy, Ms. Murdock was amenable to pursuing radiotherapy after repeat imaging. All questions were answered to the patient's satisfaction. We instructed the patient that if there were any questions,concerns or changes in clinical status in the interim to contact us. Recommendations Repeat CT head with contrast Pending repeat CT, SRS 30 Gy 5 fraction, versus WBRT (based on number of lesions) Body imaging / biopsy plan per Dr. Powell PT and PC referrals Decadron 4 mg daily x 7 days Billing Statement Total time of [49] minutes was spent preparing for the visit [2], obtaining HPI [6], examining the patient [5], reviewing diagnostic tests [6], discussing management options [18], coordinating care [4], and writing this note [8]. REBEKAH LUCIANO MD February 14, 2021 13:25
== END ==
LOC: M ONCR 09:43
PROVIDERS: ATTEND General Practice
DX: C79.31 Secondary malignant neoplasm of brain (principal)

== ENCOUNTER → 2021-02-17 | Outpatient (CLI) | payer MEDICARE, MEDICAID ==
[~2021-02-17] MED LIST changes: +ISOVUE-370 76% 100ML VIAL As Ordered ONE
--- NOTE | 2021-02-17 11:01 | REPVR ---
PROCEDURE INFORMATION: Exam: CT Head Without And With Contrast Exam date and time: 02/17/2021 10:36 AM Age: 65 years old Clinical indication: Pain; Other: Mets; Additional info: Brain mets TECHNIQUE: Imaging protocol: Computed tomography of the head without and with intravenous contrast. Radiation optimization: All CT scans at this facility use at least one of these dose optimization techniques: automated exposure control; mA and/or kV adjustment per patient size (includes targeted exams where dose is matched to clinical indication); or iterative reconstruction. Contrast material: ISOVUE 370; Contrast volume: 75 ml; Contrast route: INTRAVENOUS (IV); COMPARISON: CT Head without contrast 01/24/2021 12:16 PM FINDINGS: Brain: Examination again demonstrates multiple ill-defined hypodense intracranial metastasis surrounded by moderate degree of hypodense vasogenic edema, overall unchanged in size and appearance since the previous study. The largest lesion is located in the left deep cerebellar white matter measuring approximately 2.7 cm in diameter. No acute infarction, acute hemorrhage or midline shift is seen. Cerebral ventricles: The ventricular system is not dilated and is appropriate for the patient's age. Bones/joints: Stable craniotomy and postsurgical changes in the frontal bone.No acute fracture or dislocation is seen. Paranasal sinuses: Visualized sinuses are unremarkable. No fluid levels. Mastoid air cells: Visualized mastoid air cells are well aerated. Soft tissues: Unremarkable. IMPRESSION: Examination again demonstrates multiple ill-defined hypodense intracranial metastasis surrounded by moderate degree of hypodense vasogenic edema, overall unchanged in size and appearance since the previous study. The largest lesion is located in the left deep cerebellar white matter measuring approximately 2.7 cm in diameter. No acute infarction, acute hemorrhage or midline shift is seen. There has been no adverse interval change since the previous study. Electronically signed by: Braeden Sousa On 02/17/2021 11:01:43 AM
== END ==
LOC: M RAD 10:16
PROVIDERS: ATTEND General Practice
DX: C79.31 Secondary malignant neoplasm of brain (principal)
CPT/HCPCS: 70470; Q9967

== ENCOUNTER → 2021-02-18 | Outpatient (CLI) | payer MEDICARE, MEDICAID ==
[~2021-02-18] MED LIST changes: -ISOVUE-370 76% 100ML VIAL As Ordered ONE
--- NOTE | 2021-02-18 12:02 | RADENCPD ---
Date/Time of Encounter Date of Encounter: February 18, 2021 Time of Encounter: 11:57 Encounter Met with Bernarda and her supportive children to discuss the CT head with IVC results. This studies revealed additional metastases compared to the prior non-contrast study. In total I counted 14 lesions. Because of the extent of the intracranial disease, I recommend WBRT at this time over SRS. This would be 30 Gy in 10 fractions. I recommended she start namenda as this has some neuro-protective benefit on RTOG 0614. I will send the prescription for the titration pack as well as the standing dose of 10 mg BID. She notes some improvement in her left leg weakness with decadron 4 mg. I efren mmended she finish the 7 day course I prescribed, and then decrease to standing 2 mg daily which we can keep going through the end of WBRT. I will then taper her off decadron if possible. Simulation for WBRT will occur in the next 1-2 days. Treatment can begin on 02/24/21. We reviewed the side effects of short term memory and executive dysfunction as well as fatigue and hair loss. She agreed to proceed. If she has intracranial progression post-WBRT, then SRS salvage is a viable option. Plan: WBRT Namenda Decadron 2 mg daily through end of WBRT REBEKAH LUCIANO MD February 18, 2021 12:02
== END ==
LOC: M ONCR 09:55
PROVIDERS: ATTEND General Practice
DX: C79.31 Secondary malignant neoplasm of brain (principal)

== ENCOUNTER → 2021-03-03 | Outpatient (CLI) | payer MEDICARE, MEDICAID | LOC: M PLARAD 13:25 | PROVIDERS: ATTEND Internal Medicine Hematology & Oncology | DX: G93.9 Disorder of brain, unspecified (principal) | CPT/HCPCS: 78815; A9552 ==

== ENCOUNTER → 2021-03-04 | Outpatient (CLI) | payer MEDICARE, MEDICAID ==
--- NOTE | 2021-03-04 16:16 | REPVR ---
PROCEDURE INFORMATION: Exam: CT Lumbar Spine Without Contrast Exam date and time: 03/04/2021 3:25 PM Age: 65 years old Clinical indication: Low back pain; Additional info: Lbp TECHNIQUE: Imaging protocol: Computed tomography images of the lumbar spine without contrast. Radiation optimization: All CT scans at this facility use at least one of these dose optimization techniques: automated exposure control; mA and/or kV adjustment per patient size (includes targeted exams where dose is matched to clinical indication); or iterative reconstruction. COMPARISON: CT Spine, lumbar w/o contrast 01/02/2015 1:32 PM The report from the previous exam was not immediately available. FINDINGS: Tubes, catheters and devices: An intrathecal catheter is again noted. The catheter enters between the spinous processes of L1 and L2, ascends within the left lateral aspect of the canal to the superior T10 level, crosses over to the right aspect of the canal, and descends within the canal, terminating at the inferior T11 level. The prior lumbar spine CT did not extend above the T12 level. Therefore, it is uncertain if the catheter position has changed. Vertebrae: Bone mineralization is decreased, suggestive of osteopenia. A transitional vertebra is present at the lumbosacral junction. This was previously considered a partially sacralized L5 level. A unilateral left-sided articulation between an enlarged left L5 transverse process and the sacrum is noted. A hypoplastic right rib and elongated left transverse process is noted at T12. There is no acute fracture. There is minimal anterolisthesis of L4 on L5 due to severe facet arthropathy. Discs/Spinal canal/Neural foramina: Moderate degenerative changes of the lumbar spine are present. Moderate diffuse circumferential disc bulging is present at L3-L4 and L4-L5, causing mild canal stenosis. Moderate bilateral neural foraminal narrowing is present at L3-L4. There is moderate left and moderate/severe right neural foraminal narrowing at L4-L5. Adrenals: There is nonspecific thickening of the left adrenal gland. An underlying 2 cm left adrenal nodule is likely present. An 18 mm adenoma appear to be present within the left adrenal gland on the prior CT. Therefore, this likely represents a slight interval enlargement and change in density of the adenoma. Kidneys and ureters: There is a nonspecific 14 mm exophytic hyperdense lesion arising from the inferior right kidney. A partially imaged 9 mm exophytic hyperdense lesion is also seen arising from the mid right kidney. There is an 8 mm exophytic isodense lesion arising from the mid/superior right kidney. These are nonspecific, but could represent hemorrhagic cysts or solid lesions. These were not identified on the prior exam and may be new. Further evaluation is recommended. Vasculature: Atherosclerotic calcifications are noted within the aorta and its branches. Soft tissues: Unremarkable. IMPRESSION: 1. No acute abnormality. 2. Small nonspecific right renal lesions. Further evaluation is recommended. 3. Chronic findings as discussed above. COMMENTS: 1. Consistent with the [employer]'s Incidental Findings Committee white paper (J Am Maximilian Radiol 2017): For any incidental adrenal lesion greater than 1 cm but less than 4 cm classified in this report as benign, likely benign, or containing fat (including classification as an adenoma or myelolipoma), no follow-up imaging is recommended per consensus recommendations based on imaging criteria. Further lab evaluation could be pursued if warranted based on clinical findings. 2. Consistent with the [employer]'s Incidental Findings Committee white paper (J Am Maximilian Radiol 2018): Any incidental renal lesion less than 1 cm or classified as too small to characterize, or any incidental cystic renal lesion characterized as simple-appearing, is likely benign. No follow-up imaging is recommended for these lesions per consensus recommendations based on imaging criteria. Electronically signed by: Fei Yao On 03/04/2021 16:16:14 PM
== END ==
LOC: M RAD 15:14
PROVIDERS: ATTEND Physician Assistant Medical
DX: M54.5 Low back pain (principal)

== ENCOUNTER 2021-03-06 12:57 | Outpatient (RCR) | payer MEDICARE, MEDICAID ==
[2021-03-11] MEDS ORDERED: DEXA1TA PO (13:54)
== END 2021-03-10 ==
LOC: M ONCR 12:57
PROVIDERS: ATTEND General Practice
DX: C79.31 Secondary malignant neoplasm of brain (principal)

== ENCOUNTER 2021-03-12 13:15 | Outpatient (RCR) | payer MEDICARE, MEDICAID ==
[~2021-03-12 13:15] MED LIST changes: +DEXA1TA PO
[2021-03-13] MEDS ORDERED: ATIV1TAB7 PO (15:57)
--- NOTE | 2021-03-18 16:14 | RADENCPD ---
Date/Time of Encounter Date of Encounter: Mar 18, 2021 Time of Encounter: 16:06 Encounter Spoke with Kenny (son) regarding his mom's steroids and PET-CT. She saw neurology today regarding the seizures and her topamax was increased. I discussed resuming the plan to wean off decadron completely. Starting tomorrow she will take 1 mg for 5 days, then stop. 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 As for extrathoracic disease she has a left adrenal metastasis and uptake in the left pectoral muscle without an obvious correlate on CT. I discussed with Kenny that confirmatory biopsy is needed, percutaneous biopsy would be preferred in her case, but the adrenal lesion would be high risk and the left pectoral focus of uptake may be incidental as it lacks a CT correlate, therefore I think EBUS guided biopsy would be of the highest yield for diagnosis. I will reach out to pulmonology to facilitate this. In the meantime I encouraged Kenny to call with any additional concerns. They are seeing Dr. Powell on Wednesday in addition. KENNY LUCIANO MD Mar 18, 2021 16:14
[2021-03-24] MEDS ORDERED: SYMB80INH INH (13:18)
[2021-03-24] MEDS ORDERED: SPIR1CAP INH (13:18)
[2021-03-24] MEDS ORDERED: OXYC1TAB23 PO ×2 (13:46→13:52)
[2021-04-01] MEDS ORDERED: ASPI81TA26 PO (10:13)
[2021-04-01] MEDS ORDERED: OMEP40CA4 PO (10:21)
[2021-04-01] MEDS ORDERED: DEXA1TA PO (10:42)
--- NOTE | 2021-04-01 10:47 | RADENCPD ---
Date/Time of Encounter Date of Encounter: Apr 01, 2021 Time of Encounter: 10:42 Encounter Bernarda came in today for a brief follow up due to concern from her home organizer and son Rebekah for increased LLE weakness. On exam she has 5/5 strength in the RUE and RLE, 4/5 strength in the LUE, and 3/5 strength in the LLE, NB she is barely antigravity in the hip flexors on the left. She has no GOODMAN, N, V. Appetite is good. Breathing is at baseline. No seizures since topamax increased Only additional complaints today are some intermittent left ear pain and some dry ness of the scalp. On exam the BL external auditory canals are clear, there is no effusion or inflammation present behind the TM on the left. There are CTCAE grade 1 patches of mild erythema and dryness about the scalp as well as expected vertex alopecia s/p WBRT. I recommended reinstating decadron 2 mg daily for 7 days empirically as her weakness may be due to recrudescent edema from her brain metastases. Rebekah will call after day 7 to report on her symptoms, if improved, I would give a prolonged taper. This should not interfere with her pending biopsy. I also discussed she would benefit from a hospital bed at home due to her poor performance status and continuing weakness. Will provide Rx for this. REBEKAH LUCIANO MD Apr 01, 2021 10:46
== END 2021-04-09 ==
LOC: M ONCR 13:15
PROVIDERS: ATTEND General Practice
DX: C79.31 Secondary malignant neoplasm of brain (principal)

== ENCOUNTER → 2021-03-17 | Outpatient (CLI) | payer MEDICARE, MEDICAID ==
[~2021-03-17] MED LIST changes: +ATIV1TAB7 PO
--- NOTE | 2021-03-18 09:51 | REP ---
INDICATION: History of metastatic brain disease assess for potential primary focus COMPARISON: None TECHNIQUE: After the intravenous administration of 8.69 mCi of FDG 18 triplane whole-body PET-CT was performed from the skull base to mid thigh. FINDINGS: There is right paratracheal hypermetabolic adenopathy with maximal SUV value of 6.27. There is additional mediastinal adenopathy with hypermetabolic activity in the subcarinal region having maximal SUV value of 8.42. There is left hilar adenopathy which is hypermetabolic with maximal SUV value of 8.61. There is a hypermetabolic nodule seen in the left adrenal gland which measures approximately 2.5 cm and has a maximal SUV value of 9.09. There is a focus of abnormal hypermetabolic activity seen in the left pectoralis major muscle having a maximal SUV value of 6.4. The nondiagnostic low-dose screening CT portion of this exam does suggest slight thickening of the muscle at that location. There is a focal area of abnormal hypermetabolism in the right obturator externus muscle having a maximal SUV value of 6.09. The nondiagnostic low-dose CT portion of this exam suggests some focal muscular thickening in that region. There is a focus of abnormal hypermetabolism seen in the rectus femorals muscle on the left at the level of the mid thigh and having a maximal SUV value of 4.33. There is hypermetabolism in the trochanteric tendono bursal region of each hip but this is likely secondary to trochanteric tendono bursitis. There are other scattered patchy and somewhat diffuse areas of increased muscular activity both hypermetabolic and non hypermetabolic but difficult if at all possible to differentiate focal abnormal activity due to disease versus improper post injection resting. There are multifocal areas of hypermetabolism seen in the axial skeleton too numerous to individually assess but for the most part these areas are just hypermetabolic with SUV values maximally ranging from 2.5-2.71. IMPRESSION: There is rather extensive abnormal hypermetabolic activity seen in multiple sites of varying degrees as described above in detail. The exact etiology is uncertain and needs to be further investigated clinically. <Electronically signed by Vic Fuchs > 03/18/21 [id number]
== END ==
LOC: M PLARAD 15:27
PROVIDERS: ATTEND Internal Medicine Hematology & Oncology
DX: C79.31 Secondary malignant neoplasm of brain (principal)
CPT/HCPCS: 78816; A9552

== ENCOUNTER → 2021-03-19 | Outpatient (REF) | payer MEDICARE, MEDICAID ==
[2021-03-19 17:36] LABS: BASO % 0.1 % (0.0-1.0); EOS % 0.2 % (0.0-3.0); HEMATOCRIT 21.9 % (36.0-47.0); LYMPH # 0.5 10^3/uL (1.5-5.0); LYMPH % 6.3 % (24.0-44.0); MEAN CORPUSCULAR HEMOGLOBIN 27.4 pg (27.0-33.0); MEAN CORPUSCULAR HGB CONC 27.4 g/dl (32.0-36.5); MONO # 0.5 10^3/uL (0.0-0.8); MONO % 5.4 % (2.0-8.0); NEUTROPHILS # 7.3 10^3/uL (1.5-8.5); NEUTROPHILS % 86.9 % (36.0-66.0); PLATELET COUNT, AUTOMATED 155 10^3/uL (150-450); RED BLOOD COUNT 2.19 10^6/uL (4.00-5.40); WHITE BLOOD COUNT 8.4 10^3/uL (4.0-10.0)
[2021-03-19 18:16] LABS: CALCIUM LEVEL 8.6 MG/DL (8.8-10.2); CREATININE FOR GFR 1.08 MG/DL (0.55-1.30); GLOMERULAR FILTRATION RATE 54.4 (>45); POTASSIUM SERUM 4.2 MEQ/L (3.5-5.1)
[2021-03-19 18:38] LABS: INR 0.99; PROTHROMBIN TIME 13.3 SECONDS (12.5-14.3)
[2021-03-19 18:39] LABS: PARTIAL THROMBOPLASTIN TIME 25.2 SECONDS (24.2-38.5)
== END ==
LOC: M LAB REF 16:47
PROVIDERS: ATTEND Internal Medicine Pulmonary Disease
DX: J44.9 Chronic obstructive pulmonary disease, unspecified (principal); Z79.01 Long term (current) use of anticoagulants

== ENCOUNTER 2021-03-20 14:55 | Outpatient (CLI) | payer MEDICARE, MEDICAID ==
[~2021-03-20] VITALS: Ht 147.3 cm; Wt 62.3 kg
[2021-03-20] MEDS ORDERED: diphenhydrAMINE 25MG CAP PO ONE (15:25)
[2021-03-20] MEDS ORDERED: SODIUM CHLORIDE 0.9% INJ 10 ML SYR IV PRN (15:25)
[2021-03-20] MEDS ORDERED: ACETAMINOPHEN TAB 650MG DOSE (2X325MG) PO ONE (15:25)
[2021-03-20 15:30] VITALS: BP 136/65
[2021-03-20 18:15] VITALS: BP 166/68
[2021-03-21] MEDS ORDERED: SODIUM CHLORIDE 0.9% INJ 10 ML SYR IV SCH (09:00)
[2021-03-24] MEDS ORDERED: SYMB80INH (13:18)
== END 2021-03-20 18:15 | disposition home or self-care (01) ==
LOC: M INFU 14:55
PROVIDERS: ATTEND Internal Medicine Hematology & Oncology
DX: C79.31 Secondary malignant neoplasm of brain (principal)
CPT/HCPCS: 36415; 36430; 86850; 86900; 86901; 86920; P9016

== ENCOUNTER → 2021-03-27 | Outpatient (REF) | payer MEDICARE, MEDICAID ==
[~2021-03-27] MED LIST changes: +ASPI81TA26 PO; +OMEP40CA4 PO; +OXYC1TAB23 PO; +SPIR1CAP INH; +SYMB80INH INH
[2021-03-31 14:08] LABS: TOPIRAMATE LEVEL 26.6 ug/mL (2.0-25.0)
== END ==
LOC: M SHH 15:51
PROVIDERS: ATTEND Physician Assistant Medical
DX: G40.909 Epilepsy, unspecified, not intractable, without status epilepticus (principal)

== ENCOUNTER → 2021-03-31 | Outpatient (CLI) | payer MEDICARE, MEDICAID ==
[2021-03-31 17:11] LABS: BASO % 0.4 % (0.0-1.0); EOS % 0.4 % (0.0-3.0); HEMATOCRIT 28.2 % (36.0-47.0); HEMOGLOBIN 8.3 g/dl (12.0-15.5); LYMPH # 0.6 10^3/uL (1.5-5.0); LYMPH % 12.5 % (24.0-44.0); MEAN CORPUSCULAR HEMOGLOBIN 28.7 pg (27.0-33.0); MEAN CORPUSCULAR HGB CONC 29.4 g/dl (32.0-36.5); MEAN CORPUSCULAR VOLUME 97.6 fl (80.0-96.0); MONO # 0.3 10^3/uL (0.0-0.8); MONO % 6.6 % (2.0-8.0); NEUTROPHILS # 3.8 10^3/uL (1.5-8.5); PLATELET COUNT, AUTOMATED 151 10^3/uL (150-450); RED BLOOD COUNT 2.89 10^6/uL (4.00-5.40); WHITE BLOOD COUNT 4.9 10^3/uL (4.0-10.0)
== END ==
LOC: M WUC 13:00
PROVIDERS: ATTEND Internal Medicine Pulmonary Disease
DX: R91.8 Other nonspecific abnormal finding of lung field (principal)

== ENCOUNTER → 2021-04-01 | Outpatient (CLI) | payer MEDICARE, MEDICAID ==
[~2021-04-01] MED LIST changes: +ACET-841 PO; -LISI2.5T2 GT; -LISI2.5T2 PO; +LISI2.5T9 GT; +LISI2.5T9 PO; +MEDI1GEL5 TOP; +NEUR100C PO; +VALA1TAB5 PO
== END ==
LOC: M ONCR 10:09 → MERGE 10:09
PROVIDERS: ATTEND General Practice
DX: C79.31 Secondary malignant neoplasm of brain (principal); Z53.9 Procedure and treatment not carried out, unspecified reason

== ENCOUNTER 2021-04-02 08:10 | Day surgery (SDC) | payer MEDICARE, MEDICAID ==
[~2021-04-02] VITALS: Ht 147.3 cm; Wt 62.3 kg
[~2021-04-02 08:10] MED LIST changes: -ACET-841 PO; +ALBUTEROL SULFATE 2.5 MG/0.5 ML INH NEB SOLN INH ONE; +LIDOCAINE 4% INJ 5ML AMP INH ONE; +LISI2.5T2 GT; +LISI2.5T2 PO; -LISI2.5T9 GT; -LISI2.5T9 PO; +LR 1,000 ML IV ONE; -MEDI1GEL5 TOP; -NEUR100C PO; -VALA1TAB5 PO
[2021-04-02] MEDS ORDERED: THROMBIN SOLN 5,000 UNITS VIAL As Ordered ONE (08:28)
[2021-04-02] MEDS ORDERED: CETACAINE SPRAY 5GM As Ordered ONE (08:28)
[2021-04-02] MEDS ORDERED: EPINEPHrine 1MG/10ML SYRINGE 1.5IN As Ordered ONE (08:28)
[2021-04-02] MEDS ORDERED: fentaNYL 100 MCG/2 ML INJECTION (J3010) As Ordered ONE (08:46)
[2021-04-02] MEDS ORDERED: LIDOCAINE 2% 100MG/5ML SDV (FOR ANES.) As Ordered ONE (08:46)
[2021-04-02] MEDS ORDERED: dexameTHASONE 4 MG/ML 1ML VIAL (J1100 PER 1MG) As Ordered ONE (08:46)
[2021-04-02] MEDS ORDERED: propofoL 200 MG/20 ML VIAL As Ordered ONE (08:46)
[2021-04-02] MEDS ORDERED: ROCURONIUM BROMIDE 50 MG/5 ML VIAL As Ordered ONE (08:46)
[2021-04-02] MEDS ORDERED: ONDANSETRON 4MG/2ML VIAL As Ordered ONE (08:46)
[2021-04-02] MEDS ORDERED: MIDAZOLAM INJ 2MG/2ML VIAL (J2250 PER 1MG) As Ordered ONE (08:47)
[2021-04-02 09:02] LABS: HEMATOCRIT 29.4 % (36.0-47.0); HEMOGLOBIN 8.6 g/dl (12.0-15.5); MEAN CORPUSCULAR HEMOGLOBIN 28.7 pg (27.0-33.0); MEAN CORPUSCULAR HGB CONC 29.3 g/dl (32.0-36.5); PLATELET COUNT, AUTOMATED 161 10^3/uL (150-450); WHITE BLOOD COUNT 5.7 10^3/uL (4.0-10.0)
[2021-04-02] MEDS ORDERED: SUGAMMADEX SODIUM 500 MG/5 ML VIAL (BRIDION) As Ordered ONE (09:55)
[2021-04-02] MEDS ORDERED: oxyCODONE 5MG TAB PO PRN (10:20)
[2021-04-02] MEDS ORDERED: ONDANSETRON 4MG/2ML VIAL IV PRN (10:20)
[2021-04-02] MEDS ORDERED: LR 1,000 ML IV SCH (10:20)
[2021-04-02] MEDS ORDERED: fentaNYL 100 MCG/2 ML INJECTION (J3010) IV PRN (10:20)
--- NOTE | 2021-04-02 10:25 | ROOR ---
Patient Name: Bernarda Murdock Procedure Date: 04/02/2021 8:57 AM Date of : 1955 Admit Type: Outpatient Age: 65 Room: Main OR Note Status: Finalized Attending MD: Angeles Gavin MD Procedure: Bronchoscopy Indications: Mediastinal adenopathy, Paratracheal adenopathy, Abnormal CT scan of chest Providers: Angeles Gavin MD (Doctor) Referring MD: Kenny Hsieh Md (Referring MD) Requesting Physician: Medicines: Lidocaine 4% via nebulizer with Albuterol 2.5 mg, General Anesthesia, Epinephrine 1 mg/10 mL topical 2 mL, Thrombin 5000 units, Cetacaine topical Complications: No immediate complications. Estimated blood loss: Minimal Procedure: Pre-Anesthesia Assessment: - Prior to the procedure, a History and Physical was performed, and patient medications and allergies were reviewed. The patient's tolerance of previous anesthesia was also reviewed. The risks and benefits of the procedure and the sedation options and risks were discussed with the patient. All questions were answered, and informed consent was obtained. Prior Anticoagulants: The patient has taken aspirin, last dose was day of procedure. ASA Grade Assessment: III - A patient with severe systemic disease. After reviewing the risks and benefits, the patient was deemed in satisfactory condition to undergo the procedure. - Patient identification and proposed procedure were verified prior to the procedure by the physician, the nurse, the anesthesiologist, the microsoft bi consultant and the switch technician. The procedure was verified in the procedure room. The Bronchoscope was introduced through the mouth, via the endotracheal tube (the patient was intubated for the procedure) and advanced to the tracheobronchial tree of both lungs. The procedure was accomplished without difficulty. The patient tolerated the procedure well. Findings: The trachea is of normal caliber. The marito is mildly splayed. The entire tracheobronchial tree was examined to at least the first subsegmental level. Bronchial mucosa and anatomy are normal; there were few mucoid secretions noted in left bronchial tree. Left upper lobe bronchial mucosa appeared mildly edematous but no clear endobronchial lesions visualized in left upper lobe. There was an obstructing endobronchial lesion noted in the superior segment of the left lower lobe that was friable. Endobronchial biopsies of a lesion were performed in the superior segment of the left lower lobe using a forceps and sent for histopathology examination. Topical epinephrine total 2mls and topical thrombin was used to achieve hemostasis. There was no active bleeding noted. An endobronchial ultrasound endoscope was utilized in order to assist with fine needle aspiration in the subcarinal area. Transbronchial needle aspirations of a lymph node were performed in the subcarinal area using an Olympus EBUS-TBNA 21 gauge needle and sent for routine cytology. The procedure was guided by ultrasound. Transbronchial needle aspiration technique was selected because the sampling site was not visible endoscopically. Impression: - Mediastinal adenopathy - Paratracheal adenopathy - Abnormal CT scan of chest - An endobronchial biopsy was performed. - Endobronchial ultrasound was performed. - A transbronchial needle aspiration was performed. Recommendation: - Await test results. Procedure Code(s): --- Professional --- 93835, Bronchoscopy, rigid or flexible, including fluoroscopic guidance, when performed; with transbronchial needle aspiration biopsy(s), trachea, main stem and/or lobar bronchus(i) 15440, Bronchoscopy, rigid or flexible, including fluoroscopic guidance, when performed; with transendoscopic endobronchial ultrasound (EBUS) during bronchoscopic diagnostic or therapeutic intervention(s) for peripheral lesion(s) (List separately in addition to code for primary procedure[s]) CPT copyright 2019 [employer]. All rights reserved. The codes documented in this report are preliminary and upon size tester review may be revised to meet current compliance requirements. Angeles Gavin MD 04/02/2021 10:25:08 AM Number of Addenda: 0 Note Initiated On: 04/02/2021 8:57 AM
[2021-04-02 11:42] VITALS: BP 136/62
--- NOTE | 2021-04-02 13:56 | REP ---
INDICATION: MEDIASTINAL LYMPHADENOPATHY AND LEFT HILAR ADENOPATHY. COMPARISON: Comparison chest x-ray December 15, 2018.. TECHNIQUE: Portable upright AP chest radiograph. FINDINGS: Ventriculoperitoneal shunt catheters are again noted. A loop recorder overlies the left heart. The lungs are well inflated and free of infiltrate. There is no evidence of pneumothorax or hydrothorax. Heart is not enlarged. The pleural angles are sharp. Pulmonary vasculature is not increased. IMPRESSION: No acute abnormality. Loop recorder and CENTER MEDICAL DIRECTOR shunt catheter seen. <Electronically signed by Michele Marquez > 04/02/21 [id number]
[2021-04-25] MEDS ORDERED: DEXA1TA PO (09:56)
--- NOTE | 2021-04-25 11:03 | ROOR ---
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 Estimated blood loss: Minimal Procedure: Pre-Anesthesia Assessment: - Prior to the procedure, a History and Physical was performed, and patient medications and allergies were reviewed. The patient's tolerance of previous anesthesia was also reviewed. The risks and benefits of the procedure and the sedation options and risks were discussed with the patient. All questions were answered, and informed consent was obtained. Prior Anticoagulants: The patient has taken aspirin, last dose was day of procedure. ASA Grade Assessment: III - A patient with severe systemic disease. After reviewing the risks and benefits, the patient was deemed in satisfactory condition to undergo the procedure. - Patient identification and proposed procedure were verified prior to the procedure by the physician, the nurse, the anesthesiologist, the glass belt sander and the medic technician. The procedure was verified in the procedure room. The Bronchoscope was introduced through the mouth, via the endotracheal tube (the patient was intubated for the procedure) and advanced to the tracheobronchial tree of both lungs. The procedure was accomplished without difficulty. The patient tolerated the procedure well. Findings: The trachea is of normal caliber. The marito is mildly splayed. The entire tracheobronchial tree was examined to at least the first subsegmental level. Bronchial mucosa and anatomy are normal; there were few mucoid secretions noted in left bronchial tree. Left upper lobe bronchial mucosa appeared mildly edematous but no clear endobronchial lesions visualized in left upper lobe. There was an obstructing endobronchial lesion noted in the superior segment of the left lower lobe that was friable. Endobronchial biopsies of a lesion were performed in the superior segment of the left lower lobe using a forceps and sent for histopathology examination. Topical epinephrine total 2mls and topical thrombin was used to achieve hemostasis. There was no active bleeding noted. An endobronchial ultrasound endoscope was utilized in order to assist with fine needle aspiration in the subcarinal area. Transbronchial needle aspirations of a lymph node were performed in the subcarinal area using an Olympus EBUS-TBNA 21 gauge needle and sent for routine cytology. The procedure was guided by ultrasound. Transbronchial needle aspiration technique was selected because the sampling site was not visible endoscopically. Impression: - Mediastinal adenopathy - Paratracheal adenopathy - Abnormal CT scan of chest - An endobronchial biopsy was performed. - Endobronchial ultrasound was performed. - A transbronchial needle aspiration was performed. Recommendation: - Await test results. Procedure Code(s): --- Professional --- 39336, Bronchoscopy, rigid or flexible, including fluoroscopic guidance, when performed; with transbronchial needle aspiration biopsy(s), trachea, main stem and/or lobar bronchus(i) 98185, Bronchoscopy, rigid or flexible, including fluoroscopic guidance, when performed; with transendoscopic endobronchial ultrasound (EBUS) during bronchoscopic diagnostic or therapeutic intervention(s) for peripheral lesion(s) (List separately in addition to code for primary procedure[s]) CPT copyright 2019 [employer]. All rights reserved. The codes documented in this report are preliminary and upon travograph operator review may be revised to meet current compliance requirements. Angeles Gavin MD 04/02/2021 10:25:08 AM Number of Addenda: 0 Note Initiated On: 04/02/2021 8:57 AM
--- NOTE | 2021-04-25 11:16 | ROOR ---
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 Estimated blood loss: Minimal Procedure: Pre-Anesthesia Assessment: - Prior to the procedure, a History and Physical was performed, and patient medications and allergies were reviewed. The patient's tolerance of previous anesthesia was also reviewed. The risks and benefits of the procedure and the sedation options and risks were discussed with the patient. All questions were answered, and informed consent was obtained. Prior Anticoagulants: The patient has taken aspirin, last dose was day of procedure. ASA Grade Assessment: III - A patient with severe systemic disease. After reviewing the risks and benefits, the patient was deemed in satisfactory condition to undergo the procedure. - Patient identification and proposed procedure were verified prior to the procedure by the physician, the nurse, the anesthesiologist, the primary care md and the home service technician. The procedure was verified in the procedure room. The Bronchoscope was introduced through the mouth, via the endotracheal tube (the patient was intubated for the procedure) and advanced to the tracheobronchial tree of both lungs. The procedure was accomplished without difficulty. The patient tolerated the procedure well. Findings: The trachea is of normal caliber. The marito is mildly splayed. The entire tracheobronchial tree was examined to at least the first subsegmental level. Bronchial mucosa and anatomy are normal; there were few mucoid secretions noted in left bronchial tree. Left upper lobe bronchial mucosa appeared mildly edematous but no clear endobronchial lesions visualized in left upper lobe. There was an obstructing endobronchial lesion noted in the superior segment of the left lower lobe that was friable. Endobronchial biopsies of a lesion were performed in the superior segment of the left lower lobe using a forceps and sent for histopathology examination. Topical epinephrine total 2mls and topical thrombin was used to achieve hemostasis. There was no active bleeding noted. An endobronchial ultrasound endoscope was utilized in order to assist with fine needle aspiration in the subcarinal area. Transbronchial needle aspirations of a lymph node were performed in the subcarinal area using an Olympus EBUS-TBNA 21 gauge needle and sent for routine cytology. The procedure was guided by ultrasound. Transbronchial needle aspiration technique was selected because the sampling site was not visible endoscopically. Impression: - Mediastinal adenopathy - Paratracheal adenopathy - Abnormal CT scan of chest - An endobronchial biopsy was performed. - Endobronchial ultrasound was performed. - A transbronchial needle aspiration was performed. Recommendation: - Await test results. Procedure Code(s): --- Professional --- 12004, Bronchoscopy, rigid or flexible, including fluoroscopic guidance, when performed; with transbronchial needle aspiration biopsy(s), trachea, main stem and/or lobar bronchus(i) 99303, Bronchoscopy, rigid or flexible, including fluoroscopic guidance, when performed; with transendoscopic endobronchial ultrasound (EBUS) during bronchoscopic diagnostic or therapeutic intervention(s) for peripheral lesion(s) (List separately in addition to code for primary procedure[s]) CPT copyright 2019 [employer]. All rights reserved. The codes documented in this report are preliminary and upon manager commission review may be revised to meet current compliance requirements. Angeles Gavin MD 04/02/2021 10:25:08 AM Number of Addenda: 0 Note Initiated On: 04/02/2021 8:57 AM
== END 2021-04-02 11:45 | disposition home or self-care (01) ==
LOC: M SDC 08:10
PROVIDERS: ATTEND Internal Medicine Pulmonary Disease
DX: C77.1 Secondary and unspecified malignant neoplasm of intrathoracic lymph nodes (principal); C71.9 Malignant neoplasm of brain, unspecified; C34.32 Malignant neoplasm of lower lobe, left bronchus or lung; K21.9 Gastro-esophageal reflux disease without esophagitis; J44.9 Chronic obstructive pulmonary disease, unspecified; E11.9 Type 2 diabetes mellitus without complications; E03.9 Hypothyroidism, unspecified; Z79.82 Long term (current) use of aspirin; Z79.899 Other long term (current) drug therapy; I11.9 Hypertensive heart disease without heart failure; Z88.0 Allergy status to penicillin; Z88.2 Allergy status to sulfonamides; Z87.891 Personal history of nicotine dependence; D64.9 Anemia, unspecified; I08.9 Rheumatic multiple valve disease, unspecified; I77.810 Thoracic aortic ectasia; I63.319 Cerebral infarction due to thrombosis of unspecified middle cerebral artery; F32.9 Major depressive disorder, single episode, unspecified; F41.9 Anxiety disorder, unspecified; Z86.73 Personal history of transient ischemic attack (TIA), and cerebral infarction without residual deficits; F17.218 Nicotine dependence, cigarettes, with other nicotine-induced disorders; Q21.1 Atrial septal defect; R94.31 Abnormal electrocardiogram [ECG] [EKG]
CPT/HCPCS: 31625; 31652; 31654; 36415; 71045; 76000; 85027; 86850; 86900; 86901; 88173; 88305; 88341; 88342; J1100; J2250; J2405; J3010

== ENCOUNTER → 2021-04-09 | Outpatient (CLI) | payer MEDICARE, MEDICAID ==
[~2021-04-09] MED LIST changes: -ALBUTEROL SULFATE 2.5 MG/0.5 ML INH NEB SOLN INH ONE; +LIDOCAINE 1% MDV 20ML VIAL As Ordered ONE; -LIDOCAINE 4% INJ 5ML AMP INH ONE; -LR 1,000 ML IV ONE; +SODIUM BICARBONATE 8.4% INJ 50MEQ 50 ML VIAL As Ordered ONE
[2021-04-09 09:40] VITALS: BP 110/62
--- NOTE | 2021-04-09 11:07 | REP ---
INDICATION: BRAIN METS. COMPARISON: None. TECHNIQUE: The procedure was performed by MARIELLA Cerna, under the direct supervision of Dr. Marquez. The risks and benefits of the procedure were explained to the patient and an informed consent was obtained both verbally and written. Directly prior to the start of the procedure a formal time-out was completed in the procedure room. FINDINGS: Using ultrasound guidance the left pectoralis mass was localized. The skin was prepped and draped in a sterile fashion. Ten mL of buffered lidocaine was used as a local anesthetic. Using ultrasound guidance a 17/18 gauge coaxial needle biopsy system was inserted and advanced into the left pectoralis mass. Six core biopsy specimens were obtained and sent to pathology for further analysis. The needle was removed, hemostasis was achieved and a sterile dressing was applied the area. The patient tolerated the procedure well and there were no immediate complications. After the appropriate amount of monitored convalescence the patient was discharged from the department. IMPRESSION: 1. Ultrasound-guided left pectoralis mass biopsy. <Electronically signed by Geri Pascual > 04/09/21 1022 <Electronically signed by Michele Marquez > 04/09/21 1103
== END ==
LOC: M IRPRO 08:20
PROVIDERS: ATTEND Internal Medicine Hematology & Oncology
DX: C44.529 Squamous cell carcinoma of skin of other part of trunk (principal)

== ENCOUNTER → 2021-04-10 | Outpatient (REF) | payer MEDICARE, MEDICAID ==
[~2021-04-10] MED LIST changes: -LIDOCAINE 1% MDV 20ML VIAL As Ordered ONE; -SODIUM BICARBONATE 8.4% INJ 50MEQ 50 ML VIAL As Ordered ONE
[2021-04-10 19:34] LABS: BASO % 0.4 % (0.0-1.0); EOS % 0.7 % (0.0-3.0); HEMATOCRIT 27.4 % (36.0-47.0); HEMOGLOBIN 7.9 g/dl (12.0-15.5); LYMPH # 1.1 10^3/uL (1.5-5.0); LYMPH % 19.4 % (24.0-44.0); MEAN CORPUSCULAR HEMOGLOBIN 28.9 pg (27.0-33.0); MEAN CORPUSCULAR HGB CONC 28.8 g/dl (32.0-36.5); MEAN CORPUSCULAR VOLUME 100.4 fl (80.0-96.0); MONO # 0.5 10^3/uL (0.0-0.8); MONO % 8.6 % (2.0-8.0); NEUTROPHILS # 3.9 10^3/uL (1.5-8.5); NEUTROPHILS % 70.5 % (36.0-66.0); PLATELET COUNT, AUTOMATED 164 10^3/uL (150-450); RED BLOOD COUNT 2.73 10^6/uL (4.00-5.40); WHITE BLOOD COUNT 5.5 10^3/uL (4.0-10.0)
== END ==
LOC: M SHH 19:02 → M LAB REF 19:02
PROVIDERS: ATTEND Internal Medicine Hematology & Oncology
DX: C79.31 Secondary malignant neoplasm of brain (principal); I63.39 Cerebral infarction due to thrombosis of other cerebral artery; G91.9 Hydrocephalus, unspecified; G40.109 Localization-related (focal) (partial) symptomatic epilepsy and epileptic syndromes with simple partial seizures, not intractable, without status epilepticus

== ENCOUNTER → 2021-04-18 | Outpatient (REF) | payer MEDICARE, MEDICAID ==
[2021-04-18 12:39] LABS: PERCENT SATURATION 5.2 % (13.2-45.0)
[2021-04-18 12:41] LABS: TOTAL 25(OH) VITAMIN D 28.9 NG/ML (30.0-100.0)
== END ==
LOC: M LAB REF 11:29
PROVIDERS: ATTEND Internal Medicine Hematology & Oncology
DX: I63.139 Cerebral infarction due to embolism of unspecified carotid artery (principal); G91.9 Hydrocephalus, unspecified; G40.109 Localization-related (focal) (partial) symptomatic epilepsy and epileptic syndromes with simple partial seizures, not intractable, without status epilepticus; C79.31 Secondary malignant neoplasm of brain

== ENCOUNTER → 2021-04-24 | Outpatient (REF) | payer MEDICARE, MEDICAID ==
[2021-04-24 15:41] LABS: BASO % 0.7 % (0.0-1.0); EOS % 0.7 % (0.0-3.0); HEMATOCRIT 25.6 % (36.0-47.0); HEMOGLOBIN 7.3 g/dl (12.0-15.5); LYMPH # 0.7 10^3/uL (1.5-5.0); LYMPH % 11.8 % (24.0-44.0); MEAN CORPUSCULAR HEMOGLOBIN 28.4 pg (27.0-33.0); MEAN CORPUSCULAR HGB CONC 28.5 g/dl (32.0-36.5); MEAN CORPUSCULAR VOLUME 99.6 fl (80.0-96.0); MONO # 0.5 10^3/uL (0.0-0.8); MONO % 8.1 % (2.0-8.0); NEUTROPHILS # 4.7 10^3/uL (1.5-8.5); PLATELET COUNT, AUTOMATED 248 10^3/uL (150-450); RED BLOOD COUNT 2.57 10^6/uL (4.00-5.40)
[2021-04-24 16:09] LABS: ALBUMIN 2.8 GM/DL (3.2-5.2); ALT/SGPT 14 U/L (12-78); BILIRUBIN,TOTAL 0.2 MG/DL (0.2-1.0); BLOOD UREA NITROGEN 17 MG/DL (7-18); CARBON DIOXIDE LEVEL 27 MEQ/L (21-32); CHLORIDE LEVEL 107 MEQ/L (98-107); CREATININE FOR GFR 1.22 MG/DL (0.55-1.30); GLOMERULAR FILTRATION RATE 47.2 (>45); GLUCOSE, FASTING 219 MG/DL (70-100); POTASSIUM SERUM 4.4 MEQ/L (3.5-5.1); SODIUM LEVEL 138 MEQ/L (136-145); TOTAL PROTEIN 6.5 GM/DL (6.4-8.2)
[2021-04-24 17:13] LABS: VITAMIN B12 LEVEL > 2000 PG/ML (247-911)
== END ==
LOC: M SHH 15:12
PROVIDERS: ATTEND Internal Medicine Hematology & Oncology
DX: E87.8 Other disorders of electrolyte and fluid balance, not elsewhere classified (principal)

== ENCOUNTER → 2021-05-05 | Outpatient (REF) | payer MEDICARE, MEDICAID ==
[2021-05-05 16:16] LABS: BASO # 0.1 10^3/uL (0.0-0.2); BASO % 0.8 % (0.0-1.0); EOS # 0.1 10^3/uL (0.0-0.5); EOS % 0.9 % (0.0-3.0); HEMATOCRIT 31.4 % (36.0-47.0); HEMOGLOBIN 9.4 g/dl (12.0-15.5); LYMPH # 0.5 10^3/uL (1.5-5.0); LYMPH % 3.9 % (24.0-44.0); MEAN CORPUSCULAR HEMOGLOBIN 29.1 pg (27.0-33.0); MEAN CORPUSCULAR HGB CONC 29.9 g/dl (32.0-36.5); MEAN CORPUSCULAR VOLUME 97.2 fl (80.0-96.0); MONO # 0.3 10^3/uL (0.0-0.8); NEUTROPHILS # 10.8 10^3/uL (1.5-8.5); NEUTROPHILS % 78.7 % (36.0-66.0); PLATELET COUNT, AUTOMATED 104 10^3/uL (150-450); RED BLOOD COUNT 3.23 10^6/uL (4.00-5.40); WHITE BLOOD COUNT 13.8 10^3/uL (4.0-10.0)
== END ==
LOC: M SHH 15:43
PROVIDERS: ATTEND Internal Medicine Hematology & Oncology
DX: C79.31 Secondary malignant neoplasm of brain (principal); I63.139 Cerebral infarction due to embolism of unspecified carotid artery; G91.9 Hydrocephalus, unspecified; G40.109 Localization-related (focal) (partial) symptomatic epilepsy and epileptic syndromes with simple partial seizures, not intractable, without status epilepticus; D64.81 Anemia due to antineoplastic chemotherapy

== ENCOUNTER → 2021-05-12 | Outpatient (REF) | payer MEDICARE, MEDICAID ==
[~2021-05-12] MED LIST changes: +ACET-841 PO; -LISI2.5T2 GT; -LISI2.5T2 PO; +LISI2.5T9 GT; +LISI2.5T9 PO; +MEDI1GEL5 TOP; +NEUR100C PO; +VALA1TAB5 PO
== END ==
LOC: M LAB REF 13:00
PROVIDERS: ATTEND Internal Medicine Hematology & Oncology
DX: C79.31 Secondary malignant neoplasm of brain (principal); I63.139 Cerebral infarction due to embolism of unspecified carotid artery; G91.9 Hydrocephalus, unspecified; G40.109 Localization-related (focal) (partial) symptomatic epilepsy and epileptic syndromes with simple partial seizures, not intractable, without status epilepticus; E53.8 Deficiency of other specified B group vitamins

== ENCOUNTER → 2021-05-12 | Outpatient (REF) | payer MEDICARE, MEDICAID ==
[~2021-05-12] MED LIST changes: -ACET-841 PO; +LISI2.5T2 GT; +LISI2.5T2 PO; -LISI2.5T9 GT; -LISI2.5T9 PO; -MEDI1GEL5 TOP; -NEUR100C PO; -VALA1TAB5 PO
[2021-05-12 17:58] LABS: BASO # 0.1 10^3/uL (0.0-0.2); BASO % 0.4 % (0.0-1.0); EOS % 0.2 % (0.0-3.0); HEMATOCRIT 31.2 % (36.0-47.0); HEMOGLOBIN 9.1 g/dl (12.0-15.5); LYMPH # 0.6 10^3/uL (1.5-5.0); LYMPH % 4.6 % (24.0-44.0); MEAN CORPUSCULAR HEMOGLOBIN 28.9 pg (27.0-33.0); MEAN CORPUSCULAR HGB CONC 29.2 g/dl (32.0-36.5); MONO # 0.7 10^3/uL (0.0-0.8); MONO % 5.4 % (2.0-8.0); NEUTROPHILS # 10.9 10^3/uL (1.5-8.5); NEUTROPHILS % 84.1 % (36.0-66.0); PLATELET COUNT, AUTOMATED 122 10^3/uL (150-450); RED BLOOD COUNT 3.15 10^6/uL (4.00-5.40); WHITE BLOOD COUNT 12.9 10^3/uL (4.0-10.0)
[2021-05-12 18:32] LABS: ALBUMIN 2.7 GM/DL (3.2-5.2); BILIRUBIN,TOTAL 0.2 MG/DL (0.2-1.0); CALCIUM LEVEL 8.3 MG/DL (8.8-10.2); CREATININE FOR GFR 1.03 MG/DL (0.55-1.30); GLOMERULAR FILTRATION RATE 57.3 (>45); POTASSIUM SERUM 4.3 MEQ/L (3.5-5.1); TOTAL PROTEIN 6.4 GM/DL (6.4-8.2)
== END ==
LOC: M SHH 17:06
PROVIDERS: ATTEND Internal Medicine Hematology & Oncology
DX: D64.81 Anemia due to antineoplastic chemotherapy (principal); E87.8 Other disorders of electrolyte and fluid balance, not elsewhere classified; C79.31 Secondary malignant neoplasm of brain; I63.139 Cerebral infarction due to embolism of unspecified carotid artery; G91.9 Hydrocephalus, unspecified; G40.109 Localization-related (focal) (partial) symptomatic epilepsy and epileptic syndromes with simple partial seizures, not intractable, without status epilepticus

== ENCOUNTER → 2021-05-16 | Outpatient (CLI) | payer MEDICARE, MEDICAID ==
[~2021-05-16] MED LIST changes: -LISI2.5T2 GT; -LISI2.5T2 PO; +LISI2.5T9 GT; +LISI2.5T9 PO; +MEDI1GEL5 TOP
== END ==
LOC: M LABSMTC 14:22
PROVIDERS: ATTEND Pediatrics
DX: Z20.822 Contact with and (suspected) exposure to COVID-19 (principal)
CPT/HCPCS: C9803; U0003

== ENCOUNTER → 2021-05-20 | Outpatient (REF) | payer MEDICARE, MEDICAID ==
[~2021-05-20] MED LIST changes: -MEDI1GEL5 TOP
[2021-05-20 14:01] LABS: BASO % 0.2 % (0.0-1.0); EOS % 0.1 % (0.0-3.0); HEMATOCRIT 29.7 % (36.0-47.0); HEMOGLOBIN 8.7 g/dl (12.0-15.5); LYMPH # 0.4 10^3/uL (1.5-5.0); LYMPH % 3.1 % (24.0-44.0); MEAN CORPUSCULAR HGB CONC 29.3 g/dl (32.0-36.5); MEAN CORPUSCULAR VOLUME 102.4 fl (80.0-96.0); MONO # 0.4 10^3/uL (0.0-0.8); MONO % 3.1 % (2.0-8.0); NEUTROPHILS # 10.7 10^3/uL (1.5-8.5); NEUTROPHILS % 92.5 % (36.0-66.0); PLATELET COUNT, AUTOMATED 151 10^3/uL (150-450); WHITE BLOOD COUNT 11.5 10^3/uL (4.0-10.0)
[2021-05-20 14:33] LABS: BILIRUBIN,TOTAL 0.2 MG/DL (0.2-1.0); CREATININE FOR GFR 1.15 MG/DL (0.55-1.30); GLOMERULAR FILTRATION RATE 50.4 (>45); POTASSIUM SERUM 3.6 MEQ/L (3.5-5.1); TOTAL PROTEIN 6.7 GM/DL (6.4-8.2)
== END ==
LOC: M SHH 13:02
PROVIDERS: ATTEND Internal Medicine Hematology & Oncology
DX: C79.31 Secondary malignant neoplasm of brain (principal); I63.139 Cerebral infarction due to embolism of unspecified carotid artery; G91.9 Hydrocephalus, unspecified; G40.109 Localization-related (focal) (partial) symptomatic epilepsy and epileptic syndromes with simple partial seizures, not intractable, without status epilepticus

== ENCOUNTER → 2021-05-26 | Outpatient (CLI) | payer MEDICARE, MEDICAID ==
[~2021-05-26] MED LIST changes: +ISOVUE-370 76% 100ML VIAL As Ordered ONE; +MEDI1GEL5 TOP
--- NOTE | 2021-05-26 12:50 | REPVR ---
PROCEDURE INFORMATION: Exam: CT Head Without And With Contrast Exam date and time: 05/26/2021 12:30 PM Age: 66 years old Clinical indication: Condition or disease; History of cancer (specify primary cancer site): ; Primary cancer: Lung; Additional info: Brain mets from lung CA, surveillance *lab 1, CT 2 TECHNIQUE: Imaging protocol: Computed tomography of the head without and with intravenous contrast. Radiation optimization: All CT scans at this facility use at least one of these dose optimization techniques: automated exposure control; mA and/or kV adjustment per patient size (includes targeted exams where dose is matched to clinical indication); or iterative reconstruction. Contrast material: ISOVUE 370; Contrast volume: 75 ml; Contrast route: INTRAVENOUS (IV); COMPARISON: PET/CT Whole body 03/17/2021 6:00 PM FINDINGS: Brain: Again seen are multiple intracranial metastatic lesions. There is decreased size and edema of majority of the lesions. There is interval cystic change in a left frontal periventricular lesion. After contrast, the lesions also show significant decrease in size. For instance left inferior frontal lesion previously measured 1.4 cm and currently 1 cm, left and midline cerebellar lesion previously measured 2.7 cm and currently 1.5 cm, and right superior posterior frontal lesion previously measured 2.9 cm and currently 1.3 cm. . There is also decreased enhancement of lesions. Several of the lesions are no longer well visualized. Cerebral ventricles: No ventriculomegaly. Paranasal sinuses: Visualized sinuses are unremarkable. No fluid levels. Mastoid air cells: There is left mastoid effusion. Bones/joints: There is absence of anterior nasal septum. There are postoperative changes with bilateral frontal craniotomies and plate and screws along superior orbital azevedo and midline frontal bone. Soft tissues: Unremarkable. IMPRESSION: Study again demonstrates multiple metastatic lesions to brain but there is decreased size, surrounding edema, and contrast enhancement of lesions. Electronically signed by: Lillie Gardner On 05/26/2021 12:50:02 PM
[2021-05-26 12:51] LABS: ALBUMIN 3.1 GM/DL (3.2-5.2); ALT/SGPT 63 U/L (12-78); BILIRUBIN,TOTAL 0.4 MG/DL (0.2-1.0); BLOOD UREA NITROGEN 16 MG/DL (7-18); CALCIUM LEVEL 8.2 MG/DL (8.8-10.2); CARBON DIOXIDE LEVEL 24 MEQ/L (21-32); CHLORIDE LEVEL 115 MEQ/L (98-107); CREATININE FOR GFR 0.95 MG/DL (0.55-1.30); GLOMERULAR FILTRATION RATE > 60.0 (>45); GLUCOSE, FASTING 150 MG/DL (70-100); POTASSIUM SERUM 4.1 MEQ/L (3.5-5.1); SODIUM LEVEL 142 MEQ/L (136-145); TOTAL PROTEIN 6.1 GM/DL (6.4-8.2)
== END ==
LOC: M RAD 11:33
PROVIDERS: ATTEND General Practice
DX: C79.31 Secondary malignant neoplasm of brain (principal); C34.90 Malignant neoplasm of unspecified part of unspecified bronchus or lung
CPT/HCPCS: 36415; 70470; 80053; Q9967

== ENCOUNTER → 2021-05-28 | Outpatient (CLI) | payer MEDICARE, MEDICAID ==
[~2021-05-28] MED LIST changes: -ISOVUE-370 76% 100ML VIAL As Ordered ONE
--- NOTE | 2021-05-28 16:22 | RADONC ---
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 She underwent WBRT with namenda from 02/24/21- 03/12/21. She is seen today for follow up having started systemic therapy with Dr. Iniguez @ [place]. 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 Non-contrast CT head on 01/24/21 was done per neurosurgeon (Dr. Bruno) to assess her shunt and revealed a 2.6 x 2 cm right frontal lesion, 1.2 x 1 cm left basal ganglia, 1.4 x 1.1 cm left frontal, 1.2 x 1.1 right temporal, and 2.3 x 1.4 cm left cerebellar. She was consulted at [facility] on 02/14/21 and started on decadron with rapid improvement of her left sided weakness. Repeat CT head with contrast on 02/17/21 revealed multiple additional metastases making SRS infeasible. She was started on WBRT 02/24/21 and completed on 03/12/21. She was given namenda in conjunction with this. She had staging PET-CT on 03/17/21 which showed left lung primary cancer and numerous metastatic lesions EBUS biopsy for tissue diagnosis on 04/02/21 showed SCC PDL1<1% She started systemic therapy with Dr. Iniguez (chemoimmunotherapy) in April 2021 with plan for restaging body scans in July 2021. Recent data: 05/26/21 CT head with contrast IMPRESSION: Study again demonstrates multiple metastatic lesions to brain but there is decreased size, surrounding edema, and contrast enhancement of lesions. Interval History Here with her daughter and granddaughter. She is tolerating systemic therapy well. Appetite remains poor but she is doing supplemental shakes/boost with stable weight. Bernarda reports that her strength is greatly improved, she is fully ambulatory now. She has no pain to speak of. She is on 2 mg daily decadron. Daughter is concerned about a small wound on the left temporal scalp since WBRT. Current Therapy Chemoimmunotherapy (Dr. Iniguez) Stage NSCLC stage IV Social History: Current 1/2 ppd smoker 50 pack year history Does not drink Allergies / Meds Allergies: Coded Allergies: Penicillins (Verified Allergy, Mild, RASH, 05/28/21) Sulfa (Sulfonamide Antibiotics) (Verified Allergy, Mild, RASH, 05/28/21) Home Meds Active Scripts Honey (Medihoney) 15 Ml Gel..ml., 1 GEL TOP BID, #15 ML 1 Refill Apply a small amount to scalp wound twice daily and cover with non-occlusive dressing until healed. Prov:REBEKAH LUCIANO MD 05/28/21 Dexamethasone (Dexamethasone) 1 Mg Tablet, 2 TAB PO DAILY, #60 TAB Prov:REBEKAH LUCIANO MD 04/25/21 Oxycodone HCl/Acetaminophen (Oxycodone-Acetaminophen 5-325) 1 Each Tablet, 1 TAB PO QIDP PRN for pain MDD 4 Tablet(s) for 5 Days, #20 TAB Prov:KO NEELY MDFRCP 03/24/21 Lorazepam (Ativan) 1 Mg Tablet, 1 TAB PO DAILYPRN PRN for SEIZURES MDD 1 tab, #5 TAB Prov:REBEKAH LUCIANO MD 03/13/21 Reported Medications Omeprazole (Omeprazole) 40 Mg Capsule.dr, 40 MG PO DAILY, CAP 04/01/21 Aspirin (Aspirin EC) 81 Mg Tablet.dr, 81 MG PO DAILY, TAB 04/01/21 Tiotropium Harned (Spiriva) 18 Mcg Cap.w.dev, 1 CAP INH DAILY for 30 Days, #30 CAP 03/24/21 Budesonide/Formoterol (Symbicort 80-4.5 Mcg Inhaler) 6.9 Gm Hfa.aer.ad, 2 PUFFS INH BID 03/24/21 Cyanocobalamin (Vitamin B-12) (Vitamin B-12) 1,000 Mcg Tab, 1000 MCG PO DAILY, TAB 12/01/16 Nortriptyline HCl (Nortriptyline HCl) 10 Mg Cap, 20 MG PO QHS, CAP 12/01/16 Levothyroxine Sodium (Levoxyl) 88 Mcg Tab, 88 MCG PO DAILY, TAB 12/01/16 Topiramate (Topamax) 100 Mg Tab, 150 MG PO BID, TAB 05/19/16 Atorvastatin Calcium (Lipitor) 10 Mg Tab, 10 MG PO DAILY, TAB 8/9/16 Sitagliptin Phosphate (Januvia) 100 Mg Tab, 100 MG PO DAILY, TAB 05/19/16 Albuterol Sulfate (Proair Hfa) 108 Mcg/Act Aer, 2 PUFFS INH Q4HP PRN for SHORTNESS OF BREATH, AER 12/27/14 Paroxetine HCl (Paxil) 40 Mg Tab, 40 MG PO DAILY, TAB 12/27/14 Bisoprolol Fumarate (Bisoprolol Fumarate) 5 Mg Tab, 5 MG PO DAILY, TAB 12/27/14 Discontinued Scripts Memantine HCl (Memantine HCl) 10 Mg Tablet, 1 TAB PO BID, #60 TAB 5 Refills Begin 10 mg twice daily dose upon completion of titration pack. Prov:REBEKAH LUCIANO MD 02/18/21 Doxycycline Hyclate (Doxycycline Hyclate) 100 Mg Tab, 100 MG PO BID, #14 TAB Prov:SP RUIZ PA-C 12/05/16 Review of Systems Review of Systems Constitutional: Denies: Chills, Fever, Weight Loss Eyes: Denies: Pain HEENT: Denies: Head Aches Skin: Denies: Rash Pulmonary: Denies: Dyspnea, Cough Cardiovascular: Denies: Chest Pain Gastrointestinal: Denies: Vomiting, Abdominal Pain Musculoskeletal: Denies: Neck pain, Back pain Neurological: Denies: Weakness, Numbness Psych: Reports: Mood Normal Physical Examination Vital Signs Wt 132 lbs T 96.4 P 71 RR 18 BP 123/53 O2 98% Pain 0 Fatigue 0 General Exam: Alert, Cooperative, No Acute Distress Eye Exam: PERRLA, EOMI Neck Exam: Supple Chest Exam: Clear to auscultation, Normal air movement Heart Exam: Rate Normal, Regular Rhythm Abdomen Exam: Soft Extremity Exam: Negative: Edema Skin Exam: Other skin issue (Left temporal scalp 0.2 cm with small superficial ulcer black, no purulence or drainage. ) Neuro Exam: Normal Gait, Normal Speech, Normal Tone, Cranial Nerves 3-12 NL, Reflexes 2+, Other (Strength 5/5 throughout BL UE and LE with exception of left hip flexion which is 4/5) Psych Exam: Mental status NL, Mood NL Diagnostic and Laboratory Diagnostic Review Radiologic images, relevant labs and pathology reports were personally reviewed and discussed with Ms. Murdock. Assessment and Plan Impression Assessment Ms. 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 She underwent WBRT with namenda from 02/24/21-03/12/21. She is seen today for follow up having started systemic therapy with Dr. Iniguez @ [place]. She is doing remarkably well. Strength and conditioning have returned and she is fully ambulatory. She is tolerating systemic therapy. Plans to restage mid-July. With respect to her CT head there has been significant improvement in all of her visible lesions. We will continue surveillance next in 3 months time. With respect to her decadron, it is time to attempt a taper to off. She will take 1 mg daily starting tomorrow for 10 days, then stop. The small ulcer on the left scalp appears to be healing spontaneously, to aid this I recommend medihoney BID and a non-occlusive gauze covering until healed. She has discontinued namenda, which is fine. Performance Status ECOG [address] head Taper decadron 1 mg daily x 10 days then off Ms. Murdock was encouraged to call with questions or concerns in the interim period. Billing Statement Total time of [27] minutes was spent preparing for the visit [2], obtaining HPI [4], examining the patient [4], reviewing diagnostic tests [4], discussing management options [4], coordinating care [2], and writing this note [7]. REBEKAH LUCIANO MD May 28, 2021 16:22
== END ==
LOC: M ONCR 14:59
PROVIDERS: ATTEND General Practice
DX: C79.31 Secondary malignant neoplasm of brain (principal); C34.92 Malignant neoplasm of unspecified part of left bronchus or lung; G40.909 Epilepsy, unspecified, not intractable, without status epilepticus; G43.909 Migraine, unspecified, not intractable, without status migrainosus; F17.210 Nicotine dependence, cigarettes, uncomplicated; Z79.82 Long term (current) use of aspirin; Z79.899 Other long term (current) drug therapy; Z86.73 Personal history of transient ischemic attack (TIA), and cerebral infarction without residual deficits; Z88.0 Allergy status to penicillin; Z88.2 Allergy status to sulfonamides; Z92.3 Personal history of irradiation

== ENCOUNTER → 2021-05-30 | Outpatient (REF) | payer MEDICARE, MEDICAID ==
[2021-05-30 12:41] LABS: BASO # 0.1 10^3/uL (0.0-0.2); BASO % 0.5 % (0.0-1.0); EOS # 0.1 10^3/uL (0.0-0.5); EOS % 0.7 % (0.0-3.0); HEMATOCRIT 25.8 % (36.0-47.0); HEMOGLOBIN 7.7 g/dl (12.0-15.5); LYMPH # 1.1 10^3/uL (1.5-5.0); LYMPH % 9.8 % (24.0-44.0); MEAN CORPUSCULAR HEMOGLOBIN 30.1 pg (27.0-33.0); MEAN CORPUSCULAR HGB CONC 29.8 g/dl (32.0-36.5); MEAN CORPUSCULAR VOLUME 100.8 fl (80.0-96.0); MONO # 1.1 10^3/uL (0.0-0.8); MONO % 9.6 % (2.0-8.0); NEUTROPHILS # 8.7 10^3/uL (1.5-8.5); NEUTROPHILS % 77.2 % (36.0-66.0); RED BLOOD COUNT 2.56 10^6/uL (4.00-5.40); WHITE BLOOD COUNT 11.3 10^3/uL (4.0-10.0)
[2021-05-30 13:16] LABS: PLATELET COUNT, AUTOMATED 47 10^3/uL (150-450)
== END ==
LOC: M LABDRWAD 11:55
PROVIDERS: ATTEND Internal Medicine Hematology & Oncology
DX: D64.81 Anemia due to antineoplastic chemotherapy (principal)

== ENCOUNTER → 2021-06-06 | Outpatient (CLI) | payer MEDICARE, MEDICAID | LOC: M LABSMTC 09:23 | PROVIDERS: ATTEND Anesthesiology | DX: Z01.812 Encounter for preprocedural laboratory examination (principal) ==

== ENCOUNTER → 2021-06-10 | Outpatient (CLI) | payer MEDICARE, MEDICAID ==
[~2021-06-10] MED LIST changes: +ACET-841 PO; +NEUR100C PO; +VALA1TAB5 PO
== END ==
LOC: M WUC 13:52
PROVIDERS: ATTEND Internal Medicine Hematology & Oncology
DX: C34.90 Malignant neoplasm of unspecified part of unspecified bronchus or lung (principal); C79.31 Secondary malignant neoplasm of brain; I63.39 Cerebral infarction due to thrombosis of other cerebral artery; G91.9 Hydrocephalus, unspecified; G40.109 Localization-related (focal) (partial) symptomatic epilepsy and epileptic syndromes with simple partial seizures, not intractable, without status epilepticus

== ENCOUNTER 2021-06-11 09:52 | Day surgery (SDC) | payer MEDICARE, MEDICAID ==
[~2021-06-11] VITALS: Ht 147.3 cm; Wt 57.8 kg
[~2021-06-11 09:52] MED LIST changes: -ACET-841 PO; +LR 1,000 ML IV ONE; -NEUR100C PO; -VALA1TAB5 PO; +VANCOMYCIN HCL 1,000 MG, VIAL MATE ADAPTER 1 EACH in NS 250 ML IV ONE
[2021-06-11] MEDS ORDERED: VANCOMYCIN 1000MG/20ML VIAL As Ordered ONE (10:19)
[2021-06-11] MEDS ORDERED: ONDANSETRON 4MG/2ML VIAL As Ordered ONE (10:20)
[2021-06-11] MEDS ORDERED: LIDOCAINE 2% 100MG/5ML SDV (FOR ANES.) As Ordered ONE (10:20)
[2021-06-11] MEDS ORDERED: propofoL 200 MG/20 ML VIAL As Ordered ONE (10:20)
[2021-06-11] MEDS ORDERED: MIDAZOLAM INJ 2MG/2ML VIAL (J2250 PER 1MG) As Ordered ONE (10:21)
[2021-06-11] MEDS ORDERED: fentaNYL 100 MCG/2 ML INJECTION (J3010) As Ordered ONE (10:21)
[2021-06-11] MEDS ORDERED: LIDOCAINE 1% SDV 30ML VIAL As Ordered ONE (10:33)
[2021-06-11] MEDS ORDERED: HEPARIN SOD (PORCINE) 5000UNITS/ML 1ML VIAL/SYRINGE As Ordered ONE (10:33)
[2021-06-11] MEDS ORDERED: ACETAMINOPHEN 1000MG 100ML IV BTL (OFIRMEV) (J0131 PER 10MG) As Ordered ONE (13:15)
[2021-06-11 14:05] VITALS: BP 119/53
--- NOTE | 2021-06-12 04:38 | RO ---
OPERATIVE NOTE DATE OF OPERATION: 06/11/2021 PREOPERATIVE DIAGNOSIS: Metastatic lung cancer in need of venous access for chemotherapy. POSTOPERATIVE DIAGNOSIS: Metastatic lung cancer in need of venous access for chemotherapy. PROCEDURE PERFORMED: Implantation of a right internal jugular vein [id number] with ultrasound and fluoroscopic guidance. The port inserted was a PowerPort ClearVUE implantable port. Reference code [id number] and lot number [id number] SURGEON: Jorge Muñoz MD SERVICES MGR: ANESTHESIA: Local with 1% Xylocaine with monitored anesthesia care. INDICATIONS FOR THE PROCEDURE: The patient is a 66-year-old woman with metastatic lung cancer undergoing chemotherapy. She is now for placement of an [id number]-[id number] for venous access. OPERATIVE PROCEDURE: The patient was brought to the operating room and placed on the table in a supine position. She received sedation from anesthesia. The patient's right upper chest and neck were prepped and draped in a sterile fashion. The ultrasound probe was sterilely draped. The right neck was inspected and the internal jugular vein was of good caliber and easily identified. The patient was tilted into a slight Trendelenburg position. Local anesthesia was infiltrated over the vein; and using ultrasound guidance, an 18 gauge needle was inserted into the internal jugular vein without difficulty. The guidewire was passed. A skin lanny was made at the wire insertion site. The peel-away sheath was inserted and the 8 Latv[place] catheter was then inserted through the sheath and the sheath was removed. The catheter was inserted to approximately 20 cm. Blood aspirated easily and then flushed with heparinized saline. The catheter was then withdrawn to approximately 13 cm at the skin. The patient was returned to flat position. Fluoroscopy showed the catheter perhaps slightly deep into the right atrium and it was withdrawn to 12 cm at the skin. The patient had two other catheters apparently running down across the right side of the chest. She has a known ventriculoperitoneal shunt running across the right neck and it may be that she has an old shunt still in place as well based on the imaging. A site was selected for the insertion site of the port approximately 4 to 5 cm inferior to the mid clavicle. Local anesthesia was achieved a skin incision was made transversely. A subcutaneous pocket was created for the port. A tunneler was used to tunnel the catheter from the neck incision down to the port site. The port was flushed with heparinized saline. The catheter was then cut to length and attached to the port using the locking ring. The port was placed into the subcutaneous pocket and held in place with two sutures of 3-0 Vicryl. The port was accessed and blood aspirated easily and it was flushed with 20 units per mL heparin solution. After assuring hemostasis, the incisions were closed with buried sutures of 5-0 Vicryl and Steri-Strips. The port was accessed a final time and flushed with 100 units per mL heparin solution. The incisions were dressed with small Tegaderm dressings. The patient tolerated the procedure well without apparent complication. She was transported to advanced recovery in stable condition.
--- NOTE | 2021-06-12 08:13 | REP ---
INDICATION: INFUSAPORT. COMPARISON: None. TECHNIQUE: Intraoperative fluoroscopic imaging using portable C-arm technique FINDINGS: Two fluoroscopic images demonstrate portion of the right hemithorax with suggestion for [id number] extending into the level of the SVC/right atrium. Total fluoroscopic time 4.4 seconds. IMPRESSION: Images from [id number] placement. <Electronically signed by Jose Long > 06/12/21 0803
== END 2021-06-11 14:17 | disposition home or self-care (01) ==
LOC: M SDC 09:52
PROVIDERS: ATTEND Surgery
DX: C34.90 Malignant neoplasm of unspecified part of unspecified bronchus or lung (principal); Z45.2 Encounter for adjustment and management of vascular access device; C79.31 Secondary malignant neoplasm of brain; I11.9 Hypertensive heart disease without heart failure; Q21.1 Atrial septal defect; I77.810 Thoracic aortic ectasia; R94.31 Abnormal electrocardiogram [ECG] [EKG]; J44.9 Chronic obstructive pulmonary disease, unspecified; G40.909 Epilepsy, unspecified, not intractable, without status epilepticus; Z79.01 Long term (current) use of anticoagulants; Z79.82 Long term (current) use of aspirin; Z79.899 Other long term (current) drug therapy; F17.218 Nicotine dependence, cigarettes, with other nicotine-induced disorders; Z88.0 Allergy status to penicillin; Z88.2 Allergy status to sulfonamides
CPT/HCPCS: 36561; 76000; C1788; J0131; J1642; J1644; J2250; J2405; J3010; J3370

== ENCOUNTER → 2021-06-17 | Outpatient (CLI) | payer MEDICARE, MEDICAID ==
[~2021-06-17] MED LIST changes: +ACET-841 PO; -LR 1,000 ML IV ONE; +NEUR100C PO; +VALA1TAB5 PO; -VANCOMYCIN HCL 1,000 MG, VIAL MATE ADAPTER 1 EACH in NS 250 ML IV ONE
[2021-06-17 16:35] LABS: BASO % 0.9 % (0.0-1.0); EOS # 0.1 10^3/uL (0.0-0.5); EOS % 2.7 % (0.0-3.0); HEMATOCRIT 31.6 % (36.0-47.0); HEMOGLOBIN 9.6 g/dl (12.0-15.5); LYMPH # 0.3 10^3/uL (1.5-5.0); LYMPH % 13.5 % (24.0-44.0); MEAN CORPUSCULAR HEMOGLOBIN 31.3 pg (27.0-33.0); MEAN CORPUSCULAR HGB CONC 30.4 g/dl (32.0-36.5); MEAN CORPUSCULAR VOLUME 102.9 fl (80.0-96.0); MONO # 0.1 10^3/uL (0.0-0.8); MONO % 3.1 % (2.0-8.0); NEUTROPHILS # 1.6 10^3/uL (1.5-8.5); NEUTROPHILS % 73.5 % (36.0-66.0); RED BLOOD COUNT 3.07 10^6/uL (4.00-5.40); WHITE BLOOD COUNT 2.2 10^3/uL (4.0-10.0)
[2021-06-17 16:36] LABS: PLATELET COUNT, AUTOMATED 53 10^3/uL (150-450)
== END ==
LOC: M WUC 11:53
PROVIDERS: ATTEND Internal Medicine Hematology & Oncology
DX: C79.31 Secondary malignant neoplasm of brain (principal); G40.109 Localization-related (focal) (partial) symptomatic epilepsy and epileptic syndromes with simple partial seizures, not intractable, without status epilepticus; G91.9 Hydrocephalus, unspecified; I63.139 Cerebral infarction due to embolism of unspecified carotid artery; D64.81 Anemia due to antineoplastic chemotherapy

== ENCOUNTER 2021-06-18 19:18 | Emergency (ER) | payer MEDICARE, MEDICAID ==
[~2021-06-18] VITALS: Ht 149.9 cm; Wt 59.0 kg
[~2021-06-18 19:18] MED LIST changes: -ACET-841 PO; -NEUR100C PO; -VALA1TAB5 PO
[2021-06-18] MEDS ORDERED: ACET-841 PO (19:51)
[2021-06-18] MEDS ORDERED: MEMA10TA19 PO (19:51)
[2021-06-18] MEDS ORDERED: GABAPENTIN 100 MG CAP PO ONE (23:10)
[2021-06-18 23:29] LABS: HEMATOCRIT 30.7 % (36.0-47.0); HEMOGLOBIN 9.6 g/dl (12.0-15.5); MEAN CORPUSCULAR HEMOGLOBIN 31.8 pg (27.0-33.0); MEAN CORPUSCULAR HGB CONC 31.3 g/dl (32.0-36.5); MEAN CORPUSCULAR VOLUME 101.7 fl (80.0-96.0); RED BLOOD COUNT 3.02 10^6/uL (4.00-5.40); WHITE BLOOD COUNT 1.3 10^3/uL (4.0-10.0)
[2021-06-18 23:37] LABS: PLATELET COUNT, AUTOMATED 40 10^3/uL (150-450)
[2021-06-18 23:56] LABS: ERYTHROCYTE SEDIMENTATION RATE 34 mm/hr (0-30)
[2021-06-19] LABS: ALT/SGPT 37 U/L (12-78); BILIRUBIN,TOTAL 0.4 MG/DL (0.2-1.0); BLOOD UREA NITROGEN 13 MG/DL (7-18); C REACTIVE PROTEIN QUANTITATIV 1.79 MG/DL (0.00-0.30); CALCIUM LEVEL 8.7 MG/DL (8.8-10.2); CARBON DIOXIDE LEVEL 26 MEQ/L (21-32); CHLORIDE LEVEL 118 MEQ/L (98-107); CREATININE FOR GFR 0.84 MG/DL (0.55-1.30); GLOMERULAR FILTRATION RATE > 60.0 (>45); GLUCOSE, FASTING 110 MG/DL (70-100); POTASSIUM SERUM 4.1 MEQ/L (3.5-5.1); SODIUM LEVEL 144 MEQ/L (136-145); TOTAL PROTEIN 6.4 GM/DL (6.4-8.2)
[2021-06-19 00:12] LABS: EOSINOPHILS 4 % (0-3); LYMPHOCYTES 45 % (16-44); MONOCYTES 9 % (0-5); NEUTROPHILS 42 % (28-66); PLATELET ESTIMATE MARKED DECREASE (NORMAL)
[2021-06-19 00:16] LABS: ANISOCYTOSIS 2+
[2021-06-19 00:19] LABS: GIANT PLATELETS 1+
[2021-06-19 01:00] VITALS: BP 140/67
[2021-06-19] MEDS ORDERED: valACYclovir HCL 500 MG TAB PO ONE (01:10)
[2021-06-19] MEDS ORDERED: VALA1TAB5 PO (01:15)
[2021-06-19] MEDS ORDERED: NEUR100C PO (01:15)
== END 2021-06-19 01:44 | disposition home or self-care (01) ==
LOC: M ED 19:18
DX: B02.9 Zoster without complications (principal); C80.1 Malignant (primary) neoplasm, unspecified; C79.31 Secondary malignant neoplasm of brain; I25.10 Atherosclerotic heart disease of native coronary artery without angina pectoris; I25.2 Old myocardial infarction; E11.9 Type 2 diabetes mellitus without complications; I10 Essential (primary) hypertension; E03.9 Hypothyroidism, unspecified; J44.9 Chronic obstructive pulmonary disease, unspecified; Z86.73 Personal history of transient ischemic attack (TIA), and cerebral infarction without residual deficits; Z88.0 Allergy status to penicillin; Z88.2 Allergy status to sulfonamides; Z79.899 Other long term (current) drug therapy; Z79.82 Long term (current) use of aspirin

== ENCOUNTER → 2021-06-24 | Outpatient (CLI) | payer MEDICARE, MEDICAID ==
[~2021-06-24] MED LIST changes: +ACET-841 PO; +NEUR100C PO; +VALA1TAB5 PO
[2021-06-24 12:02] LABS: ALBUMIN 3.3 GM/DL (3.2-5.2); BILIRUBIN,TOTAL 0.2 MG/DL (0.2-1.0); CALCIUM LEVEL 8.3 MG/DL (8.8-10.2); CREATININE FOR GFR 1.04 MG/DL (0.55-1.30); GLOMERULAR FILTRATION RATE 56.6 (>45); POTASSIUM SERUM 3.5 MEQ/L (3.5-5.1); TOTAL PROTEIN 6.8 GM/DL (6.4-8.2)
== END ==
LOC: M WUC 09:37
PROVIDERS: ATTEND Internal Medicine Hematology & Oncology
DX: C79.31 Secondary malignant neoplasm of brain (principal); G40.109 Localization-related (focal) (partial) symptomatic epilepsy and epileptic syndromes with simple partial seizures, not intractable, without status epilepticus; G91.9 Hydrocephalus, unspecified; I63.139 Cerebral infarction due to embolism of unspecified carotid artery

== ENCOUNTER → 2021-06-30 | Outpatient (CLI) | payer MEDICARE, MEDICAID | LOC: M WUC 09:41 | PROVIDERS: ATTEND Internal Medicine Hematology & Oncology | DX: C34.90 Malignant neoplasm of unspecified part of unspecified bronchus or lung (principal) ==

== ENCOUNTER → 2021-07-01 | Outpatient (CLI) | payer MEDICARE, MEDICAID ==
[2021-07-01 16:41] LABS: BASO % 0.2 % (0.0-1.0); HEMATOCRIT 27.9 % (36.0-47.0); HEMOGLOBIN 8.5 g/dl (12.0-15.5); LYMPH # 0.8 10^3/uL (1.5-5.0); LYMPH % 5.8 % (24.0-44.0); MEAN CORPUSCULAR HGB CONC 30.5 g/dl (32.0-36.5); MEAN CORPUSCULAR VOLUME 104.9 fl (80.0-96.0); MONO # 0.7 10^3/uL (0.0-0.8); MONO % 5.3 % (2.0-8.0); NEUTROPHILS # 11.1 10^3/uL (1.5-8.5); NEUTROPHILS % 86.1 % (36.0-66.0); RED BLOOD COUNT 2.66 10^6/uL (4.00-5.40); WHITE BLOOD COUNT 12.9 10^3/uL (4.0-10.0)
[2021-07-01 16:45] LABS: PLATELET COUNT, AUTOMATED 77 10^3/uL (150-450)
== END ==
LOC: M WUC 13:50
PROVIDERS: ATTEND Internal Medicine Hematology & Oncology
DX: D64.81 Anemia due to antineoplastic chemotherapy (principal)

== ENCOUNTER → 2021-07-03 | Outpatient (CLI) | payer MEDICARE, MEDICAID ==
--- NOTE | 2021-07-03 14:54 | REP ---
INDICATION: PAIN. There is a history of metastatic non-small cell lung carcinoma. Patient on chemotherapy. COMPARISON: Comparison chest radiograph April 02, 2021. TECHNIQUE: Nine views including PA chest. Bilateral rib series. FINDINGS: PA chest radiograph shows a loop recorder overlying the enlarged heart on the left side. This is unchanged. There are 2 catheters are coursing along the right anterior chest wall which appear to be ventriculoperitoneal shunt catheters. In addition, there is a right-sided [id number]-[id number] catheter. This is new since the prior chest x-ray and its tip is seen at a level consistent with the internal jugular vein behind the right clavicle. The appearance would suggest that this catheter it has a very short intravascular segment. There is no evidence of pneumothorax or hydrothorax. No pleural effusion is seen. No lung mass lesion is observed. Multiple views of the ribcage bilaterally show no evidence of bony destructive lesion or acute fracture. There is some diffuse osteopenia. IMPRESSION: No bony destructive lesion. Diffuse osteopenia. The patient's [id number]-A-[id number] catheter terminates just behind the right clavicle and the must therefore have a very short intravascular segment. <Electronically signed by Michele Marquez > 07/03/21 4905
== END ==
LOC: M WUC 13:29
PROVIDERS: ATTEND Internal Medicine Hematology & Oncology
DX: C79.31 Secondary malignant neoplasm of brain (principal); I63.139 Cerebral infarction due to embolism of unspecified carotid artery; G91.9 Hydrocephalus, unspecified; G40.109 Localization-related (focal) (partial) symptomatic epilepsy and epileptic syndromes with simple partial seizures, not intractable, without status epilepticus

== ENCOUNTER → 2021-07-08 | Outpatient (CLI) | payer MEDICARE, MEDICAID ==
[2021-07-08 15:58] LABS: BASO # 0.1 10^3/uL (0.0-0.2); BASO % 0.8 % (0.0-1.0); EOS # 0.1 10^3/uL (0.0-0.5); EOS % 0.5 % (0.0-3.0); HEMATOCRIT 24.8 % (36.0-47.0); HEMOGLOBIN 7.5 g/dl (12.0-15.5); LYMPH # 0.7 10^3/uL (1.5-5.0); LYMPH % 6.6 % (24.0-44.0); MEAN CORPUSCULAR HEMOGLOBIN 32.3 pg (27.0-33.0); MEAN CORPUSCULAR HGB CONC 30.2 g/dl (32.0-36.5); MEAN CORPUSCULAR VOLUME 106.9 fl (80.0-96.0); MONO # 0.5 10^3/uL (0.0-0.8); MONO % 4.7 % (2.0-8.0); NEUTROPHILS # 8.6 10^3/uL (1.5-8.5); NEUTROPHILS % 85.3 % (36.0-66.0); RED BLOOD COUNT 2.32 10^6/uL (4.00-5.40); WHITE BLOOD COUNT 10.1 10^3/uL (4.0-10.0)
[2021-07-08 16:15] LABS: PLATELET COUNT, AUTOMATED 38 10^3/uL (150-450)
== END ==
LOC: M WUC 10:26
PROVIDERS: ATTEND Internal Medicine Hematology & Oncology
DX: D64.81 Anemia due to antineoplastic chemotherapy (principal)

== ENCOUNTER → 2021-07-15 | Outpatient (CLI) | payer MEDICARE, MEDICAID ==
[2021-07-15 16:15] LABS: BASO % 0.2 % (0.0-1.0); EOS % 0.1 % (0.0-3.0); HEMATOCRIT 22.3 % (36.0-47.0); LYMPH # 1.6 10^3/uL (1.5-5.0); LYMPH % 9.3 % (24.0-44.0); MEAN CORPUSCULAR HEMOGLOBIN 33.2 pg (27.0-33.0); MEAN CORPUSCULAR HGB CONC 30.9 g/dl (32.0-36.5); MEAN CORPUSCULAR VOLUME 107.2 fl (80.0-96.0); MONO # 1.2 10^3/uL (0.0-0.8); MONO % 7.1 % (2.0-8.0); NEUTROPHILS # 13.2 10^3/uL (1.5-8.5); NEUTROPHILS % 78.9 % (36.0-66.0); RED BLOOD COUNT 2.08 10^6/uL (4.00-5.40); WHITE BLOOD COUNT 16.8 10^3/uL (4.0-10.0)
[2021-07-15 17:20] LABS: HEMOGLOBIN 6.9 g/dl (12.0-15.5); PLATELET COUNT, AUTOMATED 31 10^3/uL (150-450)
== END ==
LOC: M WUC 11:05
PROVIDERS: ATTEND Internal Medicine Hematology & Oncology
DX: D64.81 Anemia due to antineoplastic chemotherapy (principal)

== ENCOUNTER → 2021-07-21 | Outpatient (CLI) | payer MEDICARE, MEDICAID ==
[2021-07-21 16:18] LABS: BASO % 0.1 % (0.0-1.0); HEMATOCRIT 31.7 % (36.0-47.0); HEMOGLOBIN 10.4 g/dl (12.0-15.5); LYMPH # 0.7 10^3/uL (1.5-5.0); LYMPH % 8.5 % (24.0-44.0); MEAN CORPUSCULAR HEMOGLOBIN 32.2 pg (27.0-33.0); MEAN CORPUSCULAR HGB CONC 32.8 g/dl (32.0-36.5); MEAN CORPUSCULAR VOLUME 98.1 fl (80.0-96.0); MONO # 0.8 10^3/uL (0.0-0.8); MONO % 9.3 % (2.0-8.0); NEUTROPHILS # 6.9 10^3/uL (1.5-8.5); NEUTROPHILS % 81.5 % (36.0-66.0); RED BLOOD COUNT 3.23 10^6/uL (4.00-5.40); WHITE BLOOD COUNT 8.5 10^3/uL (4.0-10.0)
[2021-07-21 16:21] LABS: PLATELET COUNT, AUTOMATED 15 10^3/uL (150-450)
== END ==
LOC: M WUC 12:47
PROVIDERS: ATTEND Internal Medicine Hematology & Oncology
DX: D64.81 Anemia due to antineoplastic chemotherapy (principal); C79.31 Secondary malignant neoplasm of brain; G40.109 Localization-related (focal) (partial) symptomatic epilepsy and epileptic syndromes with simple partial seizures, not intractable, without status epilepticus; G91.9 Hydrocephalus, unspecified; I63.139 Cerebral infarction due to embolism of unspecified carotid artery

== ENCOUNTER 2021-07-24 11:12 | Outpatient (CLI) | payer MEDICARE, MEDICAID ==
[2021-07-24] VITALS (7 sets, daily range): BP systolic 106–127; BP diastolic 53–64
[~2021-07-24 11:12] MED LIST changes: +ACETAMINOPHEN 325 MG TAB PO ONE; +diphenhydrAMINE 25MG CAP PO ONE
[2021-07-24] MEDS ORDERED: SODIUM CHLORIDE 0.9% INJ 10 ML SYR IV PRN (13:05)
[2021-07-24 16:54] LABS: PLATELET COUNT, AUTOMATED 22 10^3/uL (150-450)
[2021-07-25] MEDS ORDERED: SODIUM CHLORIDE 0.9% INJ 10 ML SYR IV SCH (09:00)
== END 2021-07-24 15:45 | disposition home or self-care (01) ==
LOC: M INFU 11:12
PROVIDERS: ATTEND Internal Medicine Hematology & Oncology
DX: C80.1 Malignant (primary) neoplasm, unspecified (principal); C79.31 Secondary malignant neoplasm of brain; D64.9 Anemia, unspecified; D69.6 Thrombocytopenia, unspecified; Z88.0 Allergy status to penicillin; Z88.2 Allergy status to sulfonamides
CPT/HCPCS: 36415; 36430; 85027; 85049; 85055; P9034

== ENCOUNTER → 2021-07-28 | Outpatient (CLI) | payer MEDICARE, MEDICAID ==
[~2021-07-28] MED LIST changes: -ACETAMINOPHEN 325 MG TAB PO ONE; -diphenhydrAMINE 25MG CAP PO ONE
[2021-07-28 16:04] LABS: HEMATOCRIT 26.6 % (36.0-47.0); HEMOGLOBIN 8.4 g/dl (12.0-15.5); LYMPH # 0.5 10^3/uL (1.5-5.0); LYMPH % 21.6 % (24.0-44.0); MEAN CORPUSCULAR HEMOGLOBIN 32.1 pg (27.0-33.0); MEAN CORPUSCULAR HGB CONC 31.6 g/dl (32.0-36.5); MEAN CORPUSCULAR VOLUME 101.5 fl (80.0-96.0); MONO # 0.1 10^3/uL (0.0-0.8); MONO % 5.9 % (2.0-8.0); NEUTROPHILS # 1.7 10^3/uL (1.5-8.5); NEUTROPHILS % 72.1 % (36.0-66.0); RED BLOOD COUNT 2.62 10^6/uL (4.00-5.40); WHITE BLOOD COUNT 2.4 10^3/uL (4.0-10.0)
[2021-07-28 16:07] LABS: PLATELET COUNT, AUTOMATED 9 10^3/uL (150-450)
== END ==
LOC: M WUC 11:33
PROVIDERS: ATTEND Internal Medicine Hematology & Oncology
DX: D64.81 Anemia due to antineoplastic chemotherapy (principal); C34.90 Malignant neoplasm of unspecified part of unspecified bronchus or lung